=== PATIENT | male | born 1965 | race Caucasian/White ===

== ENCOUNTER → 2017-09-19 | Day surgery (SDC) | payer OTHER ==
[~2017-09-19] VITALS: Ht 185.4 cm; Wt 139.7 kg
[~2017-09-19] MED LIST: ASPIR 8181 MG PO; ASPIRIN EC81 M1 PO; FLEXERIL10 MG PO; FLUTICASON0.05 MG/A2 NASB; HYZAAR 12.5 MG-1 TA1 PO; LOSARTAN-HCTZ 50-12.; LOSARTAN-HCTZ1 EAC1 PO; MERREM IV1 GM IV; NAPROXEN500 MG PO; PERCOCET 325 MG1 TA2 PO; PERCOCET 5-3251 EACH PO; VITAMIN D1000 UNIT PO
--- NOTE | 2017-09-19 07:10 | History & Physical Pre-Op ---
General Information and HPI History of Present Illness: Tae is a 52-year-old male with a history of a nonhealing ulcer at the lateral aspect of his left foot. The patient has in addition remote history of osteomyelitis involving the distal fifth ray, requiring a partial ray resection. The patient has been undergoing weekly total contact cast changes, without any noted improvement. Patient will now require revision was open wound and resection of the proximal right. Allergies/Medications Allergies: Coded Allergies: No Known Allergies (09/15/17) Home Med list Aspirin (Ecotrin*) 81 MG TABLET.DR 1 TAB PO DAILY HEART/BLOOD (Reported) Cholecalciferol (Vitamin D3) (Vitamin D) (Unknown Strength) TABLET (Unknown Dose) PO DAILY SUPPLEMENT (Reported) Losartan/Hydrochlorothiazide (Losartan-Hctz 50-12.5 MG Tab) 50 MG-12.5 MG TABLET 1 TAB PO DAILY BP (Reported) Past History Medical History Neurological: NONE EENT: NONE Cardiovascular: hypertension Respiratory: NONE Gastrointestinal: NONE Hepatic: NONE Renal: NONE Musculoskeletal: rheumatoid arthritis Psychiatric: NONE Endocrine: NONE Blood Disorders: NONE Cancer(s): NONE History of MRSA: No History of VRE: No History of CDIFF: No Influenza Vaccine: 05/28/14 Tetanus Vaccine: 02/24/14 Surgical History Pertinent Surgical History: non-contributory Review of Systems Review of Systems: Unremarkable except for the noted just was Exam & Diagnostic Data Physical Exam: Lungs clear bilaterally. Heart sounds rate and rhythm regular. Lower extremity physical exam demonstrates intact pedal pulses bilaterally. Pulses dorsalis pedis and posterior tibial arteries are palpable bilaterally. Patient without any sensory motor deficits. Patient to have a 4 cm x 3 cm Guillermo grade 2 ulceration at the lateral aspect of the left foot. There is superficial slough overlying an otherwise granular wound bed. No probing or undermining identified. Assessment/Plan Assessment/Plan: Healing ulcer with exostosis left foot. A lengthy discussion reviewing both surgical and conservative options was held the patient at bedside and the patient elects to go forward with surgery despite the risks. As Ranked By This Provider Problem List: 1. Non-pressure chronic ulcer of left heel and midfoot with fat layer exposed Attending MD Review Statement Attending Statement Attending MD Statement: examined this patient
--- NOTE | 2017-09-19 11:59 | Operative Report ---
Operative/Inv Procedure Report Surgery Date: 09/19/17 Name of Procedure: 1 open incision and drainage deep to the deep fascia with exposure of the flexor tendon and tendon sheath multiple sites left foot 2 closure of open surgical wound with local random advancement flap 3 debridement of necrotic bone fifth metatarsal base left foot 4 intraoperative stress Chris block anesthesia Pre-Operative Diagnosis: 1 chronic, nonhealing ulcer plantar lateral left foot 2 suspected osteomyelitis left foot Post-Operative Diagnosis: The same Estimated Blood Loss: less than 50ml Surgeon/Shelter Monitor: Josue CORDON,Wayne Suh DPM Anesthesia: laryngeal mask airway, block Operative/Procedure Note Note: After obtaining informed consent the patient was brought to the operating room and placed on the operating table in the supine position. The patient isn't securely fastened to the operating table utilizing safety belt. After administration of laryngeal mask airway anesthesia, 10 mL of 0.5% Marcaine plain was infiltrated about the patient's left ankle. The ankle tourniquet was placed about the patient's left lower extremity. The left foot and ankle then scrubbed prepped and draped in usual aseptic manner. Left lower extremity is elevated to exsanguinate the limb, which point the ankle tourniquet inflated 250 mmHg. Attention directed plantar lateral aspect the left foot, where a 4 cm x 6 cm full-thickness chronic was identified. A 15 blade visualized sharply revised skin margins. The dissection was then carried down deep to the deep fascia with exposure of the flexor tendon and tendon sheath multiple sites, both proximally and distally. All necrotic, nonviable infected tissue sharply evacuated wound bed. Dissection was then carried down to the periosteum overlying the base of fifth metatarsal stump was incised reflected. An osteotome and mallet was utilized to resect the proximal 2 cm of centrally exposed bone. Specimen was sent for both microbiologic and pathologic inspection. Nipple was then irrigated with 3 L normal sterile saline fissure 50,000 units of bacitracin utilizing pulse lavage device. Following this, the foot was redraped and the surgeon's top of gestation clean gloves. Any bleeding vessels identified were cauterized or ligated as encountered. A plantar lateral flap was developed with undermining, release of the morning ligaments and mobilization of the adjacent tissues. Similarly, a medial flap was developed and again mobilized central aspect of the wound. The deep side of the flap was held centrally with 3-0 Vicryl. Subtenons tissues report with 4-0 Vicryl and the skin edges reapproximated 3-0 nylon. Incision was dressed with Xeroform 4 x 4's Kerlix and Alessandro wrap. The patient noted tolerate both procedure and anesthesia well and the patient was transported from the operating room to recovery with vital signs stable best assess intact all the plantar lateral posteromedial flaps.
== END ==
LOC: STS 02:17
DX: L97.424 Non-pressure chronic ulcer of left heel and midfoot with necrosis of bone (principal); I10 Essential (primary) hypertension; M06.9 Rheumatoid arthritis, unspecified; Z79.82 Long term (current) use of aspirin
CPT/HCPCS: 87070; 87075; 87184; 87071; 87147; J0690; J2001; J2250

== ENCOUNTER 2017-12-05 12:30 | Inpatient (IN) | payer OTHER ==
[~2017-12-05] VITALS: Ht 185.4 cm; Wt 129.4 kg
[~2017-12-05 12:30] MED LIST changes: +MOBIC15 M1 PO
[2017-12-05] MEDS ORDERED: TRAMADOL HCL50 M1 PO (12:57)
[2017-12-05] MEDS ORDERED: TAMSULOSIN HCL0.4 M1 PO (12:57)
[2017-12-05] MEDS ORDERED: MOBIC15 M1 PO (12:57)
[2017-12-05 13:12] LABS: ABSOLUTE BASOPHIL COUNT 0 /CUMM (0.0-0.2); ABSOLUTE EOSINOPHIL COUNT 0 /CUMM (0.0-0.7); ABSOLUTE GRANULOCYTE CT 26.8 /CUMM (1.4-6.5); ABSOLUTE LYMPH COUNT 1.2 /CUMM (1.2-3.4); ABSOLUTE MONOCYTE COUNT 1.2 /CUMM (0.10-0.60); BASOPHIL % 0.2 % (0.0-2.0); EOSINOPHIL % 0 % (0-5); HEMATOCRIT 37.7 % (42-52); MEAN CORPUSCULAR HGB 31.5 PG (27.0-31.0); MEAN CORPUSCULAR HGB CONC 33.9 G/DL (33.0-37.0); MEAN CORPUSCULAR VOLUME 93.1 FL (80.0-94.0); MEAN PLATELET VOLUME 8.2 FL (7.4-10.4); PLATELET COUNT 486 /CUMM (130-400); RED BLOOD CELL CT 4.05 /CUMM (4.70-6.10); WHITE BLOOD CELL COUNT 29.3 /CUMM (4.8-10.8)
[2017-12-05 13:13] LABS: GRANULOCYTE % 91.4 % (42.2-75.2)
--- NOTE | 2017-12-05 13:29 | ED GENERAL ADULT ---
History of Present Illness General Chief Complaint: General Adult Stated Complaint: SIB DR HOPSON ?LOW BLOOD COUNTS? Source: patient, old records Exam Limitations: poor historian Vital Signs & Intake/Output Vital Signs & Intake/Output Vital Signs Date Time Temp Pulse Resp B/P B/P Pulse O2 O2 Flow FiO2 Mean Ox Delivery Rate 12/10 0936 84 108/70 12/10 0800 98.5 84 22 108/70 93 Nasal 2.0L Cannula 12/10 0400 BIPAP 30% 12/10 0350 70 98 12/10 0046 85 96 12/10 0000 96 BIPAP 30% 12/09 2300 97.9 80 32 112/74 96 Nasal 2.0L Cannula 12/09 2110 86 97 12/09 2006 78 94 12/09 2000 96 BIPAP 35% 12/09 1949 89 BIPAP 50% 12/09 1940 96.6 80 24 120/80 89 BIPAP 50% 12/09 1726 77 93 12/09 1427 98.5 87 20 120/85 93 Room Air ED Intake and Output 12/10 0000 12/09 1200 Intake Total 1910 1760 Output Total 790 350 Balance 1120 1410 Intake, IV 1150 1400 Intake, Oral 760 360 Output, 40 Drainage Output, Urine 750 350 Allergies Coded Allergies: No Known Allergies (09/15/17) Reconcile Medications Aspirin (Ecotrin*) 81 MG TABLET.DR 1 TAB PO DAILY HEART/BLOOD (Reported) Ciprofloxacin HCl 500 MG TABLET 1 TAB PO BID ANTIBIOTIC, INFECTION (Reported) Losartan/Hydrochlorothiazide (Losartan-Hctz 50-12.5 MG Tab) 50 MG-12.5 MG TABLET 1 TAB PO DAILY BP (Reported) Meloxicam (Mobic) 15 MG TABLET 1 TAB PO DAILY PAIN (Reported) Tamsulosin HCl 0.4 MG CAP.ER.24H 1 CAP PO DAILY PROSTATE (Reported) Tramadol HCl 50 MG TABLET 1 TAB PO BIDP PRN PAIN (Reported) Triage Note: PT SENT TO ED BY DR COVINGTON'S OFFICE FOR ELEVATED WBC COUNT. PT HAD BLOOOWORK THIS AM WHICH SHOWED WBC OF 26,000. PT HAS CHRONIC WOUND TO LEFT FOOT WITH FOUL ODOR. BP 72/48 IN TRIAGE, PT TAKEN TO ROOM 7 VIA W/C FOR EVAL. Triage Nurses Notes Reviewed? yes HPI: Patient presents for evaluation of abnormal labs. Patient states he has a left foot infection and had blood tests done which showed something wrong. Patient's current complaint is of back pain that began about 1 week ago. Patient states he had an ultrasound via his primary care physician for the possibility of a kidney stone but apparently none was detected. Patient's back pain does get worse when "getting up". In addition the patient was told he had a fever at his doctor's office today although he denies any associated cold symptoms. Past History Travel History Traveled to [place] past 21 day No Medical History Any Pertinent Medical History? see below for history Neurological: NONE EENT: NONE Cardiovascular: hypertension Respiratory: NONE Gastrointestinal: NONE Hepatic: NONE Renal: NONE Musculoskeletal: rheumatoid arthritis Psychiatric: NONE Endocrine: NONE Blood Disorders: NONE Cancer(s): NONE History of MRSA: No History of VRE: No History of CDIFF: No Tetanus Vaccine: 02/24/14 Surgical History Surgical History: non-contributory Psychosocial History Who do you live with Patient/Self What is your primary language Mongolian Tobacco Use: Never used ETOH Use: denies use Illicit Drug Use: denies illicit drug use Family History Hx Contributory? No Review of Systems Review of Systems Constitutional: Reports: no symptoms. EENTM: Reports: no symptoms. Respiratory: Reports: no symptoms. Cardiovascular: Reports: no symptoms. GI: Reports: no symptoms. Genitourinary: Reports: no symptoms. Musculoskeletal: Reports: see HPI. Skin: Reports: no symptoms. Neurological/Psychological: Reports: no symptoms. Hematologic/Endocrine: Reports: no symptoms. Immunologic/Allergic: Reports: no symptoms. All Other Systems: Reviewed and Negative Physical Exam Physical Exam General Appearance: SEE BELOW Comments: Gen.: Well-nourished, well-developed, no acute respiratory distress. Head: Normocephalic, atraumatic. Eyes: Normal inspection bilaterally Ears: Normal inspection bilaterally Nose: Normal inspection Throat/mouth : Dry mucosa Neck: Supple, full range of motion, no goiter Heart: Rapid Regular rate and rhythm, no murmurs rubs or gallops Lungs: Clear to auscultation bilaterally with normal air entry Chest: Nontender Back: Normal range of motion, mild tenderness over the right lumbar paraspinal musculature Abdomen: Soft, nontender, nondistended, normal bowel sounds Extremities: Normal range of motion grossly, equal radial pulses, no cyanosis clubbing or edema, chronic wound over the dorsum of the left foot laterally Neurologic: Cranial nerves grossly intact, speech is clear Skin: warm and dry Psychiatric: Calm, cooperative, no apparent delusions or hallucinations Core Measures ACS in differential dx? No CVA/TIA Diagnosis: No Sepsis Present: Yes Sepsis Focused Exam Completed? Yes Progress Differential Diagnoses I considered the following diagnoses in my evaluation of the patient: pneumonia, uti,cellulitis,viral syndrome/flu,bacteremia Plan of Care: Orders Procedure Date/time Status CBC WITHOUT DIFFERENTIAL 12/11 0600 Active ICU LAB BUNDLE 12/11 0500 Active CBC WITHOUT DIFFERENTIAL 12/11 0500 Active Consistent Carbohydrate 3 12/10 B Active Transfer Disposition 12/10 1114 Active PHOSPHORUS 12/10 0550 Complete MAGNESIUM 12/10 0550 Complete GLUCOSE 12/10 0550 Complete BASIC ELECTROLYTES PLUS BUN&CR 12/10 0550 Complete BIPAP 12/10 UNK Complete PT Evaluate & Treat 12/10 UNK Active Therapeutic Activities 12/10 UNK Complete PT EVAL LOW COMPLEX 20 MIN 12/10 UNK Complete Transfer patient to 12/10 UNK Active ARTERIAL BLOOD GAS (GEN) 12/09 1920 Complete VRE ACTIVE SURVIELLANCE 12/09 1826 Active ACTIVE SURVEILLANCE NARES 12/09 1826 Active BLOOD CULTURE 12/09 1735 Active BIPAP 12/09 UNK Complete Transfer patient to 12/09 UNK Active Wound Care/Dressing 12/09 UNK Complete Drains/Tubes 12/09 UNK Active Nursing Misc 12/09 UNK Complete Current Medications Sig/Shade Start time Last Medication Dose Stop Time Status Admin Vancomycin HCl 1,000 MG Q8H 12/10 1000 AC Sodium Chloride 250 ML (Normal Saline 0.9%) Dextrose/Sodium 1,000 ML Q13H 12/10 0945 AC Chloride (D5W-1/2 Normal Saline 1000ML) Polyethylene Glycol 17 GM DAILY NEEDED PRN 12/10 0945 AC 12/10 (Miralax) 1105 Piperacillin Sod/ 4.5 GM Q6 12/08 1800 AC 12/10 Tazobactam Sod 1106 (Zosyn) Sodium Chloride 100 ML (Normal Saline 0.9%) Tramadol HCl 25 MG Q6P PRN 12/07 1300 AC 12/10 (Ultram) 0634 Aspirin Buffered 81 MG DAILY 12/06 0900 AC 12/10 (Ecotrin) 0936 Tamsulosin HCl 0.4 MG DAILY 12/06 0900 AC 12/10 (Flomax) 0936 Acetaminophen 1,000 MG Q8P PRN 12/06 0700 AC 12/10 (Tylenol) 0936 Heparin Sodium 5,000 UNIT Q8 12/05 2200 AC 12/10 (Porcine) 0634 Laboratory Tests 12/10/17 0635: Anion Gap 8, Estimated GFR > 60, BUN/Creatinine Ratio 15.0, Glucose 126 H, Phosphorus 4.0, Magnesium 1.6 12/10/17 0440: CBC w Diff NO MAN DIFF REQ, RBC 2.69 L, MCV 95.2 H, MCH 30.7, MCHC 32.3 L, RDW 14.7 H, MPV 8.1, Gran % 79.8 H, Lymphocytes % 11.6 L, Monocytes % 6.7, Eosinophils % 1.9, Basophils % 0, Absolute Granulocytes 10.2 H, Absolute Lymphocytes 1.5, Absolute Monocytes 0.9 H, Absolute Eosinophils 0.2, Absolute Basophils 0 12/09/17 1930: pH 7.45, pCO2 50 H, pO2 198 H, HCO3 34 H, ABG O2 Sat (Measured) 99.0, Carboxyhemoglobin 0.2 L, O2 Concentration % 50%, Respiration Rate 24, O2 Delivery Method BIPAP, Vent Mode S/T, Expiratory Pressure 6, Inspiratory Pressure 22, Phlebotomy Draw Site RIGHT RADIAL Microbiology 12/09 1909 BLOOD: Blood Culture - RES 12/09 1899 BLOOD: Blood Culture - RES 12/09 1829 UPPER RESP: Surveillance Culture - RECD 12/09 1829 GI: Surveillance Culture - RECD Diagnostic Imaging: Discussed w/RAD: Radiology Read. Radiology Impression: PATIENT: TAE MARTELL PRESENT AGE: 52 PATIENT ACCOUNT NO: [id number] : 65 LOCATION: [facility] ORDERING PHYSICIAN: Alexandre Raymundo MD SERVICE DATE: 12/05/17 EXAM TYPE: RAD - XRY-CHEST XRAY, TWO VIEWS EXAMINATION: XR CHEST CLINICAL INFORMATION: Fever, elevated white blood cell count. COMPARISON: 02/19/2016. TECHNIQUE: 2 views of the chest were obtained. FINDINGS: The cardiomediastinal silhouette is stable with prominence of the pulmonary arteries. There is no congestion or edema. Lungs are well expanded. No consolidation or effusion to suggest pneumonia. Degenerative changes in the spine. IMPRESSION: Stable chest x-ray. Question pulmonary arterial hypertension. No focal pneumonia. DICTATED BY: Bam Palumbo MD DATE/TIME DICTATED:12/05/171435 HEALTHCARE PROF:TOM DATE/TIME TRANSCRIBED:12/05/171435 CONFIDENTIAL, DO NOT COPY WITHOUT APPROPRIATE AUTHORIZATION. <Electronically signed in Other Vendor System> SIGNED BY: Bam Palumbo MD 12/05/17 1442, PATIENT: TAE MARTELL PRESENT AGE: 52 PATIENT ACCOUNT NO: [id number] : 65 LOCATION: [facility] ORDERING PHYSICIAN: Alexandre Raymundo MD SERVICE DATE: 12/05/17 EXAM TYPE : RAD - XRY-FOOT COMPLETE, LEFT EXAMINATION: XR FOOT, LEFT CLINICAL INFORMATION: 52-year-old male patient with chronic left foot wound and fever. COMPARISON: MRI of the foot on 08/19/2014. (Osteomyelitis fifth toe). X-ray of the left foot on 04/17/2013 2017. TECHNIQUE: AP, lateral, and oblique views of the left foot. FINDINGS: Reexamination shows a large soft tissue ulcer involving the plantar aspect of the left foot adjacent to the fifth carpal metacarpal joint. The amputation at the mid fifth metatarsal has not changed. Small lines of subcutaneous air are seen near the ulcer site. Immediately adjacent to the deep ulcer, there is cortical bone destruction diagnostic for osteomyelitis of the midfoot. Generalized distortion of the bones of the hindfoot and midfoot is secondary to diabetic neuropathy. IMPRESSION: 1. Chronic diabetic osteoarthropathy/neuropathy. 2. Focal area of bone destruction representing osteomyelitis adjacent to the deep skin ulcer, lateral midfoot. DICTATED BY: Castillo Muhammad MD DATE/TIME DICTATED:12/05/171435 HEALTHCARE PROF: TOM DATE/TIME TRANSCRIBED:12/05/171435 CONFIDENTIAL, DO NOT COPY WITHOUT APPROPRIATE AUTHORIZATION. <Electronically signed in Other Vendor System> SIGNED BY: Castillo Muhammad MD 12/05/17 1452, PATIENT: TAE MARTELL PRESENT AGE: 52 PATIENT ACCOUNT NO: [id number] : LOCATION: [facility] ORDERING PHYSICIAN: Alexandre Raymundo MD SERVICE DATE: EXAM TYPE: CAT - CT LUMB SPINE W IV CONTRAST EXAMINATION: CT LUMBAR SPINE WITH CONTRAST CLINICAL INFORMATION: Spinal abscess. Fever and back pain. COMPARISON: No relevant prior imaging. TECHNIQUE: A CT acquisition of the lumbar spine was performed after the intravenous administration of contrast. A total of 95 mL Optiray 320 was utilized for this examination. No adverse contrast reaction was reported. DLP: 1134 mGy-cm FINDINGS: There is no evidence of a discrete drainable fluid collection. There is grade 1 anterolisthesis of L4 on L5 that appears to be related to advanced facet degenerative changes at this level. Alignment is otherwise normal. Vertebral body heights are preserved. There is slight loss of intervertebral disc height with associated sclerotic degenerative endplate changes and disc osteophyte spurring at multiple levels. No evidence of acute fracture. The canal is not well assessed on this examination due to inherent limitations of CT. Nevertheless there is evidence of degenerative spondylosis superimposed upon underlying congenital canal narrowing at multiple levels within the lumbar spine. There is at least moderate canal stenosis at the levels of L1-L2, L2-L3, L3-L4, and L4-L5. There are varying degrees of neuroforaminal encroachment related to disc osteophyte spurring and facet degenerative change. There is mild inflammatory stranding within the retroperitoneal fat that appears to be associated with a small right anterolateral disc herniation for instance best illustrated on axial image 115 of 457 series 3. There is abutment with associated sclerotic changes of the adjoining spinous processes at multiple levels indicating the likelihood of underlying Baastrup disease. Scattered atheromatous calcification involves the abdominal aorta and iliac vessels. IMPRESSION: There is multilevel degenerative spondylosis of the lumbar spine with grade 1 anterolisthesis of L4 on L5 that appears to be related to advanced facet degenerative changes at this level. There is disc osteophyte spurring and facet degenerative change that is superimposed upon underlying congenital canal narrowing causing at least moderate canal stenosis at the levels of L1-L2, L2-L3, L3-L4, and L4-L5. If there is a clinical concern for canal stenosis then a dedicated lumbar spine MRI is recommended for better anatomic characterization of the canal. No clear evidence of a discrete drainable fluid collection. There is mild inflammatory stranding within the retroperitoneal soft tissues adjacent to what is felt to represent a small right anterolateral disc herniation at L1-L2. DICTATED BY: HyneAyo sanders MD DATE/TIME DICTATED:12/05/171458 HEALTHCARE PROF: TOM DATE/TIME TRANSCRIBED:12/05/171458 CONFIDENTIAL, DO NOT COPY WITHOUT APPROPRIATE AUTHORIZATION. <Electronically signed in Other Vendor System> SIGNED BY: Ayo Meeks MD 12/05/17 1512 Initial ED EKG: none Comments: 12/05/2017 3:55:29 PM I have updated Tae on his test results however we are still awaiting a urine specimen. He is amenable to a straight cath. He is being evaluated by Dr. Salas currently who feels that the patient's chronic left foot wound appears stable and unlikely to be the underlying cause of his fever and white count. Departure Departure Disposition: STILL A PATIENT Condition: Stable Clinical Impression Primary Impression: Sepsis Qualifiers: Sepsis type: sepsis due to unspecified organism Qualified Code: A41.9 - Sepsis, unspecified organism Referrals: Alessandra GRAJEDA,Mariluz (PCP/Family) Departure Forms: Customer Survey General Discharge Information Admission Note Spoke With: Jerardo Eagle MD Documentation of Exam: Documentation of any treatments & extenuating circumstances including Concerns Regarding Discharge (functional status, medication knowledge or non-compliance, living conditions, etc.) that warrant an admission rather than observation: Patient presents with a fever and very high white blood cell count. I do not feel he can be treated safely as an outpatient and would likely return in 4 worse clinical condition. He requires hospitalization for close clinical monitoring of his vital signs, treatment with IV antibiotics and intravenous fluids, and podiatry consultation given his chronic left foot wound. It addition infectious disease consultation should be considered given the patient' s clinical presentation. Culture results should be followed and treatment adjusted accordingly. I feel this patient's medical course will be prolonged and complicated given his past medical history and current illness. It is highly likely he will require short-term rehabilitation. I feel he will require a multiple day hospitalization. Critical Care Note Critical Care Note Critical Care Time: 30-74 min
--- NOTE | 2017-12-05 14:42 | RADIOLOGY REPORT ---
EXAMINATION: XR CHEST CLINICAL INFORMATION: Fever, elevated white blood cell count. COMPARISON: 02/19/2016. TECHNIQUE: 2 views of the chest were obtained. FINDINGS: The cardiomediastinal silhouette is stable with prominence of the pulmonary arteries. There is no congestion or edema. Lungs are well expanded. No consolidation or effusion to suggest pneumonia. Degenerative changes in the spine. IMPRESSION: Stable chest x-ray. Question pulmonary arterial hypertension. No focal pneumonia.
--- NOTE | 2017-12-05 14:52 | RADIOLOGY REPORT ---
EXAMINATION: XR FOOT, LEFT CLINICAL INFORMATION: 52-year-old male patient with chronic left foot wound and fever. COMPARISON: MRI of the foot on 08/19/2014. (Osteomyelitis fifth toe). X-ray of the left foot on 04/17/2013 2017. TECHNIQUE: AP, lateral, and oblique views of the left foot. FINDINGS: Reexamination shows a large soft tissue ulcer involving the plantar aspect of the left foot adjacent to the fifth carpal metacarpal joint. The amputation at the mid fifth metatarsal has not changed. Small lines of subcutaneous air are seen near the ulcer site. Immediately adjacent to the deep ulcer, there is cortical bone destruction diagnostic for osteomyelitis of the midfoot. Generalized distortion of the bones of the hindfoot and midfoot is secondary to diabetic neuropathy. IMPRESSION: 1. Chronic diabetic osteoarthropathy/neuropathy. 2. Focal area of bone destruction representing osteomyelitis adjacent to the deep skin ulcer, lateral midfoot.
--- NOTE | 2017-12-05 15:12 | CT SCAN REPORT ---
EXAMINATION: CT LUMBAR SPINE WITH CONTRAST CLINICAL INFORMATION: Spinal abscess. Fever and back pain. COMPARISON: No relevant prior imaging. TECHNIQUE: A CT acquisition of the lumbar spine was performed after the intravenous administration of contrast. A total of 95 mL Optiray 320 was utilized for this examination. No adverse contrast reaction was reported. DLP: 1134 mGy-cm FINDINGS: There is no evidence of a discrete drainable fluid collection. There is grade 1 anterolisthesis of L4 on L5 that appears to be related to advanced facet degenerative changes at this level. Alignment is otherwise normal. Vertebral body heights are preserved. There is slight loss of intervertebral disc height with associated sclerotic degenerative endplate changes and disc osteophyte spurring at multiple levels. No evidence of acute fracture. The canal is not well assessed on this examination due to inherent limitations of CT. Nevertheless there is evidence of degenerative spondylosis superimposed upon underlying congenital canal narrowing at multiple levels within the lumbar spine. There is at least moderate canal stenosis at the levels of L1-L2, L2-L3, L3-L4, and L4-L5. There are varying degrees of neuroforaminal encroachment related to disc osteophyte spurring and facet degenerative change. There is mild inflammatory stranding within the retroperitoneal fat that appears to be associated with a small right anterolateral disc herniation for instance best illustrated on axial image 115 of 457 series 3. There is abutment with associated sclerotic changes of the adjoining spinous processes at multiple levels indicating the likelihood of underlying Baastrup disease. Scattered atheromatous calcification involves the abdominal aorta and iliac vessels. IMPRESSION: There is multilevel degenerative spondylosis of the lumbar spine with grade 1 anterolisthesis of L4 on L5 that appears to be related to advanced facet degenerative changes at this level. There is disc osteophyte spurring and facet degenerative change that is superimposed upon underlying congenital canal narrowing causing at least moderate canal stenosis at the levels of L1-L2, L2-L3, L3-L4, and L4-L5. If there is a clinical concern for canal stenosis then a dedicated lumbar spine MRI is recommended for better anatomic characterization of the canal. No clear evidence of a discrete drainable fluid collection. There is mild inflammatory stranding within the retroperitoneal soft tissues adjacent to what is felt to represent a small right anterolateral disc herniation at L1-L2.
--- NOTE | 2017-12-05 18:33 | History & Physical ---
ZamoraAntoni 12/05/17 1828: General Information and HPI MD Statement: I have seen and personally examined JOSÉ MIGUEL MARTELL and documented this H&P. The patient is a 52 year old M who presented with a patient stated chief complaint of fever. Source of Information: patient Exam Limitations: no limitations History of Present Illness: 52-year-old gentleman with history of hypertension, history of nonhealing ulcer on the lateral aspect of his left foot, status post right ankle fusion, status post right hip surgery with hardware in place, was recently in [facility] on 09/19/2017 for his chronic left lateral foot ulcer as well as suspected osteomyelitis left foot. He states getting discharged with a picc line of the time, for a total antibiotic course of 28 days. He does not remember the name of the antibiotic. Patient presents to [facility] ED today, after he was found to have a fever of 101 at his primary care's office. He states that he has been having knee pains and back pains for last couple of weeks. About a week ago, he visited ED with back pain and also had "small blood clot" in the urine. He got ultrasound of the kidneys at the time, which was unremarkable. He continued to have back pains, visited an urgent care and was told that he had, "bad body mechanics". He did start taking Mobic for his back pain. Today he went to his primary care to get this addressed, very was found to be febrile and was sent to the ED. Patient's report taking his antihypertensives this morning, but didn't eat anything today. He was found to be hypotensive to 72/48 in the ED. He denied any lightheadedness or dizziness. He denies any dysuria, flank pain, fevers or chills. He denies any recent diarrhea, and states uneventful completion of his antibiotic course through PICC line. No recent upper respiratory symptoms. He denies any recent worsening left foot pain, swelling, erythema or worsening drainage etc. Allergies/Medications Allergies: Coded Allergies: No Known Allergies (09/15/17) Home Med list Aspirin (Ecotrin*) 81 MG TABLET. 1 TAB PO DAILY HEART/BLOOD (Reported) Ciprofloxacin HCl 500 MG TABLET 1 TAB PO BID ANTIBIOTIC, INFECTION (Reported) Losartan/Hydrochlorothiazide (Losartan-Hctz 50-12.5 MG Tab) 50 MG-12.5 MG TABLET 1 TAB PO DAILY BP (Reported) Meloxicam (Mobic) 15 MG TABLET 1 TAB PO DAILY PAIN (Reported) Tamsulosin HCl 0.4 MG CAP.ER.24H 1 CAP PO DAILY PROSTATE (Reported) Tramadol HCl 50 MG TABLET 1 TAB PO BIDP PRN PAIN (Reported) Past History Travel History Traveled to [place] past 21 day No Medical History Neurological: NONE EENT: NONE Cardiovascular: hypertension Respiratory: NONE Gastrointestinal: NONE Hepatic: NONE Renal: NONE Musculoskeletal: rheumatoid arthritis Psychiatric: NONE Endocrine: NONE Blood Disorders: NONE Cancer(s): NONE History of MRSA: No History of VRE: No History of CDIFF: No Tetanus Vaccine: 02/24/14 Surgical History Surgical History: non-contributory Past Family/Social History Family History Relations & Conditions if any Relation not specified for: No pertinent family history Psychosocial History ETOH Use: denies use Illicit Drug Use: denies illicit drug use Review of Systems Review of Systems Constitutional: Reports: see HPI. Exam & Diagnostic Data Last 24 Hrs of Vital Signs/I&O Vital Signs Date Time Temp Pulse Resp B/P B/P Pulse O2 O2 Flow FiO2 Mean Ox Delivery Rate 12/05 1513 99.2 101 20 108/52 94 Room Air 12/05 1504 98 12/05 1502 99.1 12/05 1351 101.0 12/05 1308 121 139/92 12/05 1238 100.7 137 20 72/48 91 Room Air Intake & Output 12/05 1600 12/05 0800 12/05 0000 Intake Total Output Total Balance Patient 204 lb Weight Weight Reported by Patient Measurement Method Physical Exam General Appearance Alert, Oriented X3 HEENT Atraumatic, PERRLA, EOMI Cardiovascular Regular Rate, Normal S1, Normal S2 Lungs Clear to Auscultation, Normal Air Movement Abdomen Normal Bowel Sounds, Soft, No Tenderness Extremities No Clubbing, No Cyanosis, No Edema, chronic wound over lateral aspect of left foot Last 24 Hrs of Labs/Guilherme: Laboratory Tests 12/05/17 1830: Urine Color Pending, Urine Clarity Pending, Urine pH Pending, Ur Specific [place] Pending, Urine Protein Pending, Urine Ketones Pending, Urine Nitrite Pending, Urine Bilirubin Pending, Urine Urobilinogen Pending, Ur Leukocyte Esterase Pending, Ur Microscopic Pending, Urine Hemoglobin Pending, Urine Glucose Pending 12/05/17 1603: Lactic Acid 1.3 12/05/17 1301: Anion Gap 10, Estimated GFR 58 L, BUN/Creatinine Ratio 28.5 H, Glucose 125 H, Lactic Acid 2.5 H, Calcium 9.0, Total Bilirubin 1.1, AST 73 H, ALT 74 H, Alkaline Phosphatase 133 H, Total Protein 7.4, Albumin 2.8 L, Globulin 4.6 H, Albumin/Globulin Ratio 0.6 L, CBC w Diff MAN DIFF ORDERED, RBC 4.05 L, MCV 93.1, MCH 31.5 H, MCHC 33.9, RDW 14.0, MPV 8.2, Gran % 91.4 H, Lymphocytes % 4.2 L, Monocytes % 4.2, Eosinophils % 0, Basophils % 0.2, Absolute Granulocytes 26.8 H, Segmented Neutrophils 81 H, Band Neutrophils 4, Absolute Lymphocytes 1.2, Lymphocytes 9 L, Monocytes 6, Absolute Monocytes 1.2 H, Absolute Eosinophils 0, Absolute Basophils 0, Platelet Estimate VERIFIED BY SMEAR, Normocytic RBCs VERIFIED, Normochromic RBCs VERIFIED Microbiology 12/05 1830 URINE ROUT: Urine Culture - RECD 12/05 1402 BLOOD: Blood Culture - RECD 12/05 1327 BLOOD: Blood Culture - RECD Assessment/Plan Assessment: 52-year-old gentleman with chronic nonhealing ulcer of the left foot, with x-ray suggestive of osteomyelitis, here with leukocytosis, fevers presentation suggestive of active infection, he has already received vancomycin and ceftazidime empirically for perhaps presumed residual osteomyelitis. 1. Focal area of bone destruction representing osteomyelitis. Most likely expansion for his septic presentation. Empiric antibody treatment with vancomycin and ciprofloxacin (patient has grown Pseudomonas from his bone cultures, resistant to ceftazidime in the past). Rule out other sources, blood cultures 2, urine culture (unlikely urinary source and the second no in the setting of negative UA). If bacteremic, may need echocardiogram as well as right hip imaging. Podiatry consult. ID consult. Right upper quadrant ultrasound to rule out biliary pathology, given transaminitis and elevated alkaline phosphatase. Again unlikely, given negative abdominal physical exam. 2. Episode of hypotension. Hold antihypertensives. Fluids normal saline at 75 mL an hour. Check lactate. Antibiotics as above. 3. ADAM. Likely prerenal due to decreased oral intake, also in the setting of recent NSAID use and ARB use. Hold both. IV fluid hydration. 4. Transaminitis. RUQ US. Check Hepatitis panel. Full code. Heparin subcutaneous for DVT prophylaxis. Regular diet. As Ranked By This Provider Problem List: 1. Non-pressure chronic ulcer of left heel and midfoot with fat layer exposed Core Measures/Misc (04/30) Acute Coronary Syndrome ACS Diagnosis: No Congestive Heart Failure Congestive Heart Failure Diagnosis No Cerebrovascular Accident CVA/TIA Diagnosis: No VTE (View Protocol) VTE Risk Factors Age>40 No Mechanical VTE Prophylaxis d/t Other No VTE Pharm Prophylaxis d/t Other Sepsis (View protocol) Sepsis Present: Yes JanessaLucerojosefina 12/05/17 2312: Attending MD Review Statement Attending Statement Attending MD Statement: examined this patient, discuss w/resident/PA/FUR TRIMMING MACHINE OPERATOR, agreed w/resident/PA/FUR TRIMMING MACHINE OPERATOR, reviewed EMR data (avail), reviewed images, amended to note Attending Assessment/Plan: CC: Fever PMH: HTN, history of osteomyelitis left foot, chronic left foot ulcer Patient was sent in ER by primary care physician for fever. Patient states that he has been having right lower back pain since approximately 2 weeks, constant, only at one spot, nonradiating, non-positional and did not have any fever, chills at home, no right upper quadrant pain, no urinary burning or frequency. He followed up with urgent care for this pain and he was given tramadol and NSAIDs. It did not relieve the pain so he followed up with his primary care physician who walked in which showed blood in the urine so he was started on Cipro and renal ultrasound was obtained to rule out any stone. Today he was following up for the same visit when he had fever and primary care office and he was sent to ER for further evaluation. Patient also has chronic left foot ulcer on the lateral aspect for which he underwent debridement on September 19 followed by which he completed 28 days of IV antibiotics through PICC line. Vitals: T max 101.0, pulse 137, RR 20, blood pressure 72/48 on arrival improved to 108/52, saturating 91% on room air. On exam: A O 3, cooperative, no acute distress, neck supple, JVD normal, no lymphadenopathy, mucosa very dry, no focal neurological deficit, no dependent edema, CVS: S1-S2, RRR. RS: Clear to auscultate bilaterally. Abdomen: Soft, NT, ND, bowel sounds present, no CVA tenderness, Su's sign negative, he has chronic nonhealing ulcer on the lateral aspect of left foot with irregular margins and deep pocket with no obvious discharge or surrounding cellulitis. Right foot middle toe has dry gangrene at the tip. CXR: Stable chest x-ray. Question pulmonary arterial hypertension. No focal pneumonia. Foot x-ray, left: 1. Chronic diabetic osteoarthropathy/neuropathy. 2. Focal area of bone destruction representing osteomyelitis adjacent to the deep skin ulcer, lateral midfoot. Assessment and plan 52-year-old male with past medical history significant for hypertension and history of osteomyelitis left foot S/P amputation of small toe and chronic nonhealing ulcer on the lateral aspect of left presented in ER for fever of unclear etiology. Patient states that he had right lower back pain since last 2 weeks for which he tried tramadol and Mobic without symptom relief, followed by that he was seen by primary care physician. PCP obtained UA and renal ultrasound for possible kidney stones which was normal. Patient was prescribed ciprofloxacin, today he followed up with the care physician and in the office his fever was 101 so he was sent to ER. Other than mild right low back pain patient does not have any other symptoms including nasal congestion, cough, expectoration, pleuritic chest pain, abdominal pain, diarrhea, left foot pain, urinary symptoms. He had fever spike of 101 while in ER, tachycardic at that time and transiently hypotensive and responded to IV fluids. He Was extremely dehydrated on examination. Left foot wound appears chronic without any secondary cellulitis changes, lungs clear to auscultate, Su's sign negative. Patient had WBC of 29.3 with left shift and 4 bands, lactic acid of 2.5, AST 73 ALT 74 alkaline phosphatase 133. Patient was seen by studio artist in the ER and was suggested to get MRI of left foot. His x-ray shows chronic osteoarthropathy with possibly new osteomyelitis but it is unclear as patient had undergone debridement in September for similar symptoms. Patient was given broad-spectrum antibiotic in ER, cultures were sent. A right upper quadrant ultrasound was obtained to rule out any choledocholithiasis, reviewed his previous renal ultrasound done on November 30 which was unremarkable. Patient would benefit from outpatient vascular studies. The right lower back pain appears musculoskeletal. + Fever probably secondary to left foot osteomyelitis, there is no evidence of surrounding cellulitis. It's very unusual to have fever of 1 day only for osteomyelitis, unclear other source of infection + Hx HTN - Admit to general medicine - Continue current aggressive hydration - Closely watch blood pressure - Trend lactate - Continue vancomycin and Ceftaz for now - Follow-up blood cultures, UA urine cultures - ID consult in a.m. - Left foot MRI - DVT prophylaxis - Adequate pain control
--- NOTE | 2017-12-05 20:53 | ULTRASOUND REPORT ---
EXAMINATION: US ABDOMEN LIMITED CLINICAL INFORMATION: Evaluate for biliary pathology elevated alkaline phosphatase transaminase. COMPARISON: Ultrasound of the kidneys 11/30/2017. TECHNIQUE: Real-time imaging of the right upper quadrant abdominal viscera. FINDINGS: PANCREAS: Mostly obscured by overlying bowel gas LIVER: Liver measures 21.1 cm in length no focal abnormality. GALLBLADDER: Echogenic bile noted but no definite gallstones no gallbladder wall thickening or pericholecystic fluid. COMMON BILE DUCT: Normal in caliber measuring 0.4 cm in diameter. RIGHT KIDNEY: No hydronephrosis. No renal calculi or focal parenchymal lesions. The kidney measures 14.1 cm in maximum dimension. FREE FLUID: None. IMPRESSION: Slightly limited as bowel gas mostly obscures the pancreas. Liver mildly enlarged although the echogenicity is normal.
[2017-12-05 21:56] VITALS: BP 100/60
--- NOTE | 2017-12-05 23:14 | Admission Certification ---
Admission Certification Certification Statement - As attending physician, I certify that at the time of - admission, based on clinical presentation, severity of - symptoms, need for further diagnostic testing and - therapeutic interventions, and risk of adverse outcomes - without in-hospital treatment, in my clinical assessment, - this patient requires an acute hospital stay for a minimum - of two nights or longer. I have also considered psychsocial - factors such as support system, advanced age, financial - issues, cognitive issues, and failed out-patient treatments, - past re-admission history, safety of patient, and lack of - compliance as applicable. Specific rationale supporting this admission is: Sepsis
[2017-12-06 00:26] VITALS: BP 110/60
[2017-12-06 02:50] VITALS: BP 98/60
[2017-12-06 05:45] VITALS: BP 110/70
--- NOTE | 2017-12-06 07:03 | PN- Housestaff ---
See Addendum Subjective Follow-up For: Sepsis Subjective: No overnight events. Patient feels better than when he came in. He denies chest pain, SOB, dysuria, abd pain, diarrhea, fevers, chills, or sweats. Review of Systems Constitutional: Reports: no symptoms. EENTM: Reports: no symptoms. Cardiovascular: Reports: no symptoms. Respiratory: Reports: no symptoms. Gastrointestinal: Reports: no symptoms. Genitourinary: Reports: no symptoms. Musculoskeletal: Reports: no symptoms. Skin: Reports: no symptoms. Neurological/Psychological: Reports: no symptoms. Hematologic/Endocrine: Reports: no symptoms. Immunologic/Allergic: Reports: no symptoms. Objective Last 24 Hrs of Vital Signs/I&O Vital Signs Date Time Temp Pulse Resp B/P B/P Pulse O2 O2 Flow FiO2 Mean Ox Delivery Rate 12/06 0545 99.0 93 20 110/70 91 Room Air 12/06 0250 99.7 90 18 98/60 92 Room Air 12/06 0026 99.3 87 20 110/60 91 Room Air 12/05 2156 98.3 90 20 100/60 92 Room Air 12/05 2027 98.4 83 20 101/56 93 Room Air 12/05 1936 88 104/67 12/05 1900 87 99/56 12/05 1841 98.4 89 20 83/56 91 Room Air 12/05 1513 99.2 101 20 108/52 94 Room Air 12/05 1504 98 12/05 1502 99.1 12/05 1351 101.0 12/05 1308 121 139/92 12/05 1238 100.7 137 20 72/48 91 Room Air Intake & Output 12/06 0800 12/06 0000 12/05 1600 Intake Total 980 Output Total 700 Balance -700 980 Intake, IV 500 Intake, Oral 480 Output, Urine 700 Patient 129.444 kg 92.533 kg Weight Weight Bed scale Reported by Patient Measurement Method Physical Exam General Appearance: Alert, Oriented X3, Cooperative, No Acute Distress Sepsis Skin Exam (color): Normal for Ethnicity Cardiovascular: Regular Rate, Normal S1, Normal S2 Lungs: Clear to Auscultation Abdomen: Normal Bowel Sounds, Soft, No Tenderness Extremities: deferred Current Medications: Current Medications Sig/Shade Start time Last Medication Dose Route Stop Time Status Admin Acetaminophen 1,000 MG Q8P PRN 12/06 0700 AC PO Acetaminophen 650 MG Q6P PRN 12/05 1830 DC PO Acetaminophen 0 .STK-MED ONE 12/05 1335 DC IV Acetaminophen 1,000 MG ONCE ONE 12/05 1330 DC 12/05 N/A 1 UNIT IV 12/05 1344 1351 Aspirin Buffered 81 MG DAILY 12/06 0900 AC PO Ceftazidime 1,000 MG Q8H 12/06 0000 AC 12/05 IV 2339 Ceftazidime 0 .STK-MED ONE 12/05 1618 DC .ROUTE Ceftazidime 1,000 MG ONCE ONE 12/05 1600 DC 12/05 IV 12/05 1601 1624 Heparin Sodium 5,000 UNIT Q8 12/05 2200 AC 12/06 (Porcine) SC 0547 Morphine Sulfate 2 MG Q4P PRN 12/05 1830 DC IV Sodium Chloride 1,000 ML BOLUS ONE 12/06 0300 DC 12/06 IV 12/06 0459 0258 Sodium Chloride 1,000 ML BOLUS ONE 12/05 2200 DC 12/05 IV 12/05 2359 2205 Sodium Chloride 1,000 ML .Q5H 12/05 2015 DC 12/05 IV 12/06 0114 2023 Sodium Chloride 1,000 ML .[id number] 12/05 1830 AC 12/06 IV 0015 Sodium Chloride 1,000 ML BOLUS ONE 12/05 1330 DC 12/05 IV 12/05 1429 1351 Tamsulosin HCl 0.4 MG DAILY 12/06 0900 AC PO Tramadol HCl 50 MG Q12P PRN 12/05 1830 DC PO Vancomycin HCl 1,500 MG Q12H 12/06 0430 AC 12/06 Sodium Chloride 250 ML IV 0436 Vancomycin HCl 0 .STK-MED ONE 12/05 1618 DC .ROUTE Vancomycin HCl 0 .STK-MED ONE 12/05 1618 DC .ROUTE Vancomycin HCl 1,000 MG ONCE ONE 12/05 1600 DC 12/05 Sodium Chloride 250 ML IV 12/05 1659 1624 Last 24 Hrs of Lab/Guilherme Results Last 24 Hrs of Labs/Mics: Laboratory Tests 12/05/17 2300: Lactic Acid Cancelled 12/05/175: Lactic Acid 1.1 12/05/17 1830: Urine Color DEANGELO, Urine Clarity HAZY H, Urine pH 5.5, Ur Specific [place] 1.020, Urine Protein TRACE H, Urine Ketones NEG, Urine Nitrite NEG, Urine Bilirubin NEG, Urine Urobilinogen 1.0, Ur Leukocyte Esterase NEG, Ur Microscopic SEDIMENT EXAMINED, Urine RBC RARE, Urine WBC 1-3 H, Ur Epithelial Cells RARE, Urine Bacteria FEW H, Urine Mucus RARE, Urine Hemoglobin NEG, Urine Glucose NEG 12/05/17 1603: Lactic Acid 1.3 12/05/17 1301: Anion Gap 10, Estimated GFR 58 L, BUN/Creatinine Ratio 28.5 H, Glucose 125 H, Lactic Acid 2.5 H, Calcium 9.0, Total Bilirubin 1.1, AST 73 H, ALT 74 H, Alkaline Phosphatase 133 H, Total Protein 7.4, Albumin 2.8 L, Globulin 4.6 H, Albumin/Globulin Ratio 0.6 L, CBC w Diff MAN DIFF ORDERED, RBC 4.05 L, MCV 93.1, MCH 31.5 H, MCHC 33.9, RDW 14.0, MPV 8.2, Gran % 91.4 H, Lymphocytes % 4.2 L, Monocytes % 4.2, Eosinophils % 0, Basophils % 0.2, Absolute Granulocytes 26.8 H, Segmented Neutrophils 81 H, Band Neutrophils 4, Absolute Lymphocytes 1.2, Lymphocytes 9 L, Monocytes 6, Absolute Monocytes 1.2 H, Absolute Eosinophils 0, Absolute Basophils 0, Platelet Estimate VERIFIED BY SMEAR, Normocytic RBCs VERIFIED, Normochromic RBCs VERIFIED, Hepatitis A IgM Ab Pending , Hep Bs Antigen Pending, Hep B Core IgM Ab Conf Pending, Hepatitis C Antibody Pending Microbiology 12/05 1830 URINE ROUT: Urine Culture - RECD 12/05 1402 BLOOD: Blood Culture - RECD 12/05 1327 BLOOD: Blood Culture - RECD Assessment/Plan Assessment: Mr. Trujillo is a 52-year-old male with PMH of HTN, osteomyelitis left foot, and chronic left foot ulcer who presented with fever. Problem List: 1. Left foot osteomyelitis 2. Septic shock with lactic acidosis and end organ damage 3. ADAM 4. Transaminitis #Osteomyelitis: Patient presented septic (tachycardia, fever, leukocytosis), hypotensive, with lactic acidosis with most likely source being osteomyelitis in his left foot. XRY revealed a focal area of bone destruction representing osteomyelitis adjacent to the deep skin ulcer, lateral midfoot. This may be chronic however. He has right hip hardware and a wound on his right toe, which are potential sources. Other potential sources including urine, chest, biliary and lumbar spine have been negative. Lumbar spine CT showed no evidence of abscess but did show chronic inflammatory changes. Right upper quadrant ultrasound was negative though LFTs were mildly elevated. Lactic acidosis has trended down. Patient has previously grown MSSA and Pseudomonas resistant to ceftazidine as well as other gram-negative bacteria on bone cultures. Podiatry has been consulted, will ask whether he intends to do surgery. His blood pressure has stabilized after IV fluid hydration. Quick SOFA score 1 on admission, indicating low risk. Blood cultures are now growing gram-positive cocci in clusters in 2/2 tubes. -Appreciate podiatry recommendations -ID consult -Vancomycin and ceftazidine, day 2. -Follow cultures for speciation, repeat blood cultures in 24 hours -ESR/CRP -MRI left foot -TTE -XRY Right hip #ADAM: Most likely prerenal azotemia due to decreased oral intake/septic shock, also in the setting of recent NSAID use and ARB use. -Avoid nephrotoxins -Hold ACEi/ARB -Continue IV fluid hydration #Chronic medical problems: -Continue other home medications DVT prophylaxis with heparin Nothing by mouth Full code Problem List: 1. Septic shock Pain Ratin Pain Location: no Pain Goal: Remain pain free Pain Plan: see a/p Tomorrow's Labs & Rationales: cbc, bep
[2017-12-06 08:53] LABS: ABSOLUTE BASOPHIL COUNT 0 /CUMM (0.0-0.2); ABSOLUTE EOSINOPHIL COUNT 0 /CUMM (0.0-0.7); ABSOLUTE GRANULOCYTE CT 19.9 /CUMM (1.4-6.5); ABSOLUTE LYMPH COUNT 1.7 /CUMM (1.2-3.4); ABSOLUTE MONOCYTE COUNT 1.4 /CUMM (0.10-0.60); BASOPHIL % 0 % (0.0-2.0); EOSINOPHIL % 0 % (0-5); MEAN CORPUSCULAR HGB 31.6 PG (27.0-31.0); MEAN CORPUSCULAR HGB CONC 33.8 G/DL (33.0-37.0); MEAN CORPUSCULAR VOLUME 93.5 FL (80.0-94.0); MEAN PLATELET VOLUME 8.7 FL (7.4-10.4); RBC DISTRIBUTION WIDTH 14.4 % (11.5-14.5); RED BLOOD CELL CT 3.37 /CUMM (4.70-6.10)
[2017-12-06 09:31] LABS: HEMATOCRIT 31.5 % (42-52)
--- NOTE | 2017-12-06 10:35 | RADIOLOGY REPORT ---
EXAMINATION: XR HIP, RIGHT CLINICAL INFORMATION: Sepsis. Bacteremia. Question hardware infection. COMPARISON: No prior studies available for comparison. TECHNIQUE: 2 views of the right hip FINDINGS: There is a right total hip arthroplasty with longstem femoral component. The femoral head component articulates appropriately with the acetabular component. There is no periprosthetic lucency or fracture. Prominent heterotopic ossification present between the superior acetabulum and greater trochanter. IMPRESSION: Total right hip arthroplasty without evidence of failure.
[2017-12-06 10:40] LABS: GRANULOCYTE % 86.3 % (42.2-75.2); PLATELET COUNT 399 /CUMM (130-400)
--- NOTE | 2017-12-06 12:24 | Cons- Infect Disease ---
General Information and HPI Consulting Request Date of Consult: 12/06/17 Requested By: Dolores Plata MD Reason for Consult: Positive blood cultures for gram-positive cocci in clusters Source of Information: patient, old records History of Present Illness: This is a 52-year-old man with a history of hypertension, arthritis, left fifth toe polymicrobial osteomyelitis, status post amputation and treatment with a 4 week course of Meropenem over 3 years prior to admission, with recurrence of a left foot wound several months prior to admission, status post debridement of necrotic bone and treatment with a 4 week course of Cefazolin for osteomyelitis secondary to Proteus and MSSA, with nonhealing of the wound and intermittent drainage, admitted on December 05 after he was sent to the emergency room by his primary care physician because of a fever and elevated white blood cell count. On admission he was febrile to 101, with a blood pressure of 72/48. Laboratory data revealed a white blood cell count of 29,000, BUN/creatinine 37 and 1.3, lactic acid 2.5, alkaline phosphatase 133, AST/ALT 73 and 74. Urinalysis rare RBC/1-3 WBCs. Chest x-ray was negative. Right upper quadrant ultrasound was negative. X-ray of the left foot revealed a focal area of bone destruction adjacent to the deep skin ulcer on the lateral aspect of the midfoot, diagnostic for osteomyelitis. CT of the lumbar spine revealed degenerative spondylosis with no evidence of any abscess or osteomyelitis. He was begun on Vancomycin and Ceftazidime and defervesced overnight. This morning blood cultures 2 were reported positive for gram-positive cocci in clusters. At present he complains of thirst and notes some discomfort in the left knee. He has no pain in the left foot. Allergies/Medications Allergies: Coded Allergies: No Known Allergies (09/15/17) Home Med List: Aspirin (Ecotrin*) 81 MG TABLET.DR 1 TAB PO DAILY HEART/BLOOD (Reported) Ciprofloxacin HCl 500 MG TABLET 1 TAB PO BID ANTIBIOTIC, INFECTION (Reported) Losartan/Hydrochlorothiazide (Losartan-Hctz 50-12.5 MG Tab) 50 MG-12.5 MG TABLET 1 TAB PO DAILY BP (Reported) Meloxicam (Mobic) 15 MG TABLET 1 TAB PO DAILY PAIN (Reported) Tamsulosin HCl 0.4 MG CAP.ER.24H 1 CAP PO DAILY PROSTATE (Reported) Tramadol HCl 50 MG TABLET 1 TAB PO BIDP PRN PAIN (Reported) Past History Travel History Traveled to [place] past 21 day No Medical History Blood Transfusion Hx: No Neurological: NONE EENT: NONE Cardiovascular: hypertension Respiratory: NONE Gastrointestinal: NONE Hepatic: NONE Renal: NONE Musculoskeletal: osteoarthritis Psychiatric: NONE Endocrine: NONE Blood Disorders: NONE Cancer(s): NONE History of MRSA: No History of VRE: No History of CDIFF: No Isolation History: Standard Tetanus Vaccine: 02/24/14 Surgical History Surgical History: non-contributory Family History Relations & Conditions If Any: Relation not specified for: No pertinent family history Psychosocial History Where Do You Live? Home Smoking Status: Never Smoked ETOH Use: denies use Illicit Drug Use: denies illicit drug use Review of Systems Review of Systems All Other Systems: Reviewed and Negative Exam & Diagnostic Data Last 24 Hrs of Vital Signs/I&O Vital Signs Date Time Temp Pulse Resp B/P B/P Pulse O2 O2 Flow FiO2 Mean Ox Delivery Rate 12/06 0816 110/70 12/06 0545 99.0 93 20 110/70 91 Room Air 12/06 0250 99.7 90 18 98/60 92 Room Air 12/06 0026 99.3 87 20 110/60 91 Room Air 12/05 2156 98.3 90 20 100/60 92 Room Air 12/05 2027 98.4 83 20 101/56 93 Room Air 12/05 1936 88 104/67 12/05 1900 87 99/56 12/05 1841 98.4 89 20 83/56 91 Room Air 12/05 1513 99.2 101 20 108/52 94 Room Air 12/05 1504 98 12/05 1502 99.1 12/05 1351 101.0 12/05 1308 121 139/92 12/05 1238 100.7 137 20 72/48 91 Room Air Intake & Output 12/06 1600 12/06 0800 12/06 0000 Intake Total 2860 980 Output Total 700 Balance 2160 980 Intake, IV 2400 500 Intake, Oral 460 480 Output, Urine 700 Patient 285 lb Weight Weight Bed scale Measurement Method Physical Exam Other Physical Findings: He is awake and alert in no acute distress. T-max 101. Skin reveals facial flushing. HEENT exam dry oral mucosa. Neck is supple with no adenopathy. Lungs are clear. Heart regular rhythm with no murmur. Abdomen is obese, soft, nontender with positive bowel sounds. Back no CVA tenderness. Extremities left knee with suprapatellar swelling, with good range of motion; ulcer on the lateral aspect of the left foot, with drainage on the dressing, with no surrounding erythema or tenderness; deformity of the left foot noted. Neuro is without focality. Last 24 Hours of Lab Results: Laboratory Tests 12/06 12/06 12/05 0730 0730 2300 Chemistry Sodium (137 - 145 mmol/L) 136 L Potassium (3.5 - 5.1 mmol/L) 3.5 Chloride (98 - 107 mmol/L) 93 L Carbon Dioxide (22 - 30 mmol/L) 34 H Anion Gap (5 - 16) 9 BUN (9 - 20 mg/dL) 30 H Creatinine (0.7 - 1.2 mg/dL) 0.8 Estimated GFR (>60 ml/min) > 60 BUN/Creatinine Ratio (7 - 25 %) 37.5 H Lactic Acid Cancelled Total Bilirubin (0.2 - 1.3 mg/dL) 0.8 Direct Bilirubin (< 0.4 mg/dL) 0.6 H AST (17 - 59 U/L) 66 H ALT (21 - 72 U/L) 67 Alkaline Phosphatase (< 127 U/L) 107 C-Reactive Prot, Quant (<1.0 mg/dL) Pending C-React Prot High Sens (1.0 - 3.0 mg/L) Cancelled > 15.0 H Total Protein (6.3 - 8.2 g/dL) 6.1 L Albumin (3.5 - 5.0 g/dL) 2.2 L Hematology CBC w Diff NO MAN DIFF REQ WBC (4.8 - 10.8 /CUMM) 23.0 H RBC (4.70 - 6.10 /CUMM) 3.37 L Hgb (14.0 - 18.0 G/DL) 10.6 L Hct (42 - 52 %) 31.5 L MCV (80.0 - 94.0 FL) 93.5 MCH (27.0 - 31.0 PG) 31.6 H MCHC (33.0 - 37.0 G/DL) 33.8 RDW (11.5 - 14.5 %) 14.4 Plt Count (130 - 400 /CUMM) 399 MPV (7.4 - 10.4 FL) 8.7 Gran % (42.2 - 75.2 %) 86.3 H Lymphocytes % (20.5 - 51.1 %) 7.5 L Monocytes % (1.7 - 9.3 %) 6.2 Eosinophils % (0 - 5 %) 0 Basophils % (0.0 - 2.0 %) 0 Absolute Granulocytes (1.4 - 6.5 /CUMM) 19.9 H Absolute Lymphocytes (1.2 - 3.4 /CUMM) 1.7 Absolute Monocytes (0.10 - 0.60 /CUMM) 1.4 H Absolute Eosinophils (0.0 - 0.7 /CUMM) 0 Absolute Basophils (0.0 - 0.2 /CUMM) 0 ESR Westergren (0 - 10 MM) 100 H 12/05 183 1603 Chemistry Lactic Acid (0.7 - 2.1 mmol/L) 1.1 1.3 Urines Urine Color (YEL,AMB,STR) DEANGELO Urine Clarity (CLEAR) HAZY H Urine pH (5.0 - 8.0) 5.5 Ur Specific [place] (1.001 - 1.035) 1.020 Urine Protein (NEG,<30 MG/DL) TRACE H Urine Ketones (NEG) NEG Urine Nitrite (NEG) NEG Urine Bilirubin (NEG) NEG Urine Urobilinogen (0.1 - 1.0 EU/dl) 1.0 Ur Leukocyte Esterase (NEG) NEG Ur Microscopic SEDIMENT EXAMINED Urine RBC (0 - 5 /HPF) RARE Urine WBC (0 - 2 /HPF) 1-3 H Ur Epithelial Cells (NONE,FEW) RARE Urine Bacteria (NEG/NONE) FEW H Urine Mucus (FEW,NONE) RARE Urine Hemoglobin (NEG) NEG Urine Glucose (N MG/DL) NEG 12/05 1301 Chemistry Sodium (137 - 145 mmol/L) 132 L Potassium (3.5 - 5.1 mmol/L) 4.2 Chloride (98 - 107 mmol/L) 85 L Carbon Dioxide (22 - 30 mmol/L) 37 H Anion Gap (5 - 16) 10 BUN (9 - 20 mg/dL) 37 H Creatinine (0.7 - 1.2 mg/dL) 1.3 H Estimated GFR (>60 ml/min) 58 L BUN/Creatinine Ratio (7 - 25 %) 28.5 H Glucose (65 - 99 mg/dL) 125 H Lactic Acid (0.7 - 2.1 mmol/L) 2.5 H Calcium (8.4 - 10.2 mg/dL) 9.0 Total Bilirubin (0.2 - 1.3 mg/dL) 1.1 AST (17 - 59 U/L) 73 H ALT (21 - 72 U/L) 74 H Alkaline Phosphatase (< 127 U/L) 133 H Total Protein (6.3 - 8.2 g/dL) 7.4 Albumin (3.5 - 5.0 g/dL) 2.8 L Globulin (1.9 - 4.2 gm/dL) 4.6 H Albumin/Globulin Ratio (1.1 - 2.2 %) 0.6 L Hematology CBC w Diff MAN DIFF ORDERED WBC (4.8 - 10.8 /CUMM) 29.3 H RBC (4.70 - 6.10 /CUMM) 4.05 L Hgb (14.0 - 18.0 G/DL) 12.8 L Hct (42 - 52 %) 37.7 L MCV (80.0 - 94.0 FL) 93.1 MCH (27.0 - 31.0 PG) 31.5 H MCHC (33.0 - 37.0 G/DL) 33.9 RDW (11.5 - 14.5 %) 14.0 Plt Count (130 - 400 /CUMM) 486 H MPV (7.4 - 10.4 FL) 8.2 Gran % (42.2 - 75.2 %) 91.4 H Lymphocytes % (20.5 - 51.1 %) 4.2 L Monocytes % (1.7 - 9.3 %) 4.2 Eosinophils % (0 - 5 %) 0 Basophils % (0.0 - 2.0 %) 0.2 Absolute Granulocytes (1.4 - 6.5 /CUMM) 26.8 H Segmented Neutrophils (42.2 - 75.2 %) 81 H Band Neutrophils (0.0 - 5.0 %) 4 Absolute Lymphocytes (1.2 - 3.4 /CUMM) 1.2 Lymphocytes (20.5 - 51.1 %) 9 L Monocytes (1.7 - 9.3 %) 6 Absolute Monocytes (0.10 - 0.60 /CUMM) 1.2 H Absolute Eosinophils (0.0 - 0.7 /CUMM) 0 Absolute Basophils (0.0 - 0.2 /CUMM) 0 Platelet Estimate (ADEQUATE) VERIFIED BY SMEAR Normocytic RBCs VERIFIED Normochromic RBCs VERIFIED Serology Hepatitis A IgM Ab (NONREACTIVE) NONREACTIVE Hep Bs Antigen (NONREACTIVE) NONREACTIVE Hep B Core IgM Ab Conf (NONREACTIVE) NONREACTIVE Hepatitis C Antibody (NONREACTIVE) NONREACTIVE Last 24 Hours of Guilherme Results: Blood cultures 2 December 05 positive for gram-positive cocci in clusters Urine culture December 05 negative Diagnostic Data Recent Imaging Findings: Chest x-ray negative. Right upper quadrant ultrasound negative. X-ray of the left foot revealed a focal area of bone destruction adjacent to the deep skin ulcer on the lateral aspect of the midfoot, diagnostic for osteomyelitis. CT of the lumbar spine revealed degenerative spondylosis with no evidence of any abscess or osteomyelitis. Assessment/Plan Assessment/Plan Impression: This is a 52-year-old man status post left fifth toe amputation for osteomyelitis over 3 years prior to admission, with recurrence of a left foot wound several months prior to admission, status post debridement of necrotic bone and treatment with a 4 week course of Cefazolin for osteomyelitis secondary to Proteus and MSSA, with nonhealing of the wound and with intermittent drainage , admitted on December 05 because of a fever and elevated white blood cell count, found on admission to be febrile and hypotensive, with a marked leukocytosis and with an x-ray of the left foot revealing osteomyelitis of the lateral aspect of the foot, now with blood cultures 2 positive for gram-positive cocci in clusters. His clinical picture is consistent with sepsis, with transient hypotension, which may have been secondary to dehydration, and with what will likely prove to be Staph aureus in the blood. The most likely source of his sepsis is the left foot, with a nonhealing wound for several months and with the x-ray revealing osteomyelitis. He will require further debridement in the OR but he is scheduled first for an MRI, which will help determine the extent of his infection and rule out any soft tissue collection. This process may be polymicrobial, with a foul odor noted to his wound, and with multiple organisms isolated from previous cultures. As he recently completed a four-week course of Cefazolin am more concerned about MRSA and agree with coverage of this organism pending final cultures. His left knee pain and swelling may be secondary arthritis but the possibility of seeding of the knee joint may need to be considered. Suggestion: 1. Await MRI of the left foot 2. Await debridement of the left foot per Podiatry based on above 3. X-ray of the left knee 4. Echocardiogram 5. Repeat blood cultures 2 6. Follow-up final blood culture results 7. Discontinue Ceftazidime 8. Continue Vancomycin pending above Consult Acknowledgment - Thank you for your consult request.
--- NOTE | 2017-12-06 13:26 | Cons- Podiatry ---
General Information and HPI Consulting Request Date of Consult: 12/06/17 Requested By: Dolores Plata MD History of Present Illness: Tae is a 53-year-old male with a long history of a nonhealing ulcer to the lateral aspect of his left foot. The patient recently completed a course of outpatient IV antibiotics for a fifth metatarsal osteomyelitis. The patient was referred to the emergency department following a visit to his PCP, where was noted that he was febrile. The patient denies any obvious recent changes to the baseline his left foot. Allergies/Medications Allergies: Coded Allergies: No Known Allergies (09/15/17) Home Med List: Aspirin (Ecotrin*) 81 MG TABLET.DR 1 TAB PO DAILY HEART/BLOOD (Reported) Ciprofloxacin HCl 500 MG TABLET 1 TAB PO BID ANTIBIOTIC, INFECTION (Reported) Losartan/Hydrochlorothiazide (Losartan-Hctz 50-12.5 MG Tab) 50 MG-12.5 MG TABLET 1 TAB PO DAILY BP (Reported) Meloxicam (Mobic) 15 MG TABLET 1 TAB PO DAILY PAIN (Reported) Tamsulosin HCl 0.4 MG CAP.ER.24H 1 CAP PO DAILY PROSTATE (Reported) Tramadol HCl 50 MG TABLET 1 TAB PO BIDP PRN PAIN (Reported) Past History Medical History Blood Transfusion Hx: No Neurological: NONE EENT: NONE Cardiovascular: hypertension Respiratory: NONE Gastrointestinal: NONE Hepatic: NONE Renal: NONE Musculoskeletal: osteoarthritis Psychiatric: NONE Endocrine: NONE Blood Disorders: NONE Cancer(s): NONE Surgical History Pertinent Surgical History: non-contributory Family History Relations & Conditions If Any: Relation not specified for: No pertinent family history Psychosocial History Where Do You Live? Home Smoking Status: Never Smoked ETOH Use: denies use Illicit Drug Use: denies illicit drug use Review of Systems Review of Systems: Unremarkable except for that noted in history present illness Exam & Diagnostic Data Vital Signs and I&O Vital Signs Date Time Temp Pulse Resp B/P B/P Pulse O2 O2 Flow FiO2 Mean Ox Delivery Rate 12/06 0816 110/70 12/06 0545 99.0 93 20 110/70 91 Room Air 12/06 0250 99.7 90 18 98/60 92 Room Air 12/06 0026 99.3 87 20 110/60 91 Room Air 12/056 98.3 90 20 100/60 92 Room Air 12/05 2026 98.4 83 20 101/56 93 Room Air 12/05 1936 88 104/67 12/05 1900 87 99/56 12/05 1841 98.4 89 20 83/56 91 Room Air 12/05 1513 99.2 101 20 108/52 94 Room Air 12/05 1504 98 12/05 1502 99.1 12/05 1351 101.0 Intake & Output 12/06 1600 12/06 0800 12/06 0000 12/05 1600 12/05 0800 12/05 0000 Intake Total 2860 980 Output Total 700 Balance 2160 980 Intake, IV 2400 500 Intake, Oral 460 480 Output, Urine 700 Patient 285 lb 204 lb Weight Weight Bed scale Reported by Patient Measurement Method Physical Exam: 3 cm x 3 cm ulcer noted at the plantar lateral left midfoot, with a mixed base. No probing or undermining identified some serous drainage identified. No crepitus or fluctuance noted. Her exposed bone identified. X-rays demonstrate findings adjacent to the ulcer strongly suggestive of an underlying osteomyelitis. Assessment/Plan Assessment/Plan Sepsis with a likely recurrent or persistent left foot osteomyelitis. Consider an MRI of the left foot to further characterize the extent of the infection and rule out the presence of a plantar space abscess. I will schedule the patient for a left foot debridement following the MRI findings. Consult Acknowledgment - Thank you for your consult request. Attending MD Review Statement Attending Statement Attending MD Statement: examined this patient
[2017-12-06 14:45] VITALS: BP 120/78
--- NOTE | 2017-12-06 19:58 | RADIOLOGY REPORT ---
EXAMINATION: XR FOOT, RIGHT CLINICAL INFORMATION: Sepsis. COMPARISON: No recent comparison radiographs of right foot. TECHNIQUE: Right foot, 3 views FINDINGS: Surgical fusion of the subtalar and ankle joint via retrograde placement of an intramedullary jim which is partially included in the [id number]. The calcaneal screw is intact. Large calcaneal enthesophytes. Solid ankylosis of the ankle and subtalar joints. Also, there is osseous fusion along the dorsal aspect of the talonavicular joint. There are osteophytes along the dorsal aspect of the Lisfranc joint. Calcaneocuboid joint space is maintained. Findings in the forefoot include osteoarthritis of the first and second MTP joints. Also, there are mild osteoarthritic changes of the great toe IP joint and second toe PIP joint. Soft tissues are swollen at the tip of the second toe and there is bone loss of the tuft of the second toe. This could be caused by infection or ischemia. IMPRESSION: Soft tissues are swollen at the tip of the second toe and there is bone loss of the tuft of the distal phalanx which could be secondary to ischemia or, if in the right clinical context, osteomyelitis.
--- NOTE | 2017-12-06 20:45 | MRI REPORT ---
EXAMINATION: MRI FOOT, RIGHT CLINICAL INFORMATION: Possible osteomyelitis of right foot. COMPARISON: Radiographs of the foot from 12/06/2017. TECHNIQUE: Noncontrast MR imaging evaluation of the forefoot was performed on a high-field 1.5 Any magnet. FINDINGS: The Lisfranc joint is partially included in the [id number]. There are osteoarthritic changes along the visualized Lisfranc joint, including the first tarsometatarsal joint, as manifest by prominent osteophyte formation, subarticular cystic change and subarticular marrow edema. Periarticular bone marrow marrow edema is seen in the cuneiforms, proximal second metatarsal and proximal half of the third metatarsal. There is an effusion of the third tarsometatarsal joint and a small amount of fluid extends dorsolateral to this joint in an area measuring approximately 0.8 x 1 x 1.1 cm. Also, there is focal cortical erosion at the dorsal base of the third metatarsal (image 16, series 5). The bases of the fourth and fifth metatarsals are excluded from the [id number]. Within the forefoot, there is [id number] osteoarthritis of the great toe metatarsophalangeal joint and [id number] osteoarthritis of the second metatarsophalangeal joint. A well-corticated ossicle projects along the dorsal capsule of this degenerated 2nd MTP joint. The hypertrophied appearance of the base of the second proximal phalanx suggests possibility of remote, healed fracture. The phalanges are poorly evaluated on the sagittal STIR images due to motion degradation of these images. As seen on recent radiographs, there is bone loss of the tuft of the 2nd distal phalanx. The fatty marrow signal intensity of this phalanx is well-preserved on T1-weighted images. Therefore, the tuftal bone loss could be sequela of chronic ischemia or old infection. There is diffuse soft tissue edema of the right foot. There is diffuse, severe atrophy and fatty replacement of muscles of the forefoot, likely on the basis of chronic denervation.. IMPRESSION: 1. Diffuse, nonspecific soft tissue edema of the examined foot; differential diagnosis includes cellulitis. 2. As observed on recent radiographs, there is bone loss of the tuft of the second distal phalanx. However, the residual phalanx of has normal fatty marrow signal on T1-weighted images. No evidence of active osteomyelitis in this distal phalanx. Therefore, the tuftal deformity could be due to chronic ischemia or could be due to remote, resolved osteomyelitis. 3. Osteoarthritis of 1st and 2nd MTP joints and of the partially evaluated Lisfranc joint. There is periarticular marrow edema along the Lisfranc joint. 4. In addition, there is cortical bone erosion at the dorsal base of the 3rd metatarsal with bone marrow edema extending from the base into the metatarsal shaft. There is an effusion of the 3rd tarsometatarsal joint with adjacent small periarticular fluid collection which could represent synovial cyst or abscess (i.e., possible septic arthritis of the 3rd tarsometatarsal joint and osteomyelitis of the third metatarsal base).
--- NOTE | 2017-12-06 21:42 | MRI REPORT ---
EXAMINATION: MRI FOOT WITHOUT CONTRAST, LEFT CLINICAL INFORMATION: Osteomyelitis of left foot. COMPARISON: Radiographs of the foot from 12/05/2017. TECHNIQUE: A routine multiplanar, multisequence MR imaging examination of the forefoot was performed on a high-field 1.5 Any magnet. FINDINGS: The images of the foot are partially degraded in quality by motion. There is extensive, severe degenerative arthropathy of visualized joints of the midfoot and Lisfranc joint, likely on the basis of chronic neuropathic disease. Also, osteoarthritic changes are present at metatarsophalangeal joints. The fifth toe is amputated through the metatarsal shaft and there is heterotopic ossification adjacent to the residual, deformed metatarsal. Skin ulcer is observed plantolateral to the proximal fifth metatarsal and there is loss of subcutaneous fat signal in this area from inflammatory changes. There is focal, irregular cortical erosion in the plantar aspect of the fifth metatarsal with subcortical sclerosis and marrow edema. The constellation of findings are consistent with osteomyelitis involving the fifth metatarsal. The periarticular bone marrow edema at multiple joints, including at the articulation of the cuboid and fifth metatarsal, is likely secondary to altered stresses and neuropathic changes at the joints. Diffuse soft tissue edema is present within the foot. The evaluation for soft tissue abscess is limited on this noncontrast exam. There is diffuse, severe atrophy and fatty replacement of muscles in the foot, consistent with chronic neuropathy. There is fluid within the partially visualized posterior peroneal, tibial, flexure hallucis longus and flexor digitorum tendon sheaths, consistent with tenosynovitis. IMPRESSION: 1. Severe osteoarthropathy of multiple joints, likely on the basis of chronic neuropathic disease. 2. Soft tissue ulcer located plantolateral to the residual fifth metatarsal. The imaging findings are consistent with osteomyelitis in the underlying metatarsal. 3. Diffuse edema of the foot. 4. Fluid is seen in multiple tendon sheaths, consistent with tenosynovitis. 5. Severe, diffuse atrophy and fatty replacement of muscles, likely secondary to chronic neuropathy.
[2017-12-06 22:19] VITALS: BP 112/70
[2017-12-07 04:34] LABS: ABSOLUTE BASOPHIL COUNT 0 /CUMM (0.0-0.2); ABSOLUTE EOSINOPHIL COUNT 0.1 /CUMM (0.0-0.7); ABSOLUTE GRANULOCYTE CT 15.8 /CUMM (1.4-6.5); ABSOLUTE LYMPH COUNT 1.7 /CUMM (1.2-3.4); ABSOLUTE MONOCYTE COUNT 1.2 /CUMM (0.10-0.60); BASOPHIL % 0 % (0.0-2.0); EOSINOPHIL % 0.3 % (0-5); GRANULOCYTE % 83.9 % (42.2-75.2); HEMATOCRIT 32.7 % (42-52); MEAN CORPUSCULAR HGB 31.1 PG (27.0-31.0); MEAN CORPUSCULAR HGB CONC 33.1 G/DL (33.0-37.0); MEAN CORPUSCULAR VOLUME 93.9 FL (80.0-94.0); MEAN PLATELET VOLUME 8.1 FL (7.4-10.4); PLATELET COUNT 432 /CUMM (130-400); RBC DISTRIBUTION WIDTH 14.2 % (11.5-14.5); RED BLOOD CELL CT 3.48 /CUMM (4.70-6.10); WHITE BLOOD CELL COUNT 18.8 /CUMM (4.8-10.8)
[2017-12-07 06:20] VITALS: BP 120/78
--- NOTE | 2017-12-07 07:11 | PN- Housestaff ---
Wiliam GRAJEDA,[facility] 12/07/17 0710: Subjective Follow-up For: Osteomyelitis Complaints: no complaints Subjective: No overnight events. Patient was seen and examined at bedside. Lying comfortably no acute distress. He complains of some lower back pain that is chronic and pain in his left knee. Denies any chest pain, difficulty breathing, abdominal pain or any pain/numbess/tingling sensation in his legs. He is curious to know what time he is scheduled for surgery. Review of Systems Constitutional: Reports: no symptoms. Cardiovascular: Denies: chest pain. Respiratory: Denies: short of breath. Gastrointestinal: Denies: abdominal pain. Musculoskeletal: Reports: back pain, joint pain. Skin: Reports: no symptoms. Neurological/Psychological: Denies: numbness, paresthesia, tingling. Objective Last 24 Hrs of Vital Signs/I&O Vital Signs Date Time Temp Pulse Resp B/P B/P Pulse O2 O2 Flow FiO2 Mean Ox Delivery Rate 12/07 0620 98.7 81 18 120/78 91 Room Air 12/06 2219 99.2 60 18 112/70 90 Room Air 12/06 1445 98.7 91 18 120/78 94 Intake & Output 12/07 1600 12/07 0800 12/07 0000 Intake Total 1360 1640 Output Total 550 600 Balance 810 1040 Intake, IV 1360 1360 Intake, Oral 280 Number 0 Bowel Movements Output, Urine 550 600 Physical Exam General Appearance: Alert, Oriented X3, Cooperative, No Acute Distress Skin: No Rashes, No Breakdown Skin Temp/Moisture Exam: Warm/Dry Sepsis Skin Exam (color): Normal for Ethnicity HEENT: Atraumatic Cardiovascular: Normal S1, Normal S2, No Murmurs Lungs: Clear to Auscultation, Normal Air Movement Abdomen: Soft, No Tenderness Neurological: Normal Speech Extremities: small necrotic ulcer on 2nd toe of right foot; left foot wrappped in kerlex, mild swelling of left knee compared to right Last 24 Hrs of Lab/[place] Results Last 24 Hrs of Labs/Mics: Laboratory Tests 12/07/17 0410: Anion Gap 8, Estimated GFR > 60, BUN/Creatinine Ratio 30.0 H, CBC w Diff MAN DIFF ORDERED, RBC 3.48 L, MCV 93.9, MCH 31.1 H, MCHC 33.1, RDW 14.2, MPV 8.1, Gran % 83.9 H, Lymphocytes % 9.2 L, Monocytes % 6.6, Eosinophils % 0.3, Basophils % 0, Absolute Granulocytes 15.8 H, Segmented Neutrophils 82 H, Band Neutrophils 1, Absolute Lymphocytes 1.7, Lymphocytes 10 L, Monocytes 7, Absolute Monocytes 1.2 H, Absolute Eosinophils 0.1, Absolute Basophils 0, Platelet Estimate INCREASED, Polychromasia 1+, Poikilocytosis 2+, Basophilic Stippling SLIGHT, Ovalocytes 1+, Stomatocytes 1+, Fld Total RBCs Counted 100, Vancomycin Trough 8.9 L Microbiology 12/07 1311 BLOOD: Blood Culture - ORD 12/07 1311 BLOOD: Blood Culture - ORD 12/06 1505 BLOOD: Blood Culture - RES GRAM POSITIVE COCCI 12/06 1500 BLOOD: Blood Culture - RES GRAM POSITIVE COCCI Assessment/Plan Assessment: Mr. Trujillo is a 52-year-old male with PMH of HTN, osteomyelitis left foot, and chronic left foot ulcer who presented with fever. Assessment: 1. Left foot osteomyelitis 2. Sepsis - resolved 3. ADAM - resolved 4. Transaminitis - improving Plan: * MRI yesterday revealed evidence of left foot osteomyelitis and ?osteomyelitis in right foot. Further plans of debridement per podiatry. * Continue Vancomycin 1500mg q12. * His ESR is elevated to 100 and CRP >9 * White count has been improving slowly. * Pain control with tylenol and tramadol 25mg q6prn. * Repeat blood cultures today. BC from yesterday are growing GPC. BC will need to be repeated until the infection has cleared from his blood. * ID recs appreciated. * Echocardiogram pending - need to r/o valvular vegetations in the setting of likely Staph infection. * He complains of knee pain. Xray shows mild degenerative changes and small effusion. * Diet: NPO for now. Restart CC3 after surgery. * DVT Prophylaxis: SC heparin x 3 * Code: Full Code Problem List: 1. 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 Left knee pain is stil there although slightly better. Pt scheduled for OR with Dr. Rock today. Vital Signs Date Time Temp Pulse Resp B/P B/P Pulse O2 O2 Flow FiO2 Mean Ox Delivery Rate 12/07 0835 120/80 12/07 0620 98.7 81 18 120/78 91 Room Air 12/06 2219 99.2 60 18 112/70 90 Room Air 12/06 1445 98.7 91 18 120/78 94 on exam; aox3, nad. cv; s1,s2, rrr resp; clear abd; soft, nt, bs+ ext; no edema skin: legft foot wrapped in dressing. Reviewed results of all the imaging. Laboratory Tests 12/07 0410 Chemistry Sodium (137 - 145 mmol/L) 139 Potassium (3.5 - 5.1 mmol/L) 3.4 L Chloride (98 - 107 mmol/L) 97 L Carbon Dioxide (22 - 30 mmol/L) 34 H Anion Gap (5 - 16) 8 BUN (9 - 20 mg/dL) 18 Creatinine (0.7 - 1.2 mg/dL) 0.6 L Estimated GFR (>60 ml/min) > 60 BUN/Creatinine Ratio (7 - 25 %) 30.0 H Hematology CBC w Diff MAN DIFF ORDERED WBC (4.8 - 10.8 /CUMM) 18.8 H RBC (4.70 - 6.10 /CUMM) 3.48 L Hgb (14.0 - 18.0 G/DL) 10.8 L Hct (42 - 52 %) 32.7 L MCV (80.0 - 94.0 FL) 93.9 MCH (27.0 - 31.0 PG) 31.1 H MCHC (33.0 - 37.0 G/DL) 33.1 RDW (11.5 - 14.5 %) 14.2 Plt Count (130 - 400 /CUMM) 432 H MPV (7.4 - 10.4 FL) 8.1 Gran % (42.2 - 75.2 %) 83.9 H Lymphocytes % (20.5 - 51.1 %) 9.2 L Monocytes % (1.7 - 9.3 %) 6.6 Eosinophils % (0 - 5 %) 0.3 Basophils % (0.0 - 2.0 %) 0 Absolute Granulocytes (1.4 - 6.5 /CUMM) 15.8 H Segmented Neutrophils (42.2 - 75.2 %) 82 H Band Neutrophils (0.0 - 5.0 %) 1 Absolute Lymphocytes (1.2 - 3.4 /CUMM) 1.7 Lymphocytes (20.5 - 51.1 %) 10 L Monocytes (1.7 - 9.3 %) 7 Absolute Monocytes (0.10 - 0.60 /CUMM) 1.2 H Absolute Eosinophils (0.0 - 0.7 /CUMM) 0.1 Absolute Basophils (0.0 - 0.2 /CUMM) 0 Platelet Estimate (ADEQUATE) INCREASED Polychromasia 1+ Poikilocytosis 2+ Basophilic Stippling SLIGHT Ovalocytes 1+ Stomatocytes 1+ Other Body Source Fld Total RBCs Counted (%) 100 Toxicology Vancomycin Trough (10.0 - 20.0 ug/mL) 8.9 L A/P; 52 y/o M with pmh sig for hypertension, history of nonhealing ulcer on the lateral aspect of his left foot, status post right ankle fusion, status post right hip surgery with hardware in place, was recently in on for his chronic left lateral foot ulcer as well as suspected osteomyelitis left foot and stated getting discharged with a picc line of the time, for a total antibiotic course of 28 days. Admitted with septic shock, bacteremia with gram-positive cocci with possible source left foot osteomyelitis. Patient also complained of right-sided lower back pain. He also has history of right hip hardware. His hip x-ray does not show any evidence of any problem. Knee xray shows degenrative disease as well as small effusion. TTE shows no effusion. We'll continue the vancomycin but infectious disease. Patient going to or by Dr. Salas. We'll follow-up on the culture results. We will discuss with ID further in terms of if patient needs transesophageal echo. Patient has Tylenol ordered. Okay to add small dose of narcotic of Tylenol is not controlling the pain. Continue the rest of the medications. Patient on heparin subcutaneous for DVT px.
--- NOTE | 2017-12-07 08:35 | PN- Student ---
Subjective Subjective: No overnight events reported. Mr. Trujillo states that he slept well last night and reports dry mouth and hunger, as he has been NPO for possible debridement procedure today with Dr. Rock. He reports that the swelling in his left knee has gone down. Objective Objective: Current Medications Sig/Shade Start time Last Medication Dose Route Stop Time Status Admin Acetaminophen 1,000 MG Q8P PRN 12/06 0700 AC PO Aspirin Buffered 81 MG DAILY 12/06 0900 AC 12/06 PO 0817 Ceftazidime 1,000 MG Q8H 12/06 0000 DC 12/06 IV 0817 Heparin Sodium 5,000 UNIT Q8 12/05 2200 AC 12/07 (Porcine) SC 0536 Lactated Ringer's 1,000 ML Q6H 12/06 1030 AC 12/07 IV 0435 Patient Medication 1 ED ONE ONE 12/06 1100 DC 12/06 Teaching ED 12/06 1101 1126 Potassium Chloride 40 MEQ ONCE ONE 12/07 0800 DC PO 12/07 0801 Sodium Chloride 1,000 ML .[id number] 12/05 1830 DC 12/06 IV 0015 Tamsulosin HCl 0.4 MG DAILY 12/06 0900 AC 12/06 PO 0816 Vancomycin HCl 1,500 MG Q12H 12/06 1800 AC 12/07 Sodium Chloride 250 ML IV 0536 Vancomycin HCl 1,500 MG Q12H 12/06 0430 DC 12/06 Sodium Chloride 250 ML IV 1743 Laboratory Tests 12/07 0410 Chemistry Sodium (137 - 145 mmol/L) 139 Potassium (3.5 - 5.1 mmol/L) 3.4 L Chloride (98 - 107 mmol/L) 97 L Carbon Dioxide (22 - 30 mmol/L) 34 H Anion Gap (5 - 16) 8 BUN (9 - 20 mg/dL) 18 Creatinine (0.7 - 1.2 mg/dL) 0.6 L Estimated GFR (>60 ml/min) > 60 BUN/Creatinine Ratio (7 - 25 %) 30.0 H Hematology CBC w Diff MAN DIFF ORDERED WBC (4.8 - 10.8 /CUMM) 18.8 H RBC (4.70 - 6.10 /CUMM) 3.48 L Hgb (14.0 - 18.0 G/DL) 10.8 L Hct (42 - 52 %) 32.7 L MCV (80.0 - 94.0 FL) 93.9 MCH (27.0 - 31.0 PG) 31.1 H MCHC (33.0 - 37.0 G/DL) 33.1 RDW (11.5 - 14.5 %) 14.2 Plt Count (130 - 400 /CUMM) 432 H MPV (7.4 - 10.4 FL) 8.1 Gran % (42.2 - 75.2 %) 83.9 H Lymphocytes % (20.5 - 51.1 %) 9.2 L Monocytes % (1.7 - 9.3 %) 6.6 Eosinophils % (0 - 5 %) 0.3 Basophils % (0.0 - 2.0 %) 0 Absolute Granulocytes (1.4 - 6.5 /CUMM) 15.8 H Segmented Neutrophils (42.2 - 75.2 %) 82 H Band Neutrophils (0.0 - 5.0 %) 1 Absolute Lymphocytes (1.2 - 3.4 /CUMM) 1.7 Lymphocytes (20.5 - 51.1 %) 10 L Monocytes (1.7 - 9.3 %) 7 Absolute Monocytes (0.10 - 0.60 /CUMM) 1.2 H Absolute Eosinophils (0.0 - 0.7 /CUMM) 0.1 Absolute Basophils (0.0 - 0.2 /CUMM) 0 Platelet Estimate (ADEQUATE) INCREASED Polychromasia 1+ Poikilocytosis 2+ Basophilic Stippling SLIGHT Ovalocytes 1+ Stomatocytes 1+ Other Body Source Fld Total RBCs Counted (%) 100 Toxicology Vancomycin Trough (10.0 - 20.0 ug/mL) 8.9 L Microbiology Date/Time Procedure - Status Source Growth 12/06 1505 Blood Culture - RECD BLOOD 12/06 1500 Blood Culture - RECD BLOOD Vital Signs Date Time Temp Pulse Resp B/P B/P Pulse O2 O2 Flow FiO2 Mean Ox Delivery Rate 12/07 0620 98.7 81 18 120/78 91 Room Air 12/06 2219 99.2 60 18 112/70 90 Room Air 12/06 1445 98.7 91 18 120/78 94 Intake & Output 12/07 1600 12/07 0800 12/07 0000 Intake Total 1360 1640 Output Total 550 600 Balance 810 1040 Intake, IV 1360 1360 Intake, Oral 280 Number 0 Bowel Movements Output, Urine 550 600 XRay of Right hip 12/06/17 Impression: total right hip arthroplasty without evidence of failure XRay Right foot 12/06/17 Impression: Soft tissue swelling at the tip of the second toe, with bone loss of the tuft of the distal phalanx which could be secondary to ischemia or possible osteomyelitis MRI Right foot 12/06/17 Impression: 1. Diffuse, nonspecific soft tissue edema of the examined foot; differential diagnosis includes cellulitis. 2. As observed on recent radiographs, there is bone loss of the tuft of the second distal phalanx. However, the residual phalanx of has normal fatty marrow signal on T1-weighted images. No evidence of active osteomyelitis in this distal phalanx. Therefore, the tuftal deformity could be due to chronic ischemia or could be due to remote, resolved osteomyelitis. 3. Osteoarthritis of 1st and 2nd MTP joints and of the partially evaluated Lisfranc joint. There is periarticular marrow edema along the Lisfranc joint. 4. In addition, there is cortical bone erosion at the dorsal base of the 3rd metatarsal with bone marrow edema extending from the base into the metatarsal shaft. There is an effusion of the 3rd tarsometatarsal joint with adjacent small periarticular fluid collection which could represent synovial cyst or abscess ( i.e., possible septic arthritis of the 3rd tarsometatarsal joint and osteomyelitis of the third metatarsal base). MRI left foot 12/06/17 Impression: 1. Severe osteoarthropathy of multiple joints, likely on the basis of chronic neuropathic disease. 2. Soft tissue ulcer located plantolateral to the residual fifth metatarsal. The imaging findings are consistent with osteomyelitis in the underlying metatarsal. 3. Diffuse edema of the foot. 4. Fluid is seen in multiple tendon sheaths, consistent with tenosynovitis. 5. Severe, diffuse atrophy and fatty replacement of muscles, likely secondary to chronic neuropathy. Xray left knee 12/06/17 Impression: mild degenerative changes with small joint effusion Echocardiogram 12/06/17 Impression: Technically difficult exam with poor visualization of valves. Cannot exclude presence of vegetation so if clinical suspicion is high, a MARIAN should be considered. Physical Exam General apperance: no evidence of acute distress, AOx3 CV: regular rhythym and rate, normal S1&S2, no MRG Pulm: slight ronchi heard on expiration in upper portions of the posterior lung [place] bilaterally Abd: bowel sounds present, soft, non-tender Extremities: Right 2nd toe distal portion shows evidence of necrosis, chronic swelling at right ankle, swollen left knee, nonerrythematous, left foot bandaged with left 5th digit amputation Assessment/Plan Assessment: Mr. Trujillo is a 52 year old male with a past medical history significant for HTN, right hip replacement, right ankle fusion, chronic left foot ulcer and left foot osteomyelitis presented with signs and symptoms of septic shock on 12/05/17. He was subsequently admitted to the hospital and was found to be growing gram positive cocci in clusters upon blood culture x2 on blood cultures obtained 12/05 and repeat cultures x2 on 12/06/17. This is consistent with Staph Auerues infection most likely MSSA as he was previously cultures indicate prior to hospitalization. His previous cultures prior to hospitalization also grew out Pseudomonas resistant to ceftaz as well as proteus. He is being seen by the general medicine team as well as consults from ID and podiatry for osteomyelitis. Plan: Problem List 1. Osteomyelitis of left foot 2. Right foot abscess/osteomyelitis 3. osteoarthritis 4. chronic medical conditions #osteomyelitis of left foot: X-ray and MRI findings support high clinical suspicion of osteomyelitis of Mr. Trujillo's left foot. As he has a chronic ulcer present on his left foot it provides a route for bacteria to infiltrate the bone. He was treated for osteomyelitis of this left foot prior to coming in to the hospital with outpatient IV abx therapy as he had a picc line. However this infection seems to have persisted and is most likely contributing to current bacteremia. He has had 2 sets of blood cultures x2 come back positive for gram positive cocci in clusters. 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 This might explain why previous abx therapy failed. Vancomycin theraputic index testing was performed and found to be outside the theraputic window and therfore his doseage was adjusted to adequately adress this issue. This is day 2 for IV vancomycin. He is awaiting to be seen by Dr. Rock today for possible debridement of this foot. -Continue IV Vancomycin -f/u on repeat blood cultures -appreciate ID and Podiatry recommendations -Possible debridement of left foot with Dr. Rock today -repeat vancomycin TI testing -continue clean wound practices and dressings #Right foot abscess/osteomyelitis: MRI and x-ray of the right foot were also performed as patient has had an ankle fusion performed in the past. Other indication for testing was on physical exam finding of necrotic tissue at the distal portion of the patient's 2nd toe. These tests revealed possible ischemia and bone loss of the 2nd toe and the precense of a possible abscess and osteomyelitis of the right foot. Dr. Rock will assess the patient today and possible debridement of this foot will be considered as well. This may be contributing to the patients bactermia as well. --Continue IV Vancomycin -f/u on repeat blood cultures -appreciate ID and Podiatry recommendations -Possible debridement of right foot with Dr. Rock today -repeat vancomycin TI testing -continue clean wound practices and dressings #osteoarthritis: Patient has reported back pain, knee pain in addition to symptoms in his feet. X-ray imaging of patients back and knee indicate the patient has narrowing of the joint spaces as a result of degenerative changes. Mr Trujillo has a BMI of 37.8 putting him in to the obese range, this is likely impacting his overall joint health. That and being in a physically demanding line of work in [employer] services puts more stress on his joints and thus increasing risk of osteoarthritis. Imaging did not indicate bacterial seeding in these locations. The patient has reported decreased swelling of the left knee, and it does not appear erythematous. As for the lower back pain this is likely related to osteoarthritic changes but consideration for spinal stenosis or disc herniation is also a thought as the pain does radiate down his buttock. Suspicion for multiple myeloma, or other malignancy is low as the patient does not have a history of prostate issues or suspicion for malignancy. -pain management -weight reduction #chronic medical problems: -continue medications as prescribed DVT ppx Heparin NPO full code
--- NOTE | 2017-12-07 09:02 | RADIOLOGY REPORT ---
EXAMINATION: XR KNEE, LEFT CLINICAL INFORMATION: Sepsis with septic joint. COMPARISON: None TECHNIQUE: Four views of the left knee. FINDINGS: Degenerative changes are present with some mild osteophyte formation. A small joint effusion is present. No bony destructive lesions are seen. IMPRESSION: Mild degenerative changes with small joint effusion.
--- NOTE | 2017-12-07 09:39 | ECHOCARDIOGRAM REPORT ---
JOSÉ MIGUEL MARTELL Age: 52 : 1965 Gender: M Exam Date: 12/06/2017 20:01 Exam Location: [place] Ht (in): 73 Wt (lb): 285 BSA: 2.63 BP: 110 / 70 Ordering Physician: Antoni Zamora MD Referring Physician: Antoni Zamora MD Technologist: Yanet Suggs [facility] Room Number: 230-01 Indications: INFECTIVE ENDOCARDITIS Rhythm: Sinus Technical Quality: difficult FINDINGS Left Ventricle Moderate concentric LVH, no regional wall abnormalities. Diastolic filling pressures are within normal limits. Right Ventricle The right ventricle is normal in size and function. Right Atrium The right atrium is normal in size. Left Atrium The left atrium is normal in size. The interatrial septum is intact. Mitral Valve The mitral valve is normal in structure and function. Mild calcification of the mitral annulus. No visible vegetation. There is no mitral regurgitation. Aortic Valve Structurally normal aortic valve without significant sclerosis or stenosis. The is no visible vegetation. There is aortic regurgitation. Tricuspid Valve The tricuspid valve is normal in structure and function. There is trace tricuspid regurgitation. Pulmonary artery systolic pressure could not be obtained. Pulmonic Valve Structurally normal pulmonic valve. There is no pulmonic regurgitation. Pericardium Normal pericardium without effusion. No pleural effusion. Great Vessels Normal aortic root dimension. The aortic arch and great vessels are well seen and are normal. CONCLUSIONS Technically difficult exam with poor visualization of valves. Cannot exclude presence of vegetation so if clinical suspicion is high, a MARIAN should be considered. From what could be visualized, the following conclusions are made: Moderate concentric LVH, no regional wall abnormalities. Diastolic filling pressures are within normal limits. The left atrium is normal in size. The interatrial septum is intact. The mitral valve is normal in structure and function. Mild calcification of the mitral annulus. No visible mitral vegetation. Structurally normal aortic valve without significant sclerosis or stenosis. The is no visible aortic vegetation. Pulmonary artery systolic pressure could not be obtained. Structurally normal pulmonic valve. Normal pericardium without effusion. Normal aortic root dimension. Froylan Hart M.D. (Electronically Signed) Final Date: 07 December 2017 09:38 MEASUREMENTS (Male / Female) Normal Values 2D ECHO LV Diastolic Diameter PLAX 5.4 cm 4.2 - 5.9 / 3.9 - 5.3 cm LV Systolic Diameter PLAX 3.2 cm 2.1 - 4.0 cm LV Fractional Shortening PLAX 40.7 % 25 - 46 % LV Ejection Fraction 2D Teich 71.0 % IVS Diastolic Thickness 1.5 cm LVPW Diastolic Thickness 1.5 cm LV Relative Wall Thickness 0.6 RV Internal Dim ED PLAX 3.5 cm 1.9 - 3.8 cm LVOT Diameter 1.8 cm Aortic Root Diameter 3.4 cm LA Systolic Diameter LX 2.9 cm 3.0 - 4.0 / 2.7 - 3.8 cm DOPPLER AV Peak Velocity 232.0 cm/s AV Peak Gradient 21.5 mmHg AV Mean Velocity 152.0 cm/s AV Mean Gradient 11.0 mmHg AV Velocity Time Integral 42.6 cm LVOT Peak Velocity 155.0 cm/s LVOT Peak Gradient 9.6 mmHg LVOT Mean Velocity 109.0 cm/s LVOT Mean Gradient 5.0 mmHg LVOT Velocity Time Integral 25.0 cm LVOT Stroke Volume 63.6 cm AV Area Cont Eq vti 1.5 cm AV Area Cont Eq pk 1.7 cm MV Peak Velocity 92.6 cm/s MV Peak Gradient 3.4 mmHg MV Mean Velocity 58.0 cm/s MV Mean Gradient 2.0 mmHg Mitral E Point Velocity 59.0 cm/s Mitral A Point Velocity 56.8 cm/s Mitral E to A Ratio 1.0 MV PHT Velocity 88.4 cm/s MV Deceleration [place] 453.0 cm/s MV Pressure Half Time 58.5 ms MV Area PHT 3.8 cm MV Deceleration Time 222.0 ms LV E' Lateral Velocity 16.2 cm/s Mitral E to LV E' Lateral Ratio 3.6 LV E' Septal Velocity 11.1 cm/s Mitral E to LV E' Septal Ratio 5.3
--- NOTE | 2017-12-07 11:13 | PN- Infect Dx ---
Subjective Subjective: Afebrile. He notes mild left knee discomfort. Objective Last 24 Hrs of Vital Signs/I&O Vital Signs Date Time Temp Pulse Resp B/P B/P Pulse O2 O2 Flow FiO2 Mean Ox Delivery Rate 12/07 0835 120/80 12/07 0620 98.7 81 18 120/78 91 Room Air 12/06 2219 99.2 60 18 112/70 90 Room Air 12/06 1445 98.7 91 18 120/78 94 Intake & Output 12/07 1600 12/07 0800 12/07 0000 Intake Total 1360 1640 Output Total 550 600 Balance 810 1040 Intake, IV 1360 1360 Intake, Oral 280 Number 0 Bowel Movements Output, Urine 550 600 Physical Exam Other Physical Findings: He appears comfortable in no acute distress Lungs are clear Heart regular rhythm with no murmur Extremities left knee with mild suprapatellar swelling, with reasonable range of motion; left foot with dressing in place; right second toe necrotic lesion at the tip of the toe, with mild swelling; no inflammation of the right third toe Results Last 24 Hours of Lab Results: Laboratory Tests 12/07 0410 Chemistry Sodium (137 - 145 mmol/L) 139 Potassium (3.5 - 5.1 mmol/L) 3.4 L Chloride (98 - 107 mmol/L) 97 L Carbon Dioxide (22 - 30 mmol/L) 34 H Anion Gap (5 - 16) 8 BUN (9 - 20 mg/dL) 18 Creatinine (0.7 - 1.2 mg/dL) 0.6 L Estimated GFR (>60 ml/min) > 60 BUN/Creatinine Ratio (7 - 25 %) 30.0 H Hematology CBC w Diff MAN DIFF ORDERED WBC (4.8 - 10.8 /CUMM) 18.8 H RBC (4.70 - 6.10 /CUMM) 3.48 L Hgb (14.0 - 18.0 G/DL) 10.8 L Hct (42 - 52 %) 32.7 L MCV (80.0 - 94.0 FL) 93.9 MCH (27.0 - 31.0 PG) 31.1 H MCHC (33.0 - 37.0 G/DL) 33.1 RDW (11.5 - 14.5 %) 14.2 Plt Count (130 - 400 /CUMM) 432 H MPV (7.4 - 10.4 FL) 8.1 Gran % (42.2 - 75.2 %) 83.9 H Lymphocytes % (20.5 - 51.1 %) 9.2 L Monocytes % (1.7 - 9.3 %) 6.6 Eosinophils % (0 - 5 %) 0.3 Basophils % (0.0 - 2.0 %) 0 Absolute Granulocytes (1.4 - 6.5 /CUMM) 15.8 H Segmented Neutrophils (42.2 - 75.2 %) 82 H Band Neutrophils (0.0 - 5.0 %) 1 Absolute Lymphocytes (1.2 - 3.4 /CUMM) 1.7 Lymphocytes (20.5 - 51.1 %) 10 L Monocytes (1.7 - 9.3 %) 7 Absolute Monocytes (0.10 - 0.60 /CUMM) 1.2 H Absolute Eosinophils (0.0 - 0.7 /CUMM) 0.1 Absolute Basophils (0.0 - 0.2 /CUMM) 0 Platelet Estimate (ADEQUATE) INCREASED Polychromasia 1+ Poikilocytosis 2+ Basophilic Stippling SLIGHT Ovalocytes 1+ Stomatocytes 1+ Other Body Source Fld Total RBCs Counted (%) 100 Toxicology Vancomycin Trough (10.0 - 20.0 ug/mL) 8.9 L Last 24 Hours of Guilherme Results: Blood cultures December 05 positive for Staph aureus sensitivities pending Blood cultures December 06 negative so far Urine culture December 05 negative Recent Imaging Studies: MRI of the left foot December 06 reveals a severe osteoarthropathy of multiple joints; osteomyelitis of the residual fifth metatarsal; diffuse edema of the foot MRI of the right foot December 06 reveals diffuse nonspecific soft tissue edema; bone loss of the tuft of the second distal phalanx with no evidence of osteomyelitis; cortical bone erosion at the dorsal base of the third metatarsal, with an effusion of the third tarsometatarsal joint with adjacent small periarticular fluid collection X-ray of the left knee December 06 reveals mild degenerative changes with a small joint effusion Echocardiogram December 06, technically difficult exam, revealed no evidence of vegetations Assessment/Plan ID Impression: Stable, with temperatures normal and white blood cell count decreasing, on Vancomycin, Day 2 of treatment for Staph aureus sepsis, most likely secondary to residual osteomyelitis of the left foot, with the MRI of the foot confirming the x-ray and clinical suspicion. The findings on the MRI of the right foot are of unclear significance and are being evaluated by Podiatry. He is scheduled for surgery later today for debridement/resection of the residual fifth metatarsal of the left foot and suspect he will require a prolonged course of IV antibiotics for residual osteomyelitis. The significance of the small effusion of the left knee is unclear. This could represent seeding from the bacteremia, though he has no overlying erythema, and, if his pain persists, aspiration may need to be pursued. Suggestion: 1. Follow-up final blood cultures 2. Await OR later today 3. Consider aspiration of the left knee joint fluid if pain persists 4. Continue Vancomycin pending above
[2017-12-07 15:17] VITALS: BP 100/70
--- NOTE | 2017-12-07 16:53 | Operative Report ---
Operative/Inv Procedure Report Surgery Date: 12/07/17 Name of Procedure: 1 open incision and drainage deep to the deep fascia with exposure of the extensor and flexor tendon and tendon sheath multiple sites left foot 2 excision of fifth metatarsal left foot 3 intraoperative administration of ankle block anesthesia 4 excisional debridement Pre-Operative Diagnosis: 1 necrotic wound left foot 2 osteomyelitis left foot Post-Operative Diagnosis: The same Estimated Blood Loss: less than 50ml Surgeon/Surgical Scrub Technologist: NAZ HERNDON DPM Anesthesia: moderate sedation, block Operative/Procedure Note Note: After obtaining informed consent the patient was brought to the operating room and placed on the operating table in the supine position. The patient was then securely fastened to the operating table utilizing safety belt. After administration of IV sedation, 10 mL of 0.5% Marcaine plain was infiltrated about the patient's left ankle. Left foot and ankle then scrubbed prepped and draped in usual aseptic manner. Attention directed to the lateral aspect the left foot, where a linear incision overlying the course of the fifth metatarsal was incised with 15 blades dissection was then carried down to the periosteum overlying the proximal segment fifth metatarsal. This was reflected. The metatarsal was then resected and passed from the operative field. Specimen was sent for both microbiologic and pathologic inspection. Dissection was then carried down deep to the deep fascia with exposure of the extensor and flexor tendon and tendon sheath multiple sites, both proximally and distally. All necrotic nonviable infected tissue sharply evacuated from the wound bed. Nipple was then irrigated with 3 L of normal sterile saline infused with 50,000 units of bacitracin. Following this, the foot was redraped and the surgeon's top gloves were changed clean gloves. Any bleeding vessels identified were cauterized or ligated as encountered. Nipple was then packed with iodoform and 2-0 nylon retention sutures were placed. Foot was then dressed with 4 x 4's Kerlix and Alessandro wrap. The patient was noted to tolerate both procedure and anesthesia well and the patient was transported from the operating room to recovery with vital signs stable.
[2017-12-07 17:55] VITALS: BP 122/70
[2017-12-07 22:25] VITALS: BP 124/80
[2017-12-08 06:20] VITALS: BP 148/80
--- NOTE | 2017-12-08 07:06 | PN- Housestaff ---
See Addendum Subjective Follow-up For: Osteomyeltisi Subjective: No overnight events. Patient has some continued pain in his left knee that is subsiding. Surgery went well yesterday and he is eating/drinking well. He denies any chest pain, SOB, abd pain, or other issues. Review of Systems Constitutional: Reports: no symptoms. EENTM: Reports: no symptoms. Cardiovascular: Reports: no symptoms. Respiratory: Reports: no symptoms. Gastrointestinal: Reports: no symptoms. Genitourinary: Reports: no symptoms. Musculoskeletal: Reports: see HPI. Skin: Reports: no symptoms. Neurological/Psychological: Reports: no symptoms. Hematologic/Endocrine: Reports: no symptoms. Immunologic/Allergic: Reports: no symptoms. Objective Last 24 Hrs of Vital Signs/I&O Vital Signs Date Time Temp Pulse Resp B/P B/P Pulse O2 O2 Flow FiO2 Mean Ox Delivery Rate 12/08 0620 99.8 88 20 148/80 92 Room Air 12/07 2225 98.6 100 20 124/80 93 Room Air 12/07 1755 97.5 95 18 122/70 91 Room Air 12/07 1517 98.8 90 20 100/70 91 12/07 0835 120/80 Intake & Output 12/08 0800 12/08 0000 12/07 1600 Intake Total 1100 1360 Output Total 450 300 650 Balance -450 800 710 Intake, IV 850 1360 Intake, Oral 250 Number 0 Bowel Movements Output, Urine 450 300 650 Physical Exam General Appearance: Alert, Oriented X3, Cooperative, No Acute Distress Cardiovascular: Regular Rate, Normal S1, Normal S2 Lungs: Clear to Auscultation Abdomen: Normal Bowel Sounds, Soft, No Tenderness Extremities: Left knee warm but nonerythematous. L foot s/p surgery, R foot stable. Current Medications: Current Medications Sig/Shade Start time Last Medication Dose Route Stop Time Status Admin Acetaminophen 650 MG ONCE ONE 12/07 1315 DC 12/07 PO 12/07 1316 1327 Acetaminophen 1,000 MG Q8P PRN 12/06 07 AC PO Aspirin Buffered 81 MG DAILY 12/06 0900 AC 12/06 PO 0817 Fentanyl Citrate 100 MCG .STK-MED ONE 12/07 1523 DC IM 12/07 1524 Heparin Sodium 5,000 UNIT Q8 12/05 2200 AC 12/08 (Porcine) SC 0637 Ibuprofen 600 MG ONCE ONE 12/07 1230 CAN PO 12/07 1231 Lactated Ringer's 1,000 ML Q6H 12/06 1030 DC 12/08 IV 0637 Midazolam HCl 2 MG .STK-MED ONE 12/07 1523 DC IM 12/07 1524 Patient Medication 1 ED ONE ONE 12/07 1545 DC Teaching ED 12/07 1546 Patient Medication 1 ED ONE ONE 12/07 1545 DC Teaching ED 12/07 1546 Potassium Chloride 40 MEQ ONCE ONE 12/07 0800 DC 12/07 PO 12/07 0801 0835 Tamsulosin HCl 0.4 MG DAILY 12/06 0900 AC 12/07 PO 0835 Tramadol HCl 25 MG Q6P PRN 12/07 1300 r 12/07 PO 1759 Vancomycin HCl 2,000 MG Q12H 12/08 1800 UNVr Sodium Chloride 250 ML IV Vancomycin HCl 1,500 MG Q12H 12/06 1800 DC 12/08 Sodium Chloride 250 ML IV 0643 Last 24 Hrs of Lab/Guilherme Results Last 24 Hrs of Labs/Mics: Microbiology 12/07 1650 EXTREMITIE: Gross Specimen Examination - RECD 12/07 1650 EXTREMITIE: Gram Stain - RECD 12/07 1437 BLOOD: Blood Culture - RECD 12/07 1423 BLOOD: Blood Culture - RECD Assessment/Plan Assessment: Mr. Trujillo is a 52-year-old male with PMH of HTN, osteomyelitis left foot, and chronic left foot ulcer who presented with fever. Problem List: 1. Left foot osteomyelitis 2. Septic shock with lactic acidosis and end organ damage 3. ADAM 4. Transaminitis 5. Left knee effusion 6. Right foot lesion #Left foot osteomyelitis: Patient presented septic (tachycardia, fever, leukocytosis), hypotensive, with lactic acidosis. XRY revealed a focal area of bone destruction representing osteomyelitis adjacent to the deep skin ulcer, lateral midfoot. Other potential sources of infection were evaluated including urine, chest, biliary and lumbar spine and were negative. Lumbar spine CT showed no evidence of abscess but did show chronic inflammatory changes. Right upper quadrant ultrasound was negative though LFTs were mildly elevated. Lactic acidosis has trended down. Patient had previously grown MSSA and Pseudomonas resistant to ceftazidine as well as other gram-negative bacteria on bone cultures. Quick SOFA score 1 on admission, indicating low risk. Blood cultures are growing gram-positive cocci in clusters in 2/2 tubes. TTE revealed no evidence of vegetations but was a poor study. Infectious disease has been consulted. Patient went to the OR on 12/07/17 for debridement of right foot with 5th toe amputation. He has remained afebrile since admission with improving white count. Blood pressures have been stable. -Appreciate podiatry recommendations -ID consult -Vancomycin 2g Q12, day 3 -Vanc trough tomorrow at 1700 -Follow cultures for speciation #Left knee effusion: Patient additionally complains of left knee pain. On exam, knee is nonerythematous but has tenderness to palpation and is warm compared to right. XRY revealed mild degenerative changes with small joint effusion. We will talk to ID about whether arthocentesis is indicated. Concern would be for septic arthritis. -CTM -Consider arthocentesis -Appreciate ID recs #Right foot lesion: It was noted on admission that right 3rd toe has blackened tip with wet appearing wound. XRY revealed soft tissues are swollen at the tip of the second toe and there is bone loss of the tuft of the distal phalanx which could be secondary to ischemia or osteomyelitis. 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 We will discuss with pod and ID about management. -Appreciate podiatry recs -Appreciate ID recs #ADAM: Most likely prerenal azotemia due to decreased oral intake/septic shock, also in the setting of recent NSAID use and ARB use. Creatinine now improved. -Avoid nephrotoxins -Hold ACEi/ARB #Chronic medical problems: -Continue other home medications DVT prophylaxis with heparin Consistent carb 3 diet Full code Problem List: 1. Osteomyelitis Pain Ratin Pain Location: knee Pain Goal: Remain pain free Pain Plan: see a/p Tomorrow's Labs & Rationales: cbc
[2017-12-08 08:16] LABS: ABSOLUTE BASOPHIL COUNT 0 /CUMM (0.0-0.2); ABSOLUTE EOSINOPHIL COUNT 0 /CUMM (0.0-0.7); ABSOLUTE GRANULOCYTE CT 15.3 /CUMM (1.4-6.5); ABSOLUTE LYMPH COUNT 1.6 /CUMM (1.2-3.4); ABSOLUTE MONOCYTE COUNT 1.2 /CUMM (0.10-0.60); BASOPHIL % 0.1 % (0.0-2.0); EOSINOPHIL % 0.2 % (0-5); GRANULOCYTE % 84.1 % (42.2-75.2); HEMATOCRIT 31.1 % (42-52); MEAN CORPUSCULAR HGB 31.5 PG (27.0-31.0); MEAN CORPUSCULAR HGB CONC 33.4 G/DL (33.0-37.0); MEAN CORPUSCULAR VOLUME 94.1 FL (80.0-94.0); MEAN PLATELET VOLUME 8.5 FL (7.4-10.4); PLATELET COUNT 446 /CUMM (130-400); RBC DISTRIBUTION WIDTH 14.9 % (11.5-14.5); RED BLOOD CELL CT 3.31 /CUMM (4.70-6.10)
--- NOTE | 2017-12-08 08:26 | PN- Student ---
Subjective Subjective: No overnight events reported. Mr. Trujillo reports that he did have some bleeding from his left foot last night s/p surgery after moving to the side of the bed to urinate. He reports that the surgical site was left open, after removal of bone and tissue and that it will be closed by Dr. Rock on Monday. He ate last night and was having breakfast this morning when I came into the room. He reports decreased swelling in his left knee but continued pain in his lower back. Objective Objective: Current Medications Sig/Shade Start time Last Medication Dose Route Stop Time Status Admin Acetaminophen 650 MG ONCE ONE 12/07 1315 DC 12/07 PO 12/07 1316 1327 Acetaminophen 1,000 MG Q8P PRN 12/06 0700 AC PO Aspirin Buffered 81 MG DAILY 12/06 0900 AC 12/06 PO 0817 Fentanyl Citrate 100 MCG .STK-MED ONE 12/07 1523 DC IM 12/07 1524 Heparin Sodium 5,000 UNIT Q8 12/05 2200 AC 12/08 (Porcine) SC 0637 Ibuprofen 600 MG ONCE ONE 12/07 1230 CAN PO 12/07 1231 Lactated Ringer's 1,000 ML Q6H 12/06 1030 DC 12/08 IV 0637 Midazolam HCl 2 MG .STK-MED ONE 12/07 1523 DC IM 12/07 1524 Patient Medication 1 ED ONE ONE 12/07 1545 LA Teaching ED 12/07 1546 Patient Medication 1 ED ONE ONE 12/07 1545 LA Teaching ED 12/07 1546 Tamsulosin HCl 0.4 MG DAILY 12/06 0900 AC 12/07 PO 0835 Tramadol HCl 25 MG Q6P PRN 12/07 1300 AC 12/07 PO 1759 Vancomycin HCl 2,000 MG Q12H 12/08 1800 DC Sodium Chloride 500 ML IV Vancomycin HCl 2,000 MG Q12H 12/08 0800 AC Sodium Chloride 500 ML IV Vancomycin HCl 1,500 MG Q12H 12/06 1800 DC 12/08 Sodium Chloride 250 ML IV 0643 Laboratory Tests 12/08 0705 Chemistry Sodium Pending Potassium Pending Chloride Pending Carbon Dioxide Pending Anion Gap Pending BUN Pending Creatinine Pending BUN/Creatinine Ratio Pending Hematology CBC w Diff Pending WBC Pending RBC Pending Hgb Pending Hct Pending MCV Pending MCH Pending MCHC Pending RDW Pending Plt Count Pending MPV Pending Microbiology Date/Time Procedure - Status Source Growth 12/07 165 Gross Specimen Examination - RECD EXTREMITIE 12/07 1650 Gram Stain - RECD EXTREMITIE 12/07 1437 Blood Culture - RECD BLOOD 12/07 1423 Blood Culture - RECD BLOOD Vital Signs Date Time Temp Pulse Resp B/P B/P Pulse O2 O2 Flow FiO2 Mean Ox Delivery Rate 12/08 0620 99.8 88 20 148/80 92 Room Air 12/07 2225 98.6 100 20 124/80 93 Room Air 12/07 1755 97.5 95 18 122/70 91 Room Air 12/07 1517 98.8 90 20 100/70 91 12/07 0835 120/80 Intake & Output 12/08 1600 12/08 0800 12/08 0000 Intake Total 1820 1100 Output Total 800 300 Balance 1020 800 Intake, IV 1360 850 Intake, Oral 460 250 Number 0 Bowel Movements Output, Urine 800 300 Physical Exam General apperance: no evidence of acute distress, AOx3 CV: regular rhythym and rate, normal s1&s2, no MRG Pulm: slight ronchi noted on exhalation in upper lung [place] Abd: bowel sounds present, soft non-tender extremities: left foot wrapped with deonte compression dressing, left knee slight swelling, right ankle chronic swelling and necrotic tissue noted over the distal portion of the second toe on the right foot Assessment/Plan Assessment: Mr. Trujillo is a 52 year old male with a PMHx significant for HTN, right hip replacement, right ankle fusion, chronic left foot ulcer and left foot osteomyelitis, who presented with signs and symptoms of septic shock on 12/05/17 to [facility]. He was subsequently admitted to the hospital and was found to be growing gram positive cocci in clusters upon blood culture x2 on blood cultures obtained 12/05/17 and repeat cultures x2 on 12/06/17, and x1 from 12/07/17. These cultures are consistent with Staph Auerues infection most likely MSSA as he was previously cultures indicate prior to hospitalization. His previous cultures prior to hospitalization also grew out Pseudomonas resistant to ceftaz as well as proteus. He is being seen by the general medicine team as well as consults from ID and podiatry for osteomyelitis. Yesterday (12/07/17) Dr. Rock perfromed surgical debridement of the left foot with extraction of the left 5th metatarsal due to obvious osteomyolitis. The patient reports Dr. Rock plans to return to the OR with Mr. Trujillo for closure of the wound on Monday. A call to Dr. Rock has been placed regarding future plans for Mr. Trujillo as MRI indicates possible osteomyolitis and abscess involving the right foot. Plan: Problem List 1. Osteomyelitis of left foot 2. Right foot abscess/osteomyelitis 3. osteoarthritis 4. chronic medical conditions #osteomyelitis of left foot: X-ray and MRI findings support high clinical suspicion of osteomyelitis of Mr. Trujillo's left foot. He was taken to the OR yesterday by Dr. Rock for surgical debridement. Due to infiltration of the bone Dr. Rock removed the 5th metatarsal from the left foot along with other necrotic tissue in the area and applied antibacterial agent. As he has a chronic ulcer present on his left foot it provides a route for bacteria to infiltrate the bone. Dr. Rock sent off the 5th metatarsal removed for cultures and pathologic review. Mr. Trujillo has had 3 sets of blood cultures come back positive for gram positive cocci in clusters, 2 sets x2 and 1 set performed yesterday x1 with the other bottle pending at the time of this note. Although Mr. 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 This might explain why previous abx therapy failed. Vancomycin theraputic index testing was performed and found to be outside the theraputic window and therfore his doseage was adjusted to adequately adress this issue. This is day 3 for IV vancomycin. -Continue IV Vancomycin -f/u on repeat blood cultures -appreciate ID and Podiatry recommendations -await cultures an pathology of 5th metatarsal -repeat vancomycin TI testing -continue clean wound practices and dressings #Right foot abscess/osteomyelitis:Mr. Trujillo has a history of prior right ankle fusion, and upon examination necrotic tissue was seen on the second right toe. MRI and x-ray of the right foot were also performed on MR. Trujillo and raised sucpision of necrosis/osteomylitis of the right second toe as well as abscess. Dr. Rock saw the patient in the OR yesterday. A page was sent out to Dr. Rock for treatment plan to address the right foot. -Continue IV Vancomycin -f/u on repeat blood cultures -appreciate podiatry recommendations #osteoarthritis: Patient has reported back pain, knee pain in addition to symptoms in his feet. X-ray imaging of patients back and knee indicate the patient has narrowing of the joint spaces as a result of degenerative changes. Mr Trujillo has a BMI of 37.8 putting him in to the obese range, this is likely impacting his overall joint health. That and being in a physically demanding line of work in [employer] services puts more stress on his joints and thus increasing risk of osteoarthritis. Imaging did not indicate bacterial seeding in these locations. The patient has reported decreased swelling of the left knee, and it does not appear erythematous. As for the lower back pain this is likely related to osteoarthritic changes but consideration for spinal stenosis or disc herniation is also a thought as the pain does radiate down his buttock. Suspicion for multiple myeloma, or other malignancy is low as the patient does not have a history of prostate issues or suspicion for malignancy. -pain management -Aggressive life style modification with weight loss #chronic medical problems: -continue medications as prescribed DVT ppx Heparin NPO full code DVT ppx Heparin NPO full code
[2017-12-08 09:46] LABS: WHITE BLOOD CELL COUNT 18.1 /CUMM (4.8-10.8)
--- NOTE | 2017-12-08 13:03 | PN- Infect Dx ---
Subjective Subjective: Afebrile. He does not offer any specific complaints but feels poorly overall. Objective Last 24 Hrs of Vital Signs/I&O Vital Signs Date Time Temp Pulse Resp B/P B/P Pulse O2 O2 Flow FiO2 Mean Ox Delivery Rate 12/08 0922 88 148/80 12/08 0620 99.8 88 20 148/80 92 Room Air 12/07 2225 98.6 100 20 124/80 93 Room Air 12/07 1755 97.5 95 18 122/70 91 Room Air 12/07 1517 98.8 90 20 100/70 91 Intake & Output 12/08 1600 12/08 0800 12/08 0000 Intake Total 1820 1100 Output Total 800 300 Balance 1020 800 Intake, IV 1360 850 Intake, Oral 460 250 Number 0 Bowel Movements Output, Urine 800 300 Physical Exam Other Physical Findings: He is awake and alert in no acute distress Lungs are clear Heart regular rhythm with no murmur Abdomen is obese, soft, nontender with positive bowel sounds Extremities left knee swelling and warmth, nontender to palpation with some limitation to range of motion; left foot dressing intact; right second toe necrotic tip unchanged with no surrounding inflammation Results Last 24 Hours of Lab Results: Laboratory Tests 12/08 0705 Chemistry Sodium (137 - 145 mmol/L) 142 Potassium (3.5 - 5.1 mmol/L) 4.0 Chloride (98 - 107 mmol/L) 98 Carbon Dioxide (22 - 30 mmol/L) 34 H Anion Gap (5 - 16) 10 BUN (9 - 20 mg/dL) 12 Creatinine (0.7 - 1.2 mg/dL) 0.6 L Estimated GFR (>60 ml/min) > 60 BUN/Creatinine Ratio (7 - 25 %) 20.0 Hematology CBC w Diff NO MAN DIFF REQ WBC (4.8 - 10.8 /CUMM) 18.1 H RBC (4.70 - 6.10 /CUMM) 3.31 L Hgb (14.0 - 18.0 G/DL) 10.4 L Hct (42 - 52 %) 31.1 L MCV (80.0 - 94.0 FL) 94.1 H MCH (27.0 - 31.0 PG) 31.5 H MCHC (33.0 - 37.0 G/DL) 33.4 RDW (11.5 - 14.5 %) 14.9 H Plt Count (130 - 400 /CUMM) 446 H MPV (7.4 - 10.4 FL) 8.5 Gran % (42.2 - 75.2 %) 84.1 H Lymphocytes % (20.5 - 51.1 %) 8.8 L Monocytes % (1.7 - 9.3 %) 6.8 Eosinophils % (0 - 5 %) 0.2 Basophils % (0.0 - 2.0 %) 0.1 Absolute Granulocytes (1.4 - 6.5 /CUMM) 15.3 H Absolute Lymphocytes (1.2 - 3.4 /CUMM) 1.6 Absolute Monocytes (0.10 - 0.60 /CUMM) 1.2 H Absolute Eosinophils (0.0 - 0.7 /CUMM) 0 Absolute Basophils (0.0 - 0.2 /CUMM) 0 Last 24 Hours of Guilherme Results: Blood cultures December 05 positive for Staph aureus sensitive to Oxacillin Blood cultures December 06 positive for Staph aureus Blood cultures times December 07 positive for gram-positive cocci in clusters OR culture December 07 labeled left foot bone pending, with gram stain revealing rare white blood cells, many gram-positive cocci and few gram-negative rods Assessment/Plan ID Impression: Persistent Staph aureus bacteremia, most likely secondary to his left foot, status post excision of the left fifth metatarsal yesterday, with temperatures remaining normal but with a persistent leukocytosis on Vancomycin Day 3. The findings on the MRI of the right foot are of unclear significance and will defer to Podiatry. His left knee swelling persists, with the x-ray revealing a small effusion, and, with his persistent bacteremia and leukocytosis, feel that a septic arthritis should be ruled out. He will likely require a return to the OR next week for further debridement/wound closure and will require a prolonged course of IV antibiotics for residual osteomyelitis. Endocarditis is certainly a consideration with his persistently positive blood cultures, but a MARIAN may be academic as is already committed to a long course of antibiotics. The OR culture is pending and his antibiotics can be adjusted based on the sensitivities of the Staph aureus and the gram stain of the bone culture revealing few gram-negative rods. Suggestion: 1. Would pursue left knee arthrocentesis 2. Follow-up final OR culture 3. Discontinue Vancomycin 4. Begin Zosyn 4.5 g IV every 6 hours pending above
[2017-12-08 14:04] VITALS: BP 140/80
--- NOTE | 2017-12-08 14:46 | Procedure ---
Minor Surgical Procedure Note Date of Procedure: 12/08/17 Procedure Note: PREOPERATIVE DIAGNOSES: Left knee effusion POSTOPERATIVE DIAGNOSES: Same INDICATIONS: Rule out septic joint, MSSA bacteremia Resident: Antoni Zamora MD Cash Office Worker: Nicolas Miller MD PROCEDURE: The patient's left anteromedial knee area was prepped with cholrhexadione and betadine times two and a 18-gauge spinal needle was used to approach the knee joint approximately 3 cm anterior and 2 cm lateral to the superolateral pole of the patella. The 18-gauge spinal needle was inserted and entered the knee joint. Approximately, 3 cc of brown fluid was aspirated. The patient tolerated the procedure well. Fluid sent for culture.
--- NOTE | 2017-12-08 19:24 | PN- Orthopedic ---
Surgical Brief Attending Note Brief Attending Note: Left knee was tapped by the surgical PA. There is a question of the sample clotting, with 30K WBCs in the synovial fluid. No bacteria seen on gram stain. Will watch for now to wait for any growth on the culture. No irrigation and debridement at this time.
--- NOTE | 2017-12-08 22:04 | PN- Orthopedic ---
Surgical Brief Attending Note Brief Attending Note: This is a late entry. Bedside arthrocentesis was performed early today. No plans for OR tonight per Dr. Ojeda. Will need follow up with arthrocentesis cultures.
[2017-12-08 22:43] VITALS: BP 130/60
[2017-12-09 06:59] VITALS: BP 126/82
[2017-12-09 08:26] LABS: ABSOLUTE BASOPHIL COUNT 0.1 /CUMM (0.0-0.2); ABSOLUTE EOSINOPHIL COUNT 0.1 /CUMM (0.0-0.7); ABSOLUTE GRANULOCYTE CT 12.6 /CUMM (1.4-6.5); ABSOLUTE LYMPH COUNT 1.4 /CUMM (1.2-3.4); ABSOLUTE MONOCYTE COUNT 1.2 /CUMM (0.10-0.60); BASOPHIL % 0.4 % (0.0-2.0); EOSINOPHIL % 0.8 % (0-5); GRANULOCYTE % 81.7 % (42.2-75.2); HEMATOCRIT 30.3 % (42-52); MEAN CORPUSCULAR HGB 31.3 PG (27.0-31.0); MEAN CORPUSCULAR VOLUME 95.1 FL (80.0-94.0); MEAN PLATELET VOLUME 8.2 FL (7.4-10.4); PLATELET COUNT 409 /CUMM (130-400); RBC DISTRIBUTION WIDTH 14.9 % (11.5-14.5); RED BLOOD CELL CT 3.19 /CUMM (4.70-6.10); WHITE BLOOD CELL COUNT 15.4 /CUMM (4.8-10.8)
--- NOTE | 2017-12-09 09:20 | PN- Housestaff ---
Subjective Follow-up For: Left foot osteomyelitis, and this is a bacteremia Subjective: No overnight events. The patient did not have any further fevers. He has slight pain in his knee but otherwise has no chest pain, shortness of breath, nausea, vomiting, or diarrhea. Review of Systems Constitutional: Reports: no symptoms. EENTM: Reports: no symptoms. Cardiovascular: Reports: no symptoms. Respiratory: Reports: no symptoms. Gastrointestinal: Reports: no symptoms. Genitourinary: Reports: no symptoms. Musculoskeletal: Reports: see HPI. Skin: Reports: no symptoms. Neurological/Psychological: Reports: no symptoms. Hematologic/Endocrine: Reports: no symptoms. Immunologic/Allergic: Reports: no symptoms. Objective Last 24 Hrs of Vital Signs/I&O Vital Signs Date Time Temp Pulse Resp B/P B/P Pulse O2 O2 Flow FiO2 Mean Ox Delivery Rate 12/09 0659 97.5 88 20 126/82 90 Room Air 12/08 2243 99.0 99 22 130/60 90 Room Air 12/08 1404 98.9 104 22 140/80 89 Room Air 12/08 0922 88 148/80 Intake & Output 12/09 1600 12/09 0800 12/09 0000 Intake Total 1760 1720 Output Total 200 600 Balance 1560 1120 Intake, IV 1400 1360 Intake, Oral 360 360 Output, Urine 200 600 Physical Exam General Appearance: Alert, Oriented X3, Cooperative, No Acute Distress Cardiovascular: Regular Rate, Normal S1, Normal S2 Lungs: Clear to Auscultation, Normal Air Movement Abdomen: Normal Bowel Sounds, Soft, No Tenderness Extremities: stable Current Medications: Current Medications Sig/Shade Start time Last Medication Dose Route Stop Time Status Admin Acetaminophen 1,000 MG Q8P PRN 12/06 0700 AC 12/09 PO 0500 Aspirin Buffered 81 MG DAILY 12/06 0900 AC 12/08 PO 0920 Dextrose/Sodium 1,000 ML Q10H 12/08 1515 DC 12/09 Chloride IV 0454 Heparin Sodium 5,000 UNIT Q8 12/05 2200 AC 12/09 (Porcine) SC 0500 Lidocaine 20 ML .STK-MED ONE 12/08 1406 DC IA 12/08 1407 Non-Formulary 0 SEE ADMIN CRITERIA 12/08 1315 CAN Medication ANY Piperacillin Sod/ 4.5 GM Q6 12/08 1800 AC 12/09 Tazobactam Sod IV 0500 Sodium Chloride 100 ML Tamsulosin HCl 0.4 MG DAILY 12/06 0900 AC 12/08 PO 0922 Tramadol HCl 25 MG Q6P PRN 12/07 1300 AC 12/08 PO 1653 Vancomycin HCl 2,000 MG Q12H 12/08 0800 DC 12/08 Sodium Chloride 500 ML IV 0923 Last 24 Hrs of Lab/Guilherme Results Last 24 Hrs of Labs/Mics: Laboratory Tests 12/09/17 0658: CBC w Diff Pending, WBC Pending, RBC Pending, Hgb Pending, Hct Pending, MCV Pending, MCH Pending, MCHC Pending, RDW Pending, Plt Count Pending, MPV Pending 12/08/17 1450: % Normal PMNs 99, Misc Hematology Test , Fluid WBC 54563 H, Fld Total RBCs Counted 89650 H 12/08/17 1408: Fluid WBC Cancelled, Fld Total RBCs Counted Cancelled Microbiology 12/08 1450 BODY FLUID: Body Fluid Culture - RES 12/08 1450 BODY FLUID: Gram Stain - RES 12/08 1440 BODY FLUID: Body Fluid Culture - RES 12/08 1440 BODY FLUID: Gram Stain - RES 12/08 1020 BLOOD: Blood Culture - RECD 12/08 1010 BLOOD: Blood Culture - RECD Assessment/Plan Assessment: Mr. Trujillo is a 52-year-old male with PMH of HTN, osteomyelitis left foot, and chronic left foot ulcer who presented with fever. Problem List: 1. Left foot osteomyelitis 2. Septic shock with lactic acidosis and end organ damage 3. ADAM 4. Transaminitis 5. Left knee effusion 6. Right foot lesion 7. MSSA bacteremia #Left foot osteomyelitis: Patient presented septic (tachycardia, fever, leukocytosis), hypotensive, with lactic acidosis. XRY revealed a focal area of bone destruction representing osteomyelitis adjacent to the deep skin ulcer, lateral midfoot. Other potential sources of infection were evaluated including urine, chest, biliary and lumbar spine and were negative. Lumbar spine CT showed no evidence of abscess but did show chronic inflammatory changes. Right upper quadrant ultrasound was negative though LFTs were mildly elevated. Lactic acidosis has trended down. Patient had previously grown MSSA and Pseudomonas resistant to ceftazidine as well as other gram-negative bacteria on bone cultures. Quick SOFA score 1 on admission, indicating low risk. Blood cultures are growing gram-positive cocci in clusters in 2/2 tubes, MSSA. TTE revealed no evidence of vegetations but was a poor study. Infectious disease has been consulted. Patient went to the OR on 12/07/17 for debridement of right foot with 5th toe amputation. He has remained afebrile since admission with improving white count. Blood pressures have been stable. Yesterday, he was switched to piperacillin/tazobactam for MSSA bacteremia. Blood cultures have been persistently positive but we will follow-up yesterdays set. -Appreciate podiatry recommendations -Appreciate ID recommendations -Piperacillin/tazobactam, day 2 -Follow cultures for speciation #Left knee effusion: Patient additionally complains of left knee pain. On exam, knee is nonerythematous but has tenderness to palpation and is warm compared to right. XRY revealed mild degenerative changes with small joint effusion. Arthrocentesis yesterday revealed grossly brown fluid with 30,000 WBCs. Culture has not grown yet. -CTM -Monitor cultures -Appreciate ID recs #Right foot lesion: It was noted on admission that right 3rd toe has blackened tip with wet appearing wound. XRY revealed soft tissues are swollen at the tip of the second toe and there is bone loss of the tuft of the distal phalanx which could be secondary to ischemia or osteomyelitis. 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 We will discuss with pod and ID about management. -Appreciate podiatry recs -Appreciate ID recs #ADAM: Most likely prerenal azotemia due to decreased oral intake/septic shock, also in the setting of recent NSAID use and ARB use. Creatinine now improved. -Avoid nephrotoxins -Hold ACEi/ARB #Chronic medical problems: -Continue other home medications DVT prophylaxis with heparin Consistent carb 3 diet Full code Problem List: 1. Osteomyelitis Pain Ratin Pain Location: knee Pain Goal: Remain pain free Pain Plan: see a/p Tomorrow's Labs & Rationales: cbc
--- NOTE | 2017-12-09 09:58 | PN- Att Addend ---
Attending Addendum Attending Brief Note Patient seen and examined. Resting comfortably not in any acute distress. No issues overnight reported by nursing staff. He reports some discomfort in the left leg admits adequate control with current pain regimen. He is afebrile. He is hemodynamically stable. Notes from the orthopedic service and the ID service done yesterday appreciated. On examination he has 2+ pitting edema bilaterally. The left leg is more swollen than the right. He has left knee swelling. No erythema at the site of arthrocentesis done yesterday. Has an intact dressing over the left foot. It is dry. The right second toe has a necrotic tip with no surrounding inflammation. Laboratory data reviewed. Hemoglobin level stable. White cell count is trending down. Recommendations: -Continue antibiotic course as recommended by the ID service. -Continue current pain regimen. -Follow-up with the orthopedic service and ID service regarding need for knee washout in the OR. Results of the joint fluid culture will help guide decision- making.
--- NOTE | 2017-12-09 10:57 | Cons- Orthopedic ---
General Information and HPI Consulting Request Date of Consult: 12/09/17 Requested By: Dolores Plata MD History of Present Illness: This is a 52-year-old male status post left fifth metatarsal resection. The patient has been bacteremic and I have been called to rule out a left septic knee. The patient states that he has no prior history of any injuries or pain in his left knee prior to this admission. He states that his left knee feels stiff with range of motion. He had 2 aspirations performed yesterday. The second was performed by the surgical physician animal assistant and sent off for fluid analysis. Allergies/Medications Allergies: Coded Allergies: No Known Allergies (09/15/17) Home Med List: Aspirin (Ecotrin*) 81 MG TABLET.DR 1 TAB PO DAILY HEART/BLOOD (Reported) Ciprofloxacin HCl 500 MG TABLET 1 TAB PO BID ANTIBIOTIC, INFECTION (Reported) Losartan/Hydrochlorothiazide (Losartan-Hctz 50-12.5 MG Tab) 50 MG-12.5 MG TABLET 1 TAB PO DAILY BP (Reported) Meloxicam (Mobic) 15 MG TABLET 1 TAB PO DAILY PAIN (Reported) Tamsulosin HCl 0.4 MG CAP.ER.24H 1 CAP PO DAILY PROSTATE (Reported) Tramadol HCl 50 MG TABLET 1 TAB PO BIDP PRN PAIN (Reported) Past History Medical History Blood Transfusion Hx: No Neurological: NONE EENT: NONE Cardiovascular: hypertension Respiratory: NONE Gastrointestinal: NONE Hepatic: NONE Renal: NONE Musculoskeletal: osteoarthritis Psychiatric: NONE Endocrine: NONE Blood Disorders: NONE Cancer(s): NONE Surgical History Pertinent Surgical History: non-contributory Family History Relations & Conditions If Any: Relation not specified for: No pertinent family history Psychosocial History Where Do You Live? Home Smoking Status: Never Smoked ETOH Use: denies use Illicit Drug Use: denies illicit drug use Exam & Diagnostic Data Vital Signs and I&O Vital Signs Date Time Temp Pulse Resp B/P B/P Pulse O2 O2 Flow FiO2 Mean Ox Delivery Rate 12/09 0950 97.5 88 20 126/82 12/09 0659 97.5 88 20 126/82 90 Room Air 12/08 2243 99.0 99 22 130/60 90 Room Air 12/08 1404 98.9 104 22 140/80 89 Room Air Intake & Output 12/09 1600 12/09 0800 12/09 0000 12/08 1600 12/08 0812/08 0000 Intake Total 1760 1720 1820 1100 Output Total 200 600 300 800 300 Balance 1560 1120 -300 1020 800 Intake, IV 1400 1360 1360 850 Intake, Oral 360 360 460 250 Number 0 0 Bowel Movements Output, Urine 200 600 300 800 300 Physical Exam: Left knee has a mild effusion. He has full extension of the knee. Flexion to 90 degrees illicits mild discomfort. No warmth is noted. No erythema noted. No drainage. Left foot dressing intact. No pain with range of motion of the left hip. Right lower extremity examination reveals no erythema or tenderness. Last 24 Hours of Labs: Laboratory Tests 12/09 12/08 12/08 0658 1450 1408 Hematology CBC w Diff NO MAN DIFF REQ WBC (4.8 - 10.8 /CUMM) 15.4 H RBC (4.70 - 6.10 /CUMM) 3.19 L Hgb (14.0 - 18.0 G/DL) 10.0 L Hct (42 - 52 %) 30.3 L MCV (80.0 - 94.0 FL) 95.1 H MCH (27.0 - 31.0 PG) 31.3 H MCHC (33.0 - 37.0 G/DL) 33.0 RDW (11.5 - 14.5 %) 14.9 H Plt Count (130 - 400 /CUMM) 409 H MPV (7.4 - 10.4 FL) 8.2 Gran % (42.2 - 75.2 %) 81.7 H Lymphocytes % (20.5 - 51.1 %) 9.4 L Monocytes % (1.7 - 9.3 %) 7.7 Eosinophils % (0 - 5 %) 0.8 Basophils % (0.0 - 2.0 %) 0.4 Absolute Granulocytes (1.4 - 6.5 /CUMM) 12.6 H Absolute Lymphocytes (1.2 - 3.4 /CUMM) 1.4 Absolute Monocytes (0.10 - 0.60 /CUMM) 1.2 H Absolute Eosinophils (0.0 - 0.7 /CUMM) 0.1 Absolute Basophils (0.0 - 0.2 /CUMM) 0.1 % Normal PMNs (%) 99 Misc Hematology Test (%) Other Body Source Fluid WBC (0 - 5 /CUMM) 88473 H Cancelled Fld Total RBCs Counted (0 /CUMM) 11787 H Cancelled Assessment/Plan Assessment/Plan This is a 52-year-old male with bacteremia, rule out left septic knee. After aspiration, there is concern for clotting in the specimen however the fluid was run by my request which showed 30,000 white blood cells. Gram stain has been negative to date. We will watch this for now. If he does have any bacteria that grows out and the culture we will perform a left knee arthroscopic irrigation and debridement. Continue antibiotics for now. Will follow. No acute intervention from an orthopedic standpoint this time. Consult Acknowledgment - Thank you for your consult request.
--- NOTE | 2017-12-09 12:17 | PN- Infect Dx ---
Subjective Subjective: L knee pain earlier today. No fever. No chills. Feels sleepy. Review of Systems Comments: 12 points reviewed per HPI. Objective Last 24 Hrs of Vital Signs/I&O Vital Signs Date Time Temp Pulse Resp B/P B/P Pulse O2 O2 Flow FiO2 Mean Ox Delivery Rate 12/09 0950 97.5 88 20 126/82 12/09 0659 97.5 88 20 126/82 90 Room Air 12/08 2243 99.0 99 22 130/60 90 Room Air 12/08 1404 98.9 104 22 140/80 89 Room Air Intake & Output 12/09 1600 12/09 0800 12/09 0000 Intake Total 1760 1720 Output Total 150 200 600 Balance -150 1560 1120 Intake, IV 1400 1360 Intake, Oral 360 360 Output, Urine 150 200 600 Physical Exam Other Physical Findings: He is awake and alert in no acute distress Lungs are clear Heart regular rhythm with no murmur Abdomen is obese, soft, nontender with positive bowel sounds Extremities left knee swelling and warmth, nontender to palpation with some limitation to range of motion; left foot dressing intact; right second toe necrotic tip unchanged with no surrounding inflammation Results Last 24 Hours of Lab Results: Laboratory Tests 12/09 12/08 12/08 0658 1450 1408 Hematology CBC w Diff NO MAN DIFF REQ WBC (4.8 - 10.8 /CUMM) 15.4 H RBC (4.70 - 6.10 /CUMM) 3.19 L Hgb (14.0 - 18.0 G/DL) 10.0 L Hct (42 - 52 %) 30.3 L MCV (80.0 - 94.0 FL) 95.1 H MCH (27.0 - 31.0 PG) 31.3 H MCHC (33.0 - 37.0 G/DL) 33.0 RDW (11.5 - 14.5 %) 14.9 H Plt Count (130 - 400 /CUMM) 409 H MPV (7.4 - 10.4 FL) 8.2 Gran % (42.2 - 75.2 %) 81.7 H Lymphocytes % (20.5 - 51.1 %) 9.4 L Monocytes % (1.7 - 9.3 %) 7.7 Eosinophils % (0 - 5 %) 0.8 Basophils % (0.0 - 2.0 %) 0.4 Absolute Granulocytes (1.4 - 6.5 /CUMM) 12.6 H Absolute Lymphocytes (1.2 - 3.4 /CUMM) 1.4 Absolute Monocytes (0.10 - 0.60 /CUMM) 1.2 H Absolute Eosinophils (0.0 - 0.7 /CUMM) 0.1 Absolute Basophils (0.0 - 0.2 /CUMM) 0.1 % Normal PMNs (%) 99 Misc Hematology Test (%) Other Body Source Fluid WBC (0 - 5 /CUMM) 98452 H Cancelled Fld Total RBCs Counted (0 /CUMM) 32369 H Cancelled Last 24 Hours of Guilherme Results: RECD: 12/06/17-[address]: Paul GRAJEDA,Nicolas SOURCE: BLOOD ENTR: 12/06/17-[address]: Boni GRAJEDA,Dolores SPDESC: 1ST/VENOUS Alessandra GRAJEDA,Mariluz Eagle MD,Jerardo ORDERED: BLOOD CULTURE Procedure Result > BLOOD CULTURE REPORT Final 12/08/17-1419 GRAM STAIN SUGGESTIVE OF: GRAM POSITIVE COCCI IN CLUSTERS Called to/Readback by ARVIN AND DR GAUTAM [id number] by [email or web address] 12/07/17 1135 CULTURE: STAPH AUREUS SEE [id number] FOR SENSITIVITIES ON FILE COMMENT: BONE IN CUP ADDITIONAL INFORMATION: BONE Procedure Result > GRAM STAIN Final 12/08/17-0926 WHITE BLOOD CELLS RARE GRAM POSITIVE COCCI MANY GRAM NEGATIVE RODS FEW OTHER AFTER OVERNIGHT INCUBATION IN THIO > EXTREMITIES OR SPECIMEN Preliminary 12/09/17-1204 AFTER OVERNIGHT INCUBATION IN THIO BROTH: Moderate growth of: PROTEUS SPECIES Identification and sensitivities to follow Heavy growth of: STAPH AUREUS ISOLATED NOTE THIS IS A PRELIMINARY REPORT: IF: patient has had significant exposure to a healthcare setting in the past three (3) months, THEN: suspect Methicillin Resistant Staph aureus and place patient on Contact precautions PENDING susceptibility results TO FOLLOW Called to/Readback by JEFFREY by [email or web address] 12/09/17 1138 Recent Imaging Studies: 2D echo Diastolic filling pressures are within normal limits. The left atrium is normal in size. The interatrial septum is intact. The mitral valve is normal in structure and function. Mild calcification of the mitral annulus. No visible mitral vegetation. Structurally normal aortic valve without significant sclerosis or stenosis. The is no visible aortic vegetation. Pulmonary artery systolic pressure could not be obtained. Structurally normal pulmonic valve. Normal pericardium without effusion. Normal aortic root dimension. Froylan Hart M.D. (Electronically Signed) Final Date: 07 December 2017 09:38 Assessment/Plan ID Impression: 52-year-old man with a history of hypertension, arthritis, left fifth toe polymicrobial osteomyelitis, status post amputation and treatment with a 4 week course of Meropenem over 3 years prior to admission, with recurrence of a left foot wound several months prior to admission, status post debridement of necrotic bone and treatment with a 4 week course of Cefazolin for osteomyelitis secondary to Proteus and MSSA, with nonhealing of the wound and intermittent drainage, admitted on December 05 after he was sent to the emergency room by his primary care physician because of a fever and elevated white blood cell count. Stable, with temperatures normal and white blood cell count decreasing, on Vancomycin, Day 3 of treatment for Staph aureus sepsis (BC 12/05 + MSSA), most likely secondary to residual osteomyelitis of the left foot (cx + S. aureus and Proteus sensitivities pending), with the MRI of the foot confirming the x-ray and clinical suspicion. POD#1 s/p debridement/resection of the residual fifth metatarsal of the left foot and suspect he will require a prolonged course of IV antibiotics for residual osteomyelitis. The significance of the small effusion of the left knee is unclear. Rule out left septic knee. After aspiration, there is concern for clotting in the specimen; the fluid was run per ortho request which showed 30,000 white blood cells; gram stain has been negative to date. Planned left knee arthroscopic irrigation and debridement if synovial fluid cx neg. Leukocytosis Suggestion: 1. Follow-up final blood cultures; trend CBC, BMP. 2. Add Ceftriaxone 2 gm daily. 3. F/U ortho recom 4. Continue Vancomycin pending above; goal trough 15-20; obtain vanco trough 12/10 30 min before the due dose.
[2017-12-09 14:27] VITALS: BP 120/85
--- NOTE | 2017-12-09 15:44 | Operative Report ---
Operative/Inv Procedure Report Surgery Date: 12/09/17 Name of Procedure: Left knee arthroscopic irrigation and debridement, limited synovectomy Pre-Operative Diagnosis: Left septic knee Post-Operative Diagnosis: Left septic knee Estimated Blood Loss: scant Surgeon/Bioassayist: Saad Ojeda MD Anesthesia: general endotracheal tube Drains: Hemavac Complications: none Condition: stable to PACU Operative Indication: This is a 52 year old male with left knee pain, status post recent left 5th metatarsal resection for infection. Knee aspiration yielded Staph Aureus. Risks and benefits were discussed at length. Risks include but are not limited to nerve damage, muscle damage, blood clot, pulmonary embolus, and even . The patient agreed to the above risks and elected to proceed with surgery. Operative/Procedure Note Note: The patient was placed supine on the operating room table. A tourniquet was applied. The lower extremity prepped and draped in normal sterile fashion. A timeout was performed before the incision. The site marking was visualized before incision. After the leg was prepped and draped, an Esmarch was used to exsanguinate the extremity. The tourniquet was inflated. A standard inferolateral portal was established with an 11 blade. The camera was inserted. A medial portal was established with a spinal needle and an 11 blade Copious amounts of purulent fluid was initially encountered. 9 L of bacitracin infused saline was then irrigated throughout the knee joint. A limited synovectomy was performed in the suprapatellar pouch. The portal sites were closed with 3-0 nylon suture in a simple interrupted fashion. The knee was injected with 10 mL of 0.25% Marcaine with epinephrine. A dry sterile dressing was applied and the patient was transferred to PACU in stable condition.
[2017-12-09 19:40] VITALS: BP 120/80
--- NOTE | 2017-12-09 19:55 | Acceptance Note - Resident/Int ---
Subjective Background: This is a 52-year-old man with a history of hypertension, arthritis, left fifth toe polymicrobial osteomyelitis, s/p amputation (2014) with recurrence of a left foot wound several months prior to admission, status post debridement of necrotic bone and treatment with a 4 week course of Cefazolin for osteomyelitis secondary to Proteus and MSSA, with nonhealing of the wound and intermittent drainage, admitted on December 05 after he was sent to the emergency room by his PCP because of a fever and elevated white blood cell count. X-ray of the the left foot was done diagnostic for osteomyelitis of the lateral aspect of the midfoot, confirmed with MRI. Blood cultures were also positive for gram-positive cocci in clusters(later found to be MSSA). He was started on vancomycin(for concerns of MRSA is he is recently completed a course of cefazolin with persistence of the infection), currently on Zosyn(cultures showing MSSA). Went for debridement of the left foot with 50 to amputation on . Patient also has a lesion on the right foot, subsequent MRI revealed possible cellulitis of foot, chronic ischemia versus resolving osteomyelitis of the second distal phalanx, and an infusion of the third tarsometatarsal joint with adjacent small periarticular fluid collection which could represent synovial cyst or abscess(possible septic arthritis of the third tarsometatarsal joint and osteomy mellitus of the third metatarsal base). Patient was also found to have left knee effusion on x-ray followed by auto tenths centesis done yesterday revealing was C Brown fluid with 30,000 WBCs, and cultures growing MSSA. Left knee arthroscopic irrigation and debridement was done today after which patient was found to be hypotensive and hypoxic respiratory failure requiring BiPAP. And transferred to ICU for overnight monitoring. Review of Systems Constitutional: Reports: no symptoms. EENTM: Reports: no symptoms. Cardiovascular: Reports: no symptoms. Respiratory: Reports: no symptoms. Gastrointestinal: Reports: no symptoms. Genitourinary: Reports: no symptoms. Musculoskeletal: Reports: joint pain. Skin: Reports: no symptoms. Neurological/Psychological: Reports: no symptoms. Hematologic/Endocrine: Reports: no symptoms. Immunologic/Allergic: Reports: no symptoms. Objective Last 24 Hrs of Vital Signs/I&O Vital Signs Date Time Temp Pulse Resp B/P B/P Pulse O2 O2 Flow FiO2 Mean Ox Delivery Rate 12/09 1726 77 93 12/09 1427 98.5 87 20 120/85 93 Room Air 12/09 0950 97.5 88 20 126/82 12/09 0659 97.5 88 20 126/82 90 Room Air 12/08 2243 99.0 99 22 130/60 90 Room Air Intake & Output 12/09 1600 12/09 0800 12/09 0000 Intake Total 1010 1760 1720 Output Total 900 200 600 Balance 110 1560 1120 Intake, IV 610 1400 1360 Intake, Oral 400 360 360 Output, Urine 900 200 600 Physical Exam General Appearance: Alert, Oriented X3, Cooperative, Mild Distress, Moderate Distress HEENT: Atraumatic Cardiovascular: Regular Rate, Normal S1, Normal S2 Lungs: Normal Air Movement, Left sided inspiratory Wheeze Abdomen: Normal Bowel Sounds, Soft, No Tenderness Extremities: No Clubbing, No Cyanosis, trace pedal edema on right, right 2nd toe tip necrotic without any signs of bleeding or drainage, Left foot/leg wrapped in dressing Current Medications: Current Medications Sig/Shade Start time Last Medication Dose Route Stop Time Status Admin Acetaminophen 1,000 MG ONCE ONE 12/09 1845 DC 12/09 N/A 1 UNIT IV 12/09 1859 1849 Acetaminophen 1,000 MG Q8P PRN 12/06 0700 AC 12/09 PO 0500 Aspirin Buffered 81 MG DAILY 12/06 09 AC 12/09 PO 0950 Dextrose/Sodium 1,000 ML Q6H 12/09 1200 AC 12/09 Chloride IV 1850 Dextrose/Sodium 1,000 ML Q10H 12/08 1515 CA 12/09 Chloride IV 0454 Heparin Sodium 5,000 UNIT Q8 12/05 2200 AC 12/09 (Porcine) SC 0500 Piperacillin Sod/ 4.5 GM Q6 12/08 1800 AC 12/09 Tazobactam Sod IV 1201 Sodium Chloride 100 ML Tamsulosin HCl 0.4 MG DAILY 12/06 09 AC 12/09 PO 0950 Tramadol HCl 25 MG Q6P PRN 12/07 1300 AC 12/09 PO 1335 Last 24 Hrs of Lab/Guilherme Results Last 24 Hrs of Labs/Mics: Laboratory Tests 12/09/17 0658: CBC w Diff NO MAN DIFF REQ, RBC 3.19 L, MCV 95.1 H, MCH 31.3 H, MCHC 33.0, RDW 14.9 H, MPV 8.2, Gran % 81.7 H, Lymphocytes % 9.4 L, Monocytes % 7.7, Eosinophils % 0.8, Basophils % 0.4, Absolute Granulocytes 12.6 H, Absolute Lymphocytes 1.4, Absolute Monocytes 1.2 H, Absolute Eosinophils 0.1, Absolute Basophils 0.1 Microbiology 12/09 1829 UPPER RESP: Surveillance Culture - RECD 12/09 1829 GI: Surveillance Culture - RECD 12/09 1734 BLOOD: Blood Culture - COLB 12/09 1734 BLOOD: Blood Culture - COLB Assessment/Plan Assessment: This is a 52-year-old man with a history of hypertension, arthritis, left fifth toe polymicrobial osteomyelitis, s/p amputation (2014) with recurrence of a left foot wound several months prior to admission, status post debridement of necrotic bone and treatment with a 4 week course of Cefazolin for osteomyelitis secondary to Proteus and MSSA, with nonhealing of the wound and intermittent drainage, admitted on December 05 after he was sent to the emergency room by his PCP because of a fever and elevated white blood cell count. Patient tarnsferred to ICU for Mx of following Issues; #. Hypotension and acute hypoxic respiratory failure #. Left foot osteomyelitis #. Left knee effusion #. MSSA bacteremia #. Septic shock with lactic acidosis and end organ damage #. ADAM #. Transaminitis #. Right foot lesion - Continue Zosyn - Repeat Blood Cx now(repeat Blood Cx obtained on 12/07 shows persistent MSSA Bacteremia). - Continue Bipap - Obtain ABGs - BP currently stable, continue to monitor. - Repeat CBC and ICU bundle in am. DVT prophylaxis; ALPS, S/C heparin Patient is Full Code Problem List: 1. Sepsis 2. Osteomyelitis Pain Ratin Pain Location: Left Knee Pain Goal: Pain 7 or less Pain Plan: Pain pathway Tomorrow's Labs & Rationales: CBC ICu bundle
[2017-12-09 23:00] VITALS: BP 112/74
[2017-12-10 05:10] LABS: ABSOLUTE BASOPHIL COUNT 0 /CUMM (0.0-0.2); ABSOLUTE EOSINOPHIL COUNT 0.2 /CUMM (0.0-0.7); ABSOLUTE GRANULOCYTE CT 10.2 /CUMM (1.4-6.5); ABSOLUTE LYMPH COUNT 1.5 /CUMM (1.2-3.4); ABSOLUTE MONOCYTE COUNT 0.9 /CUMM (0.10-0.60); BASOPHIL % 0 % (0.0-2.0); EOSINOPHIL % 1.9 % (0-5); GRANULOCYTE % 79.8 % (42.2-75.2); HEMATOCRIT 25.6 % (42-52); MEAN CORPUSCULAR HGB 30.7 PG (27.0-31.0); MEAN CORPUSCULAR HGB CONC 32.3 G/DL (33.0-37.0); MEAN CORPUSCULAR VOLUME 95.2 FL (80.0-94.0); MEAN PLATELET VOLUME 8.1 FL (7.4-10.4); PLATELET COUNT 417 /CUMM (130-400); RBC DISTRIBUTION WIDTH 14.7 % (11.5-14.5); RED BLOOD CELL CT 2.69 /CUMM (4.70-6.10); WHITE BLOOD CELL COUNT 12.8 /CUMM (4.8-10.8)
--- NOTE | 2017-12-10 05:49 | PN- Orthopedic ---
Subjective Subjective: POC feeling ok, some pain L knee "feels stiff", afebrile overnight. +voids. no cp/ sob. no n/v. Objective Vital Signs and I&Os Vital Signs overnight: afebrile. SBP 98-113. o2sats mid 90s on bipap Date Time Temp Pulse Resp B/P B/P Pulse O2 O2 Flow FiO2 Mean Ox Delivery Rate 12/10 0400 BIPAP 30% 12/10 0350 70 98 12/10 0046 85 96 12/10 0000 96 BIPAP 30% 12/09 2300 97.9 80 32 112/74 96 Nasal 2.0L Cannula 12/09 2110 86 97 12/09 2006 78 94 12/10 1999 96 BIPAP 35% 12/09 1949 89 BIPAP 50% 12/09 1940 96.6 80 24 120/80 89 BIPAP 50% 12/09 1726 77 93 12/09 1427 98.5 87 20 120/85 93 Room Air 12/09 0950 97.5 88 20 126/82 12/09 0659 97.5 88 20 126/82 90 Room Air Intake & Output 12/10 0800 12/10 0000 12/09 1600 12/09 0800 12/09 0000 12/08 1600 Intake Total 900 1010 1760 1720 Output Total 40 900 200 600 300 Balance 919 246 9462 1120 -300 Intake, IV 807 312 4918 1360 Intake, Oral 360 400 360 360 Number 0 Bowel Movements Output, 40 Drainage Output, Urine 900 200 600 300 Physical Exam: gen- nad card-s1s2 rrr pulm- +bs throughout, on bipap abd- obese, nt, soft ext- LLE dressed, RIVERA with approx 10cc serosang. gross sensation intact toes, limited dorsi/plantarflexion. RLE calf soft. +edema bl le Results Last 48 Hours of Labs: Laboratory Tests 12/10 12/09 0440 1930 Blood Gas pH (7.35 - 7.45 PH) 7.45 pCO2 (35 - 45 TORR) 50 H pO2 (80 - 100 TORR) 198 H HCO3 (21 - 28 MEQ/L) 34 H ABG O2 Sat (Measured) (>96.0 %) 99.0 Carboxyhemoglobin (1.5 - 5.0 %) 0.2 L O2 Concentration % 50% Respiration Rate (BPM) 24 O2 Delivery Method BIPAP Vent Mode S/T Expiratory Pressure (CM H2O P) 6 Inspiratory Pressure (CM H2O P) 22 Hematology CBC w Diff NO MAN DIFF REQ WBC (4.8 - 10.8 /CUMM) 12.8 H RBC (4.70 - 6.10 /CUMM) 2.69 L Hgb (14.0 - 18.0 G/DL) 8.3 L Hct (42 - 52 %) 25.6 L MCV (80.0 - 94.0 FL) 95.2 H MCH (27.0 - 31.0 PG) 30.7 MCHC (33.0 - 37.0 G/DL) 32.3 L RDW (11.5 - 14.5 %) 14.7 H Plt Count (130 - 400 /CUMM) 417 H MPV (7.4 - 10.4 FL) 8.1 Gran % (42.2 - 75.2 %) 79.8 H Lymphocytes % (20.5 - 51.1 %) 11.6 L Monocytes % (1.7 - 9.3 %) 6.7 Eosinophils % (0 - 5 %) 1.9 Basophils % (0.0 - 2.0 %) 0 Absolute Granulocytes (1.4 - 6.5 /CUMM) 10.2 H Absolute Lymphocytes (1.2 - 3.4 /CUMM) 1.5 Absolute Monocytes (0.10 - 0.60 /CUMM) 0.9 H Absolute Eosinophils (0.0 - 0.7 /CUMM) 0.2 Absolute Basophils (0.0 - 0.2 /CUMM) 0 Miscellaneous Phlebotomy Draw Site RIGHT RADIAL 12/09 12/08 12/08 8318 1533 7439 Hematology CBC w Diff NO MAN DIFF REQ WBC (4.8 - 10.8 /CUMM) 15.4 H RBC (4.70 - 6.10 /CUMM) 3.19 L Hgb (14.0 - 18.0 G/DL) 10.0 L Hct (42 - 52 %) 30.3 L MCV (80.0 - 94.0 FL) 95.1 H MCH (27.0 - 31.0 PG) 31.3 H MCHC (33.0 - 37.0 G/DL) 33.0 RDW (11.5 - 14.5 %) 14.9 H Plt Count (130 - 400 /CUMM) 409 H MPV (7.4 - 10.4 FL) 8.2 Gran % (42.2 - 75.2 %) 81.7 H Lymphocytes % (20.5 - 51.1 %) 9.4 L Monocytes % (1.7 - 9.3 %) 7.7 Eosinophils % (0 - 5 %) 0.8 Basophils % (0.0 - 2.0 %) 0.4 Absolute Granulocytes (1.4 - 6.5 /CUMM) 12.6 H Absolute Lymphocytes (1.2 - 3.4 /CUMM) 1.4 Absolute Monocytes (0.10 - 0.60 /CUMM) 1.2 H Absolute Eosinophils (0.0 - 0.7 /CUMM) 0.1 Absolute Basophils (0.0 - 0.2 /CUMM) 0.1 % Normal PMNs (%) 99 Misc Hematology Test (%) Other Body Source Fluid WBC (0 - 5 /CUMM) 51571 H Cancelled Fld Total RBCs Counted (0 /CUMM) 57332 H Cancelled 12/08 0705 Chemistry Sodium (137 - 145 mmol/L) 142 Potassium (3.5 - 5.1 mmol/L) 4.0 Chloride (98 - 107 mmol/L) 98 Carbon Dioxide (22 - 30 mmol/L) 34 H Anion Gap (5 - 16) 10 BUN (9 - 20 mg/dL) 12 Creatinine (0.7 - 1.2 mg/dL) 0.6 L Estimated GFR (>60 ml/min) > 60 BUN/Creatinine Ratio (7 - 25 %) 20.0 Hematology CBC w Diff NO MAN DIFF REQ WBC (4.8 - 10.8 /CUMM) 18.1 H RBC (4.70 - 6.10 /CUMM) 3.31 L Hgb (14.0 - 18.0 G/DL) 10.4 L Hct (42 - 52 %) 31.1 L MCV (80.0 - 94.0 FL) 94.1 H MCH (27.0 - 31.0 PG) 31.5 H MCHC (33.0 - 37.0 G/DL) 33.4 RDW (11.5 - 14.5 %) 14.9 H Plt Count (130 - 400 /CUMM) 446 H MPV (7.4 - 10.4 FL) 8.5 Gran % (42.2 - 75.2 %) 84.1 H Lymphocytes % (20.5 - 51.1 %) 8.8 L Monocytes % (1.7 - 9.3 %) 6.8 Eosinophils % (0 - 5 %) 0.2 Basophils % (0.0 - 2.0 %) 0.1 Absolute Granulocytes (1.4 - 6.5 /CUMM) 15.3 H Absolute Lymphocytes (1.2 - 3.4 /CUMM) 1.6 Absolute Monocytes (0.10 - 0.60 /CUMM) 1.2 H Absolute Eosinophils (0.0 - 0.7 /CUMM) 0 Absolute Basophils (0.0 - 0.2 /CUMM) 0 Assessment/Plan Assessment/Plan A- POD1 sp L Knee arthroscopic irrigation/debridement for septic joint, in ICU postop for bipap and medical comorbidities, currently remains on bipap, otherwise stable. P- medical care per primary team abx per id- conflicting recs re: abx- ?zosyn ?ceftriaxone ?vanc. zosyn ordered at this time. ada diet fu cx pt eval. assume WBAT- will clarify w attending
[2017-12-10 08:00] VITALS: BP 108/70
--- NOTE | 2017-12-10 08:00 | PN- Att Addend ---
Attending Addendum Attending Brief Note Patient seen and examined. Resting comfortably and not in any acute distress. Blood cultures yesterday returned positive still for staph aureus. He remains afebrile. He is hemodynamically stable. He was taken to the OR by the orthopedic service for left knee arthroscopic irrigation, debridement and limited synovectomy. Puss was removed from the knee during the procedure. It was verbally reported that patient was hypoxic postoperatively and was transferred to the intensive care unit for monitoring overnight. He was placed on CPAP therapy overnight. It was reported verbally by nursing staff that blood pressure was in the 80 systolic. This morning blood pressure is 130/85 with a pulse of 94. Denies any pain this morning. Denies any difficulty breathing. Denies any cough or chest pain. He has not been using his CPAP therapy on the medical floor since admission. He is willing to do so down. Vital Signs Date Time Temp Pulse Resp B/P B/P Pulse O2 O2 Flow FiO2 Mean Ox Delivery Rate 12/10 0400 BIPAP 30% 12/10 0350 70 98 12/10 0046 85 96 12/10 0000 96 BIPAP 30% 12/09 2300 97.9 80 32 112/74 96 Nasal 2.0L Cannula 12/09 2110 86 97 12/09 2006 78 94 12/10 1999 96 BIPAP 35% 12/09 1949 89 BIPAP 50% 12/09 1940 96.6 80 24 120/80 89 BIPAP 50% 12/09 1726 77 93 12/09 1427 98.5 87 20 120/85 93 Room Air 12/09 0950 97.5 88 20 126/82 General appearance: Not in respiratory or painful distress HEENT anicteric Neck: Supple, no jugular venous distention. Heart: S1-S2 regular Lungs: Adequate entry bilaterally with no added sounds Abdomen: Obese, soft, nontender with normal bowel sounds Extremities: Bilateral pedal edema. Intact dressing over the left foot and left knee. Drain in place and left knee draining serosanguineous fluid. Laboratory data reviewed. White cell count is trending upwards. Is a little more anemic compared to his preoperative state Problems: 1. Left foot osteomyelitis postop day 3 excision of fifth metatarsal bone 2. Left knee septic arthritis status post postop day 1 left knee arthroscopic irrigation, debridement and limited synovectomy. 3. Sepsis secondary to above and MSSA bacteremia 4. Obstructive sleep apnea on CPAP therapy at home 5. Anemia. Plan: -Patient is medically stable to be downgraded back to the general medical floor today. -Patient should continue on CPAP therapy at nighttime. Please follow-up with the respiratory therapist. -Patient is currently on Zosyn as recommended by the ID service on Monday. He is persistently going staph aureus. Initial cultures showed methicillin sensitivity. Synovial fluid cultures are currently growing staph aureus as well. Patient is growing Proteus from bone cultures. Please follow-up with ID service regarding antibiotic therapy as noted from yesterday suggested placing the patient on vancomycin and ceftriaxone in addition. -DVT prophylaxis -Physical therapy as tolerated. -Patient scheduled to return to the OR with the podiatry service on Monday for further debridement. -Monitor hemoglobin levels. Transfuse for hemoglobin less than 7.
--- NOTE | 2017-12-10 08:41 | PN- Housestaff ---
Subjective Follow-up For: 1. Left foot osteomyelitis 2. Septic shock with lactic acidosis and end organ damage 3. ADAM 4. Transaminitis 5. Left knee effusion s/p arthoscopy debridemnet 6. Right foot lesion 7. MSSA bacteremia 8. Acute anemia 9. Postoperative hypoxia-resolved Complaints: pain scale (0-10) Tele-Events Since Last Visit: No tele events Subjective: Patient was seen and examined. He is alert awake and oriented 3. No acute events overnight He was on CPAP machine, saturating well overnight Blood pressure improved Patient continues to report left knee pain Getting Tylenol and tramadol with good relief Offers no other complaints today Review of Systems Constitutional: Denies: see HPI. Objective Last 24 Hrs of Vital Signs/I&O Vital Signs Date Time Temp Pulse Resp B/P B/P Pulse O2 O2 Flow FiO2 Mean Ox Delivery Rate 12/10 0936 84 108/70 12/10 0800 98.5 84 22 108/70 93 Nasal 2.0L Cannula 12/10 0400 BIPAP 30% 12/10 0350 70 98 12/10 0046 85 96 12/10 0000 96 BIPAP 30% 12/09 2300 97.9 80 32 112/74 96 Nasal 2.0L Cannula 12/09 2110 86 97 12/09 2006 78 94 12/10 1999 96 BIPAP 35% 12/09 1949 89 BIPAP 50% 12/09 1940 96.6 80 24 120/80 89 BIPAP 50% 12/09 1726 77 93 12/09 1427 98.5 87 20 120/85 93 Room Air Intake & Output 12/10 1600 12/10 0800 12/10 0000 Intake Total 2500 900 Output Total 695 40 Balance 1805 860 Intake, IV 1900 540 Intake, Oral 600 360 Output, 45 40 Drainage Output, Urine 650 Physical Exam General Appearance: Alert, Oriented X3, Cooperative, No Acute Distress Other Physical Findings: General Appearance: Alert, Oriented X3, Cooperative, No Acute Distress Cardiovascular: Regular Rate, Normal S1, Normal S2 Lungs: Clear to Auscultation, Normal Air Movement Abdomen: Normal Bowel Sounds, Soft, No Tenderness Extremities: ext- LLE dressed, RIVERA with approx 10cc serosang. gross sensation intact toes, limited dorsi/plantarflexion. RLE calf soft. +edema bl le Current Medications: Current Medications Sig/Shade Start time Last Medication Dose Route Stop Time Status Admin Acetaminophen 1,000 MG ONCE ONE 12/09 1845 DC 12/09 N/A 1 UNIT IV 12/09 1859 1849 Acetaminophen 1,000 MG Q8P PRN 12/06 0700 12/10 PO 0936 Aspirin Buffered 81 MG DAILY 12/06 09 12/10 PO 0936 Dextrose/Sodium 1,000 ML Q13H 12/10 0945 AC Chloride IV Dextrose/Sodium 1,000 ML Q6H 12/09 1200 DC 12/10 Chloride IV 0342 Fentanyl Citrate 250 MCG .STK-MED ONE 12/09 1456 DC IM 12/09 1457 Heparin Sodium 5,000 UNIT Q8 12/05 2200 12/10 (Porcine) SC 0634 Midazolam HCl 2 MG .STK-MED ONE 12/09 1456 DC IM 12/09 1457 Piperacillin Sod/ 4.5 GM Q6 12/08 1800 12/10 Tazobactam Sod IV 1106 Sodium Chloride 100 ML Polyethylene Glycol 17 GM DAILY NEEDED PRN 12/10 0945 12/10 PO 1105 Tamsulosin HCl 0.4 MG DAILY 12/06 0900 12/10 PO 0936 Tramadol HCl 25 MG Q6P PRN 12/07 1300 12/10 PO 0634 Vancomycin HCl 1,000 MG Q8H 12/10 1000 AC Sodium Chloride 250 ML IV Vancomycin HCl 2,000 MG Q12 12/10 0952 DC Sodium Chloride 250 ML IV Last 24 Hrs of Lab/Guilherme Results Last 24 Hrs of Labs/Mics: Laboratory Tests 12/10/17 0635: Anion Gap 8, Estimated GFR > 60, BUN/Creatinine Ratio 15.0, Glucose 126 H, Phosphorus 4.0, Magnesium 1.6 12/10/17 0440: CBC w Diff NO MAN DIFF REQ, RBC 2.69 L, MCV 95.2 H, MCH 30.7, MCHC 32.3 L, RDW 14.7 H, MPV 8.1, Gran % 79.8 H, Lymphocytes % 11.6 L, Monocytes % 6.7, Eosinophils % 1.9, Basophils % 0, Absolute Granulocytes 10.2 H, Absolute Lymphocytes 1.5, Absolute Monocytes 0.9 H, Absolute Eosinophils 0.2, Absolute Basophils 0 12/09/17 1930: pH 7.45, pCO2 50 H, pO2 198 H, HCO3 34 H, ABG O2 Sat (Measured) 99.0, Carboxyhemoglobin 0.2 L, O2 Concentration % 50%, Respiration Rate 24, O2 Delivery Method BIPAP, Vent Mode S/T, Expiratory Pressure 6, Inspiratory Pressure 22, Phlebotomy Draw Site RIGHT RADIAL Microbiology 12/09 1909 BLOOD: Blood Culture - RES 12/09 1899 BLOOD: Blood Culture - RES 12/09 1829 UPPER RESP: Surveillance Culture - RECD 12/09 1829 GI: Surveillance Culture - RECD Assessment/Plan Assessment: This is a 52-year-old man with a history of hypertension, arthritis, left fifth toe polymicrobial osteomyelitis, s/p amputation (2014) with recurrence of a left foot wound several months prior to admission, status post debridement of necrotic bone and treatment with a 4 week course of Cefazolin for osteomyelitis secondary to Proteus and MSSA, with nonhealing of the wound and intermittent drainage, admitted on December 05 after he was sent to the emergency room by his PCP because of a fever and elevated white blood cell count. X-ray of the the left foot was done diagnostic for osteomyelitis of the lateral aspect of the midfoot, confirmed with MRI. Blood cultures were also positive for gram-positive cocci in clusters(later found to be MSSA). He was started on vancomycin(for concerns of MRSA is he is recently completed a course of cefazolin with persistence of the infection), currently on Zosyn(cultures showing MSSA). Went for debridement of the left foot with right 5th toe amputation on 12/07. Patient also has a lesion on the right foot, subsequent MRI revealed possible cellulitis of foot, chronic ischemia versus resolving osteomyelitis of the second distal phalanx, and an infusion of the third tarsometatarsal joint with adjacent small periarticular fluid collection which could represent synovial cyst or abscess(possible septic arthritis of the third tarsometatarsal joint and osteomy mellitus of the third metatarsal base). Patient was also found to have left knee effusion on x-ray followed by arthocentesis done yesterday revealing was C Brown fluid with 30,000 WBCs, and cultures growing MSSA. Left knee arthroscopic irrigation and debridement was done after which patient was found to be hypotensive and hypoxic respiratory failure requiring BiPAP. And transferred to ICU for overnight monitoring. #Left foot osteomyelitis: Patient presented septic (tachycardia, fever, leukocytosis), hypotensive, with lactic acidosis. XRY revealed a focal area of bone destruction representing osteomyelitis adjacent to the deep skin ulcer, lateral midfoot. Other potential sources of infection were evaluated including urine, chest, biliary and lumbar spine and were negative. Lumbar spine CT showed no evidence of abscess but did show chronic inflammatory changes. Right upper quadrant ultrasound was negative though LFTs were mildly elevated. Lactic acidosis has trended down. Patient had previously grown MSSA and Pseudomonas resistant to ceftazidine as well as other gram-negative bacteria on bone cultures. Quick SOFA score 1 on admission, indicating low risk. Blood cultures are growing gram-positive cocci in clusters in 2/2 tubes, MSSA. TTE revealed no evidence of vegetations but was a poor study. Infectious disease has been consulted. Patient went to the OR on 12/07/17 for debridement of right foot with 5th toe amputation. He has remained afebrile since admission with improving white count. Blood pressures have been stable. he was switched to piperacillin/tazobactam for MSSA bacteremia. Blood cultures have been persistently positive so far. -Appreciate podiatry recommendations -Appreciate ID recommendations -Piperacillin/tazobactam, day 3 -Restarted vancomycin 1 g every 8hrs as per ID recommendations -Follow cultures for speciation - Patient scheduled to return to the OR with the podiatry service on Monday for further debridement. #Left knee effusion: Patient has left knee pain. On exam, knee is nonerythematous but has tenderness to palpation and is warm compared to right. The patient states that he has no prior history of any injuries or pain in his left knee prior to this admission. He states that his left knee feels stiff with range of motion. XRY revealed mild degenerative changes with small joint effusion. Arthrocentesis revealed grossly brown fluid with 30,000 WBCs. - Knee aspiration yielded Staph Aureus. - On 12/09/2017 He underwent Left knee arthroscopic irrigation and debridement, limited synovectomy -CTM -Monitor cultures -Appreciate ID recs Postoperative hypoxia On 12/09 He was taken to the OR by the orthopedic service for left knee arthroscopic irrigation, debridement and limited synovectomy. Puss was removed from the knee during the procedure. It was reported that patient was hypoxic postoperatively and was transferred to the intensive care unit for monitoring overnight. He was placed on CPAP therapy overnight. Denies any difficulty breathing. Denies any cough or chest pain. He has not been using his CPAP therapy on the medical floor since admission. He is willing to do so down. -Currently saturating well -ABGs look okay -Needs CPAP machine during nighttime -Okay to downgraded to general medicine floor #Right foot lesion: It was noted on admission that right 3rd toe has blackened tip with wet appearing wound. XRY revealed soft tissues are swollen at the tip of the second toe and there is bone loss of the tuft of the distal phalanx which could be secondary to ischemia or osteomyelitis. 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 -Appreciate podiatry recs -Appreciate ID recs #ADAM: Most likely prerenal azotemia due to decreased oral intake/septic shock, also in the setting of recent NSAID use and ARB use. Creatinine now improved-0.6. -Avoid nephrotoxins -Hold ACEi/ARB Acute anemia hb 12.8-10.8-10.4-10-8.3 Guaiac all the stools Monitor hemoglobin levels. Transfuse for hemoglobin less than 7. #Chronic medical problems: -Continue other home medications flomax and aspirin DVT prophylaxis with heparin Consistent carb 3 diet Full code physical therapy Problem List: 1. Septic shock 2. Osteomyelitis 3. Sepsis 4. Back pain Pain Ratin Pain Location: left knee Pain Goal: Remain pain free Pain Plan: tramadol tylinol Tomorrow's Labs & Rationales: cbc bep
[2017-12-10 14:00] VITALS: BP 130/80
--- NOTE | 2017-12-10 16:07 | PN- Infect Dx ---
Subjective Subjective: No fever/chills. fatigued. No abd pain. Review of Systems Comments: 12 points reviewed as noted, otherwise negative. Objective Last 24 Hrs of Vital Signs/I&O Vital Signs Date Time Temp Pulse Resp B/P B/P Pulse O2 O2 Flow FiO2 Mean Ox Delivery Rate 12/10 1400 99.0 82 20 130/80 92 Room Air 12/10 0936 84 108/70 12/10 0800 98.5 84 22 108/70 93 Nasal 2.0L Cannula 12/10 0400 BIPAP 30% 12/10 0350 70 98 12/10 0046 85 96 12/10 0000 96 BIPAP 30% 12/09 2300 97.9 80 32 112/74 96 Nasal 2.0L Cannula 12/09 2110 86 97 12/09 2005 78 94 12/10 1999 96 BIPAP 35% 12/09 194 89 BIPAP 50% 12/090 96.6 80 24 120/80 89 BIPAP 50% 12/09 1726 77 93 Intake & Output 12/10 1600 12/10 0800 12/10 0000 Intake Total 815 2500 900 Output Total 460 695 40 Balance 355 1805 860 Intake, IV 575 1900 540 Intake, Oral 240 600 360 Output, 60 45 40 Drainage Output, Urine 400 650 Patient 285 lb Weight Physical Exam Other Physical Findings: General Appearance: NAD, well nourished Neuro: Alert, Oriented X3, Cooperative, No Acute Distress HEENT: AT/NC, sclera anicteric Neck: No JVD Cardiovascular: Regular Rate, Normal S1, Normal S2 Lungs: Clear to Auscultation, Normal Air Movement Abdomen: Normal Bowel Sounds, Soft, No Tenderness Extremities: ext- L LE dressing in place, RIVERA with approx 45 cc SS drainage Skin: good turgor Results Last 24 Hours of Lab Results: Laboratory Tests 12/10 12/10 12/09 0635 0440 1930 Blood Gas pH (7.35 - 7.45 PH) 7.45 pCO2 (35 - 45 TORR) 50 H pO2 (80 - 100 TORR) 198 H HCO3 (21 - 28 MEQ/L) 34 H ABG O2 Sat (Measured) (>96.0 %) 99.0 Carboxyhemoglobin (1.5 - 5.0 %) 0.2 L O2 Concentration % 50% Respiration Rate (BPM) 24 O2 Delivery Method BIPAP Vent Mode S/T Expiratory Pressure (CM H2O P) 6 Inspiratory Pressure (CM H2O P) 22 Chemistry Sodium (137 - 145 mmol/L) 140 Potassium (3.5 - 5.1 mmol/L) 3.8 Chloride (98 - 107 mmol/L) 98 Carbon Dioxide (22 - 30 mmol/L) 35 H Anion Gap (5 - 16) 8 BUN (9 - 20 mg/dL) 9 Creatinine (0.7 - 1.2 mg/dL) 0.6 L Estimated GFR (>60 ml/min) > 60 BUN/Creatinine Ratio (7 - 25 %) 15.0 Glucose (65 - 99 mg/dL) 126 H Phosphorus (2.5 - 4.5 mg/dL) 4.0 Magnesium (1.6 - 2.3 mg/dL) 1.6 Hematology CBC w Diff NO MAN DIFF REQ WBC (4.8 - 10.8 /CUMM) 12.8 H RBC (4.70 - 6.10 /CUMM) 2.69 L Hgb (14.0 - 18.0 G/DL) 8.3 L Hct (42 - 52 %) 25.6 L MCV (80.0 - 94.0 FL) 95.2 H MCH (27.0 - 31.0 PG) 30.7 MCHC (33.0 - 37.0 G/DL) 32.3 L RDW (11.5 - 14.5 %) 14.7 H Plt Count (130 - 400 /CUMM) 417 H MPV (7.4 - 10.4 FL) 8.1 Gran % (42.2 - 75.2 %) 79.8 H Lymphocytes % (20.5 - 51.1 %) 11.6 L Monocytes % (1.7 - 9.3 %) 6.7 Eosinophils % (0 - 5 %) 1.9 Basophils % (0.0 - 2.0 %) 0 Absolute Granulocytes (1.4 - 6.5 /CUMM) 10.2 H Absolute Lymphocytes (1.2 - 3.4 /CUMM) 1.5 Absolute Monocytes (0.10 - 0.60 /CUMM) 0.9 H Absolute Eosinophils (0.0 - 0.7 /CUMM) 0.2 Absolute Basophils (0.0 - 0.2 /CUMM) 0 Miscellaneous Phlebotomy Draw Site RIGHT RADIAL Last 24 Hours of Guilherme Results: SPEC #: [id number] TERRANCE: 12/08/17 STATUS: COMP RECD: 12/08/[address]: Boni GRAJEDA,Dolores SOURCE: BODY FLUID ENTR: 12/08/[address]: Alessandra GRAJEDA,Mariluz SPDESC: KNEE L SYN Fco GRAJEDA,Jerardo ORDERED: BODY FLD CULTUR COMMENT: LEFT KNEE SYNOVIAL FLUID ADDED ON BY TIERRA HIGHTOWER 2 ML BLOODY SYNOVIAL FLUID RECEIVED IN PLAIN RED TOP TUBE Procedure Result > GRAM STAIN Final 12/09/17 WHITE BLOOD CELLS MANY OTHER NO ORGANISMS SEEN > BODY FLUID CULTURE Final 12/10/17 Scant growth of: ST[employer] PLEASE SEE [id number] FOR SENSITIVITIES Called to/Readback by MICHELLE by JESSI 12/10/17931 Recent Imaging Studies: Reviewed Assessment/Plan ID Impression: 52-year-old man with a history of hypertension, arthritis, left fifth toe polymicrobial osteomyelitis, status post amputation and treatment with a 4 week course of Meropenem over 3 years prior to admission, with recurrence of a left foot wound several months prior to admission, status post debridement of necrotic bone and treatment with a 4 week course of Cefazolin for osteomyelitis secondary to Proteus and MSSA, with nonhealing of the wound and intermittent drainage, admitted on December 05 after he was sent to the emergency room by his primary care physician because of a fever and elevated white blood cell count. Stable, with temperatures normal and white blood cell count decreasing, on Vancomycin, Day 3 of treatment for Staph aureus sepsis (BC 12/05 + MSSA), most likely secondary to residual osteomyelitis of the left foot (cx + S. aureus and Proteus sensitivities pending), with the MRI of the foot confirming the x-ray and clinical suspicion. POD#1 s/p debridement/resection of the residual fifth metatarsal of the left foot and suspect he will require a prolonged course of IV antibiotics for residual osteomyelitis. Left septic knee; Cx + S. aureus (sensitivity pnd). After aspiration, there is concern for clotting in the specimen; the fluid was run per ortho request which showed 30,000 white blood cells while on abx; gram stain has been negative to date. Planned left knee arthroscopic irrigation and debridement if synovial fluid cx neg. Leukocytosis; WBDC trending down Suggestion: 1. Follow-up final OR culture result; trend CBC, BMP. 2. Currently treated w/ iv Zosyn/Vanco; consider deescalating abx to Vanco/ Ceftriaxone 2 gm daily starting 12/11 if growing MRSA from the OR cx 3. F/U ortho recom 4. Monitor vanco trough 4/30 in am; dose per pharmacy; goal trough 15-20.
--- NOTE | 2017-12-10 17:47 | PN- Orthopedic ---
Surgical Brief Attending Note Brief Attending Note: Patient is resting comfortably in bed, knee pain is tolerable AVSS LLE - dressing c/d/i A/P - POD 1 s/p left knee irrigation and debridement WBAT Can do gentle range of motion to tolerance Will keep drain in for now Antibiotics per ID
[2017-12-10 22:50] VITALS: BP 132/62
[2017-12-11 06:35] VITALS: BP 120/82
--- NOTE | 2017-12-11 07:56 | PN- Housestaff ---
See Addendum Subjective Follow-up For: MSSA bacteremia, septic arthritis, left foot osteomyelitis Subjective: Overnight events. Patient feels good this morning with some mild pain in his left knee. No shortness of breath or chest pain. Review of Systems Constitutional: Reports: no symptoms. EENTM: Reports: no symptoms. Cardiovascular: Reports: no symptoms. Respiratory: Reports: no symptoms. Gastrointestinal: Reports: no symptoms. Genitourinary: Reports: no symptoms. Musculoskeletal: Reports: see HPI. Skin: Reports: no symptoms. Neurological/Psychological: Reports: no symptoms. Hematologic/Endocrine: Reports: no symptoms. Immunologic/Allergic: Reports: no symptoms. Objective Last 24 Hrs of Vital Signs/I&O Vital Signs Date Time Temp Pulse Resp B/P B/P Pulse O2 O2 Flow FiO2 Mean Ox Delivery Rate 12/11 0635 98.7 72 20 120/82 96 12/11 0625 70 98 12/11 0304 65 96 12/11 0030 75 96 12/11 0000 Nasal 2.0L Cannula 12/10 2339 88 94 12/10 2250 98.1 94 18 132/62 92 Room Air 12/10 1600 Nasal 2.0L Cannula 12/10 1400 99.0 82 20 130/80 92 Room Air 12/10 0936 84 108/70 12/10 0800 98.5 84 22 108/70 93 Nasal 2.0L Cannula Intake & Output 12/11 0800 12/11 0000 12/10 1600 Intake Total 1140 1515 Output Total 530 830 Balance 610 685 Intake, IV 800 915 Intake, Oral 340 600 Output, 80 80 Drainage Output, Urine 450 750 Patient 129.444 kg Weight Physical Exam General Appearance: Alert, Oriented X3, Cooperative, No Acute Distress Cardiovascular: Regular Rate, Normal S1, Normal S2 Lungs: Clear to Auscultation Abdomen: Normal Bowel Sounds, Soft, No Tenderness Extremities: L knee drain draining serosang Current Medications: Current Medications Sig/Shade Start time Last Medication Dose Route Stop Time Status Admin Acetaminophen 1,000 MG .STK-MED ONE 12/10 1719 DC PO 12/10 1720 Acetaminophen 1,000 MG Q8P PRN 12/06 07 AC 12/10 PO 1726 Aspirin Buffered 81 MG DAILY 12/06 0900 AC 12/10 PO 0936 Dextrose/Sodium 1,000 ML Q13H 12/11 0630 DC Chloride IV Dextrose/Sodium 1,000 ML Q13H 12/10 0945 DC 12/10 Chloride IV 1723 Dextrose/Sodium 1,000 ML Q6H 12/09 1200 DC 12/10 Chloride IV 0342 Enoxaparin Sodium 40 MG DAILY 12/11 0900 AC SC Heparin Sodium 5,000 UNIT Q8 12/05 2200 DC 12/11 (Porcine) SC 0629 Piperacillin Sod/ 4.5 GM Q6 12/08 1800 AC 12/11 Tazobactam Sod IV 0628 Sodium Chloride 100 ML Polyethylene Glycol 17 GM DAILY NEEDED PRN 12/10 0945 AC 12/10 PO 1105 Tamsulosin HCl 0.4 MG DAILY 12/06 0900 AC 12/10 PO 0936 Tramadol HCl 25 MG Q6P PRN 12/07 1300 AC 12/11 PO 0627 Vancomycin HCl 1,000 MG Q8H 12/10 2200 DC 12/11 Sodium Chloride 250 ML IV 0633 Vancomycin HCl 1,000 MG Q8H 12/10 1000 DC 12/10 Sodium Chloride 250 ML IV 1326 Vancomycin HCl 2,000 MG Q12 12/10 0952 DC Sodium Chloride 250 ML IV Last 24 Hrs of Lab/Guilherme Results Last 24 Hrs of Labs/Mics: Laboratory Tests 12/11/17 0715: CBC w Diff Pending, WBC Pending, RBC Pending, Hgb Pending, Hct Pending, MCV Pending, MCH Pending, MCHC Pending, RDW Pending, Plt Count Pending, MPV Pending, Vancomycin Trough Pending 12/11/17 0450: Anion Gap 7, Estimated GFR > 60, Glucose 100 H, Calcium 7.8 L, Phosphorus 4.3, Magnesium 1.8, Total Bilirubin 0.2, AST 29, ALT 52, Albumin 2.0 L Assessment/Plan Assessment: Mr. Trujillo is a 52-year-old male with PMH of HTN, osteomyelitis left foot, and chronic left foot ulcer who presented with fever. Problem List: 1. Left foot osteomyelitis 2. Septic shock with lactic acidosis and end organ damage 3. ADAM, resolved 4. Transaminitis, resolved 5. Septic arthritis, left knee 6. Right foot lesion 7. MSSA bacteremia 8. Right shoulder pain #Left foot osteomyelitis: Patient presented septic (tachycardia, fever, leukocytosis), hypotensive, with lactic acidosis. XRY revealed a focal area of bone destruction representing osteomyelitis adjacent to the deep skin ulcer, lateral midfoot. Other potential sources of infection were evaluated including urine, chest, biliary and lumbar spine and were negative. Lumbar spine CT showed no evidence of abscess but did show chronic inflammatory changes. Right upper quadrant ultrasound was negative though LFTs were mildly elevated. Lactic acidosis has trended down. Patient had previously grown MSSA and Pseudomonas resistant to ceftazidine as well as other gram-negative bacteria on bone cultures and so the patient was initially treated with piperacillin/tazobactam. Blood cultures are growing gram-positive cocci in clusters in 2/2 tubes, MSSA. Blood cultures were persistently positive but latest set on 12/09/17 are now negative. TTE revealed no evidence of vegetations but was a poor study. Infectious disease has been consulted. Patient went to the OR on 12/07/17 for debridement of right foot with 5th toe amputation. Culture from the biopsy is now growing Proteus sensitive to ampicillin/sulbactam. For some reason, ICU team started vancomycin over the weekend despite not growing MRSA. -Discontinue vancomycin -Appreciate podiatry recommendations -Appreciate ID recommendations -Stop piperacillin/tazobactam. Start ampicillin/sulbactam, day 5 of antibiotics -Follow cultures for speciation #Left knee septic arthritis: Patient additionally complained of left knee pain. XRY revealed mild degenerative changes with small joint effusion. Arthrocentesisrevealed grossly brown fluid with 30,000 WBCs, growing MSSA. Patient went to the OR for washout on 12/01/17. He now has a drain that is draining serosanguineous fluid. -Appreciate orthopedic surgery recommendations -Continue antibiotics as above -Appreciate ID recs #Right foot lesion: It was noted on admission that right 3rd toe has blackened tip with wet appearing wound. XRY revealed soft tissues are swollen at the tip of the second toe and there is bone loss of the tuft of the distal phalanx which could be secondary to ischemia or osteomyelitis. 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 Podiatry and ID are not concerned at this time, continuing to monitor. -Appreciate podiatry recs -Appreciate ID recs #Right shoulder pain: Patient has been complaining of right shoulder pain and today on exam has severely limited range of motion. I talked to orthopedic surgery and they would like to have IR tap this if possible. -X-ray right shoulder -IRright shoulder arthrocentesis, sent for cell count and culture #ADAM: Most likely prerenal azotemia due to decreased oral intake/septic shock, also in the setting of recent NSAID use and ARB use. Creatinine now improved. -Avoid nephrotoxins -Hold ACEi/ARB #Chronic medical problems: -Continue other home medications DVT prophylaxis with enoxaparin Regular diet Full code Problem List: 1. Osteomyelitis Pain Ratin Pain Location: no Pain Goal: Remain pain free Pain Plan: see a/p Tomorrow's Labs & Rationales: no
--- NOTE | 2017-12-11 07:58 | PN- Orthopedic ---
See Addendum Subjective Subjective: Knee "aches" medially. No worsening. No body aches or flu like symptoms. No chest pain, shortness of breath or difficulty breathing. Objective Vital Signs and I&Os Vital Signs Date Time Temp Pulse Resp B/P B/P Pulse O2 O2 Flow FiO2 Mean Ox Delivery Rate 12/11 0635 98.7 72 20 120/82 96 12/11 0625 70 98 12/11 0304 65 96 12/11 0030 75 96 12/11 0000 Nasal 2.0L Cannula 12/10 2339 88 94 12/10 2250 98.1 94 18 132/62 92 Room Air 12/10 1600 Nasal 2.0L Cannula 12/10 1400 99.0 82 20 130/80 92 Room Air 12/10 0936 84 108/70 12/10 0800 98.5 84 22 108/70 93 Nasal 2.0L Cannula Intake & Output 12/11 0800 12/11 0000 12/10 1600 12/10 0800 12/10 0000 12/09 1600 Intake Total 1812 558 5921 900 1010 Output Total 530 460 695 40 900 Balance 720 948 3435 860 110 Intake, IV 643 562 2452 540 610 Intake, Oral 340 240 600 360 400 Output, 80 60 45 40 Drainage Output, Urine 450 400 650 900 Patient 285 lb Weight Physical Exam: General: Alert and oriented x3, no acute distress Cardiac: RRR, s1s2 Pulm: CTA bilaterally, non-labored respiratory effort Abd: non-tender, non-distended Extremiteis: Moves all extremities, distal sensation grossly intact. NV grossly intact. Dressings x2 dry and intact. LLE wrapped, ankle to thigh for knee arthroscopy. Left foot dressing in place s/p foot and ankle procedure with Dr. Salas. RIVERA x1 to left knee holding suction. Cloudy serosanguinous drainage in place. 80 cc drained overnight, approximately 10-15 drained this am. Bilateral calves soft and non-tender. Assessment/Plan Assessment/Plan This is a 52 year old male with left knee pain, status post recent left 5th metatarsal resection for infection. Knee aspiration yielded Staph Aureus. Was taken to OR on 12/09 for arthroscopic debridment, irrigation, and partial synovectomy. Is now POD 2. Reporting mild residual pain that is not worsening. No fever/flu like symptoms. Antibiotic regimen has been determined by infectious disease who continues to follow. -OOB, wbat unless otherwise indicated by Dr. Salas -Continue RIVERA for now -Continue ID management of abx Will discuss plan of care with Dr. Ojeda
[2017-12-11 09:04] LABS: ABSOLUTE BASOPHIL COUNT 0.1 /CUMM (0.0-0.2); ABSOLUTE EOSINOPHIL COUNT 0.3 /CUMM (0.0-0.7); ABSOLUTE GRANULOCYTE CT 7.5 /CUMM (1.4-6.5); ABSOLUTE LYMPH COUNT 1.4 /CUMM (1.2-3.4); ABSOLUTE MONOCYTE COUNT 0.8 /CUMM (0.10-0.60); BASOPHIL % 0.6 % (0.0-2.0); EOSINOPHIL % 2.8 % (0-5); GRANULOCYTE % 74.4 % (42.2-75.2); HEMATOCRIT 26.3 % (42-52); MEAN CORPUSCULAR HGB 32.1 PG (27.0-31.0); MEAN CORPUSCULAR HGB CONC 33.7 G/DL (33.0-37.0); MEAN CORPUSCULAR VOLUME 95.3 FL (80.0-94.0); MEAN PLATELET VOLUME 7.9 FL (7.4-10.4); PLATELET COUNT 520 /CUMM (130-400); RBC DISTRIBUTION WIDTH 14.8 % (11.5-14.5); RED BLOOD CELL CT 2.76 /CUMM (4.70-6.10)
--- NOTE | 2017-12-11 12:57 | RADIOLOGY REPORT ---
EXAMINATION: XR SHOULDER, RIGHT CLINICAL INFORMATION: Bacteremia. Motion. Frozen shoulder versus septic arthritis. COMPARISON: None TECHNIQUE: Three views of the right shoulder. FINDINGS: Evaluation is limited due to difficulties with patient positioning and patient's body habitus. No acute fracture or dislocation is seen. The humeral head is normally located within the glenoid. Minimal spurring is seen along the inferior margin of the glenohumeral joint. Some spurring and cystic changes are seen at the greater tuberosity of the humeral head. No joint calcifications are seen. Mild degenerative changes seen at the acromioclavicular joint with nonbursal surface spurring noted. Included right ribs are intact. Osteopenia is suggested. IMPRESSION: 1. No acute fracture or dislocation. 2. There is likely diffuse osteopenia. 3. Mild degenerative changes in the glenohumeral and acromioclavicular joints.
--- NOTE | 2017-12-11 13:00 | PN- Infect Dx ---
Subjective Subjective: Afebrile. He feels overall improved though does note increased right shoulder pain, with decreased range of motion Objective Last 24 Hrs of Vital Signs/I&O Vital Signs Date Time Temp Pulse Resp B/P B/P Pulse O2 O2 Flow FiO2 Mean Ox Delivery Rate 12/11 0927 120/82 12/11 0635 98.7 72 20 120/82 96 12/11 0625 70 98 12/11 0304 65 96 12/11 0030 75 96 12/11 0000 Nasal 2.0L Cannula 12/10 2339 88 94 12/10 2250 98.1 94 18 132/62 92 Room Air 12/10 1600 Nasal 2.0L Cannula 12/10 1400 99.0 82 20 130/80 92 Room Air Intake & Output 12/11 1600 12/11 0800 12/11 0000 Intake Total 800 1140 Output Total 555 530 Balance -555 800 610 Intake, IV 700 800 Intake, Oral 100 340 Output, 80 80 Drainage Output, Urine 475 450 Physical Exam Other Physical Findings: He appears comfortable in no acute distress Lungs are clear Heart regular rhythm with no murmur Extremities left knee dressing intact with drain in place; left foot dressing intact; right shoulder with mild swelling, tenderness on palpation, with no erythema, but with markedly limited range of motion Results Last 24 Hours of Lab Results: Laboratory Tests 12/11 12/11 12/11 0715 0600 0500 Chemistry Hemoglobin A1c (4.2 - 5.8 %) 6.0 H Hematology CBC w Diff NO MAN DIFF REQ Cancelled WBC (4.8 - 10.8 /CUMM) 10.0 Cancelled RBC (4.70 - 6.10 /CUMM) 2.76 L Cancelled Hgb (14.0 - 18.0 G/DL) 8.8 L Cancelled Hct (42 - 52 %) 26.3 L Cancelled MCV (80.0 - 94.0 FL) 95.3 H Cancelled MCH (27.0 - 31.0 PG) 32.1 H Cancelled MCHC (33.0 - 37.0 G/DL) 33.7 Cancelled RDW (11.5 - 14.5 %) 14.8 H Cancelled Plt Count (130 - 400 /CUMM) 520 H Cancelled MPV (7.4 - 10.4 FL) 7.9 Cancelled Gran % (42.2 - 75.2 %) 74.4 Lymphocytes % (20.5 - 51.1 %) 14.2 L Monocytes % (1.7 - 9.3 %) 8.0 Eosinophils % (0 - 5 %) 2.8 Basophils % (0.0 - 2.0 %) 0.6 Absolute Granulocytes (1.4 - 6.5 /CUMM) 7.5 H Absolute Lymphocytes (1.2 - 3.4 /CUMM) 1.4 Absolute Monocytes (0.10 - 0.60 /CUMM) 0.8 H Absolute Eosinophils (0.0 - 0.7 /CUMM) 0.3 Absolute Basophils (0.0 - 0.2 /CUMM) 0.1 Toxicology Vancomycin Trough (10.0 - 20.0 ug/mL) 6.7 L 12/11 0450 Chemistry Sodium (137 - 145 mmol/L) 143 Potassium (3.5 - 5.1 mmol/L) 3.8 Chloride (98 - 107 mmol/L) 101 Carbon Dioxide (22 - 30 mmol/L) 35 H Anion Gap (5 - 16) 7 BUN (9 - 20 mg/dL) 9 Creatinine (0.7 - 1.2 mg/dL) 0.6 L Estimated GFR (>60 ml/min) > 60 Glucose (65 - 99 mg/dL) 100 H Calcium (8.4 - 10.2 mg/dL) 7.8 L Phosphorus (2.5 - 4.5 mg/dL) 4.3 Magnesium (1.6 - 2.3 mg/dL) 1.8 Total Bilirubin (0.2 - 1.3 mg/dL) 0.2 AST (17 - 59 U/L) 29 ALT (21 - 72 U/L) 52 Albumin (3.5 - 5.0 g/dL) 2.0 L Last 24 Hours of Guilherme Results: Left knee synovial fluid culture December 08 negative Blood cultures December 09 negative Left foot OR culture December 07 positive for MSSA, Proteus resistant to Ampicillin and Bactrim and intermediate to Cefazolin, probable Enterococcus and diphtheroids Assessment/Plan ID Impression: Overall improved, with temperatures remaining normal, white blood cell count also now normal and with his most recent blood cultures (from 2 days ago) so far negative, status post arthroscopic irrigation and debridement, with limited synovectomy, of his left knee 2 days ago for a septic arthritis, most likely secondary to seeding from his bacteremia, and now 4 days status post excision of the left fifth metatarsal for osteomyelitis. His right shoulder complaints are of concern, with evidence of inflammation on exam, and will need to rule out seeding of the shoulder joint. He is currently on Zosyn and Vancomycin but his antibiotics can be adjusted based on his final cultures. He is apparently scheduled for further debridement/wound closure of his left foot in the a.m. and will require a prolonged course of IV antibiotics for residual osteomyelitis, left knee infection and bacteremia. The findings on the MRI of the right foot are of unclear significance and will defer to Podiatry. Endocarditis is certainly a consideration with his persistently positive blood cultures, but a MARIAN may be academic as is already committed to a long course of antibiotics. Suggestion: 1. Would pursue imaging of the right shoulder with arthrocentesis of the joint if fluid present 2. Await probable return to the OR in the a.m. for debridement/wound closure of his left foot per Podiatry 3. Follow-up final OR culture of the left foot 4. Discontinue Vancomycin and Zosyn 5. Begin Unasyn 3 g IV every 6 hours
[2017-12-11 14:49] VITALS: BP 140/80
--- NOTE | 2017-12-11 14:59 | PN- Student ---
Subjective Subjective: No overnight events reported. Patient had orthoscopic irrigation and dibridement of his left knee over the weekend and reports having to go to the ICU for monitoring. He is having difficulty at this time moving his right arm, he states he cannot raise his arm. He also reports swelling of his right hand. However Mr. Trujillo does report feeling of improvement over the course of his hospitalization. Objective Objective: Current Medications Sig/Shade Start time Last Medication Dose Route Stop Time Status Admin Acetaminophen 1,000 MG .STK-MED ONE 12/10 1719 DC PO 12/10 1720 Acetaminophen 1,000 MG Q8P PRN 12/06 0700 AC 12/10 PO 1726 Ampicillin Sodium/ 3,000 MG Q6 12/11 1200 AC 12/11 Sulbactam Sodium IV 1251 Sodium Chloride 100 ML Aspirin Buffered 81 MG DAILY 12/06 0900 AC 12/11 PO 0927 Bisacodyl 5 MG DAILY PRN 12/11 1430 AC PO Dextrose/Sodium 1,000 ML Q6H 12/12 0000 AC Chloride IV Dextrose/Sodium 1,000 ML Q13H 12/11 0630 DC Chloride IV Dextrose/Sodium 1,000 ML Q13H 12/10 0945 DC 12/10 Chloride IV 1723 Docusate Sodium 100 MG DAILY NEEDED PRN 12/11 1430 AC PO Enoxaparin Sodium 40 MG DAILY 12/11 0900 AC 12/11 SC 0927 Heparin Sodium 5,000 UNIT Q8 12/05 2200 DC 12/11 (Porcine) SC 0629 Ioversol 0 .STK-MED ONE 12/11 1426 DC IV Lidocaine 0 .STK-MED ONE 12/11 1425 DC .ROUTE Piperacillin Sod/ 4.5 GM Q6 12/08 1800 DC 12/11 Tazobactam Sod IV 0628 Sodium Chloride 100 ML Polyethylene Glycol 17 GM DAILY NEEDED PRN 12/10 0945 AC 12/10 PO 1105 Tamsulosin HCl 0.4 MG DAILY 12/06 0900 AC 12/11 PO 0927 Tramadol HCl 25 MG Q6P PRN 12/07 1300 AC 12/11 PO 0627 Vancomycin HCl 1,000 MG Q8H 12/10 2200 DC 12/11 Sodium Chloride 250 ML IV 0633 Vancomycin HCl 1,000 MG Q8H 12/10 1000 DC 12/10 Sodium Chloride 250 ML IV 1326 Laboratory Tests 12/11 12/11 12/11 0715 0600 0500 Chemistry Hemoglobin A1c (4.2 - 5.8 %) 6.0 H Hematology CBC w Diff NO MAN DIFF REQ Cancelled WBC (4.8 - 10.8 /CUMM) 10.0 Cancelled RBC (4.70 - 6.10 /CUMM) 2.76 L Cancelled Hgb (14.0 - 18.0 G/DL) 8.8 L Cancelled Hct (42 - 52 %) 26.3 L Cancelled MCV (80.0 - 94.0 FL) 95.3 H Cancelled MCH (27.0 - 31.0 PG) 32.1 H Cancelled MCHC (33.0 - 37.0 G/DL) 33.7 Cancelled RDW (11.5 - 14.5 %) 14.8 H Cancelled Plt Count (130 - 400 /CUMM) 520 H Cancelled MPV (7.4 - 10.4 FL) 7.9 Cancelled Gran % (42.2 - 75.2 %) 74.4 Lymphocytes % (20.5 - 51.1 %) 14.2 L Monocytes % (1.7 - 9.3 %) 8.0 Eosinophils % (0 - 5 %) 2.8 Basophils % (0.0 - 2.0 %) 0.6 Absolute Granulocytes (1.4 - 6.5 /CUMM) 7.5 H Absolute Lymphocytes (1.2 - 3.4 /CUMM) 1.4 Absolute Monocytes (0.10 - 0.60 /CUMM) 0.8 H Absolute Eosinophils (0.0 - 0.7 /CUMM) 0.3 Absolute Basophils (0.0 - 0.2 /CUMM) 0.1 Toxicology Vancomycin Trough (10.0 - 20.0 ug/mL) 6.7 L 12/11 0450 Chemistry Sodium (137 - 145 mmol/L) 143 Potassium (3.5 - 5.1 mmol/L) 3.8 Chloride (98 - 107 mmol/L) 101 Carbon Dioxide (22 - 30 mmol/L) 35 H Anion Gap (5 - 16) 7 BUN (9 - 20 mg/dL) 9 Creatinine (0.7 - 1.2 mg/dL) 0.6 L Estimated GFR (>60 ml/min) > 60 Glucose (65 - 99 mg/dL) 100 H Calcium (8.4 - 10.2 mg/dL) 7.8 L Phosphorus (2.5 - 4.5 mg/dL) 4.3 Magnesium (1.6 - 2.3 mg/dL) 1.8 Total Bilirubin (0.2 - 1.3 mg/dL) 0.2 AST (17 - 59 U/L) 29 ALT (21 - 72 U/L) 52 Albumin (3.5 - 5.0 g/dL) 2.0 L Microbiology Date/Time Procedure - Status Source Growth 12/11 1059 Body Fluid Culture - COLB BODY FLUID 12/11 1059 Gram Stain - COLB BODY FLUID Vital Signs Date Time Temp Pulse Resp B/P B/P Pulse O2 O2 Flow FiO2 Mean Ox Delivery Rate 12/11 1449 99.5 94 20 140/80 93 12/11 0927 120/82 12/11 0800 18 96 Room Air 12/11 0635 98.7 72 20 120/82 96 12/11 0625 70 98 12/11 0304 65 96 12/11 0030 75 96 12/11 0000 Nasal 2.0L Cannula 12/10 2339 88 94 12/10 2250 98.1 94 18 132/62 92 Room Air 12/10 1600 Nasal 2.0L Cannula Intake & Output 12/11 1600 12/11 0800 12/11 0000 Intake Total 026 480 4093 Output Total 760 530 Balance -60 800 610 Intake, IV 100 700 800 Intake, Oral 600 100 340 Output, 110 80 Drainage Output, Urine 650 450 physical exam Gen apperance: no evidence of acute distress, sitting upright in chair, AOX3 CV: regular rhythm and rate, normal S1&S2, no MRG Pulm: clear to ausculatation in posterior lung [place] abd: bowel sounds present, soft, non-tender extremities: left leg deonte compression bandage from knee down, right ankle chonic swelling, right 2nd toe circular necrotic tissue decrease in size aprox .5 cm radius, right hand edema MSK: unable to abduct right shoulder in any direction, pain on passive movement aprox 30 degrees abduction of right shoulder Assessment/Plan Assessment: Mr. 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 He has been being followed by podiatry, ID, and orthopedics during the time of his hospitalization. Plan: Problem List 1. Osteomyelitis of left foot 2. Right foot abscess/osteomyelitis 3. Frozen shoulder/septic right shoulder 4. Left knee septic arthritis 5. osteoarthritis 6. chronic medical conditions #Osteomyelitis of left foot: Patient has had surgical dibridement and removal of the 5th metatarsal on 12/07/[address] Rock. Cultures from the bone removed shows that the patients offending bacterial infection is MSSA in nature. ID was consulted and recommended that the patient no longer needs Vancomycin for MRSA coverage as there is no indication that the patient has MRSA. Also, he is no longer bacteremic. According to the patient Dr. Rock plans to take Mr. Trujillo back to the OR on Monday12/12/17 to finalize his previous procedure performed on the left foot. -Switch to Unasyn IV abx therapy -appreciate ID recommendations -OR with Dr. Rock on Monday -appreciate Podiatry recommendations -clean wound and dressing practices #Right foot abscess/osteomyelitis: MRI scan indicates possible osteomyelitis/ necrosis of 2nd toe on right foot, also shows possible abscess formation. Unclear what Dr. Rock plans are for these findings are. However patient has been recieving Vancomycin IV. On PE the right 2nd toe necrotic area seems to be smaller in radius as it now appears to be around .5 cm in radius. -continue to monitor patients feet for signs of worsening infection -continue IV abx -appreciate ID recommendations -appreciate Podiatry recommendations -clean wound and dressing practices #Frozen shoulder/septic right shoulder: Patient reports he has been unable to move his right arm well and attributes this to using his upper body strength to move around. He also reports swelling of his right hand. Due to his previous bacterima, we are concerned for septic arthritis of his right shoulder as this was the case for his left knee. However it is also very possible that he has a frozen shoulder due to the pain he experiences when passively abducting his arm to around 30 degrees. It also does not prove to be errythematous or swollen or painful on palpation around the shoulder. He is also afebrile. Initial consideration was given to parodoxical septic emboli as echocardiogram was difficult to perform technically it is unclear what the condition of his heart valves are. However it would be more likely if that the patient were to have vegitations they would be on the right side of the heart and then result in pulmonary symptoms and dysfunction if septic emboli were to occur rather than manifesting neurologically. -Arthrocentesis of right shoulder -X-ray of right shoulder -appreciate ID and Ortho recommendations #osteoarthritis: Patient has a BMI consistent with obesity and X-Ray of the knee and spine does indicate degenrative changes consistent with osteoarthritis. -pain management -aggressive life style modification with weight loss emphasis #left knee septic arthritis: Arthorocentesis of the left knee indicates Staph. Auerus infiltration of joint. Patient was taken to the OR by the orthopedic team for orthoscopic dibridement and irrigation. This infiltration of Staph A. most likely is a result of his left foot osteomyelitis leading to bactermia and subsequently septic arthritis. -appreciate ortho recommendations -appreciate ID recommendations -continue IV abx -continue clean dressing protocol #chronic medical conditions -continue all medications as prescribed DVT ppx Heparin low carb diet full code
--- NOTE | 2017-12-11 16:17 | INTERVENTIONAL RADIOLOGY RPT ---
CLINICAL HISTORY: This patient is a 52 years old male with none left foot osteomyelitis and septic arthritis of the left knee, who presents to Interventional Radiology for fluoroscopically-guided right shoulder aspiration for suspected septic arthritis. PROCEDURES: Fluoroscopically-guided right shoulder aspiration. PHYSICIANS: Dr. Estrellita Buchanan (attending) MEDICATIONS: Lidocaine 1%, 10 mL, SQ. CONTRAST: 3 mL Optiray 320 FLUOROSCOPY TIME: 0.8 minutes TOTAL NUMBER OF IMAGES: 3 COMPLICATIONS: None ESTIMATED BLOOD LOSS: <5 mL SPECIMENS: 1 mL of slightly cloudy serosanguineous fluid from the right shoulder joint IMPLANT: None SITE MARKING: As part of the preprocedure verification policy, a site marking procedure was initiated. Due to the nature the procedure, the insertion site could not be predetermined thus invoking the policy of exemption to site laterality and marking. Insertion site marking was performed in the procedure room in conjunction with imaging confirmation. PROCEDURE NOTE: Informed consent was obtained from the patient prior to the procedure. During this process, the procedure and potential alternatives were explained along with the intended outcome and benefits. The risks of the procedure, including the possibility of an unsuccessful procedure, as well as the risk of not doing the procedure, were discussed. The patient was given the opportunity to ask questions regarding the procedure and appeared competent to make decisions. A signed consent form documenting this discussion was placed in the medical record. A time-out procedure was performed. The patient was placed supine on the fluoroscopic examination table. The patient was prepped and draped in the usual sterile fashion. All elements of maximal sterile barrier technique followed including use of cap, mask, sterile gown, sterile gloves, a sterile full body drape and hand hygiene. Also followed skin preparation with 2% chlorhexidine for cutaneous antisepsis, and sterile ultrasound preparation with sterile gel and probe cover when applicable. Using sterile technique, 1% lidocaine for local anesthesia, and intermittent fluoroscopic guidance, a 20-gauge spinal needle was advanced into the right shoulder joint. Subsequently, 1 mL of slightly cloudy serosanguineous fluid was aspirated from the right shoulder joint. The needle was then removed and the aspirated fluid was sent for analysis as requested. A small amount of iodinated contrast material was then injected to confirm intra-articular position of the needle tip. The patient tolerated the procedure well with no immediate complications and was discharged home without incident. FINDINGS: 1 mL of slightly cloudy fluid was aspirated from the right shoulder joint. IMPRESSION: Successful fluoroscopic-guided aspiration of the right shoulder joint with fluid sent for analysis as requested. Unfortunately, there was an insufficient quantity of fluid for both cell count and culture. Therefore the fluid was sent for culture only. PLAN: The patient was stable after the procedure and was transferred to the interventional recovery area. The patient will be transferred to the floor.
[2017-12-11 22:53] VITALS: BP 140/70
[2017-12-12 06:49] VITALS: BP 160/76
--- NOTE | 2017-12-12 07:14 | PN- Housestaff ---
See Addendum Subjective Follow-up For: MSSA bacteremia, septic arthritis, left foot osteomyelitis Subjective: No overnight events. He went to the OR this morning Review of Systems Constitutional: Reports: no symptoms. EENTM: Reports: no symptoms. Cardiovascular: Reports: no symptoms. Respiratory: Reports: no symptoms. Gastrointestinal: Reports: no symptoms. Genitourinary: Reports: no symptoms. Musculoskeletal: Reports: no symptoms. Skin: Reports: no symptoms. Neurological/Psychological: Reports: no symptoms. Hematologic/Endocrine: Reports: no symptoms. Immunologic/Allergic: Reports: no symptoms. Objective Last 24 Hrs of Vital Signs/I&O Vital Signs Date Time Temp Pulse Resp B/P B/P Pulse O2 O2 Flow FiO2 Mean Ox Delivery Rate 12/12 0649 97.7 97 20 160/76 93 Room Air 12/12 0500 80 92 12/12 0054 82 92 12/11 2253 98.5 91 20 140/70 90 Room Air 12/11 2247 78 91 12/11 1600 Room Air 12/11 1449 99.5 94 20 140/80 93 12/11 0927 120/82 12/11 0800 18 96 Room Air Intake & Output 12/12 0800 12/12 0000 12/11 1600 Intake Total 1360 100 700 Output Total 371 490 760 Balance 989 -390 -60 Intake, IV 1360 100 100 Intake, Oral 600 Output, 70 40 110 Drainage Output, Stool 1 Output, Urine 300 450 650 Physical Exam General Appearance: Alert, Oriented X3, Cooperative, No Acute Distress Cardiovascular: Regular Rate, Normal S1, Normal S2, No Murmurs Lungs: Clear to Auscultation Abdomen: Normal Bowel Sounds, Soft, No Tenderness Extremities: Left leg wrapped, R shoulder reduced ROM Current Medications: Current Medications Sig/Shade Start time Last Medication Dose Route Stop Time Status Admin Acetaminophen 1,000 MG Q8P PRN 12/06 0700 AC 12/10 PO 1726 Ampicillin Sodium/ 3,000 MG Q6 12/11 1200 AC 12/12 Sulbactam Sodium IV 1045 Sodium Chloride 100 ML Aspirin Buffered 81 MG DAILY 12/06 0900 AC 12/12 PO 1040 Bisacodyl 5 MG DAILY PRN 12/11 1430 AC PO Dextrose/Sodium 1,000 ML Q6H 12/12 0000 DC 12/12 Chloride IV 0511 Docusate Sodium 100 MG DAILY NEEDED PRN 12/11 1430 AC 12/11 PO 1906 Enoxaparin Sodium 40 MG DAILY 12/11 0900 AC 12/12 SC 1040 Ioversol 0 .STK-MED ONE 12/11 1426 DC IV Lidocaine 0 .STK-MED ONE 12/11 1425 DC .ROUTE Piperacillin Sod/ 4.5 GM Q6 12/08 1800 DC 12/11 Tazobactam Sod IV 0628 Sodium Chloride 100 ML Polyethylene Glycol 17 GM DAILY NEEDED PRN 12/10 0945 AC 12/10 PO 1105 Tamsulosin HCl 0.4 MG DAILY 12/06 0900 AC 12/12 PO 1040 Tramadol HCl 25 MG Q6P PRN 12/07 1300 AC 12/11 PO 1606 Last 24 Hrs of Lab/Guilherme Results Last 24 Hrs of Labs/Mics: Laboratory Tests 12/11/17 1059: Fluid WBC Cancelled, Fld Total RBCs Counted Cancelled Microbiology 12/12 0810 EXTREMITIE: Gross Specimen Examination - RECD 12/12 0810 EXTREMITIE: Gram Stain - RECD 12/11 1507 BODY FLUID: Body Fluid Culture - RES 12/11 1507 BODY FLUID: Gram Stain - RES Assessment/Plan Assessment: Mr. Trujillo is a 52-year-old male with PMH of HTN, osteomyelitis left foot, and chronic left foot ulcer who presented with fever. Problem List: 1. Left foot osteomyelitis 2. Septic shock with lactic acidosis and end organ damage 3. ADAM, resolved 4. Transaminitis, resolved 5. Septic arthritis, left knee 6. Right foot lesion 7. MSSA bacteremia 8. Right shoulder pain #Left foot osteomyelitis: Patient presented septic (tachycardia, fever, leukocytosis), hypotensive, with lactic acidosis. XRY revealed a focal area of bone destruction representing osteomyelitis adjacent to the deep skin ulcer, lateral midfoot. Other potential sources of infection were evaluated including urine, chest, biliary and lumbar spine and were negative. Lumbar spine CT showed no evidence of abscess but did show chronic inflammatory changes. Right upper quadrant ultrasound was negative though LFTs were mildly elevated. Lactic acidosis has trended down. Patient had previously grown MSSA and Pseudomonas resistant to ceftazidine as well as other gram-negative bacteria on bone cultures and so the patient was initially treated with piperacillin/tazobactam. Blood cultures are growing gram-positive cocci in clusters in 2/2 tubes, MSSA. Blood cultures were persistently positive but latest set on 12/09/17 are now negative. TTE revealed no evidence of vegetations but was a poor study. Infectious disease has been consulted. Patient went to the OR on 12/07/17 for debridement of right foot with 5th toe amputation. Culture from the biopsy is now growing Proteus sensitive to ampicillin/sulbactam. It is also growing gram- positive cocci, enterococcus, awaiting sensitivities. Patient went to the operating room today for further debridement of his left foot. He has remained afebrile with resolved leukocytosis. -Appreciate podiatry recommendations -Appreciate ID recommendations -ampicillin/sulbactam, day 6 of antibiotics -Follow cultures for speciation -Will need PICC line #Left knee septic arthritis: Patient additionally complained of left knee pain. XRY revealed mild degenerative changes with small joint effusion. Arthrocentesisrevealed grossly brown fluid with 30,000 WBCs, growing MSSA. Patient went to the OR for washout on 12/01/17. He now has a drain that is draining serosanguineous fluid. -Appreciate orthopedic surgery recommendations -Continue antibiotics as above -Appreciate ID recs #Right foot lesion: It was noted on admission that right 3rd toe has blackened tip with wet appearing wound. XRY revealed soft tissues are swollen at the tip of the second toe and there is bone loss of the tuft of the distal phalanx which could be secondary to ischemia or osteomyelitis. 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 Podiatry and ID are not concerned at this time, continuing to monitor. -Appreciate podiatry recs -Appreciate ID recs #Right shoulder pain: Patient has been complaining of right shoulder pain and today on exam has severely limited range of motion. X-ray showed degenerative changes and possible osteopenia. Arthrocentesis on 12/11/17 revealed cloudy fluid that was sent for culture. -F/u culture #ADAM: Most likely prerenal azotemia due to decreased oral intake/septic shock, also in the setting of recent NSAID use and ARB use. Creatinine now improved. -Avoid nephrotoxins -Hold ACEi/ARB #Chronic medical problems: -Continue other home medications DVT prophylaxis with enoxaparin Consistent carbohydrate two diet Full code Problem List: 1. Osteomyelitis Pain Ratin Pain Location: no Pain Goal: Remain pain free Pain Plan: see a/p Tomorrow's Labs & Rationales: cbc, bep
--- NOTE | 2017-12-12 08:35 | Operative Report ---
Operative/Inv Procedure Report Surgery Date: 12/12/17 Name of Procedure: 1 open incision and drainage deep to the deep fascia with exposure of the extensor and flexor tendon and tendon sheath multiple sites left foot 2 delayed primary closure of open surgical wound left foot 3 debridement of necrotic bone left foot 4 intraoperative administration of ankle block anesthesia 5 excisional debridement Pre-Operative Diagnosis: 1 open, necrotic wound left foot 2 osteomyelitis left foot Post-Operative Diagnosis: The same Estimated Blood Loss: less than 50ml Surgeon/Hadoop Administrator: NAZ HERNDON DPM Anesthesia: moderate sedation, block Operative/Procedure Note Note: After obtaining informed consent the patient was brought to the operating room and placed on the operating table in the supine position. The patient was then securely fastened to the operating table in the lysis safety belt. After administration of IV sedation, 10 mL of 0.5% Marcaine plain was infiltrated about the patient's left ankle. The left foot and ankle then scrubbed prepped and draped in usual aseptic manner. Attention directed lateral aspect the left foot, where a large full-thickness necrotic was identified. A 15 blade visualized sharply revised skin margins. The dissection was then carried down deep to the deep fascia with exposure of the extensor and flexor tendon and tendon sheath multiple sites, both proximally and distally. All necrotic, nonviable infected tissue was evacuated from the wound. Bone specimen was harvested for pathologic inspection. The open wound was then irrigated with 3 L normal sterile saline infusion 50,000 units of bacitracin. Following this, the foot was redraped and the surgeon's top gloves were exchanged for clean gloves. Any bleeding vessels identified were cauterized or ligated as encountered. A dorsal medial and plantar medial flap was then developed with undermining, mobilization and advancement adjacent tissue centrally. The deep side of the flap was held with 2-0 Vicryl. The skin edges were approximated 2-0 nylon. Incision was dressed with Xeroform, 4 x 4's Kerlix and an Alessandro wrap. The patient was noted tolerate both procedure and anesthesia well and the patient was transported from the operating room to recovery with vital signs stable best assess intact to both the dorsal medial plantar medial flaps.
[2017-12-12 11:12] VITALS: BP 146/76
--- NOTE | 2017-12-12 12:54 | PN- Orthopedic ---
See Addendum Subjective Subjective: knee pain is getting better. no fever. R shoulder feels a little better Objective Vital Signs and I&Os Vital Signs Date Time Temp Pulse Resp B/P B/P Pulse O2 O2 Flow FiO2 Mean Ox Delivery Rate 12/12 1112 99.0 90 18 146/76 94 Room Air 12/12 0649 97.7 97 20 160/76 93 Room Air 12/12 0500 80 92 12/12 0054 82 92 12/11 2253 98.5 91 20 140/70 90 Room Air 12/11 2247 78 91 12/11 1600 Room Air 12/11 1449 99.5 94 20 140/80 93 Intake & Output 12/12 1600 12/12 0800 12/12 0000 12/11 1600 12/11 0800 12/11 0000 Intake Total 1360 100 670 065 7553 Output Total 471 490 760 530 Balance 889 -390 -60 800 610 Intake, IV 1360 100 100 700 800 Intake, Oral 600 100 340 Number 1 Bowel Movements Output, 170 40 110 80 Drainage Output, Stool 1 Output, Urine 300 450 650 450 Physical Exam: wdwn aox3, nad R shoulder- rom limited ?chronic. no tenderness, no erythema L knee- oneal with 20cc of straw colored drainage. no erythema, no warmth, no tenderness. no effusion. LLE post op deonte and wrap applied. Results Last 48 Hours of Labs: Laboratory Tests 12/11 12/11 12/11 1059 0715 0600 Chemistry Hemoglobin A1c (4.2 - 5.8 %) 6.0 H Hematology CBC w Diff NO MAN DIFF REQ WBC (4.8 - 10.8 /CUMM) 10.0 RBC (4.70 - 6.10 /CUMM) 2.76 L Hgb (14.0 - 18.0 G/DL) 8.8 L Hct (42 - 52 %) 26.3 L MCV (80.0 - 94.0 FL) 95.3 H MCH (27.0 - 31.0 PG) 32.1 H MCHC (33.0 - 37.0 G/DL) 33.7 RDW (11.5 - 14.5 %) 14.8 H Plt Count (130 - 400 /CUMM) 520 H MPV (7.4 - 10.4 FL) 7.9 Gran % (42.2 - 75.2 %) 74.4 Lymphocytes % (20.5 - 51.1 %) 14.2 L Monocytes % (1.7 - 9.3 %) 8.0 Eosinophils % (0 - 5 %) 2.8 Basophils % (0.0 - 2.0 %) 0.6 Absolute Granulocytes (1.4 - 6.5 /CUMM) 7.5 H Absolute Lymphocytes (1.2 - 3.4 /CUMM) 1.4 Absolute Monocytes (0.10 - 0.60 /CUMM) 0.8 H Absolute Eosinophils (0.0 - 0.7 /CUMM) 0.3 Absolute Basophils (0.0 - 0.2 /CUMM) 0.1 Other Body Source Fluid WBC Cancelled Fld Total RBCs Counted Cancelled Toxicology Vancomycin Trough (10.0 - 20.0 ug/mL) 6.7 L 12/11 04 0500 0450 Chemistry Sodium (137 - 145 mmol/L) 143 Potassium (3.5 - 5.1 mmol/L) 3.8 Chloride (98 - 107 mmol/L) 101 Carbon Dioxide (22 - 30 mmol/L) 35 H Anion Gap (5 - 16) 7 BUN (9 - 20 mg/dL) 9 Creatinine (0.7 - 1.2 mg/dL) 0.6 L Estimated GFR (>60 ml/min) > 60 Glucose (65 - 99 mg/dL) 100 H Calcium (8.4 - 10.2 mg/dL) 7.8 L Phosphorus (2.5 - 4.5 mg/dL) 4.3 Magnesium (1.6 - 2.3 mg/dL) 1.8 Total Bilirubin (0.2 - 1.3 mg/dL) 0.2 AST (17 - 59 U/L) 29 ALT (21 - 72 U/L) 52 Albumin (3.5 - 5.0 g/dL) 2.0 L Hematology CBC w Diff Cancelled WBC Cancelled RBC Cancelled Hgb Cancelled Hct Cancelled MCV Cancelled MCH Cancelled MCHC Cancelled RDW Cancelled Plt Count Cancelled MPV Cancelled Assessment/Plan Assessment/Plan POD3 sp L knee DSA for septic knee, irrigation and debridement as well as post procedure day 1 sp L shoulder aspiration for potential septic arthritis. -OOB, wbat unless otherwise indicated by Dr. Salas -may work on L knee ROM to tolerance -Continue ONEAL for now, possible remove later today, will LAKISHA Ojeda -Continue ID management of abx -follow R shoulder aspiration cultures, so far no growth, doubt septic shoulder - will follow.
[2017-12-12 14:49] VITALS: BP 158/94
[2017-12-12 22:29] VITALS: BP 150/92
[2017-12-13 06:46] VITALS: BP 160/80
--- NOTE | 2017-12-13 07:07 | PN- Housestaff ---
See Addendum Subjective Follow-up For: Sepsis Subjective: No overnight events. The patient slept well and has no further pain. His right shoulder still has reduced range of motion. He says he has not been walking outside the room much and would appreciate physical therapy helping him do so. He says he has 4 stairs at home otherwise lives in the first floor. He says he would prefer to go home if he could with services but is amenable to rehab. Last bowel movement was this morning. Review of Systems Constitutional: Reports: no symptoms. EENTM: Reports: no symptoms. Cardiovascular: Reports: no symptoms. Respiratory: Reports: no symptoms. Gastrointestinal: Reports: no symptoms. Genitourinary: Reports: no symptoms. Musculoskeletal: Reports: see HPI. Skin: Reports: no symptoms. Neurological/Psychological: Reports: no symptoms. Hematologic/Endocrine: Reports: no symptoms. Immunologic/Allergic: Reports: no symptoms. Objective Last 24 Hrs of Vital Signs/I&O Vital Signs Date Time Temp Pulse Resp B/P B/P Pulse O2 O2 Flow FiO2 Mean Ox Delivery Rate 12/13 0646 98.2 76 20 160/80 91 Room Air 12/13 0335 63 92 12/13 0026 84 92 12/12 2229 98.5 90 18 150/92 92 12/12 1449 98.1 94 20 158/94 91 Room Air 12/12 1112 99.0 90 18 146/76 94 Room Air Intake & Output 12/13 0800 12/13 0000 12/12 1600 Intake Total 500 Output Total 850 1450 400 Balance -850 -950 -400 Intake, IV 100 Intake, Oral 400 Number 1 Bowel Movements Output, 50 Drainage Output, Urine 850 1450 350 Physical Exam General Appearance: Alert, Oriented X3, Cooperative, No Acute Distress Cardiovascular: Regular Rate, Normal S1, Normal S2 Lungs: Clear to Auscultation Abdomen: Normal Bowel Sounds, Soft, No Tenderness Extremities: Left leg wrapped, extremities stable, drain removed. Current Medications: Current Medications Sig/Shade Start time Last Medication Dose Route Stop Time Status Admin Acetaminophen 1,000 MG Q8P PRN 12/06 0700 AC 12/12 PO 2303 Ampicillin Sodium/ 3,000 MG Q6 12/11 1200 AC 12/13 Sulbactam Sodium IV 0531 Sodium Chloride 100 ML Aspirin Buffered 81 MG DAILY 12/06 0900 AC 12/12 PO 1040 Bisacodyl 5 MG DAILY PRN 12/11 1430 AC PO Dextrose/Sodium 1,000 ML Q6H 12/12 0000 DC 12/12 Chloride IV 0511 Docusate Sodium 100 MG DAILY NEEDED PRN 12/11 1430 AC 12/11 PO 1906 Enoxaparin Sodium 40 MG DAILY 12/11 0900 AC 12/12 SC 1040 Morphine Sulfate 4 MG .STK-MED ONE 12/12 0859 DC IM 12/12 0900 Morphine Sulfate 4 MG .STK-MED ONE 12/12 0859 DC IM 12/12 0900 Patient Medication 1 ED ONE ONE 12/12 1815 DC 12/12 Teaching ED 12/12 1816 2310 Polyethylene Glycol 17 GM DAILY NEEDED PRN 12/10 0945 AC 12/10 PO 1105 Tamsulosin HCl 0.4 MG DAILY 12/06 0900 AC 12/12 PO 1040 Tramadol HCl 25 MG Q6P PRN 12/07 1300 AC 12/12 PO 1200 Last 24 Hrs of Lab/Guilherme Results Last 24 Hrs of Labs/Mics: Microbiology 12/12 809 EXTREMITIE: Gross Specimen Examination - RECD 12/12 809 EXTREMITIE: Gram Stain - RECD Assessment/Plan Assessment: Mr. Trujillo is a 52-year-old male with PMH of HTN, osteomyelitis left foot, and chronic left foot ulcer who presented with fever. Problem List: 1. Left foot osteomyelitis 2. Septic shock with lactic acidosis and end organ damage 3. ADAM, resolved 4. Transaminitis, resolved 5. Septic arthritis, left knee 6. Right foot lesion 7. MSSA bacteremia 8. Right shoulder pain #Left foot osteomyelitis: Patient presented septic (tachycardia, fever, leukocytosis), hypotensive, with lactic acidosis. XRY revealed a focal area of bone destruction representing osteomyelitis adjacent to the deep skin ulcer, lateral midfoot. Other potential sources of infection were evaluated including urine, chest, biliary and lumbar spine and were negative. Lumbar spine CT showed no evidence of abscess but did show chronic inflammatory changes. Right upper quadrant ultrasound was negative though LFTs were mildly elevated. Lactic acidosis has trended down. Patient had previously grown MSSA and Pseudomonas resistant to ceftazidine as well as other gram-negative bacteria on bone cultures and so the patient was initially treated with piperacillin/tazobactam. Blood cultures are growing gram-positive cocci in clusters in 2/2 tubes, MSSA. Blood cultures were persistently positive but latest set on 12/09/17 are now negative. TTE revealed no evidence of vegetations but was a poor study. Infectious disease has been consulted. Patient went to the OR on 12/07/17 for debridement of right foot with 5th toe amputation. Culture from the biopsy is now growing Proteus sensitive to ampicillin/sulbactam. It is also growing gram- positive cocci, enterococcus sensitive to ampicillin. Patient went to the operating room on 12/12/17 for further debridement/closure of his left foot. He has remained afebrile with resolved leukocytosis. After he receives a PICC line , he is likely stable for discharge to rehab versus home with services. -Appreciate podiatry recommendations -Appreciate ID recommendations -ampicillin/sulbactam, day 7 of antibiotics -PICC line -PT consult #Left knee septic arthritis: Patient additionally complained of left knee pain. XRY revealed mild degenerative changes with small joint effusion. Arthrocentesisrevealed grossly brown fluid with 30,000 WBCs, growing MSSA. Patient went to the OR for washout on 12/01/17. He now has a drain that is draining serosanguineous fluid. -Appreciate orthopedic surgery recommendations -Continue antibiotics as above -Appreciate ID recs #Right foot lesion: It was noted on admission that right 3rd toe has blackened tip with wet appearing wound. XRY revealed soft tissues are swollen at the tip of the second toe and there is bone loss of the tuft of the distal phalanx which could be secondary to ischemia or osteomyelitis. 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 Podiatry and ID are not concerned at this time, continuing to monitor. -Appreciate podiatry recs -Appreciate ID recs #Right shoulder pain: Patient has been complaining of right shoulder pain and on exam has severely limited range of motion. X-ray showed degenerative changes and possible osteopenia. Arthrocentesis on 12/11/17 revealed cloudy fluid that was sent for culture. However the culture did not grow. Talking to orthopedic surgery, seems like this is most likely capsulitis/tendinitis/rotator cuff in etiology. He will need to follow-up with orthopedic surgery as an outpatient. -F/u culture -Outpatient follow-up with orthopedic surgery -OT consult #ADAM: Most likely prerenal azotemia due to decreased oral intake/septic shock, also in the setting of recent NSAID use and ARB use. Creatinine now improved. -CTM #Chronic medical problems: -Continue other home medications -Resume antihypertensives DVT prophylaxis with enoxaparin Consistent carbohydrate two diet Full code Problem List: 1. Osteomyelitis Pain Ratin Pain Location: no Pain Goal: Remain pain free Pain Plan: see a/p Tomorrow's Labs & Rationales: no
[2017-12-13 08:05] LABS: ABSOLUTE BASOPHIL COUNT 0.1 /CUMM (0.0-0.2); ABSOLUTE EOSINOPHIL COUNT 0.2 /CUMM (0.0-0.7); ABSOLUTE GRANULOCYTE CT 5.6 /CUMM (1.4-6.5); ABSOLUTE LYMPH COUNT 1.4 /CUMM (1.2-3.4); ABSOLUTE MONOCYTE COUNT 0.8 /CUMM (0.10-0.60); BASOPHIL % 0.7 % (0.0-2.0); EOSINOPHIL % 2.6 % (0-5); GRANULOCYTE % 69.5 % (42.2-75.2); HEMATOCRIT 27.6 % (42-52); MEAN CORPUSCULAR HGB 30.9 PG (27.0-31.0); MEAN CORPUSCULAR HGB CONC 32.8 G/DL (33.0-37.0); MEAN CORPUSCULAR VOLUME 94.2 FL (80.0-94.0); MEAN PLATELET VOLUME 7.4 FL (7.4-10.4); PLATELET COUNT 568 /CUMM (130-400); RBC DISTRIBUTION WIDTH 15.1 % (11.5-14.5); RED BLOOD CELL CT 2.93 /CUMM (4.70-6.10); WHITE BLOOD CELL COUNT 8.1 /CUMM (4.8-10.8)
--- NOTE | 2017-12-13 08:12 | PN- Orthopedic ---
Subjective Subjective: No new complaints, knee pain lessening, although feels more stiff since drain removed. Shoulder pain not worsening, continues to have limited range of motion. Denies fevers or flulike symptoms. Objective Vital Signs and I&Os Vital Signs Date Time Temp Pulse Resp B/P B/P Pulse O2 O2 Flow FiO2 Mean Ox Delivery Rate 12/13 0754 160/80 / 0646 98.2 76 20 160/80 91 Room Air 12/13 0335 63 92 12/13 0026 84 92 12/12 2229 98.5 90 18 150/92 92 12/12 1449 98.1 94 20 158/94 91 Room Air 12/12 1112 99.0 90 18 146/76 94 Room Air Intake & Output 12/13 1600 12/13 0800 12/13 0000 12/12 1600 12/12 0800 12/12 0000 Intake Total 500 1360 100 Output Total 850 1450 400 471 490 Balance -850 -950 -400 889 -390 Intake, IV 100 1360 100 Intake, Oral 400 Number 1 1 Bowel Movements Output, 50 170 40 Drainage Output, Stool 1 Output, Urine 850 1450 350 300 450 Physical Exam: General: Alert and oriented x3, no acute distress Cardaic: RRR, s1s2 Pulm: CTA bialterally ABD: Non-tender, non-distended Left knee wrapped in deonte bandage, wrap continues to left foot. No pain with palpation of knee. No drainage. Calves soft/non-tender Right shoulder: No redness, warmth or swelling to joint. No erythema surrounding aspiration site. Limited ROM in abduction, distal sensations intact. Assessment/Plan Assessment/Plan This is a 52 year old male, POD 4 s/p left knee arthoscopic washout for septic knee followed by Dr. Salas for osteomyleitis, having right shoulder pain Right shoulder: Cultures obtained, negative, recommend follow up with Dr. Ojeda as an outpatient Left knee: Picc line/abx for osteo and septic knee, activity can wbat, can change dressing, keep clean and dry, follow up with Dr. Ojeda as outpatient Surgery will continue to follow on an as needed basis, primary management to continue with medical team Core Measures Venous Thromboembolism VTE Risk Factors Age>40 No Mechanical VTE Prophylaxis d/t Other No VTE Pharm Prophylaxis d/t Other
--- NOTE | 2017-12-13 12:24 | RADIOLOGY REPORT ---
EXAMINATION:\H\ \N\XR CHEST CLINICAL INFORMATION: PICC line confirmation. COMPARISON: Chest x-ray dated 12/05/2017 and 02/19/2016. TECHNIQUE: AP semierect view of the chest was obtained. FINDINGS: PICC line is seen in place, poorly visualized, but likely extending into the deep SVC. The cardiac silhouette is within normal limits in size. Again seen is enlargement of the pulmonary arteries, raising the suspicion of pulmonary arterial hypertension. This appearance has not significantly changed when compared to the prior exams dating back to 02/19/2016. There is also a stable right lower paratracheal soft tissue density seen, unchanged allowing for differences in technique dating back to 02/19/2016, most likely related to prominent hypertrophic changes of the thoracic spine. Lungs bilaterally are symmetrically expanded. Mild central vascular congestion is seen. No pulmonary edema or focal consolidation is seen. No effusion or pneumothorax is noted. Bony structures are remarkable for mild convex right thoracic scoliosis and extensive hypertrophic changes in the upper/mid thoracic spine. IMPRESSION: 1. PICC line poorly visualized but appears to be located within the deep SVC. 2. Otherwise stable appearance of the chest with enlarged pulmonary arteries, raising the suspicion of pulmonary artery hypertension and stable prominent right lower paratracheal shadow, most consistent with a summation shadow related to hypertrophic changes in the thoracic spine.
--- NOTE | 2017-12-13 12:40 | PN- Infect Dx ---
Subjective Subjective: Afebrile. He does note some discomfort in the left knee but has been ambulating. He notes improvement in the right shoulder, with increased range of motion with physical therapy. Objective Last 24 Hrs of Vital Signs/I&O Vital Signs Date Time Temp Pulse Resp B/P B/P Pulse O2 O2 Flow FiO2 Mean Ox Delivery Rate 12/13 1212 Room Air 2.0L 12/13 1211 Room Air 2.0L 12/13 1205 Room Air 2.0L 12/13 0841 160/80 12/13 0754 160/80 12/13 0646 98.2 76 20 160/80 91 Room Air 12/13 0335 63 92 12/13 0026 84 92 12/12 2229 98.5 90 18 150/92 92 12/12 1449 98.1 94 20 158/94 91 Room Air Intake & Output 12/13 1600 12/13 0800 12/13 0000 Intake Total 500 Output Total 352 873 0878 Balance -950 -850 -950 Intake, IV 100 Intake, Oral 400 Number 1 Bowel Movements Output, Urine 998 900 6164 Physical Exam Other Physical Findings: He appears comfortable in no acute distress Lungs are clear Heart regular rhythm with no murmur Extremities left knee with minimal swelling, no erythema, slightly tender to palpation, with increased range of motion; left foot dressing intact; right shoulder with no overlying erythema or edema, with increasing range of motion; PICC in the right upper extremity in place Results Last 24 Hours of Lab Results: Laboratory Tests 12/13 0655 Chemistry Sodium (137 - 145 mmol/L) 142 Potassium (3.5 - 5.1 mmol/L) 4.1 Chloride (98 - 107 mmol/L) 99 Carbon Dioxide (22 - 30 mmol/L) 36 H Anion Gap (5 - 16) 8 BUN (9 - 20 mg/dL) 7 L Creatinine (0.7 - 1.2 mg/dL) 0.5 L Estimated GFR (>60 ml/min) > 60 BUN/Creatinine Ratio (7 - 25 %) 14.0 Iron (49 - 181 ug/dL) 30 L TIBC (261 - 462 ug/dL) 174 L Ferritin (17.9 - 464 ng/mL) 409.0 Hematology CBC w Diff NO MAN DIFF REQ WBC (4.8 - 10.8 /CUMM) 8.1 RBC (4.70 - 6.10 /CUMM) 2.93 L Hgb (14.0 - 18.0 G/DL) 9.1 L Hct (42 - 52 %) 27.6 L MCV (80.0 - 94.0 FL) 94.2 H MCH (27.0 - 31.0 PG) 30.9 MCHC (33.0 - 37.0 G/DL) 32.8 L RDW (11.5 - 14.5 %) 15.1 H Plt Count (130 - 400 /CUMM) 568 H MPV (7.4 - 10.4 FL) 7.4 Gran % (42.2 - 75.2 %) 69.5 Lymphocytes % (20.5 - 51.1 %) 17.3 L Monocytes % (1.7 - 9.3 %) 9.9 H Eosinophils % (0 - 5 %) 2.6 Basophils % (0.0 - 2.0 %) 0.7 Absolute Granulocytes (1.4 - 6.5 /CUMM) 5.6 Absolute Lymphocytes (1.2 - 3.4 /CUMM) 1.4 Absolute Monocytes (0.10 - 0.60 /CUMM) 0.8 H Absolute Eosinophils (0.0 - 0.7 /CUMM) 0.2 Absolute Basophils (0.0 - 0.2 /CUMM) 0.1 Last 24 Hours of Guilherme Results: Blood cultures 2 December 09 remain negative Right shoulder joint aspiration December 11 negative Left foot OR culture December 12 labeled bone positive for a scant growth of gram- negative rods and gram-positive cocci Assessment/Plan ID Impression: Continues to improve, with temperatures and white blood cell count both normal on Unasyn, status post further debridement of the left foot osteomyelitis, with closure of the wound, yesterday, now 6 days status post excision of the left fifth metatarsal, and 4 days status post arthroscopic irrigation and debridement , with limited synovectomy, of his left knee for a septic arthritis, most likely secondary to seeding from his bacteremia. The aspiration of his right shoulder only yielded 1 cc of fluid, with the culture remaining negative. He will require a prolonged course of IV antibiotics for residual left foot osteomyelitis and his left knee septic arthritis. Suggestion: 1. Would obtain a postop baseline ESR and x-ray of the left foot 2. Further evaluation and management of his right shoulder per Orthopedics 3. Continue Unasyn to plan on a 4 week course (until January 09) 4. Weekly ESR while on Unasyn
[2017-12-13] MEDS ORDERED: METFORMIN HCL500 M2 PO (13:05)
[2017-12-13] MEDS ORDERED: UNASYN 3 GM VIAL3 GM IV (13:07)
--- NOTE | 2017-12-13 13:09 | Patient Discharge Instructions ---
Discharge Instructions General Discharge Information You were seen/treated for: Left foot osteomyelitis, MSSA bacteremia, left knee septic arthritis Watch for these problems: Fever, chest pain, shortness of breath Special Instructions: Please take all medications as directed. Please obtain weekly ESR labwork. Please follow up with primary care and orthopedic surgery. Diet Continue normal diet: No Recommended Diet: Diabetic Activity Full Activity/No Limits: Yes Acute Coronary Syndrome Inclusion Criteria At DC or during hospital stay patient has or had the following: ACS DIAGNOSIS No Discharge Core Measures Meds if any: Prescribed or Continued at Discharge Meds if any: NOT Prescribed or Continued at Discharge Congestive Heart Failure Inclusion Criteria At DC or during hospital stay patient has or had the following: CHF DIAGNOSIS No Discharge Core Measures Meds if any: Prescribed or Continued at Discharge Meds if any: NOT Prescribed or Continued at Discharge Cerebrovascular accident Inclusion Criteria At DC or during hospital stay patient has or had the following: CVA/TIA Diagnosis No Discharge Core Measures Meds if any: Prescribed or Continued at Discharge Meds if any: NOT Prescribed or Continued at Discharge Venous thromboembolism Inclusion Criteria VTE Diagnosis No VTE Type NONE VTE Confirmed by (Test) NONE Discharge Core Measures - Per Current guidelines, there needs to be overlap - treatment for the first 5 days of Warfarin therapy. - If discharged on Warfarin prior to 5 days of - overlap therapy, the patient will need to be - assessed for post discharge needs including - *Post discharge parental anticoagulation - *Warfarin and/or parental anticoagulation education - *Follow up date to check INR post discharge At least 5 days overlap therapy as Inpatient No Meds if any: Prescribed or Continued at Discharge Note: Overlap Therapy is Warfarin and Anticoagulant Meds if any: NOT Prescribed or Continued at Discharge
[2017-12-13 13:44] VITALS: BP 112/70
[2017-12-13 14:21] VITALS: BP 162/90
--- NOTE | 2017-12-13 14:25 | Discharge Summary ---
See Addendum Visit Information Visit Dates Admission Date: 12/05/17 Discharge Date: 12/14/17 Hospital Course Course Attending Physician: Donaldo Plata MDesha Primary Care Physician: Alessandra GRAJEDA,[facility] Course: 52-year-old gentleman with history of hypertension, arthritis, left fifth toe polymicrobial osteomyelitis, status post arbitration and treatment with meropenem(3 years prior to admission), with recurrence of her left foot wound months prior to admission-status post debridement of necrotic bone and treatment with a 4 week course of cefazolin for osteo secondary to Proteus and MSSA, with nonhealing of the wound and intermittent drainage. Tae was admitted again on December 05 after he was sent to ED by his primary care physician because of a fever and elevated WBC. On admission, he was febrile to 101, blood pressure as low as 72/48. Labs. WBC 29,000, BUN/creatinine 37/1.3, lactic acid of 2.5, alkaline phosphatase 133, AST ALT elevated at 73 and 74. Chest x-ray was negative. Right upper quadrant ultrasound was obtained which remained negative as well. X-ray of the left foot revealed a focal area of bone destruction adjacent to the deep skin ulcer on the lateral aspect of the midfoot, thought to be diagnostic for osteomyelitis. Upon presentation, patient was also complaining of lower back pain . CT of the lumbar spine was obtained as well which showed degenerative spondylosis with no evidence of abscess or osteopenia. 1. Sepsis probably secondary to Left foot osteomyelitis. Patient was started on vancomycin and ceftazidime at admission. On the following morning, his blood cultures came back positive for GPC in clusters. Ceftazidime was discontinued on the second day. MRI of the foot confirmed the findings. Given patient's persistent staff for his bacteremia, left foot was thought to be the source. Until day 3 of admission, patient remained bacteremic. He was continued on vancomycin. Later Zosyn was added to his antibiotic regimen, given the Gram stain of the bone culture revealing few gram-negative rods. This was later discontinued following speciation. He was started on Unasyn 3 g IV every 6 hours and will be discharged on the same. Patient was also evaluated by podiatry who performed open excision and drainage at multiple sites of left foot, excision of fifth metatarsal left foot, excisional debridement on 12/07/2017. Patient was later taken to the OR again for delayed primary closure of open surgical wound on 12/12/2017. PICC line for extended antibiotic course placed on 12/13/2017. 2. Left knee swelling. Given persistent pain and swelling of the left knee, septic joint needed to be ruled out. A bedside and aspiration was performed and fluid sent for counts and cultures. The cultures came back positive for staph aureus. Patient had a left knee arthroscopic irrigation and debridement, in addition to limited synovectomy. A Hemovac drain was placed, which was removed on 12/12/2017. Patient will follow-up with orthopedic surgery as an outpatient. Patient will continue to be on Unasyn for a prolonged course. 3. Right shoulder pain. Given involvement of multiple joints, a septic shoulder joint was ruled out with ultrasound-guided aspiration. The fluid cultures remain negative, then likely patient's symptoms of limited range of motion and pain are secondary to adhesive capsulitis. Patient will benefit from an outpatient MRI and a follow-up with orthopedic as an outpatient. Patient will continue to be on 4 week course of Unasyn through PICC line until 01/09/2018. Weekly ESR while on Unasyn. 4. Prediabetes. Patient has been started on low-dose metformin and will follow -up with his outpatient for further dosing recommendations. 5. History of hypertension. Patient was continued on his home regimen of antihypertensives. 6. ADAM. Patient presented with acute kidney injury, likely secondary to sepsis and hypotension. His ADAM resolved during the course of his stay with fluid hydration. Patient's home regimen of antihypertensive to include losartan HCTZ has been restarted. Full code. Consistent carbohydrate 3 diet Enoxaparin for DVT prophylaxis. Allergies: Coded Allergies: No Known Allergies (09/15/17) Significant Procedures: Surgery Date: 12/07/17 Name of Procedure: 1 open incision and drainage deep to the deep fascia with exposure of the extensor and flexor tendon and tendon sheath multiple sites left foot 2 delayed primary closure of open surgical wound left foot 3 debridement of necrotic bone left foot 4 intraoperative administration of ankle block anesthesia 5 excisional debridement Surgery Date: 12/09/17 Name of Procedure: Left knee arthroscopic irrigation and debridement, limited synovectomy Disposition Summary Disposition Principal Diagnosis: Sepsis secondary to left knee osteomyelitis. Additional Diagnosis: Left septic knee. Discharge Disposition: SNF Discharge Instructions General Discharge Information Code Status: Full Code Patient's Diet: Diabetic diet. Patient's Activity: Weightbearing as tolerated. [facility]. Follow-Up Instructions/Appts: Follow-up with primary care physician as an outpatient. Follow-up with your orthopedic surgeon for shoulder pain as well as left knee pain as an outpatient. Continue Unasyn to January 09. Please get weekly ESR checked while on Unasyn. Postop left foot x-ray for follow-up and CC results with Dr. Morgan. Medications at Discharge Discharge Medications: Stop taking the following medications: Ciprofloxacin HCl (Ciprofloxacin HCl) 500 MG TABLET ORAL TWICE DAILY Qty = 14 Continue taking these medications: Losartan/Hydrochlorothiazide (Losartan-Hctz 50-12.5 MG Tab) 50 MG-12.5 MG TABLET 1 Tablet ORAL DAILY Qty = 90 Aspirin (Ecotrin*) 81 MG TABLET.DR 1 Tablet ORAL DAILY Comments: Last Taken: 12/14/17 Time: 8:00 am Meloxicam (Mobic) 15 MG TABLET 1 Tablet ORAL DAILY Tamsulosin HCl (Tamsulosin HCl) 0.4 MG CAP.ER.24H 1 Capsule ORAL DAILY Qty = 15 Comments: Last Taken: 12/14/17 Time: 8:00 am Tramadol HCl (Tramadol HCl) 50 MG TABLET 1 Tablet ORAL 2 x Daily as needed as needed for PAIN Qty = 14 Comments: Last Taken: 12/14/17 Time: Start taking the following new medications: Metformin HCl (Metformin HCl ER) 500 MG TAB.ER.24 1 Tablet ORAL DAILY Qty = 30 No Refills Comments: NOT TAKEN WHILE IN HOSPITAL Ampicillin Sodium/Sulbactam Na (Unasyn 3 Gm Vial) 3 GRAM VIAL 3 G INTRAVEN EVERY SIX HOURS Qty = 104 No Refills Instructions: PLEASE TAKE UNTIL JANUARY 09 Comments: Last Taken: 12/14/17 Time: Copies To: Allie Salas DPM, MD,Maria Antonia Morgan MD,Radhames Sheridan Attending MD Review Statement Documenting Attending: Boni GRAJEDA,Dolores
--- NOTE | 2017-12-13 16:32 | RADIOLOGY REPORT ---
EXAMINATION: XR FOOT, LEFT CLINICAL INFORMATION: Baseline evaluation status post resection of fifth digit due to osteomyelitis in the fifth metatarsal bone. COMPARISON: MRI scan of the left foot dated 12/06/2017. Left foot films dated 12/05/2017 and 04/27/2017. TECHNIQUE: AP, lateral, and oblique views of the left foot. FINDINGS: The patient is status post resection of the remaining fifth metatarsal bone. Associated soft tissue swelling and subcutaneous emphysema and cutaneous bruna are seen. There is diffuse mild cortical thickening and sclerotic density of the fourth metatarsal bone, unchanged from prior studies. There is significant degenerative change in the intertarsal joints with partial fusion, hypertrophic changes and cystic changes seen. There is flattening of the plantar arch. Prominent posterior and plantar calcaneal spur formation is seen. There is partial collapse of the talar dome with severe degenerative changes at the tibiotalar joint. Moderate degenerative changes are seen in the forefoot, involving the middle tarsophalangeal joints and the interphalangeal joints, unchanged. IMPRESSION: 1. Expected postoperative changes as seen in the lateral aspect of the left foot status post amputation of the fifth metatarsal bone. 2. Severe degenerative changes in the mid and hindfoot and ankle joint again noted, unchanged. 3. Moderate degenerative changes in the forefoot.
[2017-12-13 22:22] VITALS: BP 150/80
[2017-12-14 05:39] VITALS: BP 142/70
--- NOTE | 2017-12-14 07:54 | PN- Orthopedic ---
Surgical Brief Attending Note Brief Attending Note: Resting comfortably, some increased left knee stiffness AVSS LLE - mild effusion in the left knee, no warmth, no erythema, no drainage RUE - weak with shoulder flexion abduction, full passive range of motion A/P - s/p L knee I+D WBAT PT ABX per ID Needs PT for active rom/strengthening right shoulder follow up 2 weeks post op
--- NOTE | 2017-12-14 08:05 | PN- Housestaff ---
See Addendum Subjective Follow-up For: Osteomyelitis Subjective: No overnight events. Patient complains of some mild right shoulder pain but otherwise feels good this morning. No chest pain or shortness of breath. Review of Systems Constitutional: Reports: no symptoms. EENTM: Reports: no symptoms. Cardiovascular: Reports: no symptoms. Respiratory: Reports: no symptoms. Gastrointestinal: Reports: no symptoms. Genitourinary: Reports: no symptoms. Musculoskeletal: Reports: see HPI. Skin: Reports: no symptoms. Neurological/Psychological: Reports: no symptoms. Hematologic/Endocrine: Reports: no symptoms. Immunologic/Allergic: Reports: no symptoms. Objective Last 24 Hrs of Vital Signs/I&O Vital Signs Date Time Temp Pulse Resp B/P B/P Pulse O2 O2 Flow FiO2 Mean Ox Delivery Rate 12/14 0539 98.5 83 20 142/70 90 Room Air 12/14 0338 94 12/14 0014 82 93 12/14 0000 Room Air 12/13 2222 98.8 91 22 150/80 92 Room Air 12/13 1421 98.2 92 22 162/90 91 Room Air 12/13 1231 Room Air 2.0L 12/13 1212 Room Air 2.0L 12/13 1211 Room Air 2.0L 12/13 1205 Room Air 2.0L 12/13 0841 160/80 Intake & Output 12/14 1600 12/14 0800 12/14 0000 Intake Total 200 510 Output Total 500 850 Balance -300 -340 Intake, IV 200 150 Intake, Oral 360 Output, Urine 500 850 Physical Exam General Appearance: Alert, Oriented X3, Cooperative, No Acute Distress Cardiovascular: Regular Rate, Normal S1, Normal S2 Lungs: Clear to Auscultation Abdomen: Normal Bowel Sounds, Soft, No Tenderness Extremities: stable, wrapped Current Medications: Current Medications Sig/Shade Start time Last Medication Dose Route Stop Time Status Admin Acetaminophen 1,000 MG Q8P PRN 12/06 0700 AC 12/12 PO 2303 Ampicillin Sodium/ 3,000 MG Q6 12/11 1200 AC 12/14 Sulbactam Sodium IV 0624 Sodium Chloride 100 ML Aspirin Buffered 81 MG DAILY 12/06 0900 AC 12/13 PO 0753 Bisacodyl 5 MG DAILY PRN 12/11 1430 AC PO Docusate Sodium 100 MG DAILY NEEDED PRN 12/11 1430 AC 12/11 PO 1906 Enoxaparin Sodium 40 MG DAILY 12/11 0900 AC 12/13 SC 0753 Hydrochlorothiazide 12.5 MG DAILY 12/13 0900 AC 12/13 PO 0841 Losartan Potassium 50 MG DAILY 12/13 0900 AC 12/13 PO 0841 Patient Medication 1 ED ONE ONE 12/13 1215 DC 12/13 Teaching ED 12/13 1216 1242 Polyethylene Glycol 17 GM DAILY NEEDED PRN 12/10 0945 AC 12/10 PO 1105 Tamsulosin HCl 0.4 MG DAILY 12/06 0900 AC 12/13 PO 0754 Tramadol HCl 25 MG Q6P PRN 12/07 1300 AC 12/14 PO 0446 Last 24 Hrs of Lab/Guilherme Results Last 24 Hrs of Labs/Mics: Laboratory Tests 12/13/17 1252: ESR Westergren Cancelled Assessment/Plan Assessment: Mr. Trujillo is a 52-year-old male with PMH of HTN, osteomyelitis left foot, and chronic left foot ulcer who presented with fever. Problem List: 1. Left foot osteomyelitis 2. Septic shock with lactic acidosis and end organ damage 3. ADAM, resolved 4. Transaminitis, resolved 5. Septic arthritis, left knee 6. Right foot lesion 7. MSSA bacteremia 8. Right shoulder pain #Left foot osteomyelitis: Patient presented septic (tachycardia, fever, leukocytosis), hypotensive, with lactic acidosis. XRY revealed a focal area of bone destruction representing osteomyelitis adjacent to the deep skin ulcer, lateral midfoot. Other potential sources of infection were evaluated including urine, chest, biliary and lumbar spine and were negative. Lumbar spine CT showed no evidence of abscess but did show chronic inflammatory changes. Right upper quadrant ultrasound was negative though LFTs were mildly elevated. Lactic acidosis has trended down. Patient had previously grown MSSA and Pseudomonas resistant to ceftazidine as well as other gram-negative bacteria on bone cultures and so the patient was initially treated with piperacillin/tazobactam. Blood cultures are growing gram-positive cocci in clusters in 2/2 tubes, MSSA. Blood cultures were persistently positive but latest set on 12/09/17 are now negative. TTE revealed no evidence of vegetations but was a poor study. Infectious disease has been consulted. Patient went to the OR on 12/07/17 for debridement of right foot with 5th toe amputation. Culture from the biopsy is now growing Proteus sensitive to ampicillin/sulbactam. It is also growing gram- positive cocci, enterococcus sensitive to ampicillin. Patient went to the operating room on 12/12/17 for further debridement/closure of his left foot. He has remained afebrile with resolved leukocytosis. He received his PICC line yesterday and is stable for discharge now. He will likely need short-term rehab. -Appreciate podiatry recommendations -Appreciate ID recommendations -ampicillin/sulbactam, day 8 of antibiotics #Left knee septic arthritis: Patient additionally complained of left knee pain. XRY revealed mild degenerative changes with small joint effusion. Arthrocentesisrevealed grossly brown fluid with 30,000 WBCs, growing MSSA. Patient went to the OR for washout on 12/01/17. He now has a drain that is draining serosanguineous fluid. -Appreciate orthopedic surgery recommendations -Continue antibiotics as above -Appreciate ID recs #Right foot lesion: It was noted on admission that right 3rd toe has blackened tip with wet appearing wound. XRY revealed soft tissues are swollen at the tip of the second toe and there is bone loss of the tuft of the distal phalanx which could be secondary to ischemia or osteomyelitis. 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 Podiatry and ID are not concerned at this time, continuing to monitor. -Appreciate podiatry recs -Appreciate ID recs #Right shoulder pain: Patient has been complaining of right shoulder pain and on exam has severely limited range of motion. X-ray showed degenerative changes and possible osteopenia. Arthrocentesis on 12/11/17 revealed cloudy fluid that was sent for culture. However the culture did not grow. Talking to orthopedic surgery, seems like this is most likely capsulitis/tendinitis/rotator cuff in etiology. He will need to follow-up with orthopedic surgery as an outpatient. -F/u culture -Outpatient follow-up with orthopedic surgery -OT consult #ADAM: Most likely prerenal azotemia due to decreased oral intake/septic shock, also in the setting of recent NSAID use and ARB use. Creatinine now improved. -CTM #Chronic medical problems: -Continue other home medications -Resume antihypertensives DVT prophylaxis with enoxaparin Consistent carbohydrate two diet Full code Problem List: 1. Osteomyelitis Pain Ratin Pain Location: shoulder Pain Goal: Remain pain free Pain Plan: see a/p Tomorrow's Labs & Rationales: no
[2017-12-14 11:01] VITALS: BP 142/70
[2017-12-14 14:28] VITALS: BP 140/80
[2017-12-14 22:39] VITALS: BP 130/80
[2017-12-15 06:22] VITALS: BP 136/76
--- NOTE | 2017-12-15 07:27 | PN- Housestaff ---
See Addendum Subjective Follow-up For: Osteomyelitis Subjective: No overnight events. Patient could not go yesterday because of insurance issues that they did find a rehab bed for him. He is medically stable for discharge and has no complaints. Review of Systems Constitutional: Reports: no symptoms. EENTM: Reports: no symptoms. Cardiovascular: Reports: no symptoms. Respiratory: Reports: no symptoms. Gastrointestinal: Reports: no symptoms. Genitourinary: Reports: no symptoms. Musculoskeletal: Reports: no symptoms. Skin: Reports: no symptoms. Neurological/Psychological: Reports: no symptoms. Hematologic/Endocrine: Reports: no symptoms. Immunologic/Allergic: Reports: no symptoms. Objective Last 24 Hrs of Vital Signs/I&O Vital Signs Date Time Temp Pulse Resp B/P B/P Pulse O2 O2 Flow FiO2 Mean Ox Delivery Rate 12/15 06 98.6 87 20 136/76 92 Room Air 12/15 0000 CPAP 12/14 2239 98.4 92 18 130/80 92 12/14 1428 99.2 93 22 140/80 92 Room Air 12/14 1101 98.5 83 20 142/70 12/14 0817 142/70 12/14 0817 142/70 Intake & Output 12/15 0800 12/15 0000 03 1600 Intake Total 430 500 350 Output Total 169 657 9139 Balance 180 -300 -1050 Intake, IV 210 100 150 Intake, Oral 220 400 200 Output, Urine 202 446 2790 Physical Exam General Appearance: Alert, Oriented X3, Cooperative, No Acute Distress Cardiovascular: Regular Rate, Normal S1, Normal S2 Lungs: Clear to Auscultation Abdomen: Normal Bowel Sounds, Soft, No Tenderness Extremities: stbale Current Medications: Current Medications Sig/Shade Start time Last Medication Dose Route Stop Time Status Admin Acetaminophen 1,000 MG Q8P PRN 12/06 0700 AC 12/14 PO 2340 Ampicillin Sodium/ 3,000 MG Q6 12/11 1200 AC 12/15 Sulbactam Sodium IV 0541 Sodium Chloride 100 ML Aspirin Buffered 81 MG DAILY 12/06 0900 AC 12/14 PO 0817 Bisacodyl 5 MG DAILY PRN 12/11 1430 AC PO Docusate Sodium 100 MG DAILY NEEDED PRN 12/11 1430 AC 12/11 PO 1906 Enoxaparin Sodium 40 MG DAILY 12/11 0900 AC 12/14 SC 0817 Hydrochlorothiazide 12.5 MG DAILY 12/13 0900 AC 12/14 PO 0817 Losartan Potassium 50 MG DAILY 12/13 0900 AC 12/14 PO 0817 Patient Medication 1 ED ONE ONE 12/[address] 12/14 [facility] ED 12/14 1216 1353 Polyethylene Glycol 17 GM DAILY NEEDED PRN 12/10 0945 AC 12/10 PO 1105 Tamsulosin HCl 0.4 MG DAILY 12/06 0900 AC 12/14 PO 0817 Tramadol HCl 25 MG Q6P PRN 12/07 1300 DC 12/14 PO 1113 Assessment/Plan Assessment: Mr. Trujillo is a 52-year-old male with PMH of HTN, osteomyelitis left foot, and chronic left foot ulcer who presented with fever. Problem List: 1. Left foot osteomyelitis 2. Septic shock with lactic acidosis and end organ damage 3. ADAM, resolved 4. Transaminitis, resolved 5. Septic arthritis, left knee 6. Right foot lesion 7. MSSA bacteremia 8. Right shoulder pain #Left foot osteomyelitis: Patient presented septic (tachycardia, fever, leukocytosis), hypotensive, with lactic acidosis. XRY revealed a focal area of bone destruction representing osteomyelitis adjacent to the deep skin ulcer, lateral midfoot. Other potential sources of infection were evaluated including urine, chest, biliary and lumbar spine and were negative. Lumbar spine CT showed no evidence of abscess but did show chronic inflammatory changes. Right upper quadrant ultrasound was negative though LFTs were mildly elevated. Lactic acidosis has trended down. Patient had previously grown MSSA and Pseudomonas resistant to ceftazidine as well as other gram-negative bacteria on bone cultures and so the patient was initially treated with piperacillin/tazobactam. Blood cultures are growing gram-positive cocci in clusters in 2/2 tubes, MSSA. Blood cultures were persistently positive but latest set on 12/09/17 are now negative. TTE revealed no evidence of vegetations but was a poor study. Infectious disease has been consulted. Patient went to the OR on 12/07/17 for debridement of right foot with 5th toe amputation. Culture from the biopsy is now growing Proteus sensitive to ampicillin/sulbactam. It is also growing gram- positive cocci, enterococcus sensitive to ampicillin. Patient went to the operating room on 12/12/17 for further debridement/closure of his left foot. He has remained afebrile with resolved leukocytosis. He received his PICC line and is stable for discharge now. He will need short-term rehab. He now has a bed and and is awaiting for insurance approval. -Appreciate podiatry recommendations -Appreciate ID recommendations -ampicillin/sulbactam, day 9 of antibiotics, continue until January 09 #Left knee septic arthritis: Patient additionally complained of left knee pain. XRY revealed mild degenerative changes with small joint effusion. Arthrocentesisrevealed grossly brown fluid with 30,000 WBCs, growing MSSA. Patient went to the OR for washout on 12/01/17. -Appreciate orthopedic surgery recommendations -Continue antibiotics as above -Appreciate ID recs #Right foot lesion: It was noted on admission that right 3rd toe has blackened tip with wet appearing wound. XRY revealed soft tissues are swollen at the tip of the second toe and there is bone loss of the tuft of the distal phalanx which could be secondary to ischemia or osteomyelitis. 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 Podiatry and ID are not concerned at this time, continuing to monitor. -Appreciate podiatry recs -Appreciate ID recs #Right shoulder pain: Patient has been complaining of right shoulder pain and on exam has severely limited range of motion. X-ray showed degenerative changes and possible osteopenia. Arthrocentesis on 12/11/17 revealed cloudy fluid that was sent for culture. However the culture did not grow. Talking to orthopedic surgery, seems like this is most likely capsulitis/tendinitis/rotator cuff in etiology. He will need to follow-up with orthopedic surgery as an outpatient. -F/u culture -Outpatient follow-up with orthopedic surgery -OT consult #ADAM: Most likely prerenal azotemia due to decreased oral intake/septic shock, also in the setting of recent NSAID use and ARB use. Creatinine now improved. -CTM #Chronic medical problems: -Continue other home medications -Resume antihypertensives DVT prophylaxis with enoxaparin Consistent carbohydrate two diet Full code Problem List: 1. Shoulder pain 2. Osteomyelitis Pain Ratin Pain Location: no Pain Goal: Remain pain free Pain Plan: see a/p Tomorrow's Labs & Rationales: no
[2017-12-15 08:32] VITALS: BP 136/80
[2017-12-15] MEDS ORDERED: CIPROFLOXACIN500 M2 PO (09:32)
--- NOTE | 2017-12-15 12:15 | PN- Infect Dx ---
Subjective Subjective: Afebrile. He has mild discomfort in the left knee but has been ambulating. He has no pain in the left foot and his right shoulder pain has improved. Objective Last 24 Hrs of Vital Signs/I&O Vital Signs Date Time Temp Pulse Resp B/P B/P Pulse O2 O2 Flow FiO2 Mean Ox Delivery Rate 12/15 0832 136/80 / 0622 98.6 87 20 136/76 92 Room Air 12/15 0000 CPAP 12/14 2239 98.4 92 18 130/80 92 12/14 1428 99.2 93 22 140/80 92 Room Air Intake & Output 12/15 1600 12/15 0800 12/15 0000 Intake Total 430 500 Output Total 850 250 800 Balance -850 180 -300 Intake, IV 210 100 Intake, Oral 220 400 Output, Urine 850 250 800 Physical Exam Other Physical Findings: He appears comfortable in no acute distress Lungs are clear Heart regular rhythm with no murmur Extremities left knee dressing intact, with increased range of motion; left foot dressing intact; right shoulder with increased range of motion with no overlying inflammation; PICC in the left upper extremity with no inflammation at the site Results Last 24 Hours of Lab Results: Laboratory Tests 12/13 1252 Hematology ESR [place] Cancelled Last 24 Hours of [place] Results: OR culture December 12 labeled left foot bone positive for scant growth of Proteus sensitive to Unasyn, Staph aureus and possible coag negative Staph Right shoulder aspiration December 11 negative Recent Imaging Studies: X-ray of the left foot December 13 reveals expected postop changes in the lateral aspect of the left foot status post amputation of the fifth metatarsal bone Assessment/Plan ID Impression: Doing well overall, with temperatures and white blood cell count normal, on Unasyn for residual osteomyelitis of the left foot, status post further debridement of the left foot osteomyelitis, with closure of the wound, 3 days ago, now 8 days status post excision of the left fifth metatarsal, and 6 days status post arthroscopic irrigation and debridement, with limited synovectomy, of his left knee for a septic arthritis, most likely secondary to seeding from his bacteremia. The isolation of coag-negative isolated from his recent OR cultures is of unclear significance and likely represents skin contamination; therefore it should not require treatment. His right shoulder symptoms appear to be improving, with the recent aspiration of his right shoulder negative for evidence of infection. Suggestion: 1. Continue Unasyn to complete a 4 week course from his most recent debridement (until January 09) 2. Weekly ESR while on Unasyn
== END 2017-12-15 12:48 | DRG 854 ==
LOC: DELPENDDIS → ERH 12:30 → ERHI 17:13 → 2NA 17:13 → ENRESERV 18:20 → ENTRNSPT 20:41 → EDTRNSPT 20:53 → EDTRNSPTSTS 20:53 → EDTRNSPT 21:00 → 2NA 21:33 → CMPTRNSPT 21:44 → 2NA 12-06 08:24 → ENTRNSPT 12-07 17:23 → EDTRNSPTSTS 12-07 17:38 → EDTRNSPT 12-07 17:38 → CMPTRNSPT 12-07 17:48 → 2NA 12-08 16:14 → ENRESERV 12-09 18:01 → CRI 12-09 18:17 → DELTRNSPT 12-10 10:23 → ENTRNSPT 12-10 10:26 → EDTRNSPT 12-10 10:33 → EDTRNSPTSTS 12-10 10:33 → 2NA 12-10 10:53 → CMPTRNSPT 12-10 11:05 → ENTRNSPT 12-12 09:30 → EDTRNSPT 12-12 09:55 → EDTRNSPTSTS 12-12 09:55 → EDTRNSPT 12-12 09:59 → CMPTRNSPT 12-12 10:15 → ENPENDDIS 12-14 11:51 → 2NA 12-15 12:48
PROVIDERS: Emergency Medicine; Internal Medicine; Internal Medicine Hematology & Oncology; Student in an Organized Health Care Education/Training Program
PROC: 0QTP0ZZ Resection of Left Metatarsal, Open Approach (ICD-10-PCS; principal; 2017-12-07)
PROC: 0JBR0ZZ Excision of Left Foot Subcutaneous Tissue and Fascia, Open Approach (ICD-10-PCS; 2017-12-07)
PROC: 0SBD4ZZ Excision of Left Knee Joint, Percutaneous Endoscopic Approach (ICD-10-PCS; 2017-12-09)
PROC: 0R9J3ZX Drainage of Right Shoulder Joint, Percutaneous Approach, Diagnostic (ICD-10-PCS; 2017-12-11)
PROC: 0JXR0ZZ Transfer Left Foot Subcutaneous Tissue and Fascia, Open Approach (ICD-10-PCS; 2017-12-12)
PROC: 0JBR0ZZ Excision of Left Foot Subcutaneous Tissue and Fascia, Open Approach (ICD-10-PCS; 2017-12-12)
PROC: 02HV33Z Insertion of Infusion Device into Superior Vena Cava, Percutaneous Approach (ICD-10-PCS; 2017-12-13)
DX: A41.01 Sepsis due to Methicillin susceptible Staphylococcus aureus (principal); N17.9 Acute kidney failure, unspecified; E87.2 Acidosis; M00.9 Pyogenic arthritis, unspecified; I95.9 Hypotension, unspecified; D64.9 Anemia, unspecified; J95.89 Other postprocedural complications and disorders of respiratory system, not elsewhere classified; M86.672 Other chronic osteomyelitis, left ankle and foot; I10 Essential (primary) hypertension; Z98.1 Arthrodesis status; Z96.641 Presence of right artificial hip joint; Z79.82 Long term (current) use of aspirin; M06.9 Rheumatoid arthritis, unspecified; Z89.432 Acquired absence of left foot; G47.33 Obstructive sleep apnea (adult) (pediatric); R74.0 Nonspecific elevation of levels of transaminase and lactic acid dehydrogenase [LDH]; R09.02 Hypoxemia; Y83.9 Surgical procedure, unspecified as the cause of abnormal reaction of the patient, or of later complication, without mention of misadventure at the time of the procedure; M25.511 Pain in right shoulder; B95.2 Enterococcus as the cause of diseases classified elsewhere; B95.7 Other staphylococcus as the cause of diseases classified elsewhere; B96.4 Proteus (mirabilis) (morganii) as the cause of diseases classified elsewhere
CPT/HCPCS: 2NAP; 2NASP; 75657; 87070; 87075; 87184; CCU; 36592; 71045; 71046; 73030-RT; 73560-LT; 73630-LT; 73630-RT; 77002; 81001; 82436; 87040; 87071; 87086; 87147; 88304; 88305; 93306; 96374; 96375; 97110-GO; 97112-GO; 97116-GO; 97161-GP; 97166-GO; 97530-GO; 99291; C1769; J0131; J0713; J1644; J1650; J2001; J2543; J3370; J3490; J7040; J7042; J7120

== ENCOUNTER 2018-01-25 13:18 | Inpatient (IN) | payer OTHER ==
[~2018-01-25] VITALS: Ht 193 cm; Wt 133.5 kg
[~2018-01-25 13:18] MED LIST changes: +CIPROFLOXACIN500 M2 PO; +METFORMIN HCL500 M2 PO; +TAMSULOSIN HCL0.4 M1 PO; +TRAMADOL HCL50 M1 PO; +UNASYN 3 GM VIAL3 GM IV
--- NOTE | 2018-01-25 13:31 | ED NECK/BACK PAIN COMPLAINT ---
History of Present Illness General Chief Complaint: Low Back Pain/Injury Stated Complaint: BIBA 10/10 BACK PAIN Source: patient, old records, EMS Exam Limitations: no limitations Vital Signs & Intake/Output Vital Signs & Intake/Output Vital Signs Date Time Temp Pulse Resp B/P B/P Pulse O2 O2 Flow FiO2 Mean Ox Delivery Rate 01/25 1514 119 20 145/80 96 Nasal 2.0L Cannula 01/25 1419 116 18 136/90 96 Nasal 2.0L Cannula 01/25 1353 96 Nasal 2.0L Cannula 01/25 1324 98.9 124 18 140/74 88 Room Air Allergies Coded Allergies: No Known Allergies (09/15/17) Reconcile Medications Aspirin (Ecotrin*) 81 MG TABLET.DR 1 TAB PO DAILY HEART/BLOOD (Reported) Ibuprofen 800 MG TABLET 1 TAB PO TID PAIN (Reported) Losartan/Hydrochlorothiazide (Losartan-Hctz 50-12.5 MG Tab) 50 MG-12.5 MG TABLET 1 TAB PO DAILY BP (Reported) Meloxicam (Mobic) 15 MG TABLET 1 TAB PO DAILY PAIN (Reported) Metaxalone 800 MG TABLET 1 TAB PO Q8 PAIN (Reported) Metformin HCl (Metformin HCl ER) 500 MG TAB.ER.24 1 TAB PO DAILY Diabetes Triage Note: 52M WITH CHRONIC BACK PAIN REPORTS FALLING ONTO HIS KNEES MONDAY AND NOW HAS 10/10 BACK PAIN AND UNABLE TO STAND AND DIFFICULTY MOVING. PAIN WORSE TO RIGHT LOW BACK. DENIES PARASTHESIA, HAS LEG WEAKNESS. DENIES LOSS OF B/B. DENIES HEADSTRIKE OR LOC. HAS [facility] WHICH EVALUATED PT AND INITIATED EMS FOR TRANSFER FOR EVAL. UPON ARRIVAL PT NOTED TO BE TACHYCARDIC WITH VERY DRY MUCOUS MEMBRANES Triage Nurses Notes Reviewed? yes HPI: Patient presents with severe right lower back pain. Patient states the pain started on when he slipped getting out of the shower and fell onto his knees. Patient states that after that he had pain in his right and left lower back that increases with movement. Patient states the pain in his left has gone away however the pain in his right has worsened. The pain is aching and throbbing in nature. The pain is 10 out of 10 and increases with any movement. Patient denies any incontinence of bowel or bladder. There is no radiation of the pain. He denies any weakness or numbness. Patient states the pain has been so bad he has been unable to get out of bed to get to the kitchen or even to the bathroom. Past History Travel History Traveled to [place] past 21 day No Medical History Any Pertinent Medical History? see below for history Neurological: NONE EENT: NONE Cardiovascular: hypertension Respiratory: NONE Gastrointestinal: NONE Hepatic: NONE Renal: NONE Musculoskeletal: osteoarthritis Psychiatric: NONE Endocrine: NONE Blood Disorders: NONE Cancer(s): NONE History of MRSA: No History of VRE: No History of CDIFF: No Tetanus Vaccine: 02/24/14 Surgical History Surgical History: non-contributory Psychosocial History Who do you live with Patient/Self What is your primary language Wolof Tobacco Use: Never used ETOH Use: occasional use Illicit Drug Use: denies illicit drug use Family History Family History, If Any: Relation not specified for: No pertinent family history Hx Contributory? No Review of Systems Review of Systems Constitutional: Reports: no symptoms. Eyes: Reports: no symptoms. Ears, Nose, Throat, Mouth: Reports: no symptoms. Respiratory: Reports: no symptoms. Cardiovascular: Reports: no symptoms. Gastrointestinal/Abdominal: Reports: no symptoms. Musculoskeletal: Reports: see HPI, back pain. Skin: Reports: no symptoms. Neurological/Psychological: Reports: no symptoms. All Other Systems: Reviewed and Negative Physical Exam Physical Exam General Appearance: well developed/nourished, alert, awake, anxious, moderate distress Head: atraumatic Eyes: Bilateral: PERRL, EOMI. Ears, Nose, Throat, Mouth: hearing grossly normal, DRY MEMBRANES Neck: normal inspection, supple, full range of motion, no midline tenderness Respiratory: normal breath sounds, chest non-tender, no respiratory distress, lungs clear Cardiovascular: normal peripheral pulses, tachycardia Gastrointestinal: normal bowel sounds, soft, non-tender, no organomegaly Back: normal inspection, muscle spasm, no vertebral tenderness Extremities: normal range of motion Straight Leg Raising: Right: Negative. Left: Negative. Neurologic/Psych: awake, alert, oriented x 3, normal mood/affect Skin: intact, normal color, warm/dry Core Measures CVA/TIA Diagnosis: No Progress Differential Diagnosis: herniated disc, myofascial strain, pyelo/UTI, sciatica, ureterolithiasis Plan of Care: Orders Procedure Date/time Status PARTIAL THROMBOPLASTIN TIME 01/25 2100 Active US-EXT BILAT VENOUS DOPPLER 01/25 1612 Active TRC EVALUATION (GEN) 01/25 1544 Active OXYGEN SETUP (GEN) 01/25 1544 Active Pathway - chart 01/25 1544 Active House Staff 01/25 1544 Active Admit to inpatient 01/25 1536 Active Patient Data 01/25 1528 Active ECHOCARDIOGRAM 01/25 1508 Active Add-on Test (ER Only) 01/25 1442 Active Telemetry/Intake Clerk 01/25 1331 Active URINALYSIS 01/25 1331 Active TSH REFLEX 01/25 1331 Complete TROPONIN LEVEL 01/25 1331 Complete MAGNESIUM 01/25 1331 Complete D-DIMER 01/25 1331 Complete COMPREHENSIVE METABOLIC PANEL 01/25 1331 Complete CBC WITHOUT DIFFERENTIAL 01/25 1331 Complete EKG 01/25 1324 Active VTE Mechanical Prophylaxis 01/25 UNK Active Vital Signs 01/25 UNK Active Intake & Output 01/25 UNK Active FingerStick- Glucose 01/25 UNK Active Current Medications Sig/Shade Start time Last Medication Dose Stop Time Status Admin Sodium Chloride 1,000 ML Q8H 01/25 1615 AC (Normal Saline 0.9%) 01/26 0814 Heparin Sodium 25,000 UNIT Q24H 01/25 1445 AC 01/25 (Porcine) 1454 (Heparin) Sodium Chloride 500 ML Laboratory Tests 01/25/18 1335: Anion Gap 13, Estimated GFR > 60, BUN/Creatinine Ratio 30.0 H, Glucose 107 H, Calcium 8.9, Magnesium 2.0, Total Bilirubin 0.7, AST 36, ALT 30, Alkaline Phosphatase 167 H, Troponin I 0.27 *H, Total Protein 8.2, Albumin 3.0 L, Globulin 5.2 H, Albumin/Globulin Ratio 0.6 L, TSH &T3 &Free T4 Intrp 0.527, D- Dimer High Sensitivty 2193 H, CBC w Diff NO MAN DIFF REQ, RBC 4.32 L, MCV 89.8 , MCH 28.5, MCHC 31.8 L, RDW 16.4 H, MPV 7.6, Gran % 91.5 H, Lymphocytes % 4.1 L, Monocytes % 4.1, Eosinophils % 0.1, Basophils % 0.2, Absolute Granulocytes 14.2 H, Absolute Lymphocytes 0.6 L, Absolute Monocytes 0.6, Absolute Eosinophils 0, Absolute Basophils 0 Diagnostic Imaging: Viewed by Me: Radiology Read. Discussed w/RAD: Radiology Read. Initial ED EKG: S TACH WITH DIFFUSE ST DEPRESSION NEW FROM PRIOR Prior EKG: unchanged Rhythm Strip: sinus tachycardia Comments: Discussed with Dr. Lester, heparin started, aspirin given, he will see the patient in consultation. Departure Departure Disposition: STILL A PATIENT Condition: Critical Clinical Impression Primary Impression: Elevated troponin Secondary Impressions: Discitis, Hypoxia, Tachycardia Referrals: Alessandra GRAJEDA,Mariluz (PCP/Family) Departure Forms: Customer Survey General Discharge Information Admission Note Spoke With: Seymour Guzmán MD Documentation of Exam: Documentation of any treatments & extenuating circumstances including Concerns Regarding Discharge (functional status, medication knowledge or non-compliance, living conditions, etc.) that warrant an admission rather than observation: [ Patient to be admitted to the ICU,), IV heparin, follow-up echo, follow-up CAT scan, cardiology consultation] Critical Care Note Critical Care Note Critical Care Time: mins: (120 MIN) Critical Care Note Critical Care Note Critical Care Time: mins: (120 MIN)
[2018-01-25 13:52] LABS: ABSOLUTE BASOPHIL COUNT 0 /CUMM (0.0-0.2); ABSOLUTE EOSINOPHIL COUNT 0 /CUMM (0.0-0.7); ABSOLUTE GRANULOCYTE CT 14.2 /CUMM (1.4-6.5); ABSOLUTE LYMPH COUNT 0.6 /CUMM (1.2-3.4); ABSOLUTE MONOCYTE COUNT 0.6 /CUMM (0.10-0.60); BASOPHIL % 0.2 % (0.0-2.0); EOSINOPHIL % 0.1 % (0-5); HEMATOCRIT 38.8 % (42-52); MEAN CORPUSCULAR HGB 28.5 PG (27.0-31.0); MEAN CORPUSCULAR HGB CONC 31.8 G/DL (33.0-37.0); MEAN CORPUSCULAR VOLUME 89.8 FL (80.0-94.0); MEAN PLATELET VOLUME 7.6 FL (7.4-10.4); RBC DISTRIBUTION WIDTH 16.4 % (11.5-14.5); RED BLOOD CELL CT 4.32 /CUMM (4.70-6.10); WHITE BLOOD CELL COUNT 15.5 /CUMM (4.8-10.8)
[2018-01-25 14:09] LABS: GRANULOCYTE % 91.5 % (42.2-75.2)
[2018-01-25 14:10] LABS: PLATELET COUNT 581 /CUMM (130-400)
[2018-01-25] MEDS ORDERED: IBUPROFEN800 M1 PO (14:52)
[2018-01-25] MEDS ORDERED: METAXALONE800 M1 PO (14:53)
--- NOTE | 2018-01-25 15:05 | RADIOLOGY REPORT ---
EXAMINATION: XR CHEST CLINICAL INFORMATION: Hypoxia. Pneumonia evaluation. COMPARISON: 12/13/2017 TECHNIQUE: 2 views of the chest were obtained. FINDINGS: Lungs are well expanded and without acute abnormality. No pulmonary edema, consolidation or pleural effusion. Cardiac silhouette is normal in size. Stable prominence of the central pulmonary arteries. Old, healed fracture of left anterolateral fifth rib. There is flowing anterior ligament ossification of the thoracic spine. IMPRESSION: No acute cardiopulmonary findings compared to 12/13/2017. No evidence of pneumonia.
--- NOTE | 2018-01-25 15:33 | History & Physical ---
Adrienne GRAJEDA,Andrew 01/25/18 1532: General Information and HPI MD Statement: I have seen and personally examined JOSÉ MIGUEL MARTELL and documented this H&P. The patient is a 52 year old M who was refered by his orthopedic surgeon for weakness and back pain. Source of Information: patient Exam Limitations: no limitations History of Present Illness: 52 yo M with pmh of HTN, pre-DM, TEN on CPAP (follows Dr Guzmán), arthritis, Left fifth toe osteomyelitis s/p amputation, recurrence of Left foot wound s/p debridement of necrotic bone, recent admission in November ([place] in 12/14/[place]) for sepsis, 2/2 Left foot osteomyelitis s/p I&D and Left knee septic arthritis discharged to [facility] for IV antibiotics via PICC line until January 09, and PT/OT, and recently discharged home. He sustained a mechanical fall, landed in the knees and also had exacerbation of his chronic back pain. He was seen by the OT this morning who saw that he could not get out of bed due to back pain and called Dr Baires (Orthopedics) who suggested the patient to he sent to the ED. The patient denies any chest pain, chest pressure/tightness, shortness of breath , cough, fever, chills, abdominal pain, any sick contacts, leg swelling more than usual, but did mention that he was walking less than his usual self. Allergies/Medications Allergies: Coded Allergies: No Known Allergies (09/15/17) Home Med list Aspirin (Ecotrin*) 81 MG TABLET.DR 1 TAB PO DAILY HEART/BLOOD (Reported) Ibuprofen 800 MG TABLET 1 TAB PO TID PAIN (Reported) Losartan/Hydrochlorothiazide (Losartan-Hctz 50-12.5 MG Tab) 50 MG-12.5 MG TABLET 1 TAB PO DAILY BP (Reported) Meloxicam (Mobic) 15 MG TABLET 1 TAB PO DAILY PAIN (Reported) Metaxalone 800 MG TABLET 1 TAB PO Q8 PAIN (Reported) Metformin HCl (Metformin HCl ER) 500 MG TAB.ER.24 1 TAB PO DAILY Diabetes Compliance With Home Meds: GOOD Past History Travel History Traveled to [place] past 21 day No Medical History Neurological: NONE EENT: NONE Cardiovascular: hypertension Respiratory: NONE Gastrointestinal: NONE Hepatic: NONE Renal: NONE Musculoskeletal: osteoarthritis Psychiatric: NONE Endocrine: prediabetes Blood Disorders: NONE Cancer(s): NONE History of MRSA: No History of VRE: No History of CDIFF: No Tetanus Vaccine: 02/24/14 Surgical History Surgical History: Left foot debridement, I&D 2018, Left fifth toe amputation after osteomyelitis Past Family/Social History Family History Relations & Conditions if any Relation not specified for: No pertinent family history Psychosocial History Where do you live? Home Services at Home: Physical Therapy, OT Primary Language: Surinamese Smoking Status: Never Smoked ETOH Use: occasional use, quit 19 yrs ago Illicit Drug Use: denies illicit drug use Other Social History: Call his mother in case of emergency per patient. Functional Ability ADLs Independent: dressing, eating, toileting, bathing. Ambulation: independent IADLs Independent: shopping, housework, finances, food prep, telephone, transportation , medication admin. Review of Systems Review of Systems Constitutional: Reports: weakness (back pain). EENTM: Reports: no symptoms. Cardiovascular: Reports: no symptoms. Respiratory: Reports: no symptoms. GI: Reports: no symptoms. Genitourinary: Reports: no symptoms. Musculoskeletal: Reports: back pain (chronic). Skin: Reports: no symptoms. Neurological/Psychological: Reports: no symptoms. Hematologic/Endocrine: Reports: no symptoms. All Other Systems: Reviewed and Negative Exam & Diagnostic Data Last 24 Hrs of Vital Signs/I&O Vital Signs Date Time Temp Pulse Resp B/P B/P Pulse O2 O2 Flow FiO2 Mean Ox Delivery Rate 01/25 1514 119 20 145/80 96 Nasal 2.0L Cannula 01/25 1419 116 18 136/90 96 Nasal 2.0L Cannula 01/25 1353 96 Nasal 2.0L Cannula 01/25 1324 98.9 124 18 140/74 88 Room Air Intake & Output 01/25 1600 01/25 0800 01/25 0000 Intake Total 3240 Output Total 0 Balance 3240 Intake, IV 3000 Intake, Oral 240 Output, Urine 0 Patient 128.82 kg Weight Weight Reported by Patient Measurement Method Physical Exam General Appearance Alert, Oriented X3, Cooperative, No Acute Distress (after morphine), reported to be in severe pain before analgesics today, obese Skin No Rashes, tattoos+, Rt foot has healing wound Skin Temp/Moisture Exam: Warm/Dry Sepsis Skin Exam (color): Normal for Ethnicity HEENT Atraumatic, PERRLA, EOMI, very dry mucosa Neck Supple, No JVD Lymphatic Cervical nl Cardiovascular Regular Rate, Normal S1, Normal S2 Lungs Clear to Auscultation, Normal Air Movement, anteriorly only, pt could not roll over or lean forward due to pain Abdomen Normal Bowel Sounds, Soft, No Tenderness Neurological Normal Speech, Strength at 5/5 X4 Ext, Normal Tone, Sensation Intact, Cranial Nerves 3-12 NL, Reflexes 2+ Extremities No Clubbing, No Cyanosis, No Edema, pulses in dorsalis pedis weak b/ l, Rt foot feels cold to touch, Left foot warm to touch without any skin changes /redness, b/l toes PATIENT ADMITTING CLERK<2 sec Vascular Pulses Symmetrical, b/l weak pulse over feet, but PATIENT ADMITTING CLERK<2 sec Sepsis Peripheral Pulse Location: Radial Sepsis Peripheral Pulse Exam: Normal Sepsis Cap Refill Exam: <2 Sec Last 24 Hrs of Labs/Guilherme: Laboratory Tests 01/25/18 1335: Anion Gap 13, Estimated GFR > 60, BUN/Creatinine Ratio 30.0 H, Glucose 107 H, Calcium 8.9, Magnesium 2.0, Total Bilirubin 0.7, AST 36, ALT 30, Alkaline Phosphatase 167 H, Troponin I 0.27 *H, Total Protein 8.2, Albumin 3.0 L, Globulin 5.2 H, Albumin/Globulin Ratio 0.6 L, TSH &T3 &Free T4 Intrp 0.527, D- Dimer High Sensitivty 2193 H, CBC w Diff NO MAN DIFF REQ, RBC 4.32 L, MCV 89.8 , MCH 28.5, MCHC 31.8 L, RDW 16.4 H, MPV 7.6, Gran % 91.5 H, Lymphocytes % 4.1 L, Monocytes % 4.1, Eosinophils % 0.1, Basophils % 0.2, Absolute Granulocytes 14.2 H, Absolute Lymphocytes 0.6 L, Absolute Monocytes 0.6, Absolute Eosinophils 0, Absolute Basophils 0 Diagnostic Data EKG Results Normal sinus rhythm, ST depression seen in lead II, III, aVF as new finding and PVCs. CXR Results CXR clear/no PNA. CTA Chest shows b/l PE reported as follows: PULMONARY ARTERIES: The dilated pulmonary artery trunk measures 5.5 cm transverse diameter. There is heterogeneous attenuation within peripheral vessels rendering vessels somewhat difficult to evaluate for embolic defects. Nevertheless, there are findings consistent with an embolus involving the segmental branch of the right lung apex (images 20-23, series 4). Possible nonocclusive embolus within the branch to the posterior segment of the right lower lobe. There is a branching embolic filling defect of the left lower lobe pulmonary artery predominantly extending into the medial and lateral segmental arteries (images 33-36, series 4). Other Results CT abd/pelvis also shows findings highly suggestive of infectious spondylodiscitis/osteomyelitis at L1-L2 (new pathology compared to the lumbar spine CT exam of 12/05/2017) and Splenomegaly. Assessment/Plan Assessment: 52 yo M with pmh of HTN, pre-DM, TEN on CPAP (follows Dr Guzmán), arthritis, Left fifth toe osteomyelitis s/p amputation, recurrence of Left foot wound s/p debridement of necrotic bone, [facility], 2/2 Left foot osteomyelitis s/p I&D and Left knee septic arthritis discharged to [facility] for IV antibiotics via PICC line until January 09, and recently discharged home was referred to the emergency department for severe back pain in inability to rise up from the bed. In the ED, patient was found to be tachypneic, tachycardic, hypoxic to 88%, and was put on room air via nasal cannula, and also had severe back pain, preventing further examination/radiology. Is currently admitted in the ICU for management of following issues: RESPIRATORY # Bilateral large pulmonary embolism Patient had tachycardia, tachypnea with hypoxemia, and his initial blood tests reveals high d-dimer, with elevated troponin, which made pulmonary margins likely, and was started on IV heparin before CT angiogram scan was done. CAT scan later confirmed that the patient had bilateral pulmonary embolism and IV heparin was continued. #Obstructive sleep apnea, on CPAP at home Patient was hypoxic when he came in, but responded well to oxygen via nasal cannula initially, but during transfer to the ICU, he was hypoxic, diaphoretic, confused, and was put on BiPAP, which she responded well after about an hour We' ll continue nocturnal BiPAP for now. INFECTIOUS DISEASE #Discitis, to rule out osteomyelitis Patient probably has chronic discitis, but his pain seems to be worse, and he has leukocytosis, and with history of osteomyelitis with multiple bacterial yeni, would consider infectious disease consultation for pursuing infectious causes like osteoarthritis of the spine. He does not have any neurologic complications however. We will watch him off antibiotics currently. CARDIOLOGY #Elevated troponin, likely type II NM Patient's initial troponin was 0.27, and the second one is 0.28, and given his acute hypoxic respiratory failure, type II NM is a possibility, but he is already being given IV Heparin. He does not have any ischemic changes in his EKG and clearly denies any chest pain, chest pressure/discomfort at this point. We are getting an echocardiogram to look for any wall motion abnormalities or functional/structural abnormalities of the heart. Cardiology consultation has been placed, awaiting recommendations. HEMATOLOGY #Leukocytosis At this point, not sure whether this is only reactive or as mentioned above, due to osteomyelitis. There are no band cells, but the granulocyte % is 91.5, which makes only acute inflammation, also seen in PE likely explanation. #Hematuria Patient does not complain of any abd/flank pain or changes in urination habit or color. Not sure if this is significant, but will have to consider if he gets anemia. METABOLIC #Hypokalemia Being repleted ALIMENTARY No issues, but will keep the patient nothing by mouth, due to acute dyspnea/ tachypnea. NEPHROLOGY No issues. NEUROLOGY No issues, although he had a brief episode of confusion during the ICU transfer, which can be attributed to hypoxia, and improved quickly after BiPAP. MISC Diet: NPO for now due to tachypnea/dyspnea DVT ppx: IV Heparin running Code status: Full code As Ranked By This Provider Problem List: 1. Pulmonary embolism Core Measures/Misc (04/30) Acute Coronary Syndrome ACS Diagnosis: No Congestive Heart Failure Congestive Heart Failure Diagnosis No Cerebrovascular Accident CVA/TIA Diagnosis: No VTE (View Protocol) VTE Risk Factors Immobility No Mechanical VTE Prophylaxis d/t Other (pending Doppler result now) No VTE Pharm Prophylaxis d/t NA PharmProphylax ordered (IV Heparin) Sepsis (View protocol) Sepsis Present: Yes If YES complete Sepsis Event Note If YES complete Sepsis Event Note Seymour Guzmán MD 01/25/18 1804: Core Measures/Misc (04/30) Sepsis (View protocol) If YES complete Sepsis Event Note If YES complete Sepsis Event Note Attending MD Review Statement Attending Statement Attending MD Statement: examined this patient, discuss w/resident/PA/CAR FILLER, agreed w/resident/PA/CAR FILLER, discussed with family, reviewed EMR data (avail), discussed with nursing, discussed with case mgmt, reviewed images, amended to note Attending Assessment/Plan: ISeymour M.D. have examined this patient, reviewed available EMR data, personally reviewed images, discussed with resident/PA/CAR FILLER, discussed management plan with housestaff and nursing staff, discussed managment plan all of healthcare providers, discussed management plan with patient and/or family, agreed with resident/PA/CAR FILLER. The past history and parts of the chart have been autopopulated. Impression 52 year old man * Pulmonary emboli - right upper lobe and left lower lobe * discitis * TEN/OHS Plan -heparin gtt to goal PTT -venous dopplers do not reveal DVT -cardiology consultation -ECHO - ensure no heart strain, none seen on CTA -discussed with respiratory therapist to initiate nocturnal bipap -consult with ID for necessity of antibiotics, given recent antibiotic use and now discitis and findings concerning for infection -incentive spirometry TTS 50 min
--- NOTE | 2018-01-25 15:42 | RADIOLOGY REPORT ---
EXAMINATION: XR LUMBOSACRAL SPINE CLINICAL INFORMATION: Low back pain COMPARISON: CT 12/05/2017 TECHNIQUE: 4 views of the lumbosacral spine were obtained. FINDINGS: The superior endplate of the L2 vertebral body is indistinct, potentially representing endplate erosion related to discitis. This is not present on the CT dated 12/05/2017. There is mild to moderate multilevel degenerative disc disease and advanced facet arthropathy throughout the lumbar spine. IMPRESSION: Possible erosion/osteomyelitis/discitis involving the superior endplate of L2. Correlate with the CT abdomen/pelvis which the patient is currently undergoing.
--- NOTE | 2018-01-25 16:18 | Cons- Cardiology ---
General Information and HPI Consulting Request Date of Consult: 01/25/18 Requested By: Seymour Guzmán MD Reason for Consult: Back pain; tachycardia; ventricular ectopy; elevated troponin Source of Information: patient Exam Limitations: clinical condition History of Present Illness: the patient is a 52-year-old male. His regular physician is Dr. dobson. He has a history of hypertension, sleep apnea on CPAP, arthritis, recent osteomyelitis of the left fifth toe with amputation, etc. The patient had a mechanical fall landing on his knees with worsening back pain and was seen in the emergency room today for these symptoms. He was noted to be markedly tachycardic and hypotensive. He also appeared to be significantly dehydrated. His ECG is abnormal. He has been ventricular ectopy. He is also noted to be hypokalemic and have acute renal insufficiency. Workup is in progress. I was asked to see the patient for further evaluation of his cardiac status. Allergies/Medications Allergies: Coded Allergies: No Known Allergies (09/15/17) Home Med List: Aspirin (Ecotrin*) 81 MG TABLET.DR 1 TAB PO DAILY HEART/BLOOD (Reported) Ibuprofen 800 MG TABLET 1 TAB PO TID PAIN (Reported) Losartan/Hydrochlorothiazide (Losartan-Hctz 50-12.5 MG Tab) 50 MG-12.5 MG TABLET 1 TAB PO DAILY BP (Reported) Meloxicam (Mobic) 15 MG TABLET 1 TAB PO DAILY PAIN (Reported) Metaxalone 800 MG TABLET 1 TAB PO Q8 PAIN (Reported) Metformin HCl (Metformin HCl ER) 500 MG TAB.ER.24 1 TAB PO DAILY Diabetes Current Medications: Current Medications Sig/Shade Start time Last Medication Dose Route Stop Time Status Admin Aspirin 0 .STK-MED ONE 01/25 1457 DC PO Aspirin 325 MG ONCE ONE 01/25 1445 DC 01/25 PO 01/25 1446 1452 Cyclobenzaprine HCl 0 .STK-MED ONE 01/25 1357 DC PO Cyclobenzaprine HCl 10 MG ONCE ONE 01/25 1330 DC 01/25 PO 01/25 1331 1340 Heparin Sodium 0 .STK-MED ONE 01/25 1457 DC (Porcine) .ROUTE Heparin Sodium 4,000 UNIT ONCE ONE 01/25 1445 DC 01/25 (Porcine) IV 01/25 1446 1454 Heparin Sodium 25,000 UNIT Q24H 01/25 1445 AC 01/25 (Porcine) IV 1454 Sodium Chloride 500 ML Ketorolac 0 .STK-MED ONE 01/25 1357 DC Tromethamine .ROUTE Ketorolac 30 MG ONCE ONE 01/25 1330 DC 01/25 Tromethamine IV 01/25 1331 1340 Morphine Sulfate 0 .STK-MED ONE 01/25 1520 DC .ROUTE Morphine Sulfate 4 MG ONCE ONE 01/25 1515 DC / IV 01/25 1516 1514 Morphine Sulfate 4 MG ONCE ONE 01/25 1430 DC / IV 01/25 1431 1418 Morphine Sulfate 0 .STK-MED ONE 01/25 1425 DC .ROUTE Potassium Chloride 40 MEQ ONCE ONE 01/25 1430 DC / PO 01/25 1431 1418 Potassium Chloride 0 .STK-MED ONE 01/25 1425 DC PO Sodium Chloride 1,000 ML Q8H 01/25 1615 UNVr IV 01/26 0814 Sodium Chloride 1,000 ML BOLUS ONE 01/25 1515 DC IV 01/25 1614 Sodium Chloride 1,000 ML BOLUS ONE 01/25 1515 DC / IV 01/25 1614 1516 Sodium Chloride 1,000 ML BOLUS ONE 01/25 1330 DC / IV 01/25 1429 1454 Sodium Chloride 1,000 ML BOLUS ONE 01/25 1330 DC 01/25 IV 01/25 1429 1346 Past History Travel History Traveled to [place] past 21 day No Medical History Neurological: NONE EENT: NONE Cardiovascular: hypertension Respiratory: NONE Gastrointestinal: NONE Hepatic: NONE Renal: NONE Musculoskeletal: osteoarthritis Psychiatric: NONE Endocrine: prediabetes Blood Disorders: NONE Cancer(s): NONE Surgical History Surgical History: Left foot debridement, I&D 2018 Left fifth toe amputation after osteomyelitis Family History Relations & Conditions If Any: Relation not specified for: No pertinent family history Psychosocial History ETOH Use: occasional use Illicit Drug Use: denies illicit drug use Exam & Diagnostic Data Vital Signs and I&O Vital Signs Date Time Temp Pulse Resp B/P B/P Pulse O2 O2 Flow FiO2 Mean Ox Delivery Rate 01/25 1514 119 20 145/80 96 Nasal 2.0L Cannula 01/25 1419 116 18 136/90 96 Nasal 2.0L Cannula 01/25 1353 96 Nasal 2.0L Cannula 01/25 1324 98.9 124 18 140/74 88 Room Air Intake & Output 01/25 1600 01/25 0800 01/25 0000 01/24 1600 01/24 0800 01/24 0000 Intake Total 3240 Output Total 0 Balance 3240 Intake, IV 3000 Intake, Oral 240 Output, Urine 0 Patient 284 lb Weight Weight Reported by Patient Measurement Method Physical Exam: General Appearance Alert, Oriented X3, Cooperative, No Acute Distress (after morphine), reported to be in severe pain before analgesics today, obese, extremely dry mucous membranes Skin No Rashes, tattoos+, Rt foot has healing wound HEENT Atraumatic, PERRLA, EOMI, very dry mucosa Neck Supple, No JVD, carotids normal bilaterally with no audible bruits Lymphatic Cervical nl Cardiovascular Regular Rate, Normal S1, Normal S2, tachycardic, 1/6 systolic murmur left upper Lungs Clear to Auscultation and percussion bilaterally extremities:no Cyanosis, No Edema, pulses in dorsalis pedis weak b/l, Rt foot feels cold to touch, Left foot warm to touch without any skin changes/redness, b /l toes MUTUEL TELLER<2 sec Vascular Pulses Symmetrical, b/l weak pulse over feet, but MUTUEL TELLER<2 sec Labs/Guilherme Results: Laboratory Tests 01/25 1335 Chemistry Sodium (137 - 145 mmol/L) 144 Potassium (3.5 - 5.1 mmol/L) 2.8 *L Chloride (98 - 107 mmol/L) 92 L Carbon Dioxide (22 - 30 mmol/L) 39 H Anion Gap (5 - 16) 13 BUN (9 - 20 mg/dL) 18 Creatinine (0.7 - 1.2 mg/dL) 0.6 L Estimated GFR (>60 ml/min) > 60 BUN/Creatinine Ratio (7 - 25 %) 30.0 H Glucose (65 - 99 mg/dL) 107 H Calcium (8.4 - 10.2 mg/dL) 8.9 Magnesium (1.6 - 2.3 mg/dL) 2.0 Total Bilirubin (0.2 - 1.3 mg/dL) 0.7 AST (17 - 59 U/L) 36 ALT (21 - 72 U/L) 30 Alkaline Phosphatase (< 127 U/L) 167 H Troponin I (<0.11 ng/ml) 0.27 *H Total Protein (6.3 - 8.2 g/dL) 8.2 Albumin (3.5 - 5.0 g/dL) 3.0 L Globulin (1.9 - 4.2 gm/dL) 5.2 H Albumin/Globulin Ratio (1.1 - 2.2 %) 0.6 L TSH &T3 &Free T4 Intrp (0.27 - 4.20 uIU/mL) 0.527 Coagulation D-Dimer High Sensitivty (0 - 243 ng/ml) 2193 H Hematology CBC w Diff NO MAN DIFF REQ WBC (4.8 - 10.8 /CUMM) 15.5 H RBC (4.70 - 6.10 /CUMM) 4.32 L Hgb (14.0 - 18.0 G/DL) 12.3 L Hct (42 - 52 %) 38.8 L MCV (80.0 - 94.0 FL) 89.8 MCH (27.0 - 31.0 PG) 28.5 MCHC (33.0 - 37.0 G/DL) 31.8 L RDW (11.5 - 14.5 %) 16.4 H Plt Count (130 - 400 /CUMM) 581 H MPV (7.4 - 10.4 FL) 7.6 Gran % (42.2 - 75.2 %) 91.5 H Lymphocytes % (20.5 - 51.1 %) 4.1 L Monocytes % (1.7 - 9.3 %) 4.1 Eosinophils % (0 - 5 %) 0.1 Basophils % (0.0 - 2.0 %) 0.2 Absolute Granulocytes (1.4 - 6.5 /CUMM) 14.2 H Absolute Lymphocytes (1.2 - 3.4 /CUMM) 0.6 L Absolute Monocytes (0.10 - 0.60 /CUMM) 0.6 Absolute Eosinophils (0.0 - 0.7 /CUMM) 0 Absolute Basophils (0.0 - 0.2 /CUMM) 0 Diagnostic Data EKG Results Sinus tachycardia with diffuse STT changes and ventricualr ectopy CXR Results FINDINGS: Lungs are well expanded and without acute abnormality. No pulmonary edema, consolidation or pleural effusion. Cardiac silhouette is normal in size. Stable prominence of the central pulmonary arteries. Old, healed fracture of left anterolateral fifth rib. There is flowing anterior ligament ossification of the thoracic spine. IMPRESSION: No acute cardiopulmonary findings compared to 12/13/2017. No evidence of pneumonia. Assessment/Plan Assessment/Plan Assessment: 1. hypercapnic respiratory failure 2. Bilateral pulmonary emboli with tachypnea, tach cardia, hypoxia, 3. Mildly elevated troponin 4. Abnormal EKG with ventricular ectopy 5. Leukocytosis 6. discitis 7. Hypokalemia Recommendations: -Admit to ICU -Continue as per the ICU team -IV heparin instituted in the emergency room -Infectious disease consult pending -Continue antibiotics pending cultures -Trend troponin until decreasing -Echocardiogram to assess left ventricular function and right ventricular systolic pressure -Please check proBNP -Consider baseline lower extremity venous ultrasound bilaterally - Consult Acknowledgment - Thank you for your consult request.
--- NOTE | 2018-01-25 16:58 | CT SCAN REPORT ---
EXAMINATION: CT ANGIOGRAM OF THE CHEST WITH AND WITHOUT CONTRAST (CT PULMONARY ANGIOGRAM FOR PE) CT ABDOMEN AND PELVIS WITH IV CONTRAST CLINICAL INFORMATION: Tachycardia and hypoxia. Positive troponin level. Evaluate for pulmonary mass. Severe back pain. Evaluate for intra-abdominal pathology. COMPARISON: CT images of lumbar spine, 12/05/2017. TECHNIQUE FOR THE CHEST: Prior to contrast administration, noncontrast localization images were obtained. Subsequently, multidetector volumetric imaging was performed from the thoracic inlet to below the diaphragms following the administration of 95 mL Optiray 320 intravenous contrast. No contrast reaction reported. Sagittal, coronal, and MIP oblique sagittal reformatted images were obtained on the CT workstation, uploaded to PACS, and reviewed. Thereafter, postcontrast CT images of the abdomen and pelvis were acquired at 0.625 mm collimation. DLP: Total exam dose-length product 1778 mGy-cm FINDINGS: CHEST- QUALITY OF STUDY/CONTRAST BOLUS: Satisfactory. PULMONARY ARTERIES: The dilated pulmonary artery trunk measures 5.5 cm transverse diameter. There is heterogeneous attenuation within peripheral vessels rendering vessels somewhat difficult to evaluate for embolic defects. Nevertheless, there are findings consistent with an embolus involving the segmental branch of the right lung apex (images 20-23, series 4). Possible nonocclusive embolus within the branch to the posterior segment of the right lower lobe. There is a branching embolic filling defect of the left lower lobe pulmonary artery predominantly extending into the medial and lateral segmental arteries (images 33-36, series 4). THORACIC AORTA: No acute findings. Thoracic aorta is normal in caliber. No aneurysm or dissection. LUNGS AND PLEURA: Trachea and central airways are widely patent and normal in caliber. Lungs have slightly mosaic attenuation. No pulmonary edema, focal consolidation, pleural effusion or pneumothorax. CARDIOVASCULAR: The heart size is normal. There is mild atherosclerotic calcification of coronary arteries. No inward bowing of the interventricular septum. No pericardial effusion. MEDIASTINUM: The esophagus has normal wall thickness. The visualized portion of the thyroid gland is unremarkable. No mediastinal mass. LYMPHATICS: No pathologic sized axillary, hilar or mediastinal lymph nodes. UPPER ABDOMEN: No reflux of contrast into the IVC. OSSEOUS STRUCTURES: Diffuse idiopathic skeletal hyperostosis with extensive, bulky, flowing anterior ligament ossification of the thoracic spine. Multilevel degenerative arthropathy. Bone island of the T4 vertebral body. No suspicious osseous lesions. Old compression fracture of T11 vertebral body. IMPRESSION: 1. Large pulmonary arteries, as may be seen in chronic pulmonary arterial hypertension. However, dilatation of the pulmonary artery trunk may also occur in the setting of chronic pulmonary valve stenosis. 2. Pulmonary emboli are observed within the right upper lobe and left lower lobe. No evidence of heart strain. ABDOMEN AND PELVIS- LIVER, GALLBLADDER, AND BILIARY TREE: Liver has normal size and contour. Linear focus of calcification in the right hepatic lobe. No hepatic mass. Gallbladder is unremarkable. No intrahepatic or extra hepatic bile duct dilatation. PANCREAS: Unremarkable. SPLEEN: Prominent spleen measures up to 15.8 cm maximum dimension. No focal splenic lesion. ADRENAL GLANDS: Unremarkable. KIDNEYS AND URETERS: Kidneys are normal in size and enhance symmetrically. No renal mass, nephrolithiasis or hydronephrosis. The ureters are unremarkable. BLADDER: Unremarkable. GASTROINTESTINAL TRACT: Stomach is unremarkable. Within the mid and upper abdomen, the jejunum is mildly dilated up to 3.5 cm. There appears to be tapering from mildly dilated to nondilated bowel without a focal transition point or focal bowel wall thickening. The terminal ileum is normal. The appendix is normal. No focal colonic wall thickening or pericolonic fat stranding. No ascites or pneumoperitoneum. ABDOMINAL WALL: Unremarkable. LYMPH NODES: No pathologic sized lymph nodes in the abdomen or pelvis. No inguinal lymphadenopathy. VASCULAR: Mild atherosclerosis of abdominal aorta without aneurysm. Inferior vena cava is normal. The splenic, mesenteric and portal veins are patent. PELVIC: Prostate gland is grossly unremarkable. No pelvic free fluid. MUSCULOSKELETAL: The right femoral head prosthesis is well-positioned within the acetabular cup. Mild osteoarthrosis of the left hip. There is osteoarthritis of sacroiliac joints. Chronic multilevel severe facet osteoarthritis of the lumbar spine with chronic grade 1 anterolisthesis of L4 on L5. At L1-L2, the disc space is widened the vertebral endplate erosions at this level are new compared to 12/05/2017. Associated mild endplate sclerosis, minimal gas in the disc space and mild edema of adjacent paraspinal tissues. Small foci of gas project anterior to the deformed, eroded disc space, anterior to the left psoas muscle (image 38, series 5) and extending toward the aortocaval space of the retroperitoneum (image 44, series 5). No drainable fluid collection. Again noted is the multilevel chronic spinal canal stenosis. IMPRESSION: 1. Small bowel is mildly dilated in the upper mid abdomen; however, there is no focal transition point. There is no overt bowel obstruction. This might represent mild ileus. 2. Findings highly suggestive of infectious spondylodiscitis/osteomyelitis at L1-L2 (new pathology compared to the lumbar spine CT exam of 12/05/2017). 3. Splenomegaly. The critical test results (regarding pulmonary emboli and L1-L2 spondylosis discitis) were discussed with Xavi العلي of the Emergency Room at 4:50 PM on 01/25/2018 and it was ascertained that the content and the importance of the findings was understood at the time of the direct communication.
--- NOTE | 2018-01-25 17:34 | ULTRASOUND REPORT ---
EXAMINATION: US TRIPLEX OF LOWER EXTREMITIES, BILATERAL CLINICAL INFORMATION: Acute PE. COMPARISON: None TECHNIQUE: Color-flow triplex imaging with spectral analysis and compression Doppler were performed on the lower extremities. FINDINGS: There is normal compression and color flow seen in bilateral 4.8 x 2.4 x 3.1 cm left popliteal fossa. Common femoral, superficial femoral, greater saphenous, popliteal, posterior tibial peroneal and calf veins. No occlusive clot visualized. There is incidental finding of Rodriguez's cyst measuring There is no Rodriguez's cyst right leg. IMPRESSION: No evidence of DVT in either legs. Incidental finding of a Rodriguez's cyst left popliteal fossa.
--- NOTE | 2018-01-25 18:07 | Admission Certification ---
Admission Certification Certification Statement - As attending physician, I certify that at the time of - admission, based on clinical presentation, severity of - symptoms, need for further diagnostic testing and - therapeutic interventions, and risk of adverse outcomes - without in-hospital treatment, in my clinical assessment, - this patient requires an acute hospital stay for a minimum - of two nights or longer. I have also considered psychsocial - factors such as support system, advanced age, financial - issues, cognitive issues, and failed out-patient treatments, - past re-admission history, safety of patient, and lack of - compliance as applicable. Specific rationale supporting this admission is: tachycardia, elevated troponins, new PE, ICU admission
[2018-01-25 20:00] VITALS: BP 130/88
[2018-01-25 21:13] LABS: PTT 27 SEC (25-37)
[2018-01-25 23:51] LABS: ABSOLUTE BASOPHIL COUNT 0 /CUMM (0.0-0.2); ABSOLUTE EOSINOPHIL COUNT 0 /CUMM (0.0-0.7); ABSOLUTE GRANULOCYTE CT 18.7 /CUMM (1.4-6.5); ABSOLUTE LYMPH COUNT 0.6 /CUMM (1.2-3.4); ABSOLUTE MONOCYTE COUNT 0.7 /CUMM (0.10-0.60); BASOPHIL % 0 % (0.0-2.0); EOSINOPHIL % 0.1 % (0-5); GRANULOCYTE % 93.5 % (42.2-75.2); MEAN CORPUSCULAR HGB CONC 32.6 G/DL (33.0-37.0); MEAN CORPUSCULAR VOLUME 89.2 FL (80.0-94.0); PLATELET COUNT 453 /CUMM (130-400); RBC DISTRIBUTION WIDTH 16.3 % (11.5-14.5); RED BLOOD CELL CT 3.48 /CUMM (4.70-6.10)
[2018-01-26] VITALS: BP 108/78
[2018-01-26 04:06] LABS: PTT 33 SEC (25-37)
[2018-01-26 04:48] LABS: ABSOLUTE BASOPHIL COUNT 0 /CUMM (0.0-0.2); ABSOLUTE EOSINOPHIL COUNT 0 /CUMM (0.0-0.7); ABSOLUTE GRANULOCYTE CT 16.7 /CUMM (1.4-6.5); ABSOLUTE MONOCYTE COUNT 0.9 /CUMM (0.10-0.60); BASOPHIL % 0.1 % (0.0-2.0); EOSINOPHIL % 0 % (0-5); GRANULOCYTE % 89.7 % (42.2-75.2); HEMATOCRIT 30.7 % (42-52); MEAN CORPUSCULAR HGB 29.5 PG (27.0-31.0); MEAN CORPUSCULAR VOLUME 89.4 FL (80.0-94.0); MEAN PLATELET VOLUME 8.2 FL (7.4-10.4); PLATELET COUNT 435 /CUMM (130-400); RBC DISTRIBUTION WIDTH 16.8 % (11.5-14.5); RED BLOOD CELL CT 3.43 /CUMM (4.70-6.10); WHITE BLOOD CELL COUNT 18.7 /CUMM (4.8-10.8)
[2018-01-26 07:00] VITALS: BP 120/70
--- NOTE | 2018-01-26 07:35 | PN- Resident CRCU ---
Ede GRAJEDA,Daphne 01/26/18 0734: Subjective HPI/CRCU Issues: Patient is seen and examined at the bedside he has many questions regarding why he is having back pain. We discussed about the differentials of the back pain including discitis may be simple inflammation/ischemia/infection. I updated that we will consult ID/Neuro for further evaluation and management. Patient was having progressive weakness in the both lower legs, CT scan did show evidence of cervical discitis. Me and Dr. Morales did the neurological examination and the patient -sensations were intact in both lower limb including perianal area, the rectal tone was intact, there was no any motor movements, patient was complaining of back pain and was not able to move his legs, there was muscle fasciculation/fluttering present. Discussed with Dr. Morgan, advised to see if there is any spinal cord compression and talk to the radiology. We also left a voicemail for Dr. Cali for further recommendations. Dr. Guzmán is aware. 24 Hour Events: EKG showed normal sinus rhythm, sinus tachycardia, heart rate in the range of 105, QTc 455, Slurring of QRS and even mild widening of QRS complex Vital signs-temperature 98.7, pulse 126, sinus tachycardia, respiratory rate 20/ min, blood pressure 113/87, on nasal cannula saturating 96%, intake/output-3009/ 735 Blood workup- Leukocytosis -18,000 Anemia-10.1 Thrombocytosis 435, Objective Vital Signs & I&O Last 8 Hrs of Vitals and I&O: Intake & Output 01/26 1600 Intake Total 1383 Output Total 325 Balance 1058 Intake, IV 1143 Intake, Oral 240 Number 2 Bowel Movements Output, Urine 325 Patient 134.008 kg Weight Exam General Appearance: alert, awake, mild distress Respiratory: decreased breath sounds, accessory muscle use, wheezing Cardiovascular: regular rate/rhythm, tachycardia Gastrointestinal: soft, non-tender Extremities: normal capillary refill, no edema, bluish discoloration of skin of both legs, right leg is cold Impression/Plan Impression/Problem List Impression: Patient is a 52-year-old man with a past medical history of hypertension, osteoarthritis, history of right hip ankle surgery status post hardware, chronic left foot nonhealing ulcer, leading to MSSA bacteremia complicated by involvement of the joints including left knee and right shoulder. He needed treatment for 4 weeks of Unasyn and discharged to rehab. He was discharged to home 2 week before the admission and presented to [facility] ED for increased back pain and weakness related to fall around 3 days ago. After fall he was not able to get out of the bed. ED course - Vital signs at the time of admission -temperature 98.9, pulse 124, respiratory 18, blood pressure 140/72, SPO2 88% on room air and 96% on 2 L of nasal cannula. Blood workup showed-WBC 15.5, hemoglobin 12.3, hematocrit 38.8, platelet count 581, granulocyte 91.5, lymphocytes 4.1, band cells 0, serum sodium 145, potassium 2.8, chloride 104, carbon dioxide 31, anion gap 11, BUN 15, creatinine 0.7, glucose 107, calcium 8.9, total bilirubin 0.7, AST 36, ALT 30, alkaline phosphatase 167, troponin I 0.27, albumin 3.0, d-dimer 2193, UA showed -nitrite negative, esterase negative, RBC 50-75, hyaline casts rare, urine hemoglobin large. ABG showed -pH 7.33, PCO2 65, PO2 121, bicarbonate 33. Chest x-ray -No acute cardiopulmonary findings. X-ray lumbar spine-Possible erosion/osteomyelitis/discitis involving the superior endplate of L2. CT chest/abdomen/pelvis - 1. Large pulmonary arteries, ? chronic pulmonary arterial hypertension/chronic pulmonary valve stenosis. 2. Pulmonary emboli are observed within the right upper lobe and left lower lobe. No evidence of heart strain. 3.At L1-L2, the disc space is widened the vertebral endplate erosions.Associated mild endplate sclerosis, minimal gas in the disc space and mild edema of adjacent paraspinal tissues. Small foci of gas project anterior to the deformed, eroded disc space, anterior to the left psoas muscle. 4.Small bowel is mildly dilated in the upper mid abdomen; however, there is no focal transition point. There is no overt bowel obstruction. This might represent mild ileus. Bilateral venous Doppler of lower extremities -No evidence of DVT in either legs. Echocardiogram -Technically difficult and very limited. LVEF 60-65%. Assessment and plan - Bilateral right upper lobe/left lower lobe pulmonary emboli -mild to moderate; patient is hemodynamically stable - * We will continue patient on injection heparin drip * Watch for the bleeding * Will follow cardiology recommendation L1-L2 Lumbar discitis - * We will follow ID recommendation * According to ID, we will do CT/MRI of the lumbar spine, to rule out osteomyelitis/epidural abscess. * We will not be able to do biopsy as patient is on heparin drip and it is an acute PE. We will plan for biopsy if needed after the weekend probably Monday or Monday. * Patient was also having weakness in the both legs -we will follow neurology recommendation. Dr. Cali advised for CT scan of the thoracic spine/lumbar spine. Right lower cold extremity -Doppler positive * We will take vascular consult for further evaluation of peripheral vascular disease * Advised for Arterial doppler. Code status - FC Diet - Heart healthy diet. DVT prophylaxis - Heparin Problem List: 1. Pulmonary embolism 2. Discitis Pain Ratin Pain Location: lower back Tomorrow's Labs & Rationales: f/u cbc, icu bundle Seymour Guzmán MD 01/26/18 0941: Objective Current Medications: Current Medications Sig/Shade Start time Last Medication Dose Route Stop Time Status Admin Acetaminophen 650 MG Q6P PRN 01/25 1830 AC PO Acetaminophen 1,000 MG Q6P PRN 01/25 1830 AC IV Aspirin Buffered 81 MG DAILY 01/26 0900 AC 01/27 PO 0833 Heparin Sodium 4,000 UNIT ONE ONE 01/27 1000 DC (Porcine) IV 01/27 1001 Heparin Sodium 8,000 UNIT ONCE ONE 01/26 1300 DC 01/26 (Porcine) IV 01/26 1301 1442 Heparin Sodium 25,000 UNIT Q24H 01/25 1445 AC 01/27 (Porcine) IV 0859 Sodium Chloride 500 ML Hydromorphone HCl 0.4 MG Q4P PRN 01/25 1830 AC 01/27 IV 0831 Magnesium Oxide 400 MG ONE ONE 01/27 0715 DC 01/27 PO 01/27 0716 0759 Non-Formulary 0 SEE ADMIN CRITERIA 01/27 0845 CAN Medication ANY Oxacillin Sodium 2,000 MG Q4H 01/27 0845 AC Sodium Chloride 100 ML IV Oxacillin Sodium 2,000 MG Q4H 01/27 0400 DC 01/27 Dextrose/Water 100 ML IV 0759 Oxacillin Sodium 2,000 MG Q4H 01/26 2230 DC 01/27 Dextrose/Water 100 ML IV 0028 Potassium Chloride 60 MEQ ONCE ONE 01/27 0715 DC 01/27 PO 01/27 0716 0759 Sodium Chloride 1,000 ML Q8H 01/26 0500 AC 01/27 IV 1053 Impression/Plan Plan DVT/Prophylaxis: pharmacological Attending MD Review Statement Attending Sign Off Attending Cosign Statement: I have: examined this patient, reviewed avalbl EMR data, personally reviewd images, discussd w/resident/PA/MANUFACTURING INSPECTOR, discussed mgmt plan w/lazara, discussed mgmt plan w/CM, discussed mgmt plan w/pt, agreed w/resident/PA/MANUFACTURING INSPECTOR, amended to note. Other Findings: I, Seymour Guzmán M.D. have examined this patient, reviewed available EMR data, personally reviewed images, discussed with resident/PA/MANUFACTURING INSPECTOR, discussed management plan with housestaff and nursing staff, discussed managment plan all of healthcare providers, discussed management plan with patient and/or family, agreed with resident/PA/MANUFACTURING INSPECTOR. The past history and parts of the chart have been autopopulated. Impression 52 year old man * Pulmonary emboli - right upper lobe and left lower lobe * Submassive PE * discitis * difficulty moving extremities * TEN/OHS Plan -heparin gtt to goal PTT -venous dopplers do not reveal DVT -cardiology consultation -discussed with respiratory therapist to initiate nocturnal bipap -ID consultation appreciated, biopsy needs to be held due to heparinization being a priority -incentive spirometry -MRI today -neurology consultation -vascular surgery due to cool extremity on the right TTS 35 min
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
[2018-01-26 12:00] VITALS: BP 100/66
--- NOTE | 2018-01-26 12:23 | ECHOCARDIOGRAM REPORT ---
JOSÉ MIGUEL MARTELL Age: 52 : 1965 Gender: M Exam Date: 01/25/2018 17:27 Exam Location: ER Ht (in): 73 Wt (lb): 284 BSA: 2.62 BP: 136 / 90 Ordering Physician: Xavi العلي MD Referring Physician: Cyndi Lucas MD Technologist: Yanet Suggs NUBIA Room Number: [id number] Indications: ACUTE PULMONARY EMBOLISM Rhythm: Sinus Technical Quality: Poor, Very technically difficult study FINDINGS Left Ventricle Normal size left ventricle. No obvious regional wall motion abnormalities. Normal left ventricular ejection fraction estimated at 60-65%. Right Ventricle Right ventricle not well visualized. Right Atrium Right atrium not well visualized. Left Atrium Left atrium not well visualized, grossly normal. Mitral Valve Mitral valve not well visualized, grossly normal. Aortic Valve Trileaflet aortic valve. Focal thickening of the aortic valve cusps. No aortic stenosis. Tricuspid Valve Tricuspid valve not well visualized, grossly normal. Pulmonic Valve Pulmonic valve not well visualized. Pericardium No pericardial effusion. Great Vessels Aortic root and proximal ascending aorta not well visualized. CONCLUSIONS 1. This was a technically difficult and very limited examination due to the patient's body habitus and clinical status. 2. Aortic sclerosis is present with no significant valvular stenosis. There is marked thickening of the non coronary leaflet, which was not well visualized. The possibility of an associated vegetative lesion cannot be excluded by this examination. 3. The mitral valve appears grossly normal. 4. There is no obvious pericardial fluid present. 5. The left ventricular chamber size and systolic function appear normal. Accurate wall motion assessment was not possible. 6. Borderline LVH appears to be present. 7. The right heart structures were not optimally assessed. 8. Mild to moderate enlargement of the right heart chambers is present. The RV systolic pressure could not be accurately assessed. 9. The Doppler examination was technically suboptimal. 10. Additional images were obtained following the administration of IV contrast. Cyndi Lucas M.D. (Electronically Signed) Final Date: 26 January 2018 12:22 MEASUREMENTS (Male / Female) Normal Values 2D ECHO LV Diastolic Diameter PLAX 4.1 cm 4.2 - 5.9 / 3.9 - 5.3 cm LV Systolic Diameter PLAX 2.6 cm 2.1 - 4.0 cm LV Fractional Shortening PLAX 36.6 % 25 - 46 % LV Ejection Fraction 2D Teich 66.8 % IVS Diastolic Thickness 1.4 cm LVPW Diastolic Thickness 1.4 cm LV Relative Wall Thickness 0.7 RV Internal Dim ED PLAX 2.8 cm 1.9 - 3.8 cm LVOT Diameter 2.0 cm Aortic Root Diameter 3.7 cm LA Systolic Diameter LX 4.2 cm 3.0 - 4.0 / 2.7 - 3.8 cm DOPPLER AV Peak Velocity 190.0 cm/s AV Peak Gradient 14.4 mmHg AV Mean Velocity 133.0 cm/s AV Mean Gradient 8.0 mmHg AV Velocity Time Integral 29.7 cm LVOT Peak Velocity 105.0 cm/s LVOT Peak Gradient 4.4 mmHg LVOT Mean Velocity 73.7 cm/s LVOT Mean Gradient 3.0 mmHg LVOT Velocity Time Integral 15.8 cm LVOT Stroke Volume 49.6 cm AV Area Cont Eq vti 1.7 cm AV Area Cont Eq pk 1.7 cm MV Peak Velocity 87.3 cm/s MV Peak Gradient 3.0 mmHg MV Mean Velocity 43.6 cm/s MV Mean Gradient 1.0 mmHg Mitral E Point Velocity 53.8 cm/s Mitral A Point Velocity 63.7 cm/s Mitral E to A Ratio 0.8 MV PHT Velocity 54.3 cm/s MV Deceleration Pike 428.0 cm/s MV Pressure Half Time 38.1 ms MV Area PHT 5.8 cm MV Deceleration Time 151.0 ms PV Peak Velocity 134.0 cm/s PV Peak Gradient 7.2 mmHg PV Mean Velocity 92.9 cm/s PV Mean Gradient 4.0 mmHg PV Velocity Time Integral 20.2 cm LV E' Lateral Velocity 17.4 cm/s Mitral E to LV E' Lateral Ratio 3.1 LV E' Septal Velocity 13.9 cm/s Mitral E to LV E' Septal Ratio 3.9
--- NOTE | 2018-01-26 13:05 | PN- Cardiology ---
Subjective Subjective: No significant change from cardiac perspective. Remains tachycardic in sinus tachycardia. Occasional ventricular ectopy noted. Ventricular ectopy improved with correction of potassium. Objective Vital Signs and I&Os Vital Signs Date Time Temp Pulse Resp B/P B/P Pulse O2 O2 Flow FiO2 Mean Ox Delivery Rate 01/26 1154 87 95 01/26 0800 93 Nasal 3.0L Cannula 01/26 0700 98.1 101 26 120/70 95 Nasal 3.0L Cannula 01/26 0644 100 96 01/26 0542 96 98 01/26 0400 96 BIPAP 30% 01/26 0328 105 96 01/26 0246 105 93 01/26 0009 110 96 01/26 0000 97 BIPAP 30% 01/26 0000 98.5 108 24 108/78 96 BIPAP 30% 01/25 2242 111 96 01/25 2153 BIPAP 30% 01/25 2025 119 94 01/26 2000 96 Nasal 3.0L Cannula 01/26 2000 99.2 124 31 130/88 96 Nasal 3.0L Cannula 01/25 1925 97.8 126 28 129/59 95 Nasal 2.0L Cannula 01/25 1846 96 Nasal 3.0L Cannula 01/25 1828 98.4 128 30 140/77 98 Nasal 3.0L Cannula 01/25 1713 98.4 120 20 131/69 95 01/25 1514 119 20 145/80 96 Nasal 2.0L Cannula 01/25 1419 116 18 136/90 96 Nasal 2.0L Cannula 01/25 1353 96 Nasal 2.0L Cannula 01/25 1324 98.9 124 18 140/74 88 Room Air Intake & Output 01/26 1600 01/26 0800 01/26 0000 01/25 1600 01/25 0800 01/25 0000 Intake Total 2679.5 1330.4 3240 Output Total 300 535 0 Balance 2379.5 795.4 3240 Intake, IV 2059.5 1330.4 3000 Intake, Oral 620 0 240 Number 0 0 Bowel Movements Output, Urine 300 535 0 Patient 295 lb 273 lb 284 lb Weight Weight Bed scale Reported by Patient Measurement Method Physical Exam: General Appearance Alert, Oriented X3, Cooperative, No Acute Distress (after morphine), reported to be in severe pain before analgesics today, obese, extremely dry mucous membranes Skin No Rashes, tattoos+, Rt foot has healing wound HEENT Atraumatic, PERRLA, EOMI, very dry mucosa Neck Supple, No JVD, carotids normal bilaterally with no audible bruits Lymphatic Cervical nl Cardiovascular Regular Rate, Normal S1, Normal S2, tachycardic, 1/6 systolic murmur left upper Lungs Clear to Auscultation and percussion bilaterally extremities:no Cyanosis, No Edema, pulses in dorsalis pedis weak b/l, Rt foot feels cold to touch, Left foot warm to touch without any skin changes/redness, b /l toes [employer]OR<2 sec Vascular Pulses Symmetrical, b/l weak pulse over feet, but [employer] SU[employer]OR<2 sec Current Medications: Current Medications Sig/Shade Start time Last Medication Dose Route Stop Time Status Admin Acetaminophen 650 MG Q6P PRN 01/25 1830 AC PO Acetaminophen 1,000 MG Q6P PRN 01/25 1830 AC IV Aspirin 0 .STK-MED ONE 01/25 1457 DC PO Aspirin 325 MG ONCE ONE 01/25 1445 DC 01/25 PO 01/25 1446 1452 Aspirin Buffered 81 MG DAILY 01/26 0900 AC 01/26 PO 0819 Cyclobenzaprine HCl 0 .STK-MED ONE 01/25 1357 DC PO Cyclobenzaprine HCl 10 MG ONCE ONE 01/25 1330 DC 01/25 PO 01/25 1331 1340 Heparin Sodium 7,440 UNIT ONCE ONE 01/26 0411 DC 01/26 (Porcine) IV 01/26 0412 0430 Heparin Sodium 10,000 UNIT .STK-MED ONE 01/25 2145 DC (Porcine) IV 01/25 2146 Heparin Sodium 7,440 UNIT ONCE ONE 01/25 2130 DC 01/25 (Porcine) IV 01/25 2131 2147 Heparin Sodium 0 .STK-MED ONE 01/25 1457 DC (Porcine) .ROUTE Heparin Sodium 4,000 UNIT ONCE ONE 01/25 1445 DC 01/25 (Porcine) IV 01/25 1446 1454 Heparin Sodium 25,000 UNIT Q24H 01/25 1445 AC 01/26 (Porcine) IV 1138 Sodium Chloride 500 ML Hydromorphone HCl 0.4 MG Q4P PRN 01/25 1830 AC 01/26 IV 1100 Hydromorphone HCl 0 .STK-MED ONE 01/25 1826 DC .ROUTE Ketorolac 0 .STK-MED ONE 01/25 1357 DC Tromethamine .ROUTE Ketorolac 30 MG ONCE ONE 01/25 1330 DC 01/25 Tromethamine IV 01/25 1331 1340 Morphine Sulfate 0 .STK-MED ONE 01/25 1520 DC .ROUTE Morphine Sulfate 4 MG ONCE ONE 01/25 1515 DC / IV 01/25 1516 1514 Morphine Sulfate 4 MG ONCE ONE 01/25 1430 DC 01/25 IV 01/25 1431 1418 Morphine Sulfate 0 .STK-MED ONE 01/25 1425 DC .ROUTE Potassium Chloride 40 MEQ ONCE ONE 01/26 0500 DC 01/26 PO 01/26 0501 0528 Potassium Chloride 40 MEQ 200 MLS/HR 01/25 2230 CAN IV Potassium Chloride 10 MEQ Q1H 01/25 2230 DC 01/26 IV 01/26 0131 0214 Potassium Chloride 40 MEQ Q5H 01/25 2230 DC 01/26 Sodium Chloride 1,000 ML IV 0434 Potassium Chloride 10 MEQ Q1H 01/25 2230 CAN IV 01/25 2331 Potassium Chloride 40 MEQ ONCE ONE 01/25 1430 DC 06/ PO 01/25 1431 1418 Potassium Chloride 0 .STK-MED ONE 01/25 1425 DC PO Sodium Chloride 1,000 ML Q8H 01/26 0500 AC 01/26 IV 0448 Sodium Chloride 1,000 ML Q8H 01/25 1615 DC / IV 01/26 0814 2026 Sodium Chloride 1,000 ML BOLUS ONE 01/25 1515 DC 01/25 IV 01/25 1614 1620 Sodium Chloride 1,000 ML BOLUS ONE 01/25 1515 DC 01/25 IV 01/25 1614 1516 Sodium Chloride 1,000 ML BOLUS ONE 01/25 1330 DC / IV 01/25 1429 1454 Sodium Chloride 1,000 ML BOLUS ONE 01/25 1330 DC / IV 01/25 1429 1346 Results Last 48 Hrs of Labs/Mics: Laboratory Tests 01/26/18 0954: APTT Pending 01/26/18 0339: CBC w Diff MAN DIFF ORDERED, RBC 3.43 L, MCV 89.4, MCH 29.5, MCHC 33.0, RDW 16.8 H, MPV 8.2, Gran % 89.7 H, Lymphocytes % 5.6 L, Monocytes % 4.6, Eosinophils % 0, Basophils % 0.1, Absolute Granulocytes 16.7 H, Segmented Neutrophils 89 H, Band Neutrophils 3, Absolute Lymphocytes 1.0 L, Lymphocytes 4 L, Monocytes 4, Absolute Monocytes 0.9 H, Absolute Eosinophils 0, Absolute Basophils 0, Platelet Estimate INCREASED, Polychromasia 1+, Poikilocytosis 2+, Ovalocytes 1+, Stomatocytes 1+, Fld Total RBCs Counted 100 01/26/18 0320: Lactic Acid 0.9 01/26/18 0320: Anion Gap 11, Estimated GFR > 60, Glucose 93, Calcium 7.8 L, Phosphorus 3.8, Magnesium 1.9, Total Bilirubin 0.6, AST 35, ALT 33, Troponin I 0.25 *H, Albumin 2.5 L, APTT 33, ESR Westergren 100 H 01/25/18 2334: CBC w Diff MAN DIFF ORDERED, RBC 3.48 L, MCV 89.2, MCH 29.0, MCHC 32.6 L, RDW 16.3 H, MPV 8.0, Gran % 93.5 H, Lymphocytes % 3.0 L, Monocytes % 3.4, Eosinophils % 0.1, Basophils % 0, Absolute Granulocytes 18.7 H, Segmented Neutrophils 93 H, Band Neutrophils 1, Absolute Lymphocytes 0.6 L, Lymphocytes 4 L, Monocytes 2, Absolute Monocytes 0.7 H, Absolute Eosinophils 0, Absolute Basophils 0, Platelet Estimate INCREASED, Polychromasia 1+, Hypochromic- Microcytic 1+, Basophilic Stippling SLIGHT, Ovalocytes FEW, Stomatocytes FEW, Fld Total RBCs Counted 100 01/25/182232: Lactic Acid 1.0 01/25/182124: Anion Gap 11, Estimated GFR > 60, Glucose 89, Calcium 7.2 L, Phosphorus 3.7, Magnesium 1.7, Total Bilirubin 0.4, AST 29, ALT 27, Troponin I 0.28 *H, Albumin 2.2 L 01/25/182031: APTT 27 01/25/182004: pH 7.33 L, pCO2 65 *H, pO2 121 H, HCO3 33 H, ABG O2 Sat (Measured) 97.0, P-50 (Temp Corrected) N, Carboxyhemoglobin 0.8 L, O2 Concentration % 3L, Temperature 99.6, O2 Delivery Method NC, Phlebotomy Draw Site RIGHT BRACHIAL 01/25/18 1838: Urine Color YEL, Urine Clarity HAZY H, Urine pH 6.5, Ur Specific Childs 1.010, Urine Protein 100 H, Urine Ketones 15 H, Urine Nitrite NEG, Urine Bilirubin NEG@ICTO, Urine Urobilinogen 2.0 H, Ur Leukocyte Esterase NEG, Ur Microscopic SEDIMENT EXAMINED, Urine RBC 50-75 H, Urine WBC RARE, Ur Epithelial Cells RARE, Hyaline Casts RARE H, Urine Hemoglobin LARGE H, Urine Glucose NEG, Urine Comment N 01/25/18 1335: Anion Gap 13, Estimated GFR > 60, BUN/Creatinine Ratio 30.0 H, Glucose 107 H, Calcium 8.9, Magnesium 2.0, Total Bilirubin 0.7, AST 36, ALT 30, Alkaline Phosphatase 167 H, Troponin I 0.27 *H, Total Protein 8.2, Albumin 3.0 L, Globulin 5.2 H, Albumin/Globulin Ratio 0.6 L, TSH &T3 &Free T4 Intrp 0.527, D- Dimer High Sensitivty 2193 H, CBC w Diff NO MAN DIFF REQ, RBC 4.32 L, MCV 89.8 , MCH 28.5, MCHC 31.8 L, RDW 16.4 H, MPV 7.6, Gran % 91.5 H, Lymphocytes % 4.1 L, Monocytes % 4.1, Eosinophils % 0.1, Basophils % 0.2, Absolute Granulocytes 14.2 H, Absolute Lymphocytes 0.6 L, Absolute Monocytes 0.6, Absolute Eosinophils 0, Absolute Basophils 0 Assessment/Plan Assessment/Plan Assessment: 1. hypercapnic respiratory failure 2. Bilateral pulmonary emboli with tachypnea, tach cardia, hypoxia, 3. Mildly elevated troponin 4. Abnormal EKG with ventricular ectopy 5. Leukocytosis 6. discitis 7. Hypokalemia Recommendations: -Cardiac status appears stable at the present time. Echocardiogram reviewed. Left ventricular function normal. Right heart enlargement noted. Right ventricular systolic pressure could not be accurately assessed. Aortic valve appears to be trileaflet with marked thickening of the noncoronary leaflet but the valve was not well visualized. Overall, it was a technically suboptimal study. -Continue as per the infectious disease and critical care teams -Further imaging of possible discitis pending. -No plans for MARIAN at the present time. Final decision about MARIAN depending on ID. -Continue anticoagulation with IV heparin. -At the moment, I believe the aspirin can be safely discontinued. Continue telemetry? Yes
[2018-01-26 13:25] LABS: PTT 31 SEC (25-37)
--- NOTE | 2018-01-26 14:13 | Cons- Vascular Surgery ---
General Information and HPI Consulting Request Date of Consult: 01/26/18 Requested By: Seymour Guzmán MD Reason for Consult: cool right foot Source of Information: patient Exam Limitations: no limitations History of Present Illness: 52 y/o w/ hx of dm, prevoius right leg orif, previous left toe amp admitted to icu with tachycardia/back pain and segmental pe's discoverred on CTA. us duplex shows no dvt. pt is on therapeutic heparin gtt. vascular surgery was consulted as right foot "cooler" than left. Per pt right foot is always cool since he had right leg orif. He has chronic numbness in the foot as well since the operation 5 years ago. denies any pain in the foot. motor sensory intact. good cap refill. strong dopplerable signals. There is significant swelling in both legs. Allergies/Medications Allergies: Coded Allergies: No Known Allergies (09/15/17) Home Med List: Aspirin (Ecotrin*) 81 MG TABLET.DR 1 TAB PO DAILY HEART/BLOOD (Reported) Ibuprofen 800 MG TABLET 1 TAB PO TID PAIN (Reported) Losartan/Hydrochlorothiazide (Losartan-Hctz 50-12.5 MG Tab) 50 MG-12.5 MG TABLET 1 TAB PO DAILY BP (Reported) Meloxicam (Mobic) 15 MG TABLET 1 TAB PO DAILY PAIN (Reported) Metaxalone 800 MG TABLET 1 TAB PO Q8 PAIN (Reported) Metformin HCl (Metformin HCl ER) 500 MG TAB.ER.24 1 TAB PO DAILY Diabetes Past History Medical History Neurological: NONE EENT: NONE Cardiovascular: hypertension Respiratory: NONE Gastrointestinal: NONE Hepatic: NONE Renal: NONE Musculoskeletal: osteoarthritis Psychiatric: NONE Endocrine: prediabetes Blood Disorders: NONE Cancer(s): NONE Surgical History Pertinent Surgical History: Left foot debridement, I&D 2018 Left fifth toe 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 Home Services at Home: Occupational Therapy, Physical Therapy Primary Language: Egyptian Smoking Status: Never Smoked ETOH Use: occasional use, quit 19 yrs ago Illicit Drug Use: denies illicit drug use Other Social History: Call his mother in case of emergency per patient. Functional Ability ADLs Independent: dressing, eating, toileting, bathing. Ambulation: independent IADLs Independent: shopping, housework, finances, food prep, telephone, transportation , medication admin. Review of Systems Review of Systems: as above Exam & Diagnostic Data Vital Signs and I&O Vital Signs Date Time Temp Pulse Resp B/P B/P Pulse O2 O2 Flow FiO2 Mean Ox Delivery Rate 01/26 1318 94 01/26 1200 99 BIPAP 30% 01/26 1200 98.9 124 23 100/66 99 BIPAP 30% 01/26 1154 87 95 01/26 0800 93 Nasal 3.0L Cannula 01/26 0700 98.1 101 26 120/70 95 Nasal 3.0L Cannula 01/26 0644 100 96 01/26 0542 96 98 01/26 0400 96 BIPAP 30% 01/26 0328 105 96 01/26 0246 105 93 01/26 0009 110 96 01/26 0000 97 BIPAP 30% 01/26 0000 98.5 108 24 108/78 96 BIPAP 30% 01/25 2242 111 96 01/25 2153 BIPAP 30% 01/25 2025 119 94 01/26 2000 96 Nasal 3.0L Cannula 01/26 2000 99.2 124 31 130/88 96 Nasal 3.0L Cannula 01/25 192 97.8 126 28 129/59 95 Nasal 2.0L Cannula 01/25 1846 96 Nasal 3.0L Cannula 01/25 1828 98.4 128 30 140/77 98 Nasal 3.0L Cannula 01/25 1713 98.4 120 20 131/69 95 01/25 1514 119 20 145/80 96 Nasal 2.0L Cannula 01/25 1419 116 18 136/90 96 Nasal 2.0L Cannula Intake & Output 01/26 1600 01/26 0800 01/26 0000 01/25 1600 01/25 0800 01/25 0000 Intake Total 2679.5 1330.4 3240 Output Total 300 535 0 Balance 2379.5 795.4 3240 Intake, IV 2059.5 1330.4 3000 Intake, Oral 620 0 240 Number 0 0 Bowel Movements Output, Urine 300 535 0 Patient 295 lb 273 lb 284 lb Weight Weight Bed scale Reported by Patient Measurement Method as above Physical Exam: nad tachycardia soft,nt,nd right foot slightly cooler then left. good < 2sec cap refill. strong pt doppler signals bilaterally. Assessment/Plan Assessment/Plan 52 y/o m admitted with PE currently on ac. -no signs of acute limb ischemia. pt denies rest pain. has doppler signals. -please obtaing bilateral arterial duplex no indication for intervention at this time. -heparin gtt for pe. leg elevation/compression. Consult Acknowledgment - Thank you for your consult request.
[2018-01-26 16:00] VITALS: BP 100/70
--- NOTE | 2018-01-26 17:31 | CT SCAN REPORT ---
EXAMINATION: CT THORACIC SPINE WITH IV CONTRAST CT LUMBAR SPINE WITH IV CONTRAST CLINICAL INFORMATION: Severe pain. Evaluate for osteomyelitis, discitis and epidural abscess. COMPARISON: CT images of lumbar spine from 12/05/2017. CT images of chest, abdomen pelvis from 01/25/2018. TECHNIQUE: Multidetector CT imaging evaluation of the thoracic and lumbar spine was performed using 0.625 mm collimation. Axial images are presented at 0.625 mm, 1.25 mm and 2.5 mm slice thickness. Coronal and sagittal reformatted images were generated and reviewed. 95 mL of Optiray 320 nonionic intravenous contrast was administered. DLP was 2062 mGy-cm. FINDINGS: THORACIC SPINE: There is bulky flowing anterior ligament ossification of the thoracic spine consistent with diffuse idiopathic skeletal hyperostosis. There is osseous resorption of endplates of C7-T1 (predominantly affecting the T1 endplate) without evidence of a fluid collection in the disc space or surrounding paraspinal tissues at this level. The central spinal canal is widely patent at C7-T1. No epidural abscess. There is left-sided facet hypertrophy at C7-T1 producing mild foraminal stenosis at this level. There is a bone island of the T4 vertebral body. There is an old compression fracture of the T11 vertebral body with approximately 40% anterior height loss; the vertebra appear osteopenic at T10-T12. The anterior bridging osteophytes are intact at these levels. There is minimal retropulsion of the posterosuperior wall of the T11 vertebral body with central canal stenosis of 0.9 cm AP at this level. The T11 compression fracture can be seen on review of CT localizer images of 12/05/2017. LUMBAR SPINE: Multilevel facet osteoarthritis and disc degeneration of the lumbar spine. At L1-L2, there are erosions of the vertebral endplates with widening of the intervertebral disc space. These findings are new compared to 12/05/2017 but unchanged compared to 01/25/2018. Again noted are small foci of gas within the disc space and within anterior paraspinal tissues, unchanged compared to 01/25/2018. There is no rim-enhancing collection in the disc space or within the paraspinal tissue. There is soft tissue attenuation, likely phlegmon, bulging into the anterior epidural space at the L1-L2 level. This epidural tissue thickening, along with the severe facet hypertrophy, produce moderate to severe central canal stenosis at this level. Also, there is bilateral neural foraminal stenosis. At L2-L3 and L3-L4, there is severe facet hypertrophy and disc bulge producing chronic central canal and bilateral neural foraminal stenosis. At the right facet joint of L3-L4, there appears to be increased subarticular bone resorption compared to 12/05/2017. However, no significant joint effusion or periarticular fluid collection is identified in this region. At L4-L5, there is severe facet osteoarthritis and grade 1 anterolisthesis of L4 on L5, unchanged compared to 12/05/2017. At L5-S1, there is moderate to severe facet arthropathy. IMPRESSION: 1. Within the thoracic spine, there is endplate erosive change at C7-T1. This could represent infectious discitis. However, there is no rim-enhancing fluid collection in the disc space or in the paraspinal soft tissues. No epidural abscess at this level. 2. Old compression fracture of the T11 vertebral body. There is minimal retropulsion of the posterosuperior wall of the compressed T11 vertebral body producing central spinal canal stenosis. 3. At L1-L2, findings are consistent with infectious discitis. There are new endplate erosive changes at L1-L2 compared to 12/05/2017. Thickened soft tissue is seen in the anterior epidural space at this level, but there is no drainable fluid collection. No new findings at L1-L2 compared to 01/25/2018. 4. Severe multilevel facet osteoarthritis and multilevel canal stenosis of the lumbar spine. At the right L3-L4 facet joint, there appears to be interval worsening of subarticular bone resorption compared to 12/05/2017. This could be secondary to infection of the L3-L4 facet joint. However, no periarticular fluid collection at this level.
--- NOTE | 2018-01-26 19:31 | Event Note ---
Event Note Event Note: I was infomed about the ongoing concern about difficulty moving bilateral legs by my co-resident Dr Mera and we assessed the patient together. I had seen and examined the patient yesterday when he was admitted. He had moved his legs slightly, wiggled his toes then but flexing his knees bilaterally was very painful and thus was limited yesterday. Today, he has the exact same findings, with bilaterally intact sensations. I checked for calvarial anesthesia which was negative. His inher tone is intact as well, and he has well formed stool in his rectum, also indicating no incontinence. I spoke with Dr Simon Rangel (radiologist from [facility] at ) who had read his spine images earlier and requested a review with a focus to look for any spinal cord compression, cauda equina. He mentioned that the patient has multi-level disease which is chronic but no acute cord compression could be identified. ID called and spoke to Dr Morgan who suggested waiting for the cultures and watching off antibiotics for now. Neurology called and also answering service requested for to call back, awaiting. neurologist Dr Cali called back later and mentioned his concern and differentials including the weakness in legs/knees that the patient had on examination. We discussed about the CT findings as above and he suggested MRI if possible (which was apperantly not possible due to his body habitus earlier this morning) Microbiology informed me that the patient is now growing gram-positive cocci in blood, identification not done yet. This made the possibility of the previous osteomyelitis seeding as a source of infection likely, including spinal osteomyelitis with the leukocytosis, increased back pain, and suggestive imaging. I spoke with attending Dr Riddle as well as Dr Cali neurologist about it who suggested starting emperic treatment with IV antibiotics, the choice of which could be determined by ID service if can be reached else would start vancomycin empirically. Neurologist did not suggest giving steroids given the possibility that the inflammation could be all due to infection, and a course of antibiotic could make it better. He still suggested following neurochecks closely and coordinate with neurosurgery in case of any changes. I spoke with Radhames Morgan MD and updated him about the above findings/ discussions, and based on the patient's previous records, he suggested starting patient on IV oxacillin 2 g every 4 hours empirically, without repeating any blood cultures as the results are likely true and then just contamination. Also , to get samples from the bone with this medical condition, including IV heparin running, would be very risky. I ordered IV oxacillin as mentioned above, and change the neuro checks to every 2 hours. I updated patient's attending Seymour Guzmán MD, who agreed to the plan. I updated header setup operator Dr Riddle and the nursing staff.
--- NOTE | 2018-01-26 20:53 | Cons- Neurology ---
General Information and HPI Consulting Request Date of Consult: 01/26/18 Requested By: Seymour Guzmán MD Reason for Consult: "I cannot move my legs" Source of Information: patient, staff Exam Limitations: poor historian History of Present Illness: This is a 52 year old right handed man who cardiovascular risk factors, known for left foot osteomyelitis s/p I&D and left knee septic arthritis discharged to [place] for IV antibiotics via PICC line until January 09, and PT/OT, and recently discharged home. He now returned after sustaining a mechanical fall, landing on the knees at home while in the bath. He denies hitting his back but thereafter developed an exacerbation of his chronic back pain and developed leg weakness. He was brought to the ER and was admitted. He is currently being worked up and treated for a newly found PE. Today, he complained of worsening leg weakness. When I came to see him he noted he has a hard time moving his legs. Since he has a Wood inserted it is not clear if he has control over his bladder sphincters. He denies numbness in the legs. Allergies/Medications Allergies: Coded Allergies: No Known Allergies (09/15/17) Home Med List: Aspirin (Ecotrin*) 81 MG TABLET.DR 1 TAB PO DAILY HEART/BLOOD (Reported) Ibuprofen 800 MG TABLET 1 TAB PO TID PAIN (Reported) Losartan/Hydrochlorothiazide (Losartan-Hctz 50-12.5 MG Tab) 50 MG-12.5 MG TABLET 1 TAB PO DAILY BP (Reported) Meloxicam (Mobic) 15 MG TABLET 1 TAB PO DAILY PAIN (Reported) Metaxalone 800 MG TABLET 1 TAB PO Q8 PAIN (Reported) Metformin HCl (Metformin HCl ER) 500 MG TAB.ER.24 1 TAB PO DAILY Diabetes Current Medications: Current Medications Sig/Shade Start time Last Medication Dose Route Stop Time Status Admin Acetaminophen 650 MG Q6P PRN 01/25 1830 AC PO Acetaminophen 1,000 MG Q6P PRN 01/25 1830 AC IV Aspirin Buffered 81 MG DAILY 01/26 0900 AC 01/26 PO 0819 Heparin Sodium 8,000 UNIT ONCE ONE 01/26 1300 DC 01/26 (Porcine) IV 01/26 1301 1442 Heparin Sodium 7,440 UNIT ONCE ONE 01/26 0411 DC 01/26 (Porcine) IV 01/26 0412 0430 Heparin Sodium 10,000 UNIT .STK-MED ONE 01/25 2145 DC (Porcine) IV 01/25 2146 Heparin Sodium 7,440 UNIT ONCE ONE 01/25 2130 DC 01/25 (Porcine) IV 01/25 2131 2147 Heparin Sodium 25,000 UNIT Q24H 01/25 1445 AC 01/26 (Porcine) IV 1138 Sodium Chloride 500 ML Hydromorphone HCl 0.4 MG Q4P PRN 01/25 1830 AC 01/26 IV 1521 Potassium Chloride 40 MEQ ONCE ONE 01/26 0500 DC 01/26 PO 01/26 0501 0528 Potassium Chloride 40 MEQ 200 MLS/HR 01/25 2230 CAN IV Potassium Chloride 10 MEQ Q1H 01/25 2230 DC 01/26 IV 01/26 0131 0214 Potassium Chloride 40 MEQ Q5H 01/25 2230 DC 01/26 Sodium Chloride 1,000 ML IV 0434 Potassium Chloride 10 MEQ Q1H 01/25 2230 CAN IV 01/25 2331 Sodium Chloride 1,000 ML Q8H 01/26 0500 AC 01/26 IV 1441 Sodium Chloride 1,000 ML Q8H 01/25 1615 DC 01/25 IV 01/26 0814 2025 Past History Travel History Traveled to [place] past 21 day No Medical History Neurological: NONE EENT: NONE Cardiovascular: hypertension Respiratory: NONE Gastrointestinal: NONE Hepatic: NONE Renal: NONE Musculoskeletal: osteoarthritis, osteomyelitis of the left foot. 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 Home Services at Home: Occupational Therapy, Physical Therapy Primary Language: Irish Smoking Status: Never Smoked ETOH Use: occasional use, quit 19 yrs ago Illicit Drug Use: denies illicit drug use Other Social History: Call his mother in case of emergency per patient. Functional Ability ADLs Independent: dressing, eating, toileting, bathing. Ambulation: independent IADLs Independent: shopping, housework, finances, food prep, telephone, transportation , medication admin. Exam & Diagnostic Data Vital Signs and I&O Vital Signs Date Time Temp Pulse Resp B/P B/P Pulse O2 O2 Flow FiO2 Mean Ox Delivery Rate 01/26 1600 97.7 113 18 100/70 95 Nasal 3.0L Cannula 01/26 1318 94 01/26 1200 99 BIPAP 30% 01/26 1200 98.9 124 23 100/66 99 BIPAP 30% 01/26 1154 87 95 01/26 0800 93 Nasal 3.0L Cannula 01/26 0700 98.1 101 26 120/70 95 Nasal 3.0L Cannula 01/26 0644 100 96 01/26 0542 96 98 01/26 0400 96 BIPAP 30% 01/26 0328 105 96 01/26 0246 105 93 01/26 0009 110 96 01/26 0000 97 BIPAP 30% 01/26 0000 98.5 108 24 108/78 96 BIPAP 30% 01/25 2242 111 96 01/25 2153 BIPAP 30% Intake & Output 01/26 1600 01/26 0800 01/26 0000 Intake Total 1383 2679.5 1330.4 Output Total 325 300 535 Balance 1058 2379.5 795.4 Intake, IV 1143 2059.5 1330.4 Intake, Oral 240 620 0 Number 2 0 0 Bowel Movements Output, Urine 325 300 535 Patient 295 lb 273 lb Weight Weight Bed scale Measurement Method Physical Exam: He is alert and oriented x 3. Sweating porfusely. Sticking his tongue out involuntarily? every so often. EOMI, DOROTHEA, no nystagmus, face symmetric. Can lift both arms against gravity. Cannot move legs more than lightly from side to side 1/5. Severe leg weakness throughout most muscles. Reflexes hypoattenuated and toes are mute. Sensory intact to touch. Could not complete rest of exam due to patient's condition and need to go for urgent testing. Last 48 Hours of Lab Results: Laboratory Tests 01/26 0954 0339 0320 Chemistry Lactic Acid (0.7 - 2.1 mmol/L) 0.9 Coagulation APTT (25 - 37 SEC) Pending 31 Hematology CBC w Diff MAN DIFF ORDERED WBC (4.8 - 10.8 /CUMM) 18.7 H RBC (4.70 - 6.10 /CUMM) 3.43 L Hgb (14.0 - 18.0 G/DL) 10.1 L Hct (42 - 52 %) 30.7 L MCV (80.0 - 94.0 FL) 89.4 MCH (27.0 - 31.0 PG) 29.5 MCHC (33.0 - 37.0 G/DL) 33.0 RDW (11.5 - 14.5 %) 16.8 H Plt Count (130 - 400 /CUMM) 435 H MPV (7.4 - 10.4 FL) 8.2 Gran % (42.2 - 75.2 %) 89.7 H Lymphocytes % (20.5 - 51.1 %) 5.6 L Monocytes % (1.7 - 9.3 %) 4.6 Eosinophils % (0 - 5 %) 0 Basophils % (0.0 - 2.0 %) 0.1 Absolute Granulocytes (1.4 - 6.5 /CUMM) 16.7 H Segmented Neutrophils (42.2 - 75.2 %) 89 H Band Neutrophils (0.0 - 5.0 %) 3 Absolute Lymphocytes (1.2 - 3.4 /CUMM) 1.0 L Lymphocytes (20.5 - 51.1 %) 4 L Monocytes (1.7 - 9.3 %) 4 Absolute Monocytes (0.10 - 0.60 /CUMM) 0.9 H Absolute Eosinophils (0.0 - 0.7 /CUMM) 0 Absolute Basophils (0.0 - 0.2 /CUMM) 0 Platelet Estimate (ADEQUATE) INCREASED Polychromasia 1+ Poikilocytosis 2+ Ovalocytes 1+ Stomatocytes 1+ Other Body Source Fld Total RBCs Counted (%) 100 01/26 01/25 01/25 0320 8268 0446 Chemistry Sodium (137 - 145 mmol/L) 145 Potassium (3.5 - 5.1 mmol/L) 3.8 Chloride (98 - 107 mmol/L) 103 Carbon Dioxide (22 - 30 mmol/L) 31 H Anion Gap (5 - 16) 11 BUN (9 - 20 mg/dL) 18 Creatinine (0.7 - 1.2 mg/dL) 0.7 Estimated GFR (>60 ml/min) > 60 Glucose (65 - 99 mg/dL) 93 Lactic Acid (0.7 - 2.1 mmol/L) 1.0 Calcium (8.4 - 10.2 mg/dL) 7.8 L Phosphorus (2.5 - 4.5 mg/dL) 3.8 Magnesium (1.6 - 2.3 mg/dL) 1.9 Total Bilirubin (0.2 - 1.3 mg/dL) 0.6 AST (17 - 59 U/L) 35 ALT (21 - 72 U/L) 33 Troponin I (<0.11 ng/ml) 0.25 *H Albumin (3.5 - 5.0 g/dL) 2.5 L Coagulation APTT (25 - 37 SEC) 33 Hematology CBC w Diff MAN DIFF ORDERED WBC (4.8 - 10.8 /CUMM) 20.0 H RBC (4.70 - 6.10 /CUMM) 3.48 L Hgb (14.0 - 18.0 G/DL) 10.1 L Hct (42 - 52 %) 31.0 L MCV (80.0 - 94.0 FL) 89.2 MCH (27.0 - 31.0 PG) 29.0 MCHC (33.0 - 37.0 G/DL) 32.6 L RDW (11.5 - 14.5 %) 16.3 H Plt Count (130 - 400 /CUMM) 453 H MPV (7.4 - 10.4 FL) 8.0 Gran % (42.2 - 75.2 %) 93.5 H Lymphocytes % (20.5 - 51.1 %) 3.0 L Monocytes % (1.7 - 9.3 %) 3.4 Eosinophils % (0 - 5 %) 0.1 Basophils % (0.0 - 2.0 %) 0 Absolute Granulocytes (1.4 - 6.5 /CUMM) 18.7 H Segmented Neutrophils (42.2 - 75.2 %) 93 H Band Neutrophils (0.0 - 5.0 %) 1 Absolute Lymphocytes (1.2 - 3.4 /CUMM) 0.6 L Lymphocytes (20.5 - 51.1 %) 4 L Monocytes (1.7 - 9.3 %) 2 Absolute Monocytes (0.10 - 0.60 /CUMM) 0.7 H Absolute Eosinophils (0.0 - 0.7 /CUMM) 0 Absolute Basophils (0.0 - 0.2 /CUMM) 0 Platelet Estimate (ADEQUATE) INCREASED Polychromasia 1+ Hypochromic-Microcytic 1+ Basophilic Stippling SLIGHT Ovalocytes FEW Stomatocytes FEW ESR Westergren (0 - 10 MM) 100 H Other Body Source Fld Total RBCs Counted (%) 100 01/25 Blood Gas pH (7.35 - 7.45 PH) 7.33 L pCO2 (35 - 45 TORR) 65 *H pO2 (80 - 100 TORR) 121 H HCO3 (21 - 28 MEQ/L) 33 H ABG O2 Sat (Measured) (>96.0 %) 97.0 P-50 (Temp Corrected) N Carboxyhemoglobin (1.5 - 5.0 %) 0.8 L O2 Concentration % 3L Temperature (97.0 - 100.0 FARH) 99.6 O2 Delivery Method NC Chemistry Sodium (137 - 145 mmol/L) 145 Potassium (3.5 - 5.1 mmol/L) 2.8 *L Chloride (98 - 107 mmol/L) 104 Carbon Dioxide (22 - 30 mmol/L) 31 H Anion Gap (5 - 16) 11 BUN (9 - 20 mg/dL) 15 Creatinine (0.7 - 1.2 mg/dL) 0.7 Estimated GFR (>60 ml/min) > 60 Glucose (65 - 99 mg/dL) 89 Calcium (8.4 - 10.2 mg/dL) 7.2 L Phosphorus (2.5 - 4.5 mg/dL) 3.7 Magnesium (1.6 - 2.3 mg/dL) 1.7 Total Bilirubin (0.2 - 1.3 mg/dL) 0.4 AST (17 - 59 U/L) 29 ALT (21 - 72 U/L) 27 Troponin I (<0.11 ng/ml) 0.28 *H Albumin (3.5 - 5.0 g/dL) 2.2 L Coagulation APTT (25 - 37 SEC) 27 Miscellaneous Phlebotomy Draw Site RIGHT BRACHIAL 01/25 1838 Urines Urine Color (YEL,AMB,STR) YEL Urine Clarity (CLEAR) HAZY H Urine pH (5.0 - 8.0) 6.5 Ur Specific [place] (1.001 - 1.035) 1.010 Urine Protein (NEG,<30 MG/DL) 100 H Urine Ketones (NEG) 15 H Urine Nitrite (NEG) NEG Urine Bilirubin (NEG) NEG@ICTO Urine Urobilinogen (0.1 - 1.0 EU/dl) 2.0 H Ur Leukocyte Esterase (NEG) NEG Ur Microscopic SEDIMENT EXAMINED Urine RBC (0 - 5 /HPF) 50-75 H Urine WBC (0 - 2 /HPF) RARE Ur Epithelial Cells (NONE,FEW) RARE Hyaline Casts (0/LPF) RARE H Urine Hemoglobin (NEG) LARGE H Urine Glucose (N MG/DL) NEG Urine Comment N 01/25 1335 Chemistry Sodium (137 - 145 mmol/L) 144 Potassium (3.5 - 5.1 mmol/L) 2.8 *L Chloride (98 - 107 mmol/L) 92 L Carbon Dioxide (22 - 30 mmol/L) 39 H Anion Gap (5 - 16) 13 BUN (9 - 20 mg/dL) 18 Creatinine (0.7 - 1.2 mg/dL) 0.6 L Estimated GFR (>60 ml/min) > 60 BUN/Creatinine Ratio (7 - 25 %) 30.0 H Glucose (65 - 99 mg/dL) 107 H Calcium (8.4 - 10.2 mg/dL) 8.9 Magnesium (1.6 - 2.3 mg/dL) 2.0 Total Bilirubin (0.2 - 1.3 mg/dL) 0.7 AST (17 - 59 U/L) 36 ALT (21 - 72 U/L) 30 Alkaline Phosphatase (< 127 U/L) 167 H Troponin I (<0.11 ng/ml) 0.27 *H Total Protein (6.3 - 8.2 g/dL) 8.2 Albumin (3.5 - 5.0 g/dL) 3.0 L Globulin (1.9 - 4.2 gm/dL) 5.2 H Albumin/Globulin Ratio (1.1 - 2.2 %) 0.6 L TSH &T3 &Free T4 Intrp (0.27 - 4.20 uIU/mL) 0.527 Coagulation D-Dimer High Sensitivty (0 - 243 ng/ml) 2193 H Hematology CBC w Diff NO MAN DIFF REQ WBC (4.8 - 10.8 /CUMM) 15.5 H RBC (4.70 - 6.10 /CUMM) 4.32 L Hgb (14.0 - 18.0 G/DL) 12.3 L Hct (42 - 52 %) 38.8 L MCV (80.0 - 94.0 FL) 89.8 MCH (27.0 - 31.0 PG) 28.5 MCHC (33.0 - 37.0 G/DL) 31.8 L RDW (11.5 - 14.5 %) 16.4 H Plt Count (130 - 400 /CUMM) 581 H MPV (7.4 - 10.4 FL) 7.6 Gran % (42.2 - 75.2 %) 91.5 H Lymphocytes % (20.5 - 51.1 %) 4.1 L Monocytes % (1.7 - 9.3 %) 4.1 Eosinophils % (0 - 5 %) 0.1 Basophils % (0.0 - 2.0 %) 0.2 Absolute Granulocytes (1.4 - 6.5 /CUMM) 14.2 H Absolute Lymphocytes (1.2 - 3.4 /CUMM) 0.6 L Absolute Monocytes (0.10 - 0.60 /CUMM) 0.6 Absolute Eosinophils (0.0 - 0.7 /CUMM) 0 Absolute Basophils (0.0 - 0.2 /CUMM) 0 Imaging/Other Studies: Chest CTA: IMPRESSION: 1. Large pulmonary arteries, as may be seen in chronic pulmonary arterial hypertension. However, dilatation of the pulmonary artery trunk may also occur in the setting of chronic pulmonary valve stenosis. 2. Pulmonary emboli are observed within the right upper lobe and left lower lobe. No evidence of heart strain. CONCLUSIONS 1. This was a technically difficult and very limited examination due to the patient's body habitus and clinical status. 2. Aortic sclerosis is present with no significant valvular stenosis. There is marked thickening of the non coronary leaflet, which was not well visualized. The possibility of an associated vegetative lesion cannot be excluded by this examination. 3. The mitral valve appears grossly normal. 4. There is no obvious pericardial fluid present. 5. The left ventricular chamber size and systolic function appear normal. Accurate wall motion assessment was not possible. 6. Borderline LVH appears to be present. 7. The right heart structures were not optimally assessed. 8. Mild to moderate enlargement of the right heart chambers is present. The RV systolic pressure could not be accurately assessed. 9. The Doppler examination was technically suboptimal. 10. Additional images were obtained following the administration of IV contrast. Assessment/Plan Assessment: 52 year old with previously treated Osteomyelitis of the left foot, now returning with an unexplained strange fall. Found to have PE and started treatment. Currently cannot move both legs (Ie PARAPARESIS). Since his arm strength is intact, we need to focus on the thoracic spine as a lumbar spine lesion is unlikely to explain this situation with exception of a severe cauda equina syndrome. Other considerations are possible Gullian [place] syndrome, or Ischemic infarction of the spinal cord in the setting of parodoxical emboli. Recommendations: 1. Strongly recommend a STAT CT with contrast of the thoracic and lumbar spine. The patient claims he cannot fit into the MRI. 2. Recommend a MARIAN to exclude vegetations on valve and to perform an adequate bubble study. 3. If no findings are found on the thoracic spine MRI would then do a tap to assess for high protein. 4. MRI thoracic and lumbar spine would be more ideal. Consult Acknowledgment - Thank you for your consult request.
[2018-01-26 20:58] LABS: PTT 68 SEC (25-37)
[2018-01-27] VITALS: BP 98/64
[2018-01-27 06:12] LABS: ABSOLUTE BASOPHIL COUNT 0 /CUMM (0.0-0.2); ABSOLUTE EOSINOPHIL COUNT 0 /CUMM (0.0-0.7); ABSOLUTE GRANULOCYTE CT 12.9 /CUMM (1.4-6.5); ABSOLUTE LYMPH COUNT 0.9 /CUMM (1.2-3.4); ABSOLUTE MONOCYTE COUNT 0.9 /CUMM (0.10-0.60); BASOPHIL % 0.3 % (0.0-2.0); EOSINOPHIL % 0.3 % (0-5); GRANULOCYTE % 87.4 % (42.2-75.2); HEMATOCRIT 28.2 % (42-52); MEAN CORPUSCULAR HGB 28.9 PG (27.0-31.0); MEAN CORPUSCULAR HGB CONC 32.2 G/DL (33.0-37.0); MEAN CORPUSCULAR VOLUME 89.6 FL (80.0-94.0); MEAN PLATELET VOLUME 8.3 FL (7.4-10.4); PLATELET COUNT 341 /CUMM (130-400); RBC DISTRIBUTION WIDTH 17.1 % (11.5-14.5); RED BLOOD CELL CT 3.15 /CUMM (4.70-6.10)
[2018-01-27 06:20] LABS: PTT 53 SEC (25-37)
[2018-01-27 06:44] LABS: WHITE BLOOD CELL COUNT 14.8 /CUMM (4.8-10.8)
[2018-01-27 07:00] VITALS: BP 100/58
--- NOTE | 2018-01-27 08:15 | PN- Resident CRCU ---
Norma Marie [place] 01/27/18 0815: Subjective HPI/CRCU Issues: Patient was started on Oxacillin per culture results overnight. Stable afebrile. Objective Vital Signs & I&O Last 8 Hrs of Vitals and I&O: Intake & Output 01/27 1600 01/27 0800 01/27 0000 Intake Total 1747 1408 Output Total 491 535 Balance 1256 873 Intake, IV 1547 1188 Intake, Oral 200 220 Output, Stool 1 Output, Urine 490 535 Exam General Appearance: no apparent distress, alert, awake Head: atraumatic, normal appearance Respiratory: normal breath sounds, chest non-tender, no respiratory distress Cardiovascular: regular rate/rhythm Gastrointestinal: normal bowel sounds, soft, non-tender Extremities: normal inspection, could wiggle toes, sensations grossly intact, unable to lift BLE up Current Medications: Current Medications Sig/Shade Start time Last Medication Dose Route Stop Time Status Admin Acetaminophen 650 MG Q6P PRN 01/25 1830 AC PO Acetaminophen 1,000 MG Q6P PRN 01/25 1830 AC IV Aspirin Buffered 81 MG DAILY 01/26 0900 AC 01/27 PO 0833 Heparin Sodium 4,000 UNIT ONE ONE 01/27 1000 DC (Porcine) IV 01/27 1001 Heparin Sodium 8,000 UNIT ONCE ONE 01/26 1300 DC 01/26 (Porcine) IV 01/26 1301 1442 Heparin Sodium 25,000 UNIT Q24H 01/25 1445 AC 01/27 (Porcine) IV 0859 Sodium Chloride 500 ML Hydromorphone HCl 0.4 MG Q4P PRN 01/25 1830 AC 01/27 IV 0831 Magnesium Oxide 400 MG ONE ONE 01/27 0715 DC 01/27 PO 01/27 0716 0759 Non-Formulary 0 SEE ADMIN CRITERIA 01/27 0845 CAN Medication ANY Oxacillin Sodium 2,000 MG Q4H 01/27 0845 AC Sodium Chloride 100 ML IV Oxacillin Sodium 2,000 MG Q4H 01/27 0400 DC 01/27 Dextrose/Water 100 ML IV 0759 Oxacillin Sodium 2,000 MG Q4H 01/26 2230 DC 01/27 Dextrose/Water 100 ML IV 0028 Potassium Chloride 60 MEQ ONCE ONE 01/27 0715 DC 01/27 PO 01/27 0716 0759 Sodium Chloride 1,000 ML Q8H 01/26 0500 AC 01/27 IV 1053 Impression/Plan Impression/Problem List Impression: Patient is a 52-year-old man with a past medical history of hypertension, osteoarthritis, history of right hip ankle surgery status post hardware, chronic left foot nonhealing ulcer, leading to MSSA bacteremia complicated by involvement of the joints including left knee and right shoulder. He needed treatment for 4 weeks of Unasyn and discharged to rehab. He was discharged to home 2 week before the admission and presented to [facility] ED for increased back pain and weakness related to fall around 3 days ago. After fall he was not able to get out of the bed. ED course - Vital signs at the time of admission -temperature 98.9, pulse 124, respiratory 18, blood pressure 140/72, SPO2 88% on room air and 96% on 2 L of nasal cannula. Blood workup showed-WBC 15.5, hemoglobin 12.3, hematocrit 38.8, platelet count 581, granulocyte 91.5, lymphocytes 4.1, band cells 0, serum sodium 145, potassium 2.8, chloride 104, carbon dioxide 31, anion gap 11, BUN 15, creatinine 0.7, glucose 107, calcium 8.9, total bilirubin 0.7, AST 36, ALT 30, alkaline phosphatase 167, troponin I 0.27, albumin 3.0, d-dimer 2193, UA showed -nitrite negative, esterase negative, RBC 50-75, hyaline casts rare, urine hemoglobin large. ABG showed -pH 7.33, PCO2 65, PO2 121, bicarbonate 33. Chest x-ray -No acute cardiopulmonary findings. X-ray lumbar spine-Possible erosion/osteomyelitis/discitis involving the superior endplate of L2. CT chest/abdomen/pelvis - 1. Large pulmonary arteries, ? chronic pulmonary arterial hypertension/chronic pulmonary valve stenosis. 2. Pulmonary emboli are observed within the right upper lobe and left lower lobe. No evidence of heart strain. 3.At L1-L2, the disc space is widened the vertebral endplate erosions.Associated mild endplate sclerosis, minimal gas in the disc space and mild edema of adjacent paraspinal tissues. Small foci of gas project anterior to the deformed, eroded disc space, anterior to the left psoas muscle. 4.Small bowel is mildly dilated in the upper mid abdomen; however, there is no focal transition point. There is no overt bowel obstruction. This might represent mild ileus. Bilateral venous Doppler of lower extremities -No evidence of DVT in either legs. Echocardiogram -Technically difficult and very limited. LVEF 60-65%. Assessment and plan - Bilateral right upper lobe/left lower lobe pulmonary emboli -mild to moderate; patient is hemodynamically stable - * We will continue patient on injection heparin drip * Watch for the bleeding * Will follow cardiology recommendation L1-L2 Lumbar discitis - * Started IV Oxacillin 2g q4h empirically per ID after patient's culture grew GPC, pending final culture. * No apparent epidural abscess on CT, postivie with discitis. - Patient claimed that MRI was "too narrow for his shoulders?". * We will not be able to do biopsy as patient is on heparin drip and it is an acute PE. We will plan for biopsy if needed after the weekend probably Monday or Monday. * Patient was also having weakness in the both legs - we will follow neurology recommendation. * Pending Arterial Doppler BLE - CT Thoracic/Lumbar 01/26 1. Endplate erosive change at C7-T1 representing infectious discitis. However, there is no rim-enhancing fluid collection in the disc space or in the paraspinal soft tissues. No epidural abscess at this level. 2. Old compression fracture of the T11 vertebral body. There is minimal retropulsion of the posterosuperior wall of the compressed T11 vertebral body producing central spinal canal stenosis. 3. L1-L2 consistent with infectious discitis. New endplate erosive changes at L1 -L2 compared to 12/05/2017. Thickened soft tissue is seen in the anterior epidural space at this level, but there is no drainable fluid collection. No new findings at L1-L2 compared to 01/25/2018. 4. Severe multilevel facet osteoarthritis and multilevel canal stenosis of the lumbar spine. At the right L3-L4 facet joint, there appears to be interval worsening of subarticular bone resorption compared to 12/05/2017. This could be secondary to infection of the L3-L4 facet joint. However, no periarticular fluid collection at this level. Right lower cold extremity -Doppler positive * We will take vascular consult for further evaluation of peripheral vascular disease * Advised for Arterial doppler. Code status - FC Diet - Heart healthy diet. DVT prophylaxis - Heparin drip Problem List: 1. Discitis 2. Pulmonary embolism Pain Ratin Tomorrow's Labs & Rationales: ICU/CBC Ramirez MD,Seymour 01/27/18 0908: Impression/Plan Plan DVT/Prophylaxis: pharmacological Attending MD Review Statement Attending Sign Off Attending Cosign Statement: I have: examined this patient, reviewed avalbl EMR data, personally reviewd images, discussd w/resident/PA/BOTTOM HOOP DRIVER, discussed mgmt plan w/lazara, discussed mgmt plan w/CM, discussed mgmt plan w/pt, agreed w/resident/PA/BOTTOM HOOP DRIVER, amended to note. Other Findings: I, Seymour Guzmán M.D. have examined this patient, reviewed available EMR data, personally reviewed images, discussed with resident/PA/BOTTOM HOOP DRIVER, discussed management plan with housestaff and nursing staff, discussed managment plan all of healthcare providers, discussed management plan with patient and/or family, agreed with resident/PA/BOTTOM HOOP DRIVER. The past history and parts of the chart have been autopopulated. Impression 52 year old man * Pulmonary emboli - right upper lobe and left lower lobe * Submassive PE * discitis - GPCs in blood cultures * difficulty moving extremities * TEN/OHS Plan -heparin gtt to goal PTT -cardiology consultation appreciated -discussed with respiratory therapist to initiate nocturnal bipap -incentive spirometry -neurology consultation appreciated -vascular surgery appreciated, f/u imaging that are recommended -Oxacillin added due to GPCs - ID consultation is appreciated -no evidence of cord compression TTS 35 min
[2018-01-27 09:33] LABS: PTT 45 SEC (25-37)
--- NOTE | 2018-01-27 13:18 | ULTRASOUND REPORT ---
EXAMINATION: US-BILAT LOW EXTR ARTERIAL DOP CLINICAL INFORMATION: Rule out acute process from arterial site. Admitted for PE, bilateral worsening leg weakness. COMPARISON: None. TECHNIQUE: Real-time ultrasound and Doppler techniques (integrating B-mode 2-D vascular images, Doppler spectral analysis and color flow Doppler imaging) were utilized to interrogate the lower extremities. FINDINGS: Right lower extremity: Common femoral artery: 104 cm/sec; triphasic waveform Superficial femoral artery proximal: 62 cm/sec; triphasic waveform Superficial femoral artery mid portion: 65 cm/sec; triphasic waveform Superficial femoral artery distal: 73 cm/sec; triphasic waveform Profunda artery: 48 cm/sec; triphasic waveform Popliteal artery: 86 cm/sec; triphasic waveform Posterior tibial artery: 106 cm/sec; triphasic waveform Anterior tibial artery: 97 cm/sec; triphasic waveform Dorsalis pedis artery: 40 cm/sec; biphasic waveform Left lower extremity: Common femoral artery: 92 cm/sec; triphasic waveform Superficial femoral artery proximal: 104 cm/sec; triphasic waveform Superficial femoral artery mid portion: 71 cm/sec; triphasic waveform Superficial femoral artery distal: 73 cm/sec; triphasic waveform Profunda artery: 34 cm/sec; triphasic waveform Popliteal artery: 47 cm/sec; triphasic waveform Posterior tibial artery: 70 cm/sec; triphasic waveform Anterior tibial artery: 40 cm/sec; triphasic waveform Dorsalis pedis artery: 38 cm/sec; triphasic waveform ADDITIONAL FINDINGS: None. IMPRESSION: No evidence of a hemodynamically significant stenosis based on ultrasound criteria. Greater sensitivity and specificity can be obtained with pre-and post exercise PVRs with JESUS MANUEL calculations. Also consider dedicated CTA for further anatomical detail.
[2018-01-27 15:14] LABS: PTT 79 SEC (25-37)
[2018-01-27 16:00] VITALS: BP 118/76
--- NOTE | 2018-01-27 16:27 | PN- Neurology ---
Subjective Subjective: Found to have discitis and disc material/bone material extruding into thoracic canal at multiple points. Discussed that this is the likely cause of his pain and leg weakness. Further, culture grew Staph Aureus. He was therefore started on Oxacillin. Review of Systems: no change Objective Vital Signs and I&Os Vital Signs Date Time Temp Pulse Resp B/P B/P Pulse O2 O2 Flow FiO2 Mean Ox Delivery Rate 01/27 1200 98 Nasal 3.0L Cannula 01/27 0800 98 Nasal 3.0L Cannula 01/27 0700 97.6 96 22 100/58 98 Nasal 3.0L Cannula 01/27 0400 98 Nasal 3.0L Cannula 01/27 0316 91 98 01/27 0017 102 99 01/27 0000 97.1 102 20 98/64 96 BIPAP 30% 01/27 0000 96 BIPAP 30% 01/26 2219 100 98 01/27 2000 97 Nasal 3.0L Cannula Intake & Output 01/27 1600 01/27 0800 01/27 0000 01/26 1600 01/26 0800 01/26 0000 Intake Total 1997 1747 1408 1383 2679.5 1330.4 Output Total 825 491 535 325 300 535 Balance 1173 1678 171 1850 2379.5 795.4 Intake, IV 1278 1547 1188 1143 2059.5 1330.4 Intake, Oral 720 200 220 240 620 0 Number 3 2 0 0 Bowel Movements Output, Stool 1 Output, Urine 825 490 535 325 300 535 Patient 295 lb 296 lb 295 lb 273 lb Weight Weight Bed scale Measurement Method Physical Exam: Alert and orientedx3 Good strength in arms 1/5 in legs Current Medications: Current Medications Sig/Shade Start time Last Medication Dose Route Stop Time Status Admin Acetaminophen 650 MG Q6P PRN 01/25 1830 AC PO Acetaminophen 1,000 MG Q6P PRN 01/25 1830 AC IV Aspirin Buffered 81 MG DAILY 01/26 0900 AC 01/27 PO 0833 Heparin Sodium 4,000 UNIT ONE ONE 01/27 1000 DC 01/27 (Porcine) IV 01/27 1001 1148 Heparin Sodium 25,000 UNIT Q24H 01/25 1445 AC 01/27 (Porcine) IV 0859 Sodium Chloride 500 ML Hydromorphone HCl 0.4 MG Q4P PRN 01/25 1830 AC 06/16 IV 0831 Magnesium Oxide 400 MG ONE ONE 01/27 0715 DC 01/27 PO 01/27 0716 0759 Non-Formulary 0 SEE ADMIN CRITERIA 01/27 0845 CAN Medication ANY Oxacillin Sodium 2,000 MG Q4H 01/27 0845 AC 01/27 Sodium Chloride 100 ML IV 1605 Oxacillin Sodium 2,000 MG Q4H 01/27 0400 DC 01/27 Dextrose/Water 100 ML IV 0759 Oxacillin Sodium 2,000 MG Q4H 01/26 2230 DC 01/27 Dextrose/Water 100 ML IV 0028 Potassium Chloride 60 MEQ ONCE ONE 01/27 07 DC 01/27 PO 01/27 07 0759 Sodium Chloride 1,000 ML Q8H 01/26 0500 AC 01/27 IV 1053 Results Last 24 Hours of Lab Results: Laboratory Tests 01/27 01/27 01/27 01/26 1420 0854 0500 2000 Chemistry Sodium (137 - 145 mmol/L) 142 Potassium (3.5 - 5.1 mmol/L) 3.4 L Chloride (98 - 107 mmol/L) 102 Carbon Dioxide (22 - 30 mmol/L) 33 H Anion Gap (5 - 16) 7 BUN (9 - 20 mg/dL) 16 Creatinine (0.7 - 1.2 mg/dL) 0.7 Estimated GFR (>60 ml/min) > 60 Glucose (65 - 99 mg/dL) 100 H Calcium (8.4 - 10.2 mg/dL) 7.8 L Phosphorus (2.5 - 4.5 mg/dL) 3.2 Magnesium (1.6 - 2.3 mg/dL) 1.8 Total Bilirubin (0.2 - 1.3 mg/dL) 0.4 AST (17 - 59 U/L) 39 ALT (21 - 72 U/L) 29 Albumin (3.5 - 5.0 g/dL) 2.1 L Coagulation APTT (25 - 37 SEC) 79 H 45 H 53 H 68 H Hematology CBC w Diff NO MAN DIFF REQ WBC (4.8 - 10.8 /CUMM) 14.8 H RBC (4.70 - 6.10 /CUMM) 3.15 L Hgb (14.0 - 18.0 G/DL) 9.1 L Hct (42 - 52 %) 28.2 L MCV (80.0 - 94.0 FL) 89.6 MCH (27.0 - 31.0 PG) 28.9 MCHC (33.0 - 37.0 G/DL) 32.2 L RDW (11.5 - 14.5 %) 17.1 H Plt Count (130 - 400 /CUMM) 341 MPV (7.4 - 10.4 FL) 8.3 Gran % (42.2 - 75.2 %) 87.4 H Lymphocytes % (20.5 - 51.1 %) 6.2 L Monocytes % (1.7 - 9.3 %) 5.8 Eosinophils % (0 - 5 %) 0.3 Basophils % (0.0 - 2.0 %) 0.3 Absolute Granulocytes (1.4 - 6.5 /CUMM) 12.9 H Absolute Lymphocytes (1.2 - 3.4 /CUMM) 0.9 L Absolute Monocytes (0.10 - 0.60 /CUMM) 0.9 H Absolute Eosinophils (0.0 - 0.7 /CUMM) 0 Absolute Basophils (0.0 - 0.2 /CUMM) 0 Recent Imaging Studies: IMPRESSION: 1. Within the thoracic spine, there is endplate erosive change at C7-T1. This could represent infectious discitis. However, there is no rim-enhancing fluid collection in the disc space or in the paraspinal soft tissues. No epidural abscess at this level. 2. Old compression fracture of the T11 vertebral body. There is minimal retropulsion of the posterosuperior wall of the compressed T11 vertebral body producing central spinal canal stenosis. 3. At L1-L2, findings are consistent with infectious discitis. There are new endplate erosive changes at L1-L2 compared to 12/05/2017. Thickened soft tissue is seen in the anterior epidural space at this level, but there is no drainable fluid collection. No new findings at L1-L2 compared to 01/25/2018. 4. Severe multilevel facet osteoarthritis and multilevel canal stenosis of the lumbar spine. At the right L3-L4 facet joint, there appears to be interval worsening of subarticular bone resorption compared to 12/05/2017. This could be secondary to infection of the L3-L4 facet joint. However, no periarticular fluid collection at this level. Assessment/Plan Assessment: 52 year old with previous Staph Aureus Osteomyelitis that was treated, now with a new nidus in multiple discs. Likely cause of weakness is myelopathy or Myelitis of the thoracic cord. As he also is being treated for PE with anti- coagulation would strongly recommend screening brain for spetic emboli as these may bleed under anti-coagulation if exist. Plan: 1. NCHCT with contrast 2. MARIAN 3. Agree with Oxacillin 4. MRI thoracic spine and lumbar with contrast if possible. 5. Neurosurgical consult to assess if needs decompression. YC
--- NOTE | 2018-01-27 23:08 | CT SCAN REPORT ---
EXAMINATION: CT HEAD WITHOUT AND WITH CONTRAST CLINICAL INFORMATION: Sepsis, white count. COMPARISON: None TECHNIQUE: Contiguous axial imaging was performed from the skull base to vertex before and after the administration of 95 mL of Optiray 320 intravenous contrast. DLP: 1406 mGy-cm FINDINGS: There is no evidence of acute intracranial hemorrhage. There is asymmetric hypoattenuation within the left inferior cerebellar hemisphere without associated enhancement. No abnormal mass effect or midline shift is seen. No extra-axial fluid collections are identified. There is no abnormal enhancement. The ventricles are normal in size. The osseous structures and soft tissues are normal. The mastoid air cells and visualized portions of the paranasal sinuses are well aerated. IMPRESSION: Asymmetric hypoattenuation the left cerebellar hemisphere without associated enhancement. While this region is prominent infarct, this abnormality is present on both the pre and postcontrast images and is thus concerning concerning for age-indeterminate infarct. Clinical correlation is recommended. Consider MRI for further evaluation. This critical result was discussed with Dr. Cox at 11:05 PM on 01/27/2018 and it was ascertained that the content and urgency of the report was understood at the time of direct communication.
[2018-01-28] VITALS: BP 95/50
--- NOTE | 2018-01-28 01:17 | Event Note ---
Event Note Event Note: Situation : Ct head findings Background : We were signed out to follow CT head findings for concerns of possible septic emboli in the brain. Ct head findings were consistent with hypoattenuation of the left cerebellar hemisphere without associated enhancement representing age indeterminate cerebellar infarct, this abnormality is present on both the pre and postcontrast images and is thus concerning for age-indeterminate infarct. Assessment and Plan : -Nuerology Dr bonner contacted as there was concern of the above posterior circulation stroke being from emboli and possibilty of bleed while on heparin -Call back recieved -CT scan images discussed. -more likely an old infarct and septic emboli will show enhancement and will usually be more than one. -Okay to continue heparin gtt per segundo -Will see patient in am -Rotor Assembler Dr Fontana updated. -Dr Guzmán also informed.
[2018-01-28 03:42] LABS: ABSOLUTE BASOPHIL COUNT 0 /CUMM (0.0-0.2); ABSOLUTE EOSINOPHIL COUNT 0.1 /CUMM (0.0-0.7); ABSOLUTE GRANULOCYTE CT 8.2 /CUMM (1.4-6.5); ABSOLUTE LYMPH COUNT 1.4 /CUMM (1.2-3.4); ABSOLUTE MONOCYTE COUNT 1.1 /CUMM (0.10-0.60); BASOPHIL % 0.4 % (0.0-2.0); EOSINOPHIL % 1.4 % (0-5); GRANULOCYTE % 75.3 % (42.2-75.2); HEMATOCRIT 26.8 % (42-52); MEAN CORPUSCULAR HGB 28.9 PG (27.0-31.0); MEAN CORPUSCULAR HGB CONC 32.3 G/DL (33.0-37.0); MEAN CORPUSCULAR VOLUME 89.5 FL (80.0-94.0); MEAN PLATELET VOLUME 8.3 FL (7.4-10.4); PLATELET COUNT 294 /CUMM (130-400); RBC DISTRIBUTION WIDTH 16.4 % (11.5-14.5); RED BLOOD CELL CT 2.99 /CUMM (4.70-6.10); WHITE BLOOD CELL COUNT 10.9 /CUMM (4.8-10.8)
[2018-01-28 04:02] LABS: PTT 61 SEC (25-37)
[2018-01-28 07:00] VITALS: BP 129/75
--- NOTE | 2018-01-28 07:35 | PN- Infect Dx ---
Subjective Subjective: Afebrile. He still complains of back pain and leg weakness. He does not report any chest pain or shortness of breath Objective Last 24 Hrs of Vital Signs/I&O Vital Signs Date Time Temp Pulse Resp B/P B/P Pulse O2 O2 Flow FiO2 Mean Ox Delivery Rate 01/28 0400 98 BIPAP 30% 01/28 0309 77 98 01/28 0113 80 98 01/28 0000 97.1 72 23 95/50 98 BIPAP 30% 01/28 0000 98 BIPAP 30% 01/27 2232 80 98 01/27 2000 97 Nasal 2.0L Cannula 01/27 1600 98 Nasal 2.0L Cannula 01/27 1600 97.3 89 26 118/76 98 Nasal 2.0L Cannula 01/27 1200 98 Nasal 3.0L Cannula 01/27 0800 98 Nasal 3.0L Cannula Intake & Output 01/28 0800 01/28 0000 01/27 1600 Intake Total 1336 1680.9 1998 Output Total 350 600 825 Balance 986 1080.9 1173 Intake, IV 1096 1305.9 1278 Intake, Oral 240 375 720 Number 1 3 Bowel Movements Output, Urine 350 600 825 Patient 295 lb Weight Physical Exam Other Physical Findings: He is awake and alert, appearing in no acute distress Lungs are clear Heart regular rhythm with no murmur Extremities no cyanosis, clubbing or edema Neuro marked weakness of both lower extremities but exam is limited secondary to pain Wood catheter remains in place Results Last 24 Hours of Lab Results: Laboratory Tests 01/28 01/27 01/27 0300 1420 0854 Chemistry Sodium (137 - 145 mmol/L) 143 Potassium (3.5 - 5.1 mmol/L) 3.8 Chloride (98 - 107 mmol/L) 105 Carbon Dioxide (22 - 30 mmol/L) 32 H Anion Gap (5 - 16) 6 BUN (9 - 20 mg/dL) 12 Creatinine (0.7 - 1.2 mg/dL) 0.6 L Estimated GFR (>60 ml/min) > 60 Glucose (65 - 99 mg/dL) 104 H Calcium (8.4 - 10.2 mg/dL) 7.8 L Phosphorus (2.5 - 4.5 mg/dL) 3.4 Magnesium (1.6 - 2.3 mg/dL) 1.9 Total Bilirubin (0.2 - 1.3 mg/dL) 0.2 AST (17 - 59 U/L) 30 ALT (21 - 72 U/L) 28 Albumin (3.5 - 5.0 g/dL) 2.0 L Coagulation APTT (25 - 37 SEC) 61 H 79 H 45 H Hematology CBC w Diff NO MAN DIFF REQ WBC (4.8 - 10.8 /CUMM) 10.9 H RBC (4.70 - 6.10 /CUMM) 2.99 L Hgb (14.0 - 18.0 G/DL) 8.6 L Hct (42 - 52 %) 26.8 L MCV (80.0 - 94.0 FL) 89.5 MCH (27.0 - 31.0 PG) 28.9 MCHC (33.0 - 37.0 G/DL) 32.3 L RDW (11.5 - 14.5 %) 16.4 H Plt Count (130 - 400 /CUMM) 294 MPV (7.4 - 10.4 FL) 8.3 Gran % (42.2 - 75.2 %) 75.3 H Lymphocytes % (20.5 - 51.1 %) 13.2 L Monocytes % (1.7 - 9.3 %) 9.7 H Eosinophils % (0 - 5 %) 1.4 Basophils % (0.0 - 2.0 %) 0.4 Absolute Granulocytes (1.4 - 6.5 /CUMM) 8.2 H Absolute Lymphocytes (1.2 - 3.4 /CUMM) 1.4 Absolute Monocytes (0.10 - 0.60 /CUMM) 1.1 H Absolute Eosinophils (0.0 - 0.7 /CUMM) 0.1 Absolute Basophils (0.0 - 0.2 /CUMM) 0 Last 24 Hours of Guilherme Results: Blood cultures x 2 January 26 positive for Staph aureus sensitive to Oxacillin Recent Imaging Studies: CT of the thoracolumbar spine January 26 reveals endplate erosive changes at C7-T1, with no enhancing fluid collection in the disc space or paraspinal soft tissue and no epidural abscess at this level; old compression fracture of the T11 vertebral body; discitis at L1-L2, with new endplate erosive changes and with thickened soft tissue in the anterior epidural space, with no drainable fluid collection Bilateral arterial Dopplers January 27 no evidence of any hemodynamically significant stenosis CT of the head January 27 asymmetric hypoattenuation in the left cerebellar hemisphere without enhancement Assessment/Plan ID Impression: Recurrent Staph aureus bacteremia, presumably related to his previous bacteremia , with seeding of his lumbar spine, resulting in a discitis, with no evidence of any epidural abscess on the CT scan. His lower extremity weakness is felt by Neurology to be secondary to a myelopathy or myelitis, with neurosurgical evaluation recommended. His CT of the head findings are noted, raising concern for a possible infarct, and endocarditis remains a concern. Unfortunately he was not able to fit into the MRI; therefore it is unlikely that the spine or head can be further imaged with this modality. He remains on Heparin for bilateral pulmonary emboli. Suggestion: 1. Repeat blood cultures 2 2. Neurosurgical evaluation 3. Would pursue MARIAN 4. Continue Oxacillin
--- NOTE | 2018-01-28 08:25 | PN- Resident CRCU ---
Adrienne GRAJEDA,Andrew 01/28/18 0824: Subjective HPI/CRCU Issues: Bilateral pulmonary embolism; Staph aureus bacteremia; Possible osteomyelitis of spine 24 Hour Events: I followed up and examined the patient today. She is resting comfortably in bed , not in distress, and does not offer any complaints. He is receiving IV amoxicillin, and IV Heparin. VSS. He is moving his ankle but still not moving his knees freely. Maximum he did was slight movement of b/l knees, not sure if that was a hip bending that caused slight knee movement. Sensation is intact, no incontinence, no fever/chills. No numb area at the bottom. Objective Vital Signs & I&O Last 8 Hrs of Vitals and I&O: Vital Signs Date Time Temp Pulse Resp B/P B/P Pulse O2 O2 Flow FiO2 Mean Ox Delivery Rate 01/28 0400 98 BIPAP 30% 01/28 0309 77 98 01/28 0113 80 98 01/28 0000 97.1 72 23 95/50 98 BIPAP 30% 01/28 0000 98 BIPAP 30% 01/27 2232 80 98 01/27 2000 97 Nasal 2.0L Cannula 01/27 1600 98 Nasal 2.0L Cannula 01/27 1600 97.3 89 26 118/76 98 Nasal 2.0L Cannula 01/27 1200 98 Nasal 3.0L Cannula Intake & Output 01/28 1600 01/28 0800 01/28 0000 Intake Total 1336 1680.9 Output Total 350 600 Balance 986 1080.9 Intake, IV 1096 1305.9 Intake, Oral 240 375 Number 1 Bowel Movements Output, Urine 350 600 Exam General Appearance: well developed/nourished, no apparent distress, alert, awake , comfortable, obese Other Physical Findings: Skin No Rashes, tattoos+, Rt foot has healing wound Skin Temp/Moisture Exam: Warm/Dry HEENT Atraumatic, PERRLA, EOMI, very dry mucosa Neck Supple, No JVD Cardiovascular Regular Rate, Normal S1, Normal S2 Lungs Clear to Auscultation, Normal Air movement anteriorly Abdomen Normal Bowel Sounds, Soft, No Tenderness Neurological Normal Speech, Strength at 5/5 X4 Ext, Normal Tone, Sensation Intact, Cranial Nerves 3-12 NL, Reflexes 2+, moving his ankles and intact sensation b/l, but still knee exam is limited for motor activity Extremities No Clubbing, No Cyanosis, No Edema, pulses in dorsalis pedis weak b/ l, Rt foot cooler than Left, b/l toes SINGLE NEEDLE OPERATOR<2 sec Vascular Pulses Symmetrical, b/l weak pulse over feet, but SINGLE NEEDLE OPERATOR<2 sec IV Drips IV Drips: IV Heparin Current Medications: Current Medications Sig/Shade Start time Last Medication Dose Route Stop Time Status Admin Acetaminophen 650 MG Q6P PRN 01/25 1830 AC PO Acetaminophen 1,000 MG Q6P PRN 01/25 1830 AC IV Aspirin Buffered 81 MG DAILY 01/26 0900 AC 01/28 PO 0803 Atorvastatin Calcium 40 MG 1700 01/28 0315 AC 01/28 PO 0415 Heparin Sodium 4,000 UNIT ONE ONE 01/27 1000 DC 01/27 (Porcine) IV 01/27 1001 1148 Heparin Sodium 25,000 UNIT Q24H 01/25 1445 01/28 (Porcine) IV 0419 Sodium Chloride 500 ML Hydromorphone HCl 0.4 MG Q4P PRN 01/25 1830 01/28 IV 0615 Magnesium Oxide 400 MG ONE ONE 01/28 0800 TN 01/28 PO 01/28 0801 0803 Non-Formulary 0 SEE ADMIN CRITERIA 01/27 0845 CAN Medication ANY Oxacillin Sodium 2,000 MG Q4H 01/27 0845 01/28 Sodium Chloride 100 ML IV 0803 Oxacillin Sodium 2,000 MG Q4H 01/27 0400 TN 01/27 Dextrose/Water 100 ML IV 0759 Potassium Chloride 40 MEQ ONCE ONE 01/28 0800 DC 01/28 PO 01/28 0801 0803 Sodium Chloride 1,000 ML Q8H 01/26 0500 01/27 IV 2023 Antibiotics Antibiotic: Oxacillin IV/PO? IV Impression/Plan Impression/Problem List Impression: 52 yo M with pmh of HTN, pre-DM, TEN on CPAP (follows Dr Guzmán), arthritis, Left fifth toe osteomyelitis s/p amputation, recurrence of Left foot wound s/p debridement of necrotic bone, recent admission in November (TN'ed in 12/14/17) for sepsis, 2/2 Left foot osteomyelitis s/p I&D and Left knee septic arthritis discharged to [facility] for IV antibiotics via PICC line until January 09, and recently discharged home was referred to the emergency department for severe back pain in inability to rise up from the bed. In the ED, patient was found to be tachypneic, tachycardic, hypoxic to 88%, and was given O2 via nasal cannula, and also had severe back pain, preventing further examination/radiology. IV Heparin was started before the diagnosis of PE and IV antibiotics was later started when the first set of culture was positive for GPC. He is now in Oxacillin an seems to be doing slightly better if not the same, but he still has b/l knee weakness without any local swelling/redness/ fever or chills. Is currently managed in the ICU for management of following issues: RESPIRATORY # Bilateral large pulmonary embolism Patient has bilateral pulmonary embolism and IV heparin was continued. Will continue that. #Obstructive sleep apnea, on CPAP at home Patient was hypoxic when he came in, responded well to osygen and BiPAP at night. INFECTIOUS DISEASE #SA osteomyelitis Continuing IV Oxacillin, and also searching if he has a source of seeding like his previous left foot osteomyelitis site although he was treated with full course of IV antibiotics. Echo was sub-optimal given his body habitus, and he'll probably get a MARIAN to rule out vegetations in the heart/valves. As for the spine osteomyelitis, he does not have any abscess, this does not need to be drained. #Acute on chronic back pain, due to discitis/osteomyelitis Neurology recommendation appreciated regarding the patient possibly having myelitis more cord compression. His clinical examination remains unchanged without signs of I teri, even though he is not moving his bilateral knees as before his fall. Of note, he had a fall on his knees (b/l) on Monday and has been moving less since then. X-ray of the knees pending. CARDIOLOGY #Elevated troponin, likely type II NJ Given his acute hypoxic respiratory failure due to PE, he had a type II NJ and the troponin has already trended down. Cardiology recs appreciated. HEMATOLOGY #Leukocytosis Secondary to osteomyelitis, on IV abx. #Hematuria Patient does not complain of any abd/flank pain or changes in urination habit or color. Not sure if this is significant, but will have to consider if he gets severe anemia/bleeds. METABOLIC #Hypokalemia Being repleted as necessary. Today is 3.8 ALIMENTARY No issues, but will keep the patient nothing by mouth, tonight for possible transesophageal echocardiogram in the morning.. NEPHROLOGY No issues. NEUROLOGY #Spine osteomyelitis, see note above. #Bilateral leg weakness, see note above. Neurosurgery consultation requested today, see even note for details. Also, will try getting open MRI of the brain, and the spine tomorrow. MISC Diet: NPO from midnight for possible MARIAN tomorrow. DVT ppx: IV Heparin running Code status: Full code Problem List: 1. Pulmonary embolism 2. Osteomyelitis of spine Pain Ratin Pain Location: back Pain Goal: Pain 4 or less Pain Plan: prn Tomorrow's Labs & Rationales: CBC, ICU lab bundle, MRI brain and spine Plan DVT/Prophylaxis: pharmacological Seymour Guzmán MD 01/28/18 1142: Attending MD Review Statement Attending Sign Off Attending Cosign Statement: I have: examined this patient, reviewed avalbl EMR data, personally reviewd images, discussd w/resident/PA/SHOPPING CENTRE MANAGER, discussed mgmt plan w/lazara, discussed mgmt plan w/CM, discussed mgmt plan w/pt, agreed w/resident/PA/SHOPPING CENTRE MANAGER, amended to note. Other Findings: ISeymour M.D. have examined this patient, reviewed available EMR data, personally reviewed images, discussed with resident/PA/SHOPPING CENTRE MANAGER, discussed management plan with housestaff and nursing staff, discussed managment plan all of healthcare providers, discussed management plan with patient and/or family, agreed with resident/PA/SHOPPING CENTRE MANAGER. The past history and parts of the chart have been autopopulated. Impression 52 year old man * Pulmonary emboli - right upper lobe and left lower lobe * Submassive PE * discitis - GPCs in blood cultures * difficulty moving extremities * TEN/OHS Plan -heparin gtt to goal PTT -cardiology consultation appreciated -nocturnal bipap -incentive spirometry -neurology consultation appreciated -vascular surgery appreciated -Oxacillin added due to GPCs - ID consultation is appreciated -no evidence of cord compression -neurosurgical consultation -will attempt to obtain an open MRI if possible at [facility], if not feasible, can attempt to retry downstairs, given extensive MRI time open option would be most logical and safest TTS 35 min
--- NOTE | 2018-01-28 10:45 | PN- Neurology ---
Subjective Subjective: Stable. Still cannot move legs. 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 Patient denies ataxia, dysmetria or headaches. Review of Systems: no change Objective Vital Signs and I&Os Vital Signs Date Time Temp Pulse Resp B/P B/P Pulse O2 O2 Flow FiO2 Mean Ox Delivery Rate 01/28 0800 95 Nasal 2.0L Cannula 01/28 0700 96.8 81 24 129/75 95 Nasal 2.0L Cannula 01/28 0400 98 BIPAP 30% 01/28 0309 77 98 01/28 0113 80 98 01/28 0000 97.1 72 23 95/50 98 BIPAP 30% 01/28 0000 98 BIPAP 30% 01/27 2232 80 98 01/28 2000 97 Nasal 2.0L Cannula 01/27 1600 98 Nasal 2.0L Cannula 01/27 1600 97.3 89 26 118/76 98 Nasal 2.0L Cannula 01/27 1200 98 Nasal 3.0L Cannula Intake & Output 01/28 1600 01/28 0800 01/28 0000 01/27 1600 01/27 0800 01/27 0000 Intake Total 1336 1680.9 1998 1747 1408 Output Total 350 600 825 491 535 Balance 986 1080.9 1173 1256 873 Intake, IV 1096 1305.9 1278 1547 1188 Intake, Oral 240 375 720 200 220 Number 1 3 Bowel Movements Output, Stool 1 Output, Urine 350 600 825 490 535 Patient 294 lb 295 lb 296 lb Weight Physical Exam: Alert and oriented EOMI, DOROTHEA, face symmetric Legs 1/5 b/l Current Medications: Current Medications Sig/Shade Start time Last Medication Dose Route Stop Time Status Admin Acetaminophen 650 MG Q6P PRN 01/25 1830 AC PO Acetaminophen 1,000 MG Q6P PRN 01/25 1830 AC IV Aspirin Buffered 81 MG DAILY 01/26 0900 AC 01/28 PO 0803 Atorvastatin Calcium 40 MG 1700 01/28 0315 AC 01/28 PO 0415 Heparin Sodium 25,000 UNIT Q24H 01/25 1445 AC 01/28 (Porcine) IV 0419 Sodium Chloride 500 ML Hydromorphone HCl 0.4 MG Q4P PRN 01/25 1830 AC 01/28 IV 0615 Magnesium Oxide 400 MG ONE ONE 01/28 0800 DC 01/28 PO 01/28 0801 0803 Oxacillin Sodium 2,000 MG Q4H 01/27 0845 AC 01/28 Sodium Chloride 100 ML IV 0803 Potassium Chloride 40 MEQ ONCE ONE 01/28 0800 DC 01/28 PO 01/28 0801 0803 Sodium Chloride 1,000 ML Q8H 01/26 0500 AC 01/28 IV 1029 Results Last 24 Hours of Lab Results: Laboratory Tests 01/28 01/27 0300 1420 Chemistry Sodium (137 - 145 mmol/L) 143 Potassium (3.5 - 5.1 mmol/L) 3.8 Chloride (98 - 107 mmol/L) 105 Carbon Dioxide (22 - 30 mmol/L) 32 H Anion Gap (5 - 16) 6 BUN (9 - 20 mg/dL) 12 Creatinine (0.7 - 1.2 mg/dL) 0.6 L Estimated GFR (>60 ml/min) > 60 Glucose (65 - 99 mg/dL) 104 H Calcium (8.4 - 10.2 mg/dL) 7.8 L Phosphorus (2.5 - 4.5 mg/dL) 3.4 Magnesium (1.6 - 2.3 mg/dL) 1.9 Total Bilirubin (0.2 - 1.3 mg/dL) 0.2 AST (17 - 59 U/L) 30 ALT (21 - 72 U/L) 28 Albumin (3.5 - 5.0 g/dL) 2.0 L Coagulation APTT (25 - 37 SEC) 61 H 79 H Hematology CBC w Diff NO MAN DIFF REQ WBC (4.8 - 10.8 /CUMM) 10.9 H RBC (4.70 - 6.10 /CUMM) 2.99 L Hgb (14.0 - 18.0 G/DL) 8.6 L Hct (42 - 52 %) 26.8 L MCV (80.0 - 94.0 FL) 89.5 MCH (27.0 - 31.0 PG) 28.9 MCHC (33.0 - 37.0 G/DL) 32.3 L RDW (11.5 - 14.5 %) 16.4 H Plt Count (130 - 400 /CUMM) 294 MPV (7.4 - 10.4 FL) 8.3 Gran % (42.2 - 75.2 %) 75.3 H Lymphocytes % (20.5 - 51.1 %) 13.2 L Monocytes % (1.7 - 9.3 %) 9.7 H Eosinophils % (0 - 5 %) 1.4 Basophils % (0.0 - 2.0 %) 0.4 Absolute Granulocytes (1.4 - 6.5 /CUMM) 8.2 H Absolute Lymphocytes (1.2 - 3.4 /CUMM) 1.4 Absolute Monocytes (0.10 - 0.60 /CUMM) 1.1 H Absolute Eosinophils (0.0 - 0.7 /CUMM) 0.1 Absolute Basophils (0.0 - 0.2 /CUMM) 0 Recent Imaging Studies: IMPRESSION: Asymmetric hypoattenuation the left cerebellar hemisphere without associated enhancement. While this region is prominent infarct, this abnormality is present on both the pre and postcontrast images and is thus concerning concerning for age-indeterminate infarct. Clinical correlation is recommended. Consider MRI for further evaluation. This critical result was discussed with Dr. 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 Although head CT showed possible small cerebellar stroke there are no clear septic emboli. Plan: 1. C/w current regimen. 2. Recommend trying to obtain MRI and overcome restrictions in obtaining it. 3. C/w anti-coagulation and oxacillin. 4. Obtain MARIAN 5. Neurosurgery consult.
--- NOTE | 2018-01-28 10:47 | PN- Cardiology ---
Subjective Subjective: Patient is resting comfortably. Denies shortness of breath or palpitations. Still has back pain. Objective Vital Signs and I&Os Vital Signs Date Time Temp Pulse Resp B/P B/P Pulse O2 O2 Flow FiO2 Mean Ox Delivery Rate 01/28 0800 95 Nasal 2.0L Cannula 01/28 0700 96.8 81 24 129/75 95 Nasal 2.0L Cannula 01/28 0400 98 BIPAP 30% 01/28 0309 77 98 01/28 0113 80 98 01/28 0000 97.1 72 23 95/50 98 BIPAP 30% 01/28 0000 98 BIPAP 30% 01/27 2232 80 98 01/27 2000 97 Nasal 2.0L Cannula 01/27 1600 98 Nasal 2.0L Cannula 01/27 1600 97.3 89 26 118/76 98 Nasal 2.0L Cannula 01/27 1200 98 Nasal 3.0L Cannula Intake & Output 01/28 1600 01/28 0800 01/28 0000 01/27 1600 01/27 0800 01/27 0000 Intake Total 1336 1680.9 1998 1747 1408 Output Total 350 600 825 491 535 Balance 986 1080.9 1173 1256 873 Intake, IV 1096 1305.9 1278 1547 1188 Intake, Oral 240 375 720 200 220 Number 1 3 Bowel Movements Output, Stool 1 Output, Urine 350 600 825 490 535 Patient 294 lb 295 lb 296 lb Weight Physical Exam: General: no apparent distress. Alert. Eyes: No obvious scleral icterus. HEENT: No jugular venous distention or abnormal jugular venous pulsations. Cardiovascular: Normal intensity S1/S2. Regular Respiratory: No rales or rhonchi Abdomen: no guarding or rebound tenderness. Musculoskeletal: No clubbing or cyanosis noted; trace edema Skin: warm Neurologic: Alert Current Medications: Current Medications Sig/Shade Start time Last Medication Dose Route Stop Time Status Admin Acetaminophen 650 MG Q6P PRN 01/25 1830 AC PO Acetaminophen 1,000 MG Q6P PRN 01/25 1830 AC IV Aspirin Buffered 81 MG DAILY 01/26 0900 AC 01/28 PO 0803 Atorvastatin Calcium 40 MG 1700 01/28 0315 AC 01/28 PO 0415 Heparin Sodium 25,000 UNIT Q24H 01/25 1445 AC 01/28 (Porcine) IV 0419 Sodium Chloride 500 ML Hydromorphone HCl 0.4 MG Q4P PRN 01/25 1830 01/28 IV 0615 Magnesium Oxide 400 MG ONE ONE 01/28 0800 DC 01/28 PO 01/28 0801 0803 Oxacillin Sodium 2,000 MG Q4H 01/27 0845 01/28 Sodium Chloride 100 ML IV 0803 Potassium Chloride 40 MEQ ONCE ONE 01/28 0800 DC 01/28 PO 01/28 0801 0803 Sodium Chloride 1,000 ML Q8H 01/26 0500 01/28 IV 1029 Results Last 48 Hrs of Labs/Mics: Laboratory Tests 01/28/18 0300: Anion Gap 6, Estimated GFR > 60, Glucose 104 H, Calcium 7.8 L, Phosphorus 3.4, Magnesium 1.9, Total Bilirubin 0.2, AST 30, ALT 28, Albumin 2.0 L, APTT 61 H, CBC w Diff NO MAN DIFF REQ, RBC 2.99 L, MCV 89.5, MCH 28.9, MCHC 32.3 L, RDW 16.4 H, MPV 8.3, Gran % 75.3 H, Lymphocytes % 13.2 L, Monocytes % 9.7 H, Eosinophils % 1.4, Basophils % 0.4, Absolute Granulocytes 8.2 H, Absolute Lymphocytes 1.4, Absolute Monocytes 1.1 H, Absolute Eosinophils 0.1, Absolute Basophils 0 01/27/18 1420: APTT 79 H 01/27/18 0854: APTT 45 H 01/27/18 0500: Anion Gap 7, Estimated GFR > 60, Glucose 100 H, Calcium 7.8 L, Phosphorus 3.2, Magnesium 1.8, Total Bilirubin 0.4, AST 39, ALT 29, Albumin 2.1 L, APTT 53 H, CBC w Diff NO MAN DIFF REQ, RBC 3.15 L, MCV 89.6, MCH 28.9, MCHC 32.2 L, RDW 17.1 H, MPV 8.3, Gran % 87.4 H, Lymphocytes % 6.2 L, Monocytes % 5.8, Eosinophils % 0.3, Basophils % 0.3, Absolute Granulocytes 12.9 H, Absolute Lymphocytes 0.9 L, Absolute Monocytes 0.9 H, Absolute Eosinophils 0, Absolute Basophils 0 01/26/18 2000: APTT 68 H Recent Imaging Studies: Telemetry tracings were personally reviewed and currently shows sinus rhythm. He did have a self-limited episode of narrow complex tachycardia yesterday. Head CT: Asymmetric hypoattenuation the left cerebellar hemisphere without associated enhancement. While this region is prominent infarct, this abnormality is present on both the pre and postcontrast images and is thus concerning concerning for age-indeterminate infarct. Clinical correlation is recommended. Consider MRI for further evaluation. Assessment/Plan Assessment/Plan 1. hypercapnic respiratory failure 2. Bilateral pulmonary emboli with tachypnea, tach cardia, hypoxia, 3. Mildly elevated troponin 4. Abnormal EKG with ventricular ectopy 5. Leukocytosis 6. discitis 7. Hypokalemia 8. Self-limited episode of supraventricular tachycardia on telemetry Remains hemodynamically stable. Continue antibiotics and intravenous heparin. Maintain on telemetry to look for any evidence of arrhythmia recurrence; would not add beta-zahida at this time as he did have some mild hypotension. Recommend keeping him n.p.o. after midnight as he may require transesophageal echocardiogram. Continue to replete electrolytes. Deng Cary MD [facility] Continue telemetry? Yes
--- NOTE | 2018-01-28 12:28 | Event Note ---
Event Note Event Note: Spoke with Neurosurgeon: I spoke with Dr. Samanta Vann (neurosurgeon) over phone and updated the situation about the patient, including his history, the fall on his knees on Monday, his weakness, pulmonary embolism on IV heparin, possible osteomyelitis on IV antibiotics not biopsied/cultured, possible seeding due to previous/recent osteomyelitis of left foot, CT head finding, and the concern especially from neurology regarding his decreased leg/knee movement without any obvious external trauma (except h/o fall on his knees b/l on Monday) given his multi-level spinal disease process, despite a negative CT scan for cord compression and intact sensation, rectal tone and no saddle anaesthesia. Dr Vann discussed the case with me and mentioned that the patient is receiving IV Heparin, IV antibiotics with a negative CT scan and exam that does not point towards cord compression and acute intervention required. For b/l leg weakness, after the recent trauma, he could benefit from physical therapy and if there is any concerning neurological changes then would consider neurosurgical interventions. For now, given his condition and the life-saving IV Heparin running, neurosurgical intervention would be more detrimental than beneficial. MRI at this point can be helpful if can be obtained to rule out cord compression and if done can be done with AND without [place]. Attending Dr Guzmán notified accordingly. MRI of spine and also the brain (given the finding of hypo-attenuation area of left cerebellar hemisphere) with AND without [place] ordered and requested nursing and hospital for the arrangement accordingly as the patient could not get MRI done at [facility] earlier.
[2018-01-28 15:02] LABS: PTT 57 SEC (25-37)
[2018-01-28 16:00] VITALS: BP 116/74
--- NOTE | 2018-01-28 16:43 | Cons- Neurosurgical ---
Phillip Steinberg 01/28/18 1559: General Information and HPI Consulting Request Date of Consult: 01/28/18 Requested By: Seymour Guzmán MD Reason for Consult: Probable osteomyelitis spine Source of Information: patient, old records Exam Limitations: poor historian History of Present Illness: This is a 52-year-old man with a history of HTN, TEN on CPAP, pre-diabetes and a history of recurrent left foot osteomyelitis who presents with leg weakness and back pain status post mechanial fall this past Monday. He reports slipping in his bathroom while trying to put on his slippers and feel forward, landing on his knees. He had difficulty getting back up, but eventually after ten minutes made it back to his bed where he remained for two days straight until OT arrived for a therapy session. He continued to complain of leg weakness and back pain and was instructed to call his orthopedic surgeon, Dr. Baires who suggested he go to the emergency room for further evaluation. He was admitted to the ICU with bilateral pulmonary emboli of the right upper lobe and left lower lobe and started on IV heparin drip. An X-ray of the lumbosacral spine revealed possible erosion/osteomyelitis/discitis involving the superior endplate of L2. Further imaging revealed endplate erosive change at C7-T1 and L1-L2 concerning for infectious discitis on CT of the thoracic and lumbar spine and he was started on IV Oxicillin. Currently, he reports sharp lower back pain and intermittent muscle spasms which is improved with Dilaudid. He states he can move his ankles and feet. He denies any head trauma, headache, numbness, tingling, nausea, vomiting, dizziness, lightheadedness, vision or speech changes, bowel or urinary incontience prior to having a oro placed. Of note, patient was recently admitted this past November with MSSA bactremia, left foot osteomyelitis status post excision of the fifth metatarsal with Dr. Rock and left knee septic arthritis status post arthroscopic irrigation and debridement with limited synovectomy with Dr. Ojeda. He completed a 4 week course of IV Unasyn at [facility] [place]. Allergies/Medications Allergies: Coded Allergies: No Known Allergies (09/15/17) Home Med List: Aspirin (Ecotrin*) 81 MG TABLET.DR 1 TAB PO DAILY HEART/BLOOD (Reported) Ibuprofen 800 MG TABLET 1 TAB PO TID PAIN (Reported) Losartan/Hydrochlorothiazide (Losartan-Hctz 50-12.5 MG Tab) 50 MG-12.5 MG TABLET 1 TAB PO DAILY BP (Reported) Meloxicam (Mobic) 15 MG TABLET 1 TAB PO DAILY PAIN (Reported) Metaxalone 800 MG TABLET 1 TAB PO Q8 PAIN (Reported) Metformin HCl (Metformin HCl ER) 500 MG TAB.ER.24 1 TAB PO DAILY Diabetes Current Medications: Current Medications Sig/Shade Start time Last Medication Dose Route Stop Time Status Admin Acetaminophen 650 MG Q6P PRN 01/25 1830 AC PO Acetaminophen 1,000 MG Q6P PRN 01/25 1830 AC IV Aspirin Buffered 81 MG DAILY 01/26 0900 AC 01/28 PO 0803 Atorvastatin Calcium 40 MG 1700 01/28 0315 AC 01/28 PO 0415 Heparin Sodium 4,000 UNIT ONE ONE 01/28 1545 DC 01/28 (Porcine) IV 01/28 1546 1548 Heparin Sodium 25,000 UNIT Q10H 01/28 1445 01/28 (Porcine) IV 1504 Sodium Chloride 500 ML Heparin Sodium 25,000 UNIT Q24H 01/25 1445 DC 01/28 (Porcine) IV 0419 Sodium Chloride 500 ML Hydromorphone HCl 0.4 MG Q4P PRN 01/25 1830 AC 01/28 IV 1144 Magnesium Oxide 400 MG ONE ONE 01/28 0800 DC 01/28 PO 01/28 0801 0803 Oxacillin Sodium 2,000 MG Q4H 01/27 0845 01/28 Sodium Chloride 100 ML IV 1244 Potassium Chloride 40 MEQ ONCE ONE 01/28 0800 DC 01/28 PO 01/28 0801 0803 Sodium Chloride 1,000 ML Q8H 01/26 0500 01/28 IV 1029 Past History Medical History Neurological: NONE EENT: NONE Cardiovascular: hypertension Respiratory: NONE Gastrointestinal: NONE Hepatic: NONE Renal: NONE Musculoskeletal: osteoarthritis, osteomyelitis of the left foot. 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 Home Services at Home: Occupational Therapy, Physical Therapy Primary Language: Kiswahili Smoking Status: Never Smoked ETOH Use: occasional use, quit 19 yrs ago Illicit Drug Use: denies illicit drug use Other Social History: Call his mother in case of emergency per patient. Functional Ability ADLs Independent: dressing, eating, toileting, bathing. Ambulation: independent IADLs Independent: shopping, housework, finances, food prep, telephone, transportation , medication admin. Review of Systems Review of Systems: Refer to H&P Exam & Diagnostic Data Vital Signs and I&O Vital Signs Date Time Temp Pulse Resp B/P B/P Pulse O2 O2 Flow FiO2 Mean Ox Delivery Rate 01/28 1000 95 Nasal 2.0L Cannula 01/28 0800 95 Nasal 2.0L Cannula 01/28 0700 96.8 81 24 129/75 95 Nasal 2.0L Cannula 01/28 0400 98 BIPAP 30% 01/28 0309 77 98 01/28 0113 80 98 01/28 0000 97.1 72 23 95/50 98 BIPAP 30% 01/28 0000 98 BIPAP 30% 01/27 2232 80 98 01/28 2000 97 Nasal 2.0L Cannula Intake & Output 01/28 1600 01/28 0800 01/28 0000 01/27 1600 01/27 0800 01/27 0000 Intake Total 1993 1336 1680.9 1998 1747 1408 Output Total 550 350 600 825 491 535 Balance 3981 605 9171.9 1173 1256 873 Intake, IV 1514 1096 1305.9 1278 1547 1188 Intake, Oral 480 240 375 720 200 220 Number 1 3 Bowel Movements Output, Stool 1 Output, Urine 550 350 600 825 490 535 Patient 294 lb 295 lb 296 lb Weight Physical Exam: General: resting comfortably in ICU in no acute distress HEENT: NC/AT, moist mucus membranes Cardiac: S1S2 noted Lungs: CTAB Back: warm with blanching with mild paraspinal tender along the lumbar region Extremities: Alps in place, no significant edema or calf pain, right foot is cooler than left with scattered ecchymosis, doppler signals Neuro: A&O x3, CN 3-12 intact, motor examined consistent with B/L LE pareparesis with weak B/L hamstrings, toe wiggle, severe proximal weakness B/L, sensory intact to B/L light touch and pin, decreased propioception bilat and no discreet pin level in T/L dermatomes Last 24 Hours of Labs: Laboratory Tests 01/28 01/28 1430 0300 Chemistry Sodium (137 - 145 mmol/L) 143 Potassium (3.5 - 5.1 mmol/L) 3.8 Chloride (98 - 107 mmol/L) 105 Carbon Dioxide (22 - 30 mmol/L) 32 H Anion Gap (5 - 16) 6 BUN (9 - 20 mg/dL) 12 Creatinine (0.7 - 1.2 mg/dL) 0.6 L Estimated GFR (>60 ml/min) > 60 Glucose (65 - 99 mg/dL) 104 H Calcium (8.4 - 10.2 mg/dL) 7.8 L Phosphorus (2.5 - 4.5 mg/dL) 3.4 Magnesium (1.6 - 2.3 mg/dL) 1.9 Total Bilirubin (0.2 - 1.3 mg/dL) 0.2 AST (17 - 59 U/L) 30 ALT (21 - 72 U/L) 28 Albumin (3.5 - 5.0 g/dL) 2.0 L Coagulation APTT (25 - 37 SEC) 57 H 61 H Hematology CBC w Diff NO MAN DIFF REQ WBC (4.8 - 10.8 /CUMM) 10.9 H RBC (4.70 - 6.10 /CUMM) 2.99 L Hgb (14.0 - 18.0 G/DL) 8.6 L Hct (42 - 52 %) 26.8 L MCV (80.0 - 94.0 FL) 89.5 MCH (27.0 - 31.0 PG) 28.9 MCHC (33.0 - 37.0 G/DL) 32.3 L RDW (11.5 - 14.5 %) 16.4 H Plt Count (130 - 400 /CUMM) 294 MPV (7.4 - 10.4 FL) 8.3 Gran % (42.2 - 75.2 %) 75.3 H Lymphocytes % (20.5 - 51.1 %) 13.2 L Monocytes % (1.7 - 9.3 %) 9.7 H Eosinophils % (0 - 5 %) 1.4 Basophils % (0.0 - 2.0 %) 0.4 Absolute Granulocytes (1.4 - 6.5 /CUMM) 8.2 H Absolute Lymphocytes (1.2 - 3.4 /CUMM) 1.4 Absolute Monocytes (0.10 - 0.60 /CUMM) 1.1 H Absolute Eosinophils (0.0 - 0.7 /CUMM) 0.1 Absolute Basophils (0.0 - 0.2 /CUMM) 0 Imaging Results: SERVICE DATE: 01/25/18 EXAM TYPE: RAD - XRY-LUMBOSACRAL SPINE AP & LAT EXAMINATION: XR LUMBOSACRAL SPINE CLINICAL INFORMATION: Low back pain COMPARISON: CT 12/05/2017 TECHNIQUE: 4 views of the lumbosacral spine were obtained. FINDINGS: The superior endplate of the L2 vertebral body is indistinct, potentially representing endplate erosion related to discitis. This is not present on the CT dated 12/05/2017. There is mild to moderate multilevel degenerative disc disease and advanced facet arthropathy throughout the lumbar spine. IMPRESSION: Possible erosion/osteomyelitis/discitis involving the superior endplate of L2. Correlate with the CT abdomen/pelvis which the patient is currently undergoing. SERVICE DATE: 01/25/18 EXAM TYPE: CAT - CT ABD & PELVIS W IV CONTRAST; CTA CHEST-PULMONARY EMBOLISM EXAMINATION: CT ANGIOGRAM OF THE CHEST WITH AND WITHOUT CONTRAST (CT PULMONARY ANGIOGRAM FOR PE) CT ABDOMEN AND PELVIS WITH IV CONTRAST CLINICAL INFORMATION: Tachycardia and hypoxia. Positive troponin level. Evaluate for pulmonary mass. Severe back pain. Evaluate for intra-abdominal pathology. COMPARISON: CT images of lumbar spine, 12/05/2017. TECHNIQUE FOR THE CHEST: Prior to contrast administration, noncontrast localization images were obtained. Subsequently, multidetector volumetric imaging was performed from the thoracic inlet to below the diaphragms following the administration of 95 mL Optiray 320 intravenous contrast. No contrast reaction reported. Sagittal, coronal, and MIP oblique sagittal reformatted images were obtained on the CT workstation, uploaded to PACS, and reviewed. Thereafter, postcontrast CT images of the abdomen and pelvis were acquired at 0.625 mm collimation. DLP: Total exam dose-length product 1778 mGy-cm FINDINGS: CHEST- QUALITY OF STUDY/CONTRAST BOLUS: Satisfactory. PULMONARY ARTERIES: The dilated pulmonary artery trunk measures 5.5 cm transverse diameter. There is heterogeneous attenuation within peripheral vessels rendering vessels somewhat difficult to evaluate for embolic defects. Nevertheless, there are findings consistent with an embolus involving the segmental branch of the right lung apex (images 20-23, series 4). Possible nonocclusive embolus within the branch to the posterior segment of the right lower lobe. There is a branching embolic filling defect of the left lower lobe pulmonary artery predominantly extending into the medial and lateral segmental arteries (images 33-36, series 4). THORACIC AORTA: No acute findings. Thoracic aorta is normal in caliber. No aneurysm or dissection. LUNGS AND PLEURA: Trachea and central airways are widely patent and normal in caliber. Lungs have slightly mosaic attenuation. No pulmonary edema, focal consolidation, pleural effusion or pneumothorax. CARDIOVASCULAR: The heart size is normal. There is mild atherosclerotic calcification of coronary arteries. No inward bowing of the interventricular septum. No pericardial effusion. MEDIASTINUM: The esophagus has normal wall thickness. The visualized portion of the thyroid gland is unremarkable. No mediastinal mass. LYMPHATICS: No pathologic sized axillary, hilar or mediastinal lymph nodes. UPPER ABDOMEN: No reflux of contrast into the IVC. OSSEOUS STRUCTURES: Diffuse idiopathic skeletal hyperostosis with extensive, bulky, flowing anterior ligament ossification of the thoracic spine. Multilevel degenerative arthropathy. Bone island of the T4 vertebral body. No suspicious osseous lesions. Old compression fracture of T11 vertebral body. IMPRESSION: 1. Large pulmonary arteries, as may be seen in chronic pulmonary arterial hypertension. However, dilatation of the pulmonary artery trunk may also occur in the setting of chronic pulmonary valve stenosis. 2. Pulmonary emboli are observed within the right upper lobe and left lower lobe. No evidence of heart strain. ABDOMEN AND PELVIS- LIVER, GALLBLADDER, AND BILIARY TREE: Liver has normal size and contour. Linear focus of calcification in the right hepatic lobe. No hepatic mass. Gallbladder is unremarkable. No intrahepatic or extra hepatic bile duct dilatation. PANCREAS: Unremarkable. SPLEEN: Prominent spleen measures up to 15.8 cm maximum dimension. No focal splenic lesion. ADRENAL GLANDS: Unremarkable. KIDNEYS AND URETERS: Kidneys are normal in size and enhance symmetrically. No renal mass, nephrolithiasis or hydronephrosis. The ureters are unremarkable. BLADDER: Unremarkable. GASTROINTESTINAL TRACT: Stomach is unremarkable. Within the mid and upper abdomen, the jejunum is mildly dilated up to 3.5 cm. There appears to be tapering from mildly dilated to nondilated bowel without a focal transition point or focal bowel wall thickening. The terminal ileum is normal. The appendix is normal. No focal colonic wall thickening or pericolonic fat stranding. No ascites or pneumoperitoneum. ABDOMINAL WALL: Unremarkable. LYMPH NODES: No pathologic sized lymph nodes in the abdomen or pelvis. No inguinal lymphadenopathy. VASCULAR: Mild atherosclerosis of abdominal aorta without aneurysm. Inferior vena cava is normal. The splenic, mesenteric and portal veins are patent. PELVIC: Prostate gland is grossly unremarkable. No pelvic free fluid. MUSCULOSKELETAL: The right femoral head prosthesis is well-positioned within the acetabular cup. Mild osteoarthrosis of the left hip. There is osteoarthritis of sacroiliac joints. Chronic multilevel severe facet osteoarthritis of the lumbar spine with chronic grade 1 anterolisthesis of L4 on L5. At L1-L2, the disc space is widened the vertebral endplate erosions at this level are new compared to 12/05/2017. Associated mild endplate sclerosis, minimal gas in the disc space and mild edema of adjacent paraspinal tissues. Small foci of gas project anterior to the deformed, eroded disc space, anterior to the left psoas muscle (image 38, series 5) and extending toward the aortocaval space of the retroperitoneum (image 44, series 5). No drainable fluid collection. Again noted is the multilevel chronic spinal canal stenosis. IMPRESSION: 1. Small bowel is mildly dilated in the upper mid abdomen; however, there is no focal transition point. There is no overt bowel obstruction. This might represent mild ileus. 2. Findings highly suggestive of infectious spondylodiscitis/osteomyelitis at L1-L2 (new pathology compared to the lumbar spine CT exam of 12/05/2017). 3. Splenomegaly. The critical test results (regarding pulmonary emboli and L1-L2 spondylosis discitis) were discussed with Xavi العلي of the Emergency Room at 4:50 PM on 01/25/2018 and it was ascertained that the content and the importance of the findings was understood at the time of the direct communication. SERVICE DATE: 01/26/18- EXAM TYPE: CAT - CT LUMB SPINE W IV CONTRAST; CT THOR SPINE W IV CONTRAST EXAMINATION: CT THORACIC SPINE WITH IV CONTRAST CT LUMBAR SPINE WITH IV CONTRAST CLINICAL INFORMATION: Severe pain. Evaluate for osteomyelitis, discitis and epidural abscess. COMPARISON: CT images of lumbar spine from 12/05/2017. CT images of chest, abdomen pelvis from 01/25/2018. TECHNIQUE: Multidetector CT imaging evaluation of the thoracic and lumbar spine was performed using 0.625 mm collimation. Axial images are presented at 0.625 mm, 1.25 mm and 2.5 mm slice thickness. Coronal and sagittal reformatted images were generated and reviewed. 95 mL of Optiray 320 nonionic intravenous contrast was administered. DLP was 2062 mGy-cm. FINDINGS: THORACIC SPINE: There is bulky flowing anterior ligament ossification of the thoracic spine consistent with diffuse idiopathic skeletal hyperostosis. There is osseous resorption of endplates of C7-T1 (predominantly affecting the T1 endplate) without evidence of a fluid collection in the disc space or surrounding paraspinal tissues at this level. The central spinal canal is widely patent at C7-T1. No epidural abscess. There is left-sided facet hypertrophy at C7-T1 producing mild foraminal stenosis at this level. There is a bone island of the T4 vertebral body. There is an old compression fracture of the T11 vertebral body with approximately 40% anterior height loss; the vertebra appear osteopenic at T10-T12. The anterior bridging osteophytes are intact at these levels. There is minimal retropulsion of the posterosuperior wall of the T11 vertebral body with central canal stenosis of 0.9 cm AP at this level. The T11 compression fracture can be seen on review of CT localizer images of 12/05/2017. LUMBAR SPINE: Multilevel facet osteoarthritis and disc degeneration of the lumbar spine. At L1-L2, there are erosions of the vertebral endplates with widening of the intervertebral disc space. These findings are new compared to 12/05/2017 but unchanged compared to 01/25/2018. Again noted are small foci of gas within the disc space and within anterior paraspinal tissues, unchanged compared to 01/25/2018. There is no rim-enhancing collection in the disc space or within the paraspinal tissue. There is soft tissue attenuation, likely phlegmon, bulging into the anterior epidural space at the L1-L2 level. This epidural tissue thickening, along with the severe facet hypertrophy, produce moderate to severe central canal stenosis at this level. Also, there is bilateral neural foraminal stenosis. At L2-L3 and L3-L4, there is severe facet hypertrophy and disc bulge producing chronic central canal and bilateral neural foraminal stenosis. At the right facet joint of L3-L4, there appears to be increased subarticular bone resorption compared to 12/05/2017. However, no significant joint effusion or periarticular fluid collection is identified in this region. At L4-L5, there is severe facet osteoarthritis and grade 1 anterolisthesis of L4 on L5, unchanged compared to 12/05/2017. At L5-S1, there is moderate to severe facet arthropathy. IMPRESSION: 1. Within the thoracic spine, there is endplate erosive change at C7-T1. This could represent infectious discitis. However, there is no rim-enhancing fluid collection in the disc space or in the paraspinal soft tissues. No epidural abscess at this level. 2. Old compression fracture of the T11 vertebral body. There is minimal retropulsion of the posterosuperior wall of the compressed T11 vertebral body producing central spinal canal stenosis. 3. At L1-L2, findings are consistent with infectious discitis. There are new endplate erosive changes at L1-L2 compared to 12/05/2017. Thickened soft tissue is seen in the anterior epidural space at this level, but there is no drainable fluid collection. No new findings at L1-L2 compared to 01/25/2018. 4. Severe multilevel facet osteoarthritis and multilevel canal stenosis of the lumbar spine. At the right L3-L4 facet joint, there appears to be interval worsening of subarticular bone resorption compared to 12/05/2017. This could be secondary to infection of the L3-L4 facet joint. However, no periarticular fluid collection at this level. SERVICE DATE: 01/27/18 EXAM TYPE: CAT - CT HEAD W&WO IV CONTRAST EXAMINATION: CT HEAD WITHOUT AND WITH CONTRAST CLINICAL INFORMATION: Sepsis, white count. COMPARISON: None TECHNIQUE: Contiguous axial imaging was performed from the skull base to vertex before and after the administration of 95 mL of Optiray 320 intravenous contrast. DLP: 1406 mGy-cm FINDINGS: There is no evidence of acute intracranial hemorrhage. There is asymmetric hypoattenuation within the left inferior cerebellar hemisphere without associated enhancement. No abnormal mass effect or midline shift is seen. No extra-axial fluid collections are identified. There is no abnormal enhancement. The ventricles are normal in size. The osseous structures and soft tissues are normal. The mastoid air cells and visualized portions of the paranasal sinuses are well aerated. IMPRESSION: Asymmetric hypoattenuation the left cerebellar hemisphere without associated enhancement. While this region is prominent infarct, this abnormality is present on both the pre and postcontrast images and is thus concerning concerning for age-indeterminate infarct. Clinical correlation is recommended. Consider MRI for further evaluation. This critical result was discussed with Dr. Cox at 11:05 PM on 01/27/2018 and it was ascertained that the content and urgency of the report was understood at the time of direct communication. Assessment/Plan Assessment/Plan This is a 52 year-old male with a history of osteomyelitis of the left foot who presented with back pain and lower extremity weakness status post fall with immobility. He was found on imaging to have bilateral pulmonary emboli and concerns for multi-level spinal osteomyelitis with no clear evidence of epidural abscess on CT and staph aureus bacteremia. He is extremely high risk for neurosurgery due to acute pulmonary emboli requring anticoagulation treatment with IV heparin drip. Continue medical management for suspected mulitfocal osteomyelitis. Recommend MRI of total spine with an without contrast Continue antibotics, IV oxicillin per ID. Plan of care discussed with Dr. Vann who is in agreement. Consult Acknowledgment - Thank you for your consult request. [facility] [place] [facility]: Assessment/Plan Consult Acknowledgment - Thank you for your consult request. Attending MD Review Statement Attending Statement Attending Assessment/Plan: Patient was seen and examined. History was reviewed. Imaging studies have been reviewed. Clinical exam consistent with bilateral paraparesis of the lower extremities of proximally one-week duration in the setting of osteomyelitis. Scan this admission earning for progressive involvement of thoracolumbar spine. -Agree with MRI total spine with and without gadolinium -Patient will be extremely high risk for any neurosurgical intervention given totality of medical issues and especially secondary to recent bilateral pulmonary emboli needs to be off anticoagulation for any spine related procedure
[2018-01-28 22:16] LABS: PTT 67 SEC (25-37)
--- NOTE | 2018-01-28 23:20 | RADIOLOGY REPORT ---
EXAMINATIONS: BILATERAL KNEES 3 VIEWS CLINICAL INFORMATION: Knee pain after fall. COMPARISON: December 06, 2017. TECHNIQUE: AP, lateral, oblique views of each knee were obtained. FINDINGS: There is a moderate to large left knee joint effusion with mild overlying soft tissue swelling. Along the inferior aspect of the articular surface of the patella on the left, there is cortical irregularity with suggestion of a small bone fragment. This is new from prior exam. Secondary to poor positioning, evaluation of the right knee is limited. I do not identify a knee joint effusion, though one is difficult to exclude due to the limited positioning. There is overlying soft tissue swelling to the distal thigh. No right-sided acute fracture is identified. IMPRESSION: Moderate to large left knee joint effusion with cortical irregularity and possible small fracture fragment to the inferior articular surface to the patella. Limited evaluation to the right knee due to poor positioning.
[2018-01-29] VITALS: BP 120/80
[2018-01-29 05:04] LABS: ABSOLUTE BASOPHIL COUNT 0 /CUMM (0.0-0.2); ABSOLUTE EOSINOPHIL COUNT 0.2 /CUMM (0.0-0.7); ABSOLUTE GRANULOCYTE CT 6.7 /CUMM (1.4-6.5); ABSOLUTE LYMPH COUNT 1.5 /CUMM (1.2-3.4); ABSOLUTE MONOCYTE COUNT 0.6 /CUMM (0.10-0.60); BASOPHIL % 0.4 % (0.0-2.0); EOSINOPHIL % 1.9 % (0-5); GRANULOCYTE % 74.4 % (42.2-75.2); HEMATOCRIT 26.9 % (42-52); MEAN CORPUSCULAR HGB 28.8 PG (27.0-31.0); MEAN CORPUSCULAR HGB CONC 32.3 G/DL (33.0-37.0); MEAN PLATELET VOLUME 8.5 FL (7.4-10.4); PLATELET COUNT 282 /CUMM (130-400); RBC DISTRIBUTION WIDTH 16.8 % (11.5-14.5); RED BLOOD CELL CT 3.02 /CUMM (4.70-6.10)
[2018-01-29 07:00] VITALS: BP 128/80
--- NOTE | 2018-01-29 07:25 | PN- Resident CRCU ---
Norma Marie Adam Guerraie 01/29/18 0724: Subjective HPI/CRCU Issues: Bilateral pulmonary embolism on heparin drip Staph aureus bacteremia ; Possible osteomyelitis of spine No overnight event. Patient was seen and examined at bedside, resting comfortably without any specific complaints besides his bilateral lower extremity weakness, felt not much improvement compared to previous days, sensations intact, denied incontinence/fever/chills. Objective Vital Signs & I&O Last 8 Hrs of Vitals and I&O: Intake & Output 01/29 1600 01/29 0800 01/29 0000 Intake Total 1488 1559 Output Total 600 550 Balance 888 1009 Intake, IV 1488 1319 Intake, Oral 0 240 Number 0 0 Bowel Movements Output, Urine 600 550 Exam General Appearance: alert, awake, comfortable Head: atraumatic, normal appearance Respiratory: normal breath sounds, chest non-tender, no respiratory distress Cardiovascular: regular rate/rhythm Gastrointestinal: soft, non-tender, decreased BS Extremities: normal inspection, sensasion intact, no incontinence, can wiggle toes, cannot lift BLEs Current Medications: Current Medications Sig/Shade Start time Last Medication Dose Route Stop Time Status Admin Acetaminophen 650 MG Q6P PRN 01/25 1830 AC PO Acetaminophen 1,000 MG Q6P PRN 01/25 1830 AC IV Aspirin Buffered 81 MG DAILY 01/26 0900 AC 01/28 PO 0803 Atorvastatin Calcium 40 MG 1700 01/28 0315 AC 01/28 PO 1652 Heparin Sodium 4,000 UNIT ONE ONE 01/28 1545 DC 01/28 (Porcine) IV 01/28 1546 1548 Heparin Sodium 25,000 UNIT Q10H 01/28 1445 AC 01/29 (Porcine) IV 0727 Sodium Chloride 500 ML Heparin Sodium 25,000 UNIT Q24H 01/25 1445 DC 01/28 (Porcine) IV 0419 Sodium Chloride 500 ML Hydromorphone HCl 0.4 MG Q4P PRN 01/25 1830 AC 01/29 IV 0356 Oxacillin Sodium 2,000 MG Q4H 01/27 0845 AC 01/29 Sodium Chloride 100 ML IV 0356 Sodium Chloride 1,000 ML Q8H 01/26 0500 AC 01/29 IV 0728 Impression/Plan Impression/Problem List Impression: Patient is a 52-year-old man with a past medical history of hypertension, osteoarthritis, history of right hip ankle surgery status post hardware, chronic left foot nonhealing ulcer, leading to MSSA bacteremia complicated by involvement of the joints including left knee and right shoulder. He needed treatment for 4 weeks of Unasyn and discharged to rehab. He was discharged to home 2 week before the admission and presented to [facility] ED for increased back pain and weakness related to fall around 3 days ago. After fall he was not able to get out of the bed. ED course - Vital signs at the time of admission -temperature 98.9, pulse 124, respiratory 18, blood pressure 140/72, SPO2 88% on room air and 96% on 2 L of nasal cannula. Blood workup showed-WBC 15.5, hemoglobin 12.3, hematocrit 38.8, platelet count 581, granulocyte 91.5, lymphocytes 4.1, band cells 0, serum sodium 145, potassium 2.8, chloride 104, carbon dioxide 31, anion gap 11, BUN 15, creatinine 0.7, glucose 107, calcium 8.9, total bilirubin 0.7, AST 36, ALT 30, alkaline phosphatase 167, troponin I 0.27, albumin 3.0, d-dimer 2193, UA showed -nitrite negative, esterase negative, RBC 50-75, hyaline casts rare, urine hemoglobin large. ABG showed -pH 7.33, PCO2 65, PO2 121, bicarbonate 33. Chest x-ray -No acute cardiopulmonary findings. X-ray lumbar spine-Possible erosion/osteomyelitis/discitis involving the superior endplate of L2. CT chest/abdomen/pelvis - 1. Large pulmonary arteries, ? chronic pulmonary arterial hypertension/chronic pulmonary valve stenosis. 2. Pulmonary emboli are observed within the right upper lobe and left lower lobe. No evidence of heart strain. 3.At L1-L2, the disc space is widened the vertebral endplate erosions.Associated mild endplate sclerosis, minimal gas in the disc space and mild edema of adjacent paraspinal tissues. Small foci of gas project anterior to the deformed, eroded disc space, anterior to the left psoas muscle. 4.Small bowel is mildly dilated in the upper mid abdomen; however, there is no focal transition point. There is no overt bowel obstruction. This might represent mild ileus. Bilateral venous Doppler of lower extremities -No evidence of DVT in either legs. Echocardiogram -Technically difficult and very limited. LVEF 60-65%. Assessment and plan - RESPIRATORY # Bilateral large pulmonary embolism - Continue IV heparin. #Obstructive sleep apnea, on CPAP at home - continue oxygen and BiPAP at night. INFECTIOUS DISEASE #SA osteomyelitis - Continuing IV Oxacillin per ID - Echo was sub-optimal given his body habitus, pending MARIAN tomorrow by cardio to rule out vegetations in the heart/valves. - As for the spine osteomyelitis, he does not have any abscess, this does not need to be drained. #Acute on chronic back pain, due to discitis/osteomyelitis - Neurology recommendation appreciated regarding the patient possibly having myelitis w/? cord compression. - Patient's physical exam remained unchanged without signs of compresison. - Of note, he had a fall on his knees (b/l) on 01/22 and has been moving less since then. X-ray of the knees pending. #Questionable knee infections? - stable afebrile for now, without leukocytosis - Knee tap during heparin off time, likely after return from MRI by Surgical PA CARDIOLOGY #Elevated troponin, likely type II CO - Trended down on 0.25, Cardiology recs appreciated. HEMATOLOGY #Leukocytosis 2/2 Osteomyelitis - Continue ABx as above. #Hematuria Patient does not complain of any abd/flank pain or changes in urination habit or color. Not sure if this is significant, but will have to consider if he gets severe anemia/bleeds. - cont monitor METABOLIC #Hypokalemia, resolved - Repleted to 4.0, cont montor ALIMENTARY - NPO overnight pending possible transesophageal echocardiogram in the morning.. NEPHROLOGY No issues. NEUROLOGY #Spine osteomyelitis, see note above. #Bilateral leg weakness, see note above. - Neurosurgery consultation requested 01/28, see event note for details. Also, will try getting open MRI of the brain, and the spine tomorrow. - MRI w/ wo [place] will be planned for tomorrow at [facility] around 1230. - Contact [facility] Dr. Laguna @ [phone] EXT [phone]. [facility] Diet: Regular Diet, NPO starting midnight for next AM MARIAN DVT ppx: IV Heparin running Code status: Full code Problem List: 1. Osteomyelitis of spine 2. Pulmonary embolism Pain Ratin Tomorrow's Labs & Rationales: ICU/CBC Plan DVT/Prophylaxis: pharmacological Seymour Guzmán MD 01/29/18 1042: Attending MD Review Statement Attending Sign Off Attending Cosign Statement: I have: examined this patient, reviewed avalbl EMR data, personally reviewd images, discussd w/resident/PA/TUBE BENDER, discussed mgmt plan w/lazara, discussed mgmt plan w/CM, discussed mgmt plan w/pt, agreed w/resident/PA/TUBE BENDER, amended to note. Other Findings: I, Seymour Guzmán M.D. have examined this patient, reviewed available EMR data, personally reviewed images, discussed with resident/PA/TUBE BENDER, discussed management plan with housestaff and nursing staff, discussed managment plan all of healthcare providers, discussed management plan with patient and/or family, agreed with resident/PA/TUBE BENDER. The past history and parts of the chart have been autopopulated. Impression 52 year old man * Pulmonary emboli - right upper lobe and left lower lobe * Submassive PE * discitis - GPCs in blood cultures * difficulty moving extremities * TEN/OHS Plan -plan for [facility] open MRI in am -MARIAN prior to that -would be acceptable to hold heparin gtt for duration of MRI, since this would occur and if pt is agreeable a biopsy can be obtained as well for a brief hold of the heparin. -heparin gtt to goal PTT -cardiology consultation appreciated -nocturnal bipap -incentive spirometry -neurology consultation appreciated -vascular surgery appreciated -Abx per ID - ID consultation is appreciated -no evidence of cord compression -neurosurgical consultation TTS 35 min
--- NOTE | 2018-01-29 08:17 | PN- Neurosurgical ---
Subjective Subjective: No worsening of symptoms overnight. Has sensation to bilateral lower extremities and is able to move toes, feet, and ankles bilaterally. Unable to lift legs or bend at the knee bilaterally. No worsening chest discomfort. No reported respiratory distress. Objective Vital Signs and I&Os Vital Signs Date Time Temp Pulse Resp B/P B/P Pulse O2 O2 Flow FiO2 Mean Ox Delivery Rate 01/29 0400 98 Nasal 2.0L Cannula 01/29 0258 77 96 01/29 0055 87 96 01/29 0000 96.8 86 24 120/80 98 BIPAP 30% 01/29 0000 98 BIPAP 30% 01/28 2142 87 96 01/28 2000 95 Nasal 2.0L Cannula 01/28 1600 98 Nasal 2.0L Cannula 01/28 1600 97.4 86 24 116/74 98 Nasal 2.0L Cannula 01/28 1000 95 Nasal 2.0L Cannula Intake & Output 01/29 1600 01/29 0800 01/29 0000 01/28 1600 01/28 0800 01/28 0000 Intake Total 1488 1559 1994 1336 1680.9 Output Total 600 550 550 350 600 Balance 888 1009 8085 537 7522.9 Intake, IV 1488 1319 1514 1096 1305.9 Intake, Oral 0 240 480 240 375 Number 0 0 1 Bowel Movements Output, Urine 600 550 550 350 600 Patient 294 lb Weight Physical Exam: General: Alert and oriented x3, no distress, affect flat, trying to process the events of the past week Cardiac: RRR, s1s2 Pulm: Non-labored respiratory effort. Nasal cannula in place. No clubbing, no cyanosis Abd: Obese, non-tender Extremities: Distal sensation grossly intact. Motor intact to bilateral ankles , feet, and toes. No motor proximal to ankles. Left knee effusion noted, no redness or warmth associate. Bilateral calves soft and non-tender. Assessment/Plan Assessment/Plan This is a 52 year old male with a prolonged medical history including osteomyletis for which he has undergone hospitalization in the past. He presented on this admission with bilateral lower extremity paraparesis, radiographic evidence of spinal osteomyleitis. Hospital course and treatment modailities complicated by the presence of bilateral PE requiring life saving anticoagulation. Neurosurgery has been consulted, however, at the present time any surgical intervention relating to spine is contraindicated due to anticoagulation. Recommendations have been made for further imaging of spine with MRI with and without joss. Arrangements are in the process of being made in order to obtain imaginging, Open MRI required due to size. -Continue oxacillin for osteomyelitis, discitis -Continue heparin gtt for tx of petros. PE -Anticipate MARIAN later today -Anticipate MRI later today Will discuss plan of care with Dr Vann.
[2018-01-29 09:30] LABS: PTT 61 SEC (25-37)
--- NOTE | 2018-01-29 11:04 | PN- Cardiology ---
Subjective Subjective: No current shortness of breath. No chest pain. No palpitations. No diaphoresis. No lightheadedness or dizziness. No nausea or vomiting. Objective Vital Signs and I&Os Vital Signs Date Time Temp Pulse Resp B/P B/P Pulse O2 O2 Flow FiO2 Mean Ox Delivery Rate 01/29 0800 98 Nasal 2.0L Cannula 01/29 0700 97.8 88 22 128/80 97 Nasal 2.0L Cannula 01/29 0400 98 Nasal 2.0L Cannula 01/29 0258 77 96 01/29 0055 87 96 01/29 0000 96.8 86 24 120/80 98 BIPAP 30% 01/29 0000 98 BIPAP 30% 01/28 2142 87 96 01/28 2000 95 Nasal 2.0L Cannula 01/28 1600 98 Nasal 2.0L Cannula 01/28 1600 97.4 86 24 116/74 98 Nasal 2.0L Cannula Intake & Output 01/29 1600 01/29 0800 01/29 0000 01/28 1600 01/28 0800 01/28 0000 Intake Total 1488 1559 1994 1336 1680.9 Output Total 600 550 550 350 600 Balance 888 1009 2989 718 1847.9 Intake, IV 1488 1319 1514 1096 1305.9 Intake, Oral 0 240 480 240 375 Number 0 0 1 Bowel Movements Output, Urine 600 550 550 350 600 Patient 294 lb 294 lb Weight Weight Bed scale Measurement Method Physical Exam: Gen: NAD HEENT: normal Lungs: clear to auscultation, normal resp. effort Heart: RRR, S1, S2, no murmurs Abdomen: Soft, nontender, no masses Extremities: No clubbing, cyanosis, or edema. Neuro: Alert and oriented x 3, cranial nerves intact Current Medications: Current Medications Sig/Shade Start time Last Medication Dose Route Stop Time Status Admin Acetaminophen 650 MG Q6P PRN 01/25 1830 AC PO Acetaminophen 1,000 MG Q6P PRN 01/25 1830 AC IV Aspirin Buffered 81 MG DAILY 01/26 0900 AC 01/29 PO 0805 Atorvastatin Calcium 40 MG 1700 01/28 0315 AC 01/28 PO 1652 Heparin Sodium 4,000 UNIT ONE ONE 01/28 1545 DC 01/28 (Porcine) IV 01/28 1546 1548 Heparin Sodium 25,000 UNIT Q10H 01/28 1445 AC 01/29 (Porcine) IV 0727 Sodium Chloride 500 ML Heparin Sodium 25,000 UNIT Q24H 01/25 1445 DC 01/28 (Porcine) IV 0419 Sodium Chloride 500 ML Hydromorphone HCl 0.4 MG Q4P PRN 01/25 1830 AC 01/29 IV 1001 Oxacillin Sodium 2,000 MG Q4H 01/27 0845 AC 01/29 Sodium Chloride 100 ML IV 0806 Sodium Chloride 1,000 ML Q8H 01/26 0500 AC 01/29 IV 0728 Results Last 48 Hrs of Labs/Mics: Laboratory Tests 01/29/18 0816: APTT 61 H 01/29/18 0350: Anion Gap 5, Estimated GFR > 60, Glucose 99, Calcium 8.2 L, Phosphorus 3.4, Magnesium 1.8, Total Bilirubin 0.1 L, AST 20, ALT 19 L, Albumin 2.0 L, CBC w Diff NO MAN DIFF REQ, RBC 3.02 L, MCV 89.0, MCH 28.8, MCHC 32.3 L, RDW 16.8 H , MPV 8.5, Gran % 74.4, Lymphocytes % 16.6 L, Monocytes % 6.7, Eosinophils % 1.9, Basophils % 0.4, Absolute Granulocytes 6.7 H, Absolute Lymphocytes 1.5, Absolute Monocytes 0.6, Absolute Eosinophils 0.2, Absolute Basophils 0 01/28/18 2045: APTT 67 H 01/28/18 1430: APTT 57 H 01/28/18 0300: Anion Gap 6, Estimated GFR > 60, Glucose 104 H, Calcium 7.8 L, Phosphorus 3.4, Magnesium 1.9, Total Bilirubin 0.2, AST 30, ALT 28, Albumin 2.0 L, APTT 61 H, CBC w Diff NO MAN DIFF REQ, RBC 2.99 L, MCV 89.5, MCH 28.9, MCHC 32.3 L, RDW 16.4 H, MPV 8.3, Gran % 75.3 H, Lymphocytes % 13.2 L, Monocytes % 9.7 H, Eosinophils % 1.4, Basophils % 0.4, Absolute Granulocytes 8.2 H, Absolute Lymphocytes 1.4, Absolute Monocytes 1.1 H, Absolute Eosinophils 0.1, Absolute Basophils 0 01/27/18 1420: APTT 79 H Recent Imaging Studies: Echocardiogram 01/25/18: 1. This was a technically difficult and very limited examination due to the patient's body habitus and clinical status. 2. Aortic sclerosis is present with no significant valvular stenosis. There is marked thickening of the non coronary leaflet, which was not well visualized. The possibility of an associated vegetative lesion cannot be excluded by this examination. 3. The mitral valve appears grossly normal. 4. There is no obvious pericardial fluid present. 5. The left ventricular chamber size and systolic function appear normal. Accurate wall motion assessment was not possible. 6. Borderline LVH appears to be present. 7. The right heart structures were not optimally assessed. 8. Mild to moderate enlargement of the right heart chambers is present. The RV systolic pressure could not be accurately assessed. 9. The Doppler examination was technically suboptimal. 10. Additional images were obtained following the administration of IV contrast. Assessment/Plan Assessment/Plan 1. hypercapnic respiratory failure 2. Bilateral pulmonary emboli with tachypnea, tach cardia, hypoxia, 3. Mildly elevated troponin 4. Abnormal EKG with ventricular ectopy 5. Leukocytosis 6. discitis 7. Hypokalemia 8. Self-limited episode of supraventricular tachycardia on telemetry Plan: * Continue IV antibiotic therapy * Continue IV heparin * MARIAN planned for tomorrow * N.p.o. after midnight Continue telemetry? Yes
--- NOTE | 2018-01-29 11:07 | PN- Infect Dx ---
Subjective Subjective: Afebrile. He continues to report back pain and lower extremity weakness. He does not report any chest pain or shortness of breath. He does not report any pain in his knees. Objective Last 24 Hrs of Vital Signs/I&O Vital Signs Date Time Temp Pulse Resp B/P B/P Pulse O2 O2 Flow FiO2 Mean Ox Delivery Rate 01/29 0800 98 Nasal 2.0L Cannula 01/29 0700 97.8 88 22 128/80 97 Nasal 2.0L Cannula 01/29 0400 98 Nasal 2.0L Cannula 01/29 0258 77 96 01/29 0055 87 96 01/29 0000 96.8 86 24 120/80 98 BIPAP 30% 01/29 0000 98 BIPAP 30% 01/28 2142 87 96 01/28 2000 95 Nasal 2.0L Cannula 01/28 1600 98 Nasal 2.0L Cannula 01/28 1600 97.4 86 24 116/74 98 Nasal 2.0L Cannula Intake & Output 01/29 1600 01/29 0800 01/29 0000 Intake Total 1488 1559 Output Total 600 550 Balance 888 1009 Intake, IV 1488 1319 Intake, Oral 0 240 Number 0 0 Bowel Movements Output, Urine 600 550 Patient 294 lb Weight Weight Bed scale Measurement Method Physical Exam Other Physical Findings: He appears comfortable in no acute distress Lungs are clear Heart regular rhythm with no murmur Abdomen is obese, soft, nontender with positive bowel sounds Extremities left knee swelling, with no erythema; limitation to range of motion Neuro bilateral paraparesis Wood catheter remains in place Results Last 24 Hours of Lab Results: Laboratory Tests 01/29 01/29 01/28 01/28 0816 0350 2045 1430 Chemistry Sodium (137 - 145 mmol/L) 144 Potassium (3.5 - 5.1 mmol/L) 4.0 Chloride (98 - 107 mmol/L) 105 Carbon Dioxide (22 - 30 mmol/L) 33 H Anion Gap (5 - 16) 5 BUN (9 - 20 mg/dL) 11 Creatinine (0.7 - 1.2 mg/dL) 0.6 L Estimated GFR (>60 ml/min) > 60 Glucose (65 - 99 mg/dL) 99 Calcium (8.4 - 10.2 mg/dL) 8.2 L Phosphorus (2.5 - 4.5 mg/dL) 3.4 Magnesium (1.6 - 2.3 mg/dL) 1.8 Total Bilirubin (0.2 - 1.3 mg/dL) 0.1 L AST (17 - 59 U/L) 20 ALT (21 - 72 U/L) 19 L Albumin (3.5 - 5.0 g/dL) 2.0 L Coagulation APTT (25 - 37 SEC) 61 H 67 H 57 H Hematology CBC w Diff NO MAN DIFF REQ WBC (4.8 - 10.8 /CUMM) 9.0 RBC (4.70 - 6.10 /CUMM) 3.02 L Hgb (14.0 - 18.0 G/DL) 8.7 L Hct (42 - 52 %) 26.9 L MCV (80.0 - 94.0 FL) 89.0 MCH (27.0 - 31.0 PG) 28.8 MCHC (33.0 - 37.0 G/DL) 32.3 L RDW (11.5 - 14.5 %) 16.8 H Plt Count (130 - 400 /CUMM) 282 MPV (7.4 - 10.4 FL) 8.5 Gran % (42.2 - 75.2 %) 74.4 Lymphocytes % (20.5 - 51.1 %) 16.6 L Monocytes % (1.7 - 9.3 %) 6.7 Eosinophils % (0 - 5 %) 1.9 Basophils % (0.0 - 2.0 %) 0.4 Absolute Granulocytes (1.4 - 6.5 /CUMM) 6.7 H Absolute Lymphocytes (1.2 - 3.4 /CUMM) 1.5 Absolute Monocytes (0.10 - 0.60 /CUMM) 0.6 Absolute Eosinophils (0.0 - 0.7 /CUMM) 0.2 Absolute Basophils (0.0 - 0.2 /CUMM) 0 Last 24 Hours of Guilherme Results: Blood cultures x2 January 28 positive for gram-positive cocci in clusters Recent Imaging Studies: X-ray of the left knee reveals a moderate to large joint effusion with cortical irregularity and a possible small fracture fragment to the inferior articular surface to the patella X-ray of the right knee is limited secondary to poor positioning but no joint effusion is appreciated Assessment/Plan ID Impression: Recurrent Staph aureus bacteremia, presumably related to his previous bacteremia , with seeding of his lumbar spine resulting in a discitis, with no evidence of any epidural abscess on the CT scan, and with the MRI unable to be done secondary to his size. His lower extremity weakness is felt by Neurology to be secondary to a myelopathy or myelitis, with neurosurgical evaluation noted and appreciated. He is tentatively scheduled for an open MRI at [facility] tomorrow, though this may require temporary discontinuation of his anticoagulation and, if this is not feasible, then alternatives, such as transfer to [place], will need to be considered. His left knee x-ray reveals a moderate to large effusion, raising concern for a persistent or new infection in his knee, status post arthroscopic debridement on his last hospitalization for a septic arthritis, though it could also represent a hematoma, given his recent trauma and evidence of a fracture on x-ray. His CT of the head findings are noted, raising concern for a possible infarct, and, if he goes for an open MRI, his head can be imaged at the same time. His repeat blood cultures are positive and endocarditis remains a concern; therefore a MARIAN will need to be done at some point. He remains on Heparin for bilateral pulmonary emboli. Suggestion: 1. Repeat blood cultures 2 2. Await possible open MRI of the lumbar spine and head versus transfer to [place] 3. Would pursue a left knee arthrocentesis when feasible (this will require temporary discontinuation of his anticoagulation) 4. Would pursue MARIAN 5. Continue Oxacillin
[2018-01-29 16:00] VITALS: BP 122/72
[2018-01-29 20:52] LABS: PTT 58 SEC (25-37)
[2018-01-29 23:48] VITALS: BP 118/78
[2018-01-30 03:48] LABS: ABSOLUTE BASOPHIL COUNT 0.1 /CUMM (0.0-0.2); ABSOLUTE EOSINOPHIL COUNT 0.2 /CUMM (0.0-0.7); ABSOLUTE GRANULOCYTE CT 6.5 /CUMM (1.4-6.5); ABSOLUTE LYMPH COUNT 1.4 /CUMM (1.2-3.4); ABSOLUTE MONOCYTE COUNT 0.7 /CUMM (0.10-0.60); GRANULOCYTE % 73.4 % (42.2-75.2); HEMATOCRIT 25.4 % (42-52); MEAN CORPUSCULAR HGB 28.3 PG (27.0-31.0); MEAN CORPUSCULAR HGB CONC 31.6 G/DL (33.0-37.0); MEAN CORPUSCULAR VOLUME 89.6 FL (80.0-94.0); MEAN PLATELET VOLUME 8.3 FL (7.4-10.4); PLATELET COUNT 303 /CUMM (130-400); RBC DISTRIBUTION WIDTH 16.7 % (11.5-14.5); RED BLOOD CELL CT 2.84 /CUMM (4.70-6.10); WHITE BLOOD CELL COUNT 8.8 /CUMM (4.8-10.8)
[2018-01-30 03:57] LABS: PTT 88 SEC (25-37)
--- NOTE | 2018-01-30 07:38 | PN- Resident CRCU ---
FrankNorma [place] 01/30/18 0729: Subjective HPI/CRCU Issues: No overnight event. Patient was seen and examined at bedside, resting comfortably on nocturnal BiPAP, kept NPO overnight, without any specific complaints besides his bilateral lower extremity weakness, else BLEs sensations intact, denied incontinence/fever/chills. Pending MARIAN in the AM followed by MRI Objective Vital Signs & I&O Last 8 Hrs of Vitals and I&O: Intake & Output 01/30 0800 Intake Total 1529 Output Total 450 Balance 1079 Intake, IV 1529 Intake, Oral 0 Number 0 Bowel Movements Output, Urine 450 Exam General Appearance: no apparent distress, alert, awake, comfortable Head: atraumatic Respiratory: chest non-tender, no respiratory distress, on BiPAP Cardiovascular: regular rate/rhythm Gastrointestinal: normal bowel sounds, soft, non-tender Extremities: normal inspection, no edema, BLEs weakness similar to previous days. Sensations intact, no incontinence. Current Medications: Current Medications Sig/Shade Start time Last Medication Dose Route Stop Time Status Admin Acetaminophen 650 MG Q6P PRN 01/25 1830 AC PO Acetaminophen 1,000 MG Q6P PRN 01/25 1830 AC IV Aspirin Buffered 81 MG DAILY 01/26 0900 AC 01/29 PO 0805 Atorvastatin Calcium 40 MG 1700 01/28 0315 AC 01/29 PO 1724 Heparin Sodium 4,000 UNIT ONCE ONE 01/29 2130 DC 01/29 (Porcine) IV 01/29 2139 Heparin Sodium 5,000 UNIT .STK-MED ONE 01/297 DC (Porcine) IV 01/29 2128 Heparin Sodium 25,000 UNIT Q10H 01/28 1445 01/30 (Porcine) IV 0038 Sodium Chloride 500 ML Hydromorphone HCl 0.4 MG Q4P PRN 01/25 1830 AC 01/30 IV 0459 Magnesium Sulfate 1 GM Q2H 01/30 0630 AC Dextrose/Water 100 ML IV 01/30 1029 Oxacillin Sodium 2,000 MG Q4H 01/27 0845 AC 01/30 Sodium Chloride 100 ML IV 0426 Potassium Chloride 10 MEQ Q1H 01/30 0630 DC 01/30 IV 01/30 0731 0630 Sodium Chloride 1,000 ML Q8H 01/26 0500 AC 01/30 IV 0404 Impression/Plan Impression/Problem List Impression: Patient is a 52-year-old man with a past medical history of hypertension, osteoarthritis, history of right hip ankle surgery status post hardware, chronic left foot nonhealing ulcer, leading to MSSA bacteremia complicated by involvement of the joints including left knee and right shoulder. He needed treatment for 4 weeks of Unasyn and discharged to rehab. He was discharged to home 2 week before the admission and presented to [facility] ED for increased back pain and weakness related to fall around 3 days ago. After fall he was not able to get out of the bed. ED course - Vital signs at the time of admission -temperature 98.9, pulse 124, respiratory 18, blood pressure 140/72, SPO2 88% on room air and 96% on 2 L of nasal cannula. Blood workup showed-WBC 15.5, hemoglobin 12.3, hematocrit 38.8, platelet count 581, granulocyte 91.5, lymphocytes 4.1, band cells 0, serum sodium 145, potassium 2.8, chloride 104, carbon dioxide 31, anion gap 11, BUN 15, creatinine 0.7, glucose 107, calcium 8.9, total bilirubin 0.7, AST 36, ALT 30, alkaline phosphatase 167, troponin I 0.27, albumin 3.0, d-dimer 2193, UA showed -nitrite negative, esterase negative, RBC 50-75, hyaline casts rare, urine hemoglobin large. ABG showed -pH 7.33, PCO2 65, PO2 121, bicarbonate 33. Chest x-ray -No acute cardiopulmonary findings. X-ray lumbar spine-Possible erosion/osteomyelitis/discitis involving the superior endplate of L2. CT chest/abdomen/pelvis - 1. Large pulmonary arteries, ? chronic pulmonary arterial hypertension/chronic pulmonary valve stenosis. 2. Pulmonary emboli are observed within the right upper lobe and left lower lobe. No evidence of heart strain. 3.At L1-L2, the disc space is widened the vertebral endplate erosions.Associated mild endplate sclerosis, minimal gas in the disc space and mild edema of adjacent paraspinal tissues. Small foci of gas project anterior to the deformed, eroded disc space, anterior to the left psoas muscle. 4.Small bowel is mildly dilated in the upper mid abdomen; however, there is no focal transition point. There is no overt bowel obstruction. This might represent mild ileus. Bilateral venous Doppler of lower extremities -No evidence of DVT in either legs. Echocardiogram -Technically difficult and very limited. LVEF 60-65%. Assessment and plan - RESPIRATORY # Bilateral large pulmonary embolism - Continue IV heparin. will stop while MRI, and possible knee tap today. May bridge to Oral after today. #Obstructive sleep apnea, on CPAP at home - continue oxygen and BiPAP at night. INFECTIOUS DISEASE #SA osteomyelitis - Continuing IV Oxacillin per ID - Echo was sub-optimal given his body habitus, pending MARIAN today at 830 by cardio to rule out vegetations in the heart/valves. - As for the spine osteomyelitis, he does not have any abscess, this does not need to be drained. #Acute on chronic back pain, due to discitis/osteomyelitis - Neurology recommendation appreciated regarding the patient possibly having myelitis w/? cord compression. - Patient's physical exam remained unchanged without signs of compresison. - Of note, he had a fall on his knees (b/l) on 01/22 and has been moving less since then. X-ray of the knees showed Moderate to large left knee joint effusion with cortical irregularity and possible small fracture fragment to the inferior articular surface to the patella. #Questionable knee infections? - stable afebrile for now, without leukocytosis - Knee tap during heparin off time, likely after return from MRI by Surgical PA CARDIOLOGY #Elevated troponin, likely type II HI - Trended down on 0.25, Cardiology recs appreciated. HEMATOLOGY #Leukocytosis 2/2 Osteomyelitis, resolved now - Continue ABx as above. #Hematuria Patient does not complain of any abd/flank pain or changes in urination habit or color. Not sure if this is significant, but will have to consider if he gets severe anemia/bleeds. - cont monitor, no recent hematuria - Hgb trended down to 8.0 on latest lab. Will keep >7, cont monitor. METABOLIC #Hypokalemia, resolved - Repleted to 3.8 on latest lab, cont montor ALIMENTARY - NPO overnight pending possible transesophageal echocardiogram in the morning. NEPHROLOGY No issues. NEUROLOGY #Spine osteomyelitis, see note above. #Bilateral leg weakness, see note above. - Neurosurgery consultation requested 01/28, see event note for details. Also, will try getting open MRI of the brain, and the spine tomorrow. - Open MRI w/ wo [place] will be planned for today at [facility] around 1230. - Contacted [facility] Dr. Laguna @ [phone] EXT [phone]. MISC Diet: NPO pending MARIAN DVT ppx: IV Heparin running Code status: Full code Problem List: 1. Osteomyelitis of spine 2. Pulmonary embolism 3. Discitis Pain Ratin Tomorrow's Labs & Rationales: ICU/CBC Plan DVT/Prophylaxis: pharmacological Seymour Guzmán MD 01/30/18 1022: Attending MD Review Statement Attending Sign Off Attending Cosign Statement: I have: examined this patient, reviewed avalbl EMR data, personally reviewd images, discussd w/resident/PA/SENIOR WEB DEVELOPER, discussed mgmt plan w/lazara, discussed mgmt plan w/CM, discussed mgmt plan w/pt, agreed w/resident/PA/SENIOR WEB DEVELOPER, amended to note. Other Findings: ISeymour M.D. have examined this patient, reviewed available EMR data, personally reviewed images, discussed with resident/PA/SENIOR WEB DEVELOPER, discussed management plan with housestaff and nursing staff, discussed managment plan all of healthcare providers, discussed management plan with patient and/or family, agreed with resident/PA/SENIOR WEB DEVELOPER. The past history and parts of the chart have been autopopulated. Impression 52 year old man * Pulmonary emboli - right upper lobe and left lower lobe * Submassive PE * discitis - GPCs in blood cultures * difficulty moving extremities * TEN/OHS * knee effusion s/p arthrocentesis Plan -plan for [facility] open MRI today -s/p MARIAN -acceptable to hold heparin gtt for duration of MRI, since this would occur and if pt is agreeable a biopsy can be obtained as well for a brief hold of the heparin. Patient is agreeble and knows risks/benefits -NPO for possible arhtroscopy -heparin gtt to goal PTT for now -cardiology consultation appreciated -nocturnal bipap -incentive spirometry -neurology consultation appreciated -vascular surgery appreciated -Abx per ID - ID consultation is appreciated -no evidence of cord compression -neurosurgical consultation apprecited TTS 35 min
[2018-01-30 08:00] VITALS: BP 120/70
--- NOTE | 2018-01-30 09:21 | Cons- Orthopedic ---
General Information and HPI Consulting Request Date of Consult: 01/30/18 Requested By: Seymour Guzmán MD Reason for Consult: Possible septic knee, left side Source of Information: patient, old records Exam Limitations: no limitations History of Present Illness: 52-year-old male who was admitted for sepsis, positive staph aureus bacteremia, currently in the ICU, has ? lumbar spine discitis. Patient has a history of left septic knee, torres martinez knee in November of this year treated by Dr. Ojeda with I&D and multiple weeks of IV antibiotics. He was readmitted and it was noted that he had another left knee effusion, he states he had a remote history of trauma where he fell on his knee and had some mild anterior pain, he noticed more pain and swelling yesterday and surgery was reconsulted for evaluation of his left knee effusion and pain. Allergies/Medications Allergies: Coded Allergies: No Known Allergies (09/15/17) Home Med List: Aspirin (Ecotrin*) 81 MG TABLET.DR 1 TAB PO DAILY HEART/BLOOD (Reported) Ibuprofen 800 MG TABLET 1 TAB PO TID PAIN (Reported) Losartan/Hydrochlorothiazide (Losartan-Hctz 50-12.5 MG Tab) 50 MG-12.5 MG TABLET 1 TAB PO DAILY BP (Reported) Meloxicam (Mobic) 15 MG TABLET 1 TAB PO DAILY PAIN (Reported) Metaxalone 800 MG TABLET 1 TAB PO Q8 PAIN (Reported) Metformin HCl (Metformin HCl ER) 500 MG TAB.ER.24 1 TAB PO DAILY Diabetes Past History Medical History Neurological: NONE EENT: NONE Cardiovascular: hypertension Respiratory: NONE Gastrointestinal: NONE Hepatic: NONE Renal: NONE Musculoskeletal: osteoarthritis, osteomyelitis of the left foot. 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 Home Services at Home: Occupational Therapy, Physical Therapy Primary Language: Swedish Smoking Status: Never Smoked ETOH Use: occasional use, quit 19 yrs ago Illicit Drug Use: denies illicit drug use Other Social History: Call his mother in case of emergency per patient. Functional Ability ADLs Independent: dressing, eating, toileting, bathing. Ambulation: independent IADLs Independent: shopping, housework, finances, food prep, telephone, transportation , medication admin. Review of Systems Review of Systems: Review of systems: See HPI, all other systems negative. Constitutional: See HPI HEENT: No visual changes no sore throat no congestion Cardiovascular: No chest pain ,palpitation , orthopnea or ankle swelling Skin: No jaundice no rashes Respiratory: No dyspnea cough sputum or hemoptysis GI: No nausea no vomiting : No dysuria no hematuria Musclulo skeletal: See HPI Neurologic: No numbness no confusion Psych: No stress anxiety or depression,. Heme/endocrine: No bruising no bleeding no polyuria or polydipsia Immunology: No splenectomy or history of AIDS Exam & Diagnostic Data Vital Signs and I&O Vital Signs Date Time Temp Pulse Resp B/P B/P Pulse O2 O2 Flow FiO2 Mean Ox Delivery Rate 01/30 0842 75 98 01/30 0550 71 97 01/30 0400 96 BIPAP 30% 01/30 0315 78 95 01/30 0016 88 96 01/30 0000 95 BIPAP 30% 01/29 2348 97.3 90 24 118/78 95 BIPAP 30% 01/29 2216 76 96 01/29 2000 97 Nasal 2.0L Cannula 01/29 1600 97.7 88 22 122/72 98 Nasal 2.0L Cannula 01/29 1600 98 Nasal 2.0L Cannula 01/29 1200 97 Nasal 2.0L Cannula Intake & Output 01/30 1600 01/30 0800 01/30 0000 01/29 1600 01/29 0800 01/29 0000 Intake Total 1529 1800 1780 1488 1559 Output Total 450 700 375 600 550 Balance 1079 1100 4114 249 2562 Intake, IV 1529 1440 1300 1488 1319 Intake, Oral 0 360 480 0 240 Number 0 0 1 0 0 Bowel Movements Output, Urine 450 700 375 600 550 Patient 294 lb Weight Weight Bed scale Measurement Method Physical Exam: Well-developed well-nourished no apparent distress. HEENT: Atraumatic, extraocular motion intact Neck: Supple, no lymphadenopathy Respiratory: No respiratory distress Extremities: Bilateral extremity edema +1 Left knee, mild warmth, moderate effusion, increased pain with range of motion, near full motion noted. No erythema. There is mild global tenderness, no point tenderness. No ecchymosis. Neuro: Alert and oriented x3 Psych: Mood affect normal, normal memory normal judgment. Skin: Warm and dry, no rash on exposed skin Last 24 Hours of Labs: Laboratory Tests 01/30 Chemistry Sodium (137 - 145 mmol/L) 143 Potassium (3.5 - 5.1 mmol/L) 3.8 Chloride (98 - 107 mmol/L) 104 Carbon Dioxide (22 - 30 mmol/L) 35 H Anion Gap (5 - 16) 4 L BUN (9 - 20 mg/dL) 9 Creatinine (0.7 - 1.2 mg/dL) 0.6 L Estimated GFR (>60 ml/min) > 60 Glucose (65 - 99 mg/dL) 99 Calcium (8.4 - 10.2 mg/dL) 8.0 L Phosphorus (2.5 - 4.5 mg/dL) 4.0 Magnesium (1.6 - 2.3 mg/dL) 1.7 Total Bilirubin (0.2 - 1.3 mg/dL) 0.2 AST (17 - 59 U/L) 17 ALT (21 - 72 U/L) 26 Albumin (3.5 - 5.0 g/dL) 1.9 L Coagulation APTT (25 - 37 SEC) 88 H 58 H Hematology CBC w Diff NO MAN DIFF REQ WBC (4.8 - 10.8 /CUMM) 8.8 RBC (4.70 - 6.10 /CUMM) 2.84 L Hgb (14.0 - 18.0 G/DL) 8.0 L Hct (42 - 52 %) 25.4 L MCV (80.0 - 94.0 FL) 89.6 MCH (27.0 - 31.0 PG) 28.3 MCHC (33.0 - 37.0 G/DL) 31.6 L RDW (11.5 - 14.5 %) 16.7 H Plt Count (130 - 400 /CUMM) 303 MPV (7.4 - 10.4 FL) 8.3 Gran % (42.2 - 75.2 %) 73.4 Lymphocytes % (20.5 - 51.1 %) 15.5 L Monocytes % (1.7 - 9.3 %) 8.1 Eosinophils % (0 - 5 %) 2.0 Basophils % (0.0 - 2.0 %) 1.0 Absolute Granulocytes (1.4 - 6.5 /CUMM) 6.5 Absolute Lymphocytes (1.2 - 3.4 /CUMM) 1.4 Absolute Monocytes (0.10 - 0.60 /CUMM) 0.7 H Absolute Eosinophils (0.0 - 0.7 /CUMM) 0.2 Absolute Basophils (0.0 - 0.2 /CUMM) 0.1 Patient : JOSÉ MIGUEL MARTELL Acct: [id number] DR: Seymour Guzmán MD Birthdate: [birth year] Age/Sex: 52/M Unit: [id number] Loc: [facility] Status : ADM IN SPEC #: [id number] TERRANCE: 01/28/18 STATUS: RES RECD: 01/28/[address] [facility] [address]: Andrew Deleon MD SOURCE: BLOOD ENTR: 01/28/[address]: Alessandra GRAJEDA,[facility] SPDESC: 1ST/VENOUS Seymour Guzmán MD ORDERED: BLOOD CULTURE Procedure Result > BLOOD CULTURE REPORT Preliminary 01/30/18 GRAM STAIN SUGGESTIVE OF: GRAM POSITIVE COCCI IN CLUSTERS Called to/Readback by SARI by LAB.CY 01/29/18 0930 and at 0935 CULTURE: STAPH AUREUS ISOLATED NOTE THIS IS A PRELIMINARY REPORT: IF: patient has had significant exposure to a healthcare setting in the past three (3) months, THEN: suspect Methicillin Resistant Staph aureus and place patient on Contact precautions PENDING susceptibility results TO FOLLOW Imaging Results: PATIENT: JOSÉ MIGUEL MARTELL PRESENT AGE: 52 PATIENT ACCOUNT NO: [id number] : [birth year] LOCATION: [facility] ORDERING PHYSICIAN: Andrew Deleon MD SERVICE DATE: 01/28/18- EXAM TYPE: RAD - XRY-KNEE COMPLETE LEFT; XRY-KNEE COMPLETE RIGHT EXAMINATIONS: BILATERAL KNEES 3 VIEWS CLINICAL INFORMATION: Knee pain after fall. COMPARISON: December 06, 2017. TECHNIQUE: AP, lateral, oblique views of each knee were obtained. FINDINGS: There is a moderate to large left knee joint effusion with mild overlying soft tissue swelling. Along the inferior aspect of the articular surface of the patella on the left, there is cortical irregularity with suggestion of a small bone fragment. This is new from prior exam. Secondary to poor positioning, evaluation of the right knee is limited. I do not identify a knee joint effusion, though one is difficult to exclude due to the limited positioning. There is overlying soft tissue swelling to the distal thigh. No right-sided acute fracture is identified. IMPRESSION: Moderate to large left knee joint effusion with cortical irregularity and possible small fracture fragment to the inferior articular surface to the patella. Limited evaluation to the right knee due to poor positioning. DICTATED BY: Jorge Luis Gonzalez MD DATE/TIME DICTATED:01/28/182314 SENIOR NATIONAL ACCOUNT MANAGER:TOM DATE/TIME TRANSCRIBED:01/28/182314 CONFIDENTIAL, DO NOT COPY WITHOUT APPROPRIATE AUTHORIZATION. <Electronically signed in Other Vendor System> SIGNED BY: Jorge Luis Gonzalez MD 01/28/18 2333 Assessment/Plan Assessment/Plan 52-year-old male, presents with staph aureus bacteremia with a left knee effusion, concern for recurrent left septic arthritis. X-ray is concerning, radiologist called a possible fracture of the inferior portion patella, there is also an irregularity at the anterior tibial joint surface, noted on the lateral. Both of these areas have concern for osteomyelitis. Dw ID as well. Likely would not change treatment if pt has septic arthritis. After verbal consent was obtained, the left knee was prepped in a sterile fashion with chlorhexidine, 18-gauge needle was inserted into the left knee suprapatellar pouch and approximately 30 cc of cloudy bloody fluid was aspirated and was sent for cultures, cell count and crystals. Patient tolerated procedure well without complications, dressing applied, no active bleeding. The procedure was done piggybacking the MARIAN as patient was awakened from anesthesia. If the knee aspirate is positive for infection, he will require an irrigation debridement, possibly later this afternoon. Keep n.p.o. until results of the aspirate. Discussed with Dr. Ojeda Will follow. Consult Acknowledgment - Thank you for your consult request.
--- NOTE | 2018-01-30 11:26 | PN- Infect Dx ---
Subjective Subjective: Afebrile without any new complaints Objective Last 24 Hrs of Vital Signs/I&O Vital Signs Date Time Temp Pulse Resp B/P B/P Pulse O2 O2 Flow FiO2 Mean Ox Delivery Rate 01/30 0842 75 98 01/30 0800 Nasal 2.0L Cannula 01/30 0800 97.8 71 21 120/70 98 Nasal 2.0L Cannula 01/30 0550 71 97 01/30 0400 96 BIPAP 30% 01/30 0315 78 95 01/30 0016 88 96 01/30 0000 95 BIPAP 30% 01/29 2348 97.3 90 24 118/78 95 BIPAP 30% 01/29 2216 76 96 01/29 2000 97 Nasal 2.0L Cannula 01/29 1600 97.7 88 22 122/72 98 Nasal 2.0L Cannula 01/29 1600 98 Nasal 2.0L Cannula 01/29 1200 97 Nasal 2.0L Cannula Intake & Output 01/30 1600 01/30 0800 01/30 0000 Intake Total 1529 1800 Output Total 450 700 Balance 1079 1100 Intake, IV 1529 1440 Intake, Oral 0 360 Number 0 0 Bowel Movements Output, Urine 450 700 Physical Exam Other Physical Findings: He is sedated but responsive, status post recent MARIAN Lungs are clear Heart regular rhythm with no murmur Abdomen is obese, soft, nontender with positive bowel sounds Extremities left knee swelling, with no erythema; pain with flexion Neuro bilateral paraparesis unchanged Wood catheter remains in place Results Last 24 Hours of Lab Results: Laboratory Tests 01/30 Chemistry Sodium (137 - 145 mmol/L) 143 Potassium (3.5 - 5.1 mmol/L) 3.8 Chloride (98 - 107 mmol/L) 104 Carbon Dioxide (22 - 30 mmol/L) 35 H Anion Gap (5 - 16) 4 L BUN (9 - 20 mg/dL) 9 Creatinine (0.7 - 1.2 mg/dL) 0.6 L Estimated GFR (>60 ml/min) > 60 Glucose (65 - 99 mg/dL) 99 Calcium (8.4 - 10.2 mg/dL) 8.0 L Phosphorus (2.5 - 4.5 mg/dL) 4.0 Magnesium (1.6 - 2.3 mg/dL) 1.7 Total Bilirubin (0.2 - 1.3 mg/dL) 0.2 AST (17 - 59 U/L) 17 ALT (21 - 72 U/L) 26 Albumin (3.5 - 5.0 g/dL) 1.9 L Coagulation APTT (25 - 37 SEC) 88 H 58 H Hematology CBC w Diff NO MAN DIFF REQ WBC (4.8 - 10.8 /CUMM) 8.8 RBC (4.70 - 6.10 /CUMM) 2.84 L Hgb (14.0 - 18.0 G/DL) 8.0 L Hct (42 - 52 %) 25.4 L MCV (80.0 - 94.0 FL) 89.6 MCH (27.0 - 31.0 PG) 28.3 MCHC (33.0 - 37.0 G/DL) 31.6 L RDW (11.5 - 14.5 %) 16.7 H Plt Count (130 - 400 /CUMM) 303 MPV (7.4 - 10.4 FL) 8.3 Gran % (42.2 - 75.2 %) 73.4 Lymphocytes % (20.5 - 51.1 %) 15.5 L Monocytes % (1.7 - 9.3 %) 8.1 Eosinophils % (0 - 5 %) 2.0 Basophils % (0.0 - 2.0 %) 1.0 Absolute Granulocytes (1.4 - 6.5 /CUMM) 6.5 Absolute Lymphocytes (1.2 - 3.4 /CUMM) 1.4 Absolute Monocytes (0.10 - 0.60 /CUMM) 0.7 H Absolute Eosinophils (0.0 - 0.7 /CUMM) 0.2 Absolute Basophils (0.0 - 0.2 /CUMM) 0.1 Last 24 Hours of Guilherme Results: Blood cultures January 29 negative Assessment/Plan ID Impression: Stable, with temperatures and white blood cell count normal, on Oxacillin Day 4 of treatment for recurrent Staph aureus bacteremia, presumably related to his previous bacteremia, with seeding of his lumbar spine resulting in a discitis/ osteomyelitis, with concern for an epidural abscess given his bilateral lower extremity weakness. The CT scan did not reveal evidence for this and the MRI was unable to be done secondary to his size; therefore he is scheduled for an open MRI at [facility] later today. His left knee x-ray revealed a moderate to large effusion, and he has just undergone a left knee arthrocentesis, which yielded seropurulent fluid, raising concern for a persistent or new infection in his knee, status post arthroscopic debridement on his last hospitalization for a septic arthritis. This could also represent a hematoma, given his recent trauma and evidence of a fracture on x-ray, though, per Orthopedics, the cortical irregularity might suggest osteomyelitis. His CT of the head findings are noted , raising concern for a possible infarct, and an MRI of the head is also scheduled for today. Endocarditis remains a concern, with his recent MARIAN results pending. He remains on Heparin for bilateral pulmonary emboli. Suggestion: 1. Follow-up results of MARIAN 2. Follow-up results of the left knee arthrocentesis 3. Await MRI of the lumbar spine and head 4. Continue Oxacillin
--- NOTE | 2018-01-30 15:24 | MRI REPORT ---
EXAMINATION: MR BRAIN WITHOUT CONTRAST CLINICAL INFORMATION: Abnormal head CT. COMPARISON: Head CT 01/27/2018. TECHNIQUE: Multiplanar, multisequence imaging of the brain was performed without intravenous contrast. An axial T2 weighted image was not acquired. Many of the sequences are degraded by motion artifact. \H\ \N\FINDINGS: There is a small acute infarct in the left inferior cerebellum and additional punctate of elevated diffusion signal adjacent to the atrium of the right lateral ventricle compatible with an acute infarct (series 8 image 12). There is a nonspecific focus of elevated diffusion signal without ADC signal deficit in the right occipitotemporal lobe which may reflect a subacute infarct (series 10 image 9). A nonspecific focus of T2 prolongation is seen in the right occipital lobe which could reflect the sequela of prior infarct (series 10 image 12). The ventricles are normal in size and configuration without evidence of hydrocephalus. There is no mass effect or midline shift. The extracranial structures are grossly within normal limits. IMPRESSION: - Somewhat limited study due to motion artifact with limited sequences obtained. 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 - Additional probable acute punctate infarct adjacent to the atrium of the right lateral ventricle. A focus of ventriculitis is a consideration but thought to be less likely. - Probable subacute infarct in the right occipitotemporal lobe. Note that this signal abnormality has a mildly rounded configuration and in the setting of sepsis a focus of infection remains in the differential diagnosis and CT follow-up is suggested to evaluate for evolution. - No mass effect, midline shift, or evidence of hydrocephalus.
--- NOTE | 2018-01-30 15:25 | MRI REPORT ---
EXAMINATION: MRI of the cervical spine CLINICAL INDICATION: Rule out myelitis and cord compression. FINDINGS AND IMPRESSION: The examination was attempted but no diagnostic images could be obtained.
--- NOTE | 2018-01-30 15:26 | PN- Cardiology ---
Subjective Subjective: The patient continues to complain of lower extremity weakness. No chest pain. No palpitations. No diaphoresis. No nausea or vomiting. Objective Vital Signs and I&Os Vital Signs Date Time Temp Pulse Resp B/P B/P Pulse O2 O2 Flow FiO2 Mean Ox Delivery Rate 01/30 2000 97 Nasal 2.0L Cannula 01/30 1600 97.6 86 18 146/84 99 Nasal 2.0L Cannula 01/30 1600 99 Nasal 2.0L Cannula 01/30 1200 Nasal 2.0L Cannula 01/30 0842 75 98 01/30 0800 Nasal 2.0L Cannula 01/30 0800 97.8 71 21 120/70 98 Nasal 2.0L Cannula 01/30 0550 71 97 01/30 0400 96 BIPAP 30% 01/30 0315 78 95 01/30 0016 88 96 01/30 0000 95 BIPAP 30% 01/29 2348 97.3 90 24 118/78 95 BIPAP 30% 01/29 2216 76 96 Intake & Output 01/30 1600 01/30 0800 01/30 0000 01/29 1600 01/29 0800 01/29 0000 Intake Total 1634 1529 1800 1780 1488 1559 Output Total 450 450 700 375 600 550 Balance 1184 1079 1100 2928 861 8554 Intake, IV 1634 1529 1440 1300 1488 1319 Intake, Oral 0 360 480 0 240 Number 0 0 1 0 0 Bowel Movements Output, Urine 450 450 700 375 600 550 Patient 294 lb Weight Weight Bed scale Measurement Method Physical Exam: Gen: NAD HEENT: normal Lungs: clear to auscultation, normal resp. effort Heart: RRR, S1, S2, no murmurs Abdomen: Soft, nontender, no masses Extremities: No clubbing, cyanosis, or edema. Neuro: Alert and oriented x 3, cranial nerves intact Current Medications: Current Medications Sig/Shade Start time Last Medication Dose Route Stop Time Status Admin Acetaminophen 650 MG Q6P PRN 01/25 1830 AC PO Acetaminophen 1,000 MG Q6P PRN 01/25 1830 AC IV Aspirin Buffered 81 MG DAILY 01/26 09 AC 01/30 PO 1037 Atorvastatin Calcium 40 MG 1700 01/28 0315 AC 01/30 PO 1654 Heparin Sodium 4,000 UNIT ONCE ONE 01/29 2130 DC 01/29 (Porcine) IV 01/29 Heparin Sodium 5,000 UNIT .STK-MED ONE 01/29 2127 DC (Porcine) IV 01/29 212 Heparin Sodium 25,000 UNIT Q10H 01/28 1445 AC 01/30 (Porcine) IV 0855 Sodium Chloride 500 ML Hydromorphone HCl 0.4 MG Q4P PRN 01/25 1830 AC 01/30 IV 1654 Lidocaine 5 SANGEETA .STK-MED ONE 01/30 0844 DC TOP 01/30 0845 Magnesium Sulfate 1 GM Q2H 01/30 0630 DC 01/30 Dextrose/Water 100 ML IV 01/30 1029 1006 Oxacillin Sodium 2,000 MG Q4H 01/27 0845 AC 01/30 Sodium Chloride 100 ML IV 2003 Potassium Chloride 10 MEQ .STK-MED ONE 01/30 1745 DC IV 01/30 1746 Potassium Chloride 10 MEQ Q1H 01/30 0630 DC 01/30 IV 01/30 0731 0735 Sodium Chloride 1,000 ML Q8H 01/26 0500 AC 01/30 IV 1832 Results Last 48 Hrs of Labs/Mics: Laboratory Tests 01/30/18 2010: APTT 82 H 01/30/18 1600: APTT 60 H 01/30/18 1010: Fluid WBC 99525 H, Fld Total RBCs Counted 343923 H 01/30/18 1010: Lymphocytes 4, % Normal PMNs 92, Misc Hematology Test , Fluid Total Protein 3.2 01/30/18 0320: Anion Gap 4 L, Estimated GFR > 60, Glucose 99, Calcium 8.0 L, Phosphorus 4.0, Magnesium 1.7, Total Bilirubin 0.2, AST 17, ALT 26, Albumin 1.9 L, APTT 88 H, CBC w Diff NO MAN DIFF REQ, RBC 2.84 L, MCV 89.6, MCH 28.3, MCHC 31.6 L, RDW 16.7 H, MPV 8.3, Gran % 73.4, Lymphocytes % 15.5 L, Monocytes % 8.1, Eosinophils % 2.0, Basophils % 1.0, Absolute Granulocytes 6.5, Absolute Lymphocytes 1.4, Absolute Monocytes 0.7 H, Absolute Eosinophils 0.2, Absolute Basophils 0.1 01/29/18 2015: APTT 58 H 01/29/18 0816: APTT 61 H 01/29/18 0350: Anion Gap 5, Estimated GFR > 60, Glucose 99, Calcium 8.2 L, Phosphorus 3.4, Magnesium 1.8, Total Bilirubin 0.1 L, AST 20, ALT 19 L, Albumin 2.0 L, CBC w Diff NO MAN DIFF REQ, RBC 3.02 L, MCV 89.0, MCH 28.8, MCHC 32.3 L, RDW 16.8 H , MPV 8.5, Gran % 74.4, Lymphocytes % 16.6 L, Monocytes % 6.7, Eosinophils % 1.9, Basophils % 0.4, Absolute Granulocytes 6.7 H, Absolute Lymphocytes 1.5, Absolute Monocytes 0.6, Absolute Eosinophils 0.2, Absolute Basophils 0 Recent Imaging Studies: MRI of the head: - Somewhat limited study due to motion artifact with limited sequences obtained. 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 - Additional probable acute punctate infarct adjacent to the atrium of the right lateral ventricle. A focus of ventriculitis is a consideration but thought to be less likely. - Probable subacute infarct in the right occipitotemporal lobe. Note that this signal abnormality has a mildly rounded configuration and in the setting of sepsis a focus of infection remains in the differential diagnosis and CT follow-up is suggested to evaluate for evolution. - No mass effect, midline shift, or evidence of hydrocephalus. MARIAN 01/30/18: Normal left ventricular ejection fraction estimated at >60% 0.5 x 0.4 cm vegetation is seen on the anterior mitral leaflet. Mild mitral regurgitation. There is severe thickening of the noncoronary cusp of the aortic valve. Mild aortic regurgitation. No abscesses are seen. Assessment/Plan Assessment/Plan 1. hypercapnic respiratory failure 2. Bilateral pulmonary emboli with tachypnea, tach cardia, hypoxia, 3. Mildly elevated troponin 4. Abnormal EKG with ventricular ectopy 5. Leukocytosis 6. discitis 7. Hypokalemia 8. Self-limited episode of supraventricular tachycardia on telemetry 9. 0.5 0.4 cm vegetation noted on mitral valve on MARIAN, consistent with endocarditis Plan: * Antibiotic therapy for endocarditis as per ID * Continue IV heparin Continue telemetry? Yes
[2018-01-30 16:00] VITALS: BP 146/84
[2018-01-30 16:51] LABS: PTT 60 SEC (25-37)
--- NOTE | 2018-01-30 18:00 | PN- Orthopedic ---
Subjective Subjective: mild l knee pain Objective Vital Signs and I&Os Vital Signs Date Time Temp Pulse Resp B/P B/P Pulse O2 O2 Flow FiO2 Mean Ox Delivery Rate 01/30 1600 97.6 86 18 146/84 99 Nasal 2.0L Cannula 01/30 1600 99 Nasal 2.0L Cannula 01/30 1200 Nasal 2.0L Cannula 01/30 0842 75 98 01/30 0800 Nasal 2.0L Cannula 01/30 0800 97.8 71 21 120/70 98 Nasal 2.0L Cannula 01/30 0550 71 97 01/30 0400 96 BIPAP 30% 01/30 0315 78 95 01/30 0016 88 96 01/30 0000 95 BIPAP 30% 01/29 2348 97.3 90 24 118/78 95 BIPAP 30% 01/29 2216 76 96 01/29 2000 97 Nasal 2.0L Cannula Intake & Output 01/30 1600 01/30 0800 01/30 0000 01/29 1600 01/29 0800 01/29 0000 Intake Total 1634 1529 1800 1780 1488 1559 Output Total 450 450 700 375 600 550 Balance 1184 1079 1100 1092 563 7605 Intake, IV 1634 1529 1440 1300 1488 1319 Intake, Oral 0 360 480 0 240 Number 0 0 1 0 0 Bowel Movements Output, Urine 450 450 700 375 600 550 Patient 294 lb Weight Weight Bed scale Measurement Method Results Last 48 Hours of Labs: Laboratory Tests 01/30 01/30 01/30 1600 1010 1010 Coagulation APTT (25 - 37 SEC) 60 H Hematology Lymphocytes (%) 4 % Normal PMNs (%) 92 Misc Hematology Test (%) Other Body Source Fluid WBC (0 - 5 /CUMM) 91930 H Fld Total RBCs Counted (0 /CUMM) 839346 H Fluid Total Protein (g/dL) 3.2 01/3016 Chemistry Sodium (137 - 145 mmol/L) 143 Potassium (3.5 - 5.1 mmol/L) 3.8 Chloride (98 - 107 mmol/L) 104 Carbon Dioxide (22 - 30 mmol/L) 35 H Anion Gap (5 - 16) 4 L BUN (9 - 20 mg/dL) 9 Creatinine (0.7 - 1.2 mg/dL) 0.6 L Estimated GFR (>60 ml/min) > 60 Glucose (65 - 99 mg/dL) 99 Calcium (8.4 - 10.2 mg/dL) 8.0 L Phosphorus (2.5 - 4.5 mg/dL) 4.0 Magnesium (1.6 - 2.3 mg/dL) 1.7 Total Bilirubin (0.2 - 1.3 mg/dL) 0.2 AST (17 - 59 U/L) 17 ALT (21 - 72 U/L) 26 Albumin (3.5 - 5.0 g/dL) 1.9 L Coagulation APTT (25 - 37 SEC) 88 H 58 H 61 H Hematology CBC w Diff NO MAN DIFF REQ WBC (4.8 - 10.8 /CUMM) 8.8 RBC (4.70 - 6.10 /CUMM) 2.84 L Hgb (14.0 - 18.0 G/DL) 8.0 L Hct (42 - 52 %) 25.4 L MCV (80.0 - 94.0 FL) 89.6 MCH (27.0 - 31.0 PG) 28.3 MCHC (33.0 - 37.0 G/DL) 31.6 L RDW (11.5 - 14.5 %) 16.7 H Plt Count (130 - 400 /CUMM) 303 MPV (7.4 - 10.4 FL) 8.3 Gran % (42.2 - 75.2 %) 73.4 Lymphocytes % (20.5 - 51.1 %) 15.5 L Monocytes % (1.7 - 9.3 %) 8.1 Eosinophils % (0 - 5 %) 2.0 Basophils % (0.0 - 2.0 %) 1.0 Absolute Granulocytes (1.4 - 6.5 /CUMM) 6.5 Absolute Lymphocytes (1.2 - 3.4 /CUMM) 1.4 Absolute Monocytes (0.10 - 0.60 /CUMM) 0.7 H Absolute Eosinophils (0.0 - 0.7 /CUMM) 0.2 Absolute Basophils (0.0 - 0.2 /CUMM) 0.1 01/29 01/28 0350 2045 Chemistry Sodium (137 - 145 mmol/L) 144 Potassium (3.5 - 5.1 mmol/L) 4.0 Chloride (98 - 107 mmol/L) 105 Carbon Dioxide (22 - 30 mmol/L) 33 H Anion Gap (5 - 16) 5 BUN (9 - 20 mg/dL) 11 Creatinine (0.7 - 1.2 mg/dL) 0.6 L Estimated GFR (>60 ml/min) > 60 Glucose (65 - 99 mg/dL) 99 Calcium (8.4 - 10.2 mg/dL) 8.2 L Phosphorus (2.5 - 4.5 mg/dL) 3.4 Magnesium (1.6 - 2.3 mg/dL) 1.8 Total Bilirubin (0.2 - 1.3 mg/dL) 0.1 L AST (17 - 59 U/L) 20 ALT (21 - 72 U/L) 19 L Albumin (3.5 - 5.0 g/dL) 2.0 L Coagulation APTT (25 - 37 SEC) 67 H Hematology CBC w Diff NO MAN DIFF REQ WBC (4.8 - 10.8 /CUMM) 9.0 RBC (4.70 - 6.10 /CUMM) 3.02 L Hgb (14.0 - 18.0 G/DL) 8.7 L Hct (42 - 52 %) 26.9 L MCV (80.0 - 94.0 FL) 89.0 MCH (27.0 - 31.0 PG) 28.8 MCHC (33.0 - 37.0 G/DL) 32.3 L RDW (11.5 - 14.5 %) 16.8 H Plt Count (130 - 400 /CUMM) 282 MPV (7.4 - 10.4 FL) 8.5 Gran % (42.2 - 75.2 %) 74.4 Lymphocytes % (20.5 - 51.1 %) 16.6 L Monocytes % (1.7 - 9.3 %) 6.7 Eosinophils % (0 - 5 %) 1.9 Basophils % (0.0 - 2.0 %) 0.4 Absolute Granulocytes (1.4 - 6.5 /CUMM) 6.7 H Absolute Lymphocytes (1.2 - 3.4 /CUMM) 1.5 Absolute Monocytes (0.10 - 0.60 /CUMM) 0.6 Absolute Eosinophils (0.0 - 0.7 /CUMM) 0.2 Absolute Basophils (0.0 - 0.2 /CUMM) 0 Assessment/Plan Assessment/Plan Patient reevaluated after he returned from MRI. The knee aspirate cell count 11 ,000. We will hold off on any surgical intervention at this time and wait for the cultures. This was discussed with patient and the house staff. We will follow along with you. Continue antibiotics per ID Discussed with Dr. Ojeda
[2018-01-30 20:57] LABS: PTT 82 SEC (25-37)
--- NOTE | 2018-01-30 21:02 | ECHOCARDIOGRAM REPORT ---
JOSÉ MIGUEL MARTELL Age: 52 : Gender: M Exam Date: 01/30/2018 08:39 Exam Location: [facility] Ht (in): 76 Wt (lb): 294 BSA: 2.72 BP: 120 / 80 Ordering Physician: Norma Marie MD Referring Physician: Norma Marie MD Technologist: Demetrius Peralta NUBIA Room Number: 105 Indications: INFECTIVE ENDOCARDITIS Rhythm: Sinus Technical Quality: Good Medications propofol Ease of Transducer Insertion Difficult Complications None. Technical Difficulty minor FINDINGS Left Ventricle Normal size left ventricle. No obvious regional wall motion abnormalities. Normal left ventricular ejection fraction estimated at >60% Right Ventricle Normal right ventricular size and function. Right Atrium Normal right atrial size. Left Atrium Normal left atrial size. LA Appendage IA Septum Normal interatrial septum. Mitral Valve 0.5 x 0.4 cm vegetation is seen on the anterior mitral leaflet. Mild mitral regurgitation. Aortic Valve There is severe thickening of the noncoronary cusp. No aortic stenosis. Mild aortic regurgitation. No oaortic valve vegetations. Tricuspid Valve Structurally normal tricuspid valve. Pulmonic Valve Pulmonic valve not well visualized, grossly normal. Pericardium No pericardial effusion. Great Vessels Normal size aortic root. Mild atherosclerosis of the thoracic aorta. CONCLUSIONS Normal left ventricular ejection fraction estimated at >60% 0.5 x 0.4 cm vegetation is seen on the anterior mitral leaflet. Mild mitral regurgitation. There is severe thickening of the noncoronary cusp of the aortic valve. Mild aortic regurgitation. No abscesses are seen. Todd Lester M.D. (Electronically Signed) Final Date: 30 January 2018 21:01 MEASUREMENTS (Male / Female) Normal Values
[2018-01-30 23:00] VITALS: BP 118/70
[2018-01-31 05:14] LABS: ABSOLUTE BASOPHIL COUNT 0 /CUMM (0.0-0.2); ABSOLUTE EOSINOPHIL COUNT 0.2 /CUMM (0.0-0.7); ABSOLUTE GRANULOCYTE CT 6.3 /CUMM (1.4-6.5); ABSOLUTE LYMPH COUNT 1.3 /CUMM (1.2-3.4); ABSOLUTE MONOCYTE COUNT 0.8 /CUMM (0.10-0.60); BASOPHIL % 0.6 % (0.0-2.0); EOSINOPHIL % 2.3 % (0-5); GRANULOCYTE % 73.1 % (42.2-75.2); HEMATOCRIT 24.6 % (42-52); MEAN CORPUSCULAR HGB 28.7 PG (27.0-31.0); MEAN CORPUSCULAR HGB CONC 32.2 G/DL (33.0-37.0); MEAN CORPUSCULAR VOLUME 89.1 FL (80.0-94.0); MEAN PLATELET VOLUME 8.1 FL (7.4-10.4); PLATELET COUNT 335 /CUMM (130-400); RBC DISTRIBUTION WIDTH 16.5 % (11.5-14.5); RED BLOOD CELL CT 2.77 /CUMM (4.70-6.10); WHITE BLOOD CELL COUNT 8.6 /CUMM (4.8-10.8)
--- NOTE | 2018-01-31 07:41 | PN- Resident CRCU ---
Norma Marie Adam Xavier 01/31/18 0725: Subjective HPI/CRCU Issues: No overnight event. Patient was seen and examined at bedside, resting comfortably on nocturnal BiPAP, had no complication post MARIAN/MRI/Knee Tap from yesteryday, without any specific complaints besides his bilateral lower extremity weakness, else BLEs sensations intact, denied incontinence/fever/ chills. Objective Vital Signs & I&O Last 8 Hrs of Vitals and I&O: Intake & Output 01/31 0800 Intake Total 1775 Output Total 400 Balance 1375 Intake, IV 1775 Number 0 Bowel Movements Output, Urine 400 Exam General Appearance: no apparent distress, comfortable Head: atraumatic Respiratory: chest non-tender, no respiratory distress, decreased breath sounds Cardiovascular: regular rate/rhythm Gastrointestinal: normal bowel sounds, soft, non-tender Extremities: no edema, sensation intact BLEs, no incontinence Current Medications: Current Medications Sig/Shade Start time Last Medication Dose Route Stop Time Status Admin Acetaminophen 650 MG Q6P PRN 01/25 1830 AC PO Acetaminophen 1,000 MG Q6P PRN 01/25 1830 AC IV Aspirin Buffered 81 MG DAILY 01/26 0900 AC 01/30 PO 1037 Atorvastatin Calcium 40 MG 1700 01/28 0315 AC 01/30 PO 1654 Heparin Sodium 25,000 UNIT Q10H 01/28 1445 AC 01/31 (Porcine) IV 0232 Sodium Chloride 500 ML Hydromorphone HCl 0.4 MG Q4P PRN 01/25 1830 AC 01/31 IV 0624 Lidocaine 5 SANGEETA .STK-MED ONE 01/30 0844 DC TOP 01/30 0845 Magnesium Sulfate 1 GM Q2H 01/30 0630 MN 01/30 Dextrose/Water 100 ML IV 01/30 1029 1006 Oxacillin Sodium 2,000 MG Q4H 01/27 0845 AC 01/31 Sodium Chloride 100 ML IV 0415 Potassium Chloride 10 MEQ .STK-MED ONE 01/30 1745 DC IV 01/30 1746 Potassium Chloride 10 MEQ Q1H 01/30 0630 DC 01/30 IV 01/30 0731 0735 Sodium Chloride 1,000 ML Q8H 01/26 0500 AC 01/31 IV 0416 Impression/Plan Impression/Problem List Impression: Patient is a 52-year-old man with a past medical history of hypertension, osteoarthritis, history of right hip ankle surgery status post hardware, chronic left foot nonhealing ulcer, leading to MSSA bacteremia complicated by involvement of the joints including left knee and right shoulder. He needed treatment for 4 weeks of Unasyn and discharged to rehab. He was discharged to home 2 week before the admission and presented to [facility] ED for increased back pain and weakness related to fall around 3 days ago. After fall he was not able to get out of the bed. ED course - Vital signs at the time of admission -temperature 98.9, pulse 124, respiratory 18, blood pressure 140/72, SPO2 88% on room air and 96% on 2 L of nasal cannula. Blood workup showed-WBC 15.5, hemoglobin 12.3, hematocrit 38.8, platelet count 581, granulocyte 91.5, lymphocytes 4.1, band cells 0, serum sodium 145, potassium 2.8, chloride 104, carbon dioxide 31, anion gap 11, BUN 15, creatinine 0.7, glucose 107, calcium 8.9, total bilirubin 0.7, AST 36, ALT 30, alkaline phosphatase 167, troponin I 0.27, albumin 3.0, d-dimer 2193, UA showed -nitrite negative, esterase negative, RBC 50-75, hyaline casts rare, urine hemoglobin large. ABG showed -pH 7.33, PCO2 65, PO2 121, bicarbonate 33. Chest x-ray -No acute cardiopulmonary findings. X-ray lumbar spine-Possible erosion/osteomyelitis/discitis involving the superior endplate of L2. CT chest/abdomen/pelvis - 1. Large pulmonary arteries, ? chronic pulmonary arterial hypertension/chronic pulmonary valve stenosis. 2. Pulmonary emboli are observed within the right upper lobe and left lower lobe. No evidence of heart strain. 3.At L1-L2, the disc space is widened the vertebral endplate erosions.Associated mild endplate sclerosis, minimal gas in the disc space and mild edema of adjacent paraspinal tissues. Small foci of gas project anterior to the deformed, eroded disc space, anterior to the left psoas muscle. 4.Small bowel is mildly dilated in the upper mid abdomen; however, there is no focal transition point. There is no overt bowel obstruction. This might represent mild ileus. Bilateral venous Doppler of lower extremities -No evidence of DVT in either legs. Echocardiogram -Technically difficult and very limited. LVEF 60-65%. Assessment and plan - RESPIRATORY # Bilateral large pulmonary embolism - Continued IV heparin. #Obstructive sleep apnea, on CPAP at home - continue oxygen and BiPAP at night. INFECTIOUS DISEASE #SA osteomyelitis - Continuing IV Oxacillin per ID - MARIAN 01/30 showed 0.5 x 0.4 cm vegetation is seen on the anterior mitral leaflet , Mild mitral regurgitation, severe thickening of the noncoronary cusp of the aortic valve, however no abscess was seen. - As for the spine osteomyelitis, he does not have any abscess, this does not need to be drained. #Acute on chronic back pain, due to discitis/osteomyelitis - Neurology recommendation appreciated regarding the patient possibly having myelitis w/? cord compression. - Patient's physical exam remained unchanged without signs of compresison. - Of note, he had a fall on his knees (b/l) on 01/22 and has been moving less since then. X-ray of the knees showed Moderate to large left knee joint effusion with cortical irregularity and possible small fracture fragment to the inferior articular surface to the patella. #Questionable knee infections? - stable afebrile for now, without leukocytosis - Knee tap x 2 (first tube clotted) by Surg showed mostly sanguous fluid with 813123 RBCs/89854 WBCs, no crystals was seen. Remained stable afebrile without leukocytosis, questionable knee infection, could also be traumatic. Will cont monitor CARDIOLOGY #Endocarditis w/ mitral valve vegetation - MARIAN 01/30 showed 0.5 x 0.4 cm vegetation is seen on the anterior mitral leaflet , Mild mitral regurgitation, severe thickening of the noncoronary cusp of the aortic valve, however no abscess was seen. - Currently on Abx per ID. pending further input regarding ABx choice/duration. NGTD on latest blood culture x 2 #Elevated troponin, likely type II PR - Trended down on 0.25, Cardiology recs appreciated. HEMATOLOGY #Leukocytosis 2/2 Osteomyelitis, resolved now - Continue ABx as above. #Hematuria Patient does not complain of any abd/flank pain or changes in urination habit or color. Not sure if this is significant, but will have to consider if he gets severe anemia/bleeds. - cont monitor, no recent hematuria, no active bleeding source identified. - Hgb trended down to 7.9 on latest lab. Will keep >7, cont monitor. METABOLIC #Hypokalemia, resolved - 4.2 on latest lab, cont montor ALIMENTARY - Resumed on regular diet after MRI/MARIAN without specific complaint. NEPHROLOGY No issues. NEUROLOGY #Spine osteomyelitis, see note above. #Bilateral leg weakness, see note above. - Neurosurgery consultation requested 01/28, see event note for details. - Patient was arranged and orders put in for Open MRI w/ & w/o LONDON for Head/ Cervical/Thoracic/Lumbar spine planned for 01/30 at [facility] around 1230, Contacted [facility] Dr. Laguna @ [phone] EXT [phone]. - On 01/30, patient was sent for MRI after MARIAN performed by Dr. Lester in the AM. Patient underwent MRI head & cervical spine w/o LONDON first, and a harness could not be fitted for the subsequent MRI thoracic/lumbar spine. MRI crew tried scanning without harness. Radiologist on site checked the previous head/cervical spine imaging and found the MRI cervical was not of diagnostic value, and decided that the rest of MRI could not be proceed further as no diagnostic images would be obtained, and the patient was sent back to [facility]. - MRI Head 01/30 - Somewhat limited study due to motion artifact with limited sequences obtained. 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 - Additional probable acute punctate infarct adjacent to the atrium of the right lateral ventricle. A focus of ventriculitis is a consideration but thought to be less likely. - Probable subacute infarct in the right occipitotemporal lobe. Note that this signal abnormality has a mildly rounded configuration and in the setting of sepsis a focus of infection remains in the differential diagnosis and CT follow- up is suggested to evaluate for evolution. - No mass effect, midline shift, or evidence of hydrocephalus. MISC Diet: regular diet DVT ppx: IV Heparin running Code status: Full code Mother's Cellphone: [phone] Problem List: 1. Discitis 2. Pulmonary embolism 3. Endocarditis Pain Ratin Tomorrow's Labs & Rationales: ICU/CBC Plan DVT/Prophylaxis: pharmacological Seymour Guzmán MD 01/31/18 1130: Attending MD Review Statement Attending Sign Off Attending Cosign Statement: I have: examined this patient, reviewed aval EMR data, personally reviewd images, discussd w/resident/PA/CONTINUOUS DRYOUT OPERATOR, discussed mgmt plan w/lazara, discussed mgmt plan w/CM, discussed mgmt plan w/pt, agreed w/resident/PA/CONTINUOUS DRYOUT OPERATOR, amended to note. Other Findings: Seymour Caldwell M.D. have examined this patient, reviewed available EMR data, personally reviewed images, discussed with resident/PA/CONTINUOUS DRYOUT OPERATOR, discussed management plan with housestaff and nursing staff, discussed managment plan all of healthcare providers, discussed management plan with patient and/or family, agreed with resident/PA/CONTINUOUS DRYOUT OPERATOR. The past history and parts of the chart have been autopopulated. Impression 52 year old man * Submassive now stabilized - Pulmonary emboli - right upper lobe and left lower lobe * staph aureus bacteremia - discitis/osteomyelitis, possible epidural abscess * mitral valve vegetation suggested on MARIAN and MRI revealing areas of infarcts possibly embolic in nature * difficulty moving extremities * TEN/OHS * knee effusion s/p arthrocentesis - not consistent with septic arthritis Plan -MRI was limited and incomplete due to AP body habitus of patient -plan for CT of spine with contrast -f/u knee cultures -PICC line -continue Oxacillin -f/u national sales consultant recomendations * cardiology, ID, neurology, neurosurgery, orthopedics -heparin gtt to goal PTT for now -nocturnal bipap -incentive spirometry TTS 35 min
[2018-01-31 08:00] VITALS: BP 144/70
[2018-01-31 09:26] LABS: PTT 98 SEC (25-37)
--- NOTE | 2018-01-31 11:05 | PN- Cardiology ---
Subjective Subjective: The patient appears to be doing a bit better today. Continues to have back issues. MARIAN reportedly shows a small mitral valve vegetation. Objective Vital Signs and I&Os Vital Signs Date Time Temp Pulse Resp B/P B/P Pulse O2 O2 Flow FiO2 Mean Ox Delivery Rate 01/31 0536 73 97 01/31 0400 100 BIPAP 30% 01/31 0310 66 95 01/31 0009 68 98 01/31 0000 99 BIPAP 30% 01/30 2300 97.8 82 28 118/70 95 BIPAP 30% 01/30 2204 77 97 01/30 2000 97 Nasal 2.0L Cannula 01/30 1600 97.6 86 18 146/84 99 Nasal 2.0L Cannula 01/30 1600 99 Nasal 2.0L Cannula 01/30 1200 Nasal 2.0L Cannula Intake & Output 01/31 1600 01/31 0800 01/31 0000 01/30 1600 01/30 0800 01/30 0000 Intake Total 1775 2207 1634 1529 1800 Output Total 400 900 450 450 700 Balance 1375 1307 1184 1079 1100 Intake, IV 1775 1247 1634 1529 1440 Intake, Oral 960 0 360 Number 0 0 0 0 Bowel Movements Output, Urine 400 900 450 450 700 Physical Exam: General Appearance Alert, Oriented X3, Cooperative, No Acute Distress Skin No Rashes, tattoos+, Rt foot has healing wound HEENT Atraumatic, PERRLA, EOMI, very dry mucosa Neck Supple, No JVD, carotids normal bilaterally with no audible bruits Cardiovascular Regular Rate, Normal S1, Normal S2, tachycardic, 1/6 systolic murmur left upper Lungs Clear to Auscultation and percussion bilaterally extremities:no Cyanosis, No Edema, pulses in dorsalis pedis weak b/l, Rt foot feels cold to touch, Left foot warm to touch without any skin changes/redness, 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 Vascular Pulses Symmetrical, b/l weak pulse over feet, but CONCR[employer]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 Current Medications: Current Medications Sig/Shade Start time Last Medication Dose Route Stop Time Status Admin Acetaminophen 650 MG Q6P PRN 01/25 183 AC PO Acetaminophen 1,000 MG Q6P PRN 01/25 1830 AC IV Aspirin Buffered 81 MG DAILY 01/26 09 AC 01/30 PO 1037 Atorvastatin Calcium 40 MG 1700 01/28 0315 01/30 PO 1654 Heparin Sodium 25,000 UNIT Q10H 01/28 1445 01/31 (Porcine) IV 0232 Sodium Chloride 500 ML Hydromorphone HCl 0.4 MG Q4P PRN 01/25 1830 01/31 IV 0624 Oxacillin Sodium 2,000 MG Q4H 01/27 0845 01/31 Sodium Chloride 100 ML IV 0415 Potassium Chloride 10 MEQ .STK-MED ONE 01/30 1745 DC IV 01/30 1746 Sodium Chloride 1,000 ML Q8H 01/26 0500 01/31 IV 0416 Results Last 48 Hrs of Labs/Mics: Laboratory Tests 01/31/18 0850: APTT 98 H 01/31/18 0422: Anion Gap 4 L, Estimated GFR > 60, Glucose 91, Calcium 7.8 L, Phosphorus 4.5, Magnesium 1.9, Total Bilirubin 0.3, AST 26, ALT 22, Albumin 1.9 L, CBC w Diff NO MAN DIFF REQ, RBC 2.77 L, MCV 89.1, MCH 28.7, MCHC 32.2 L, RDW 16.5 H, MPV 8.1, Gran % 73.1, Lymphocytes % 15.2 L, Monocytes % 8.8, Eosinophils % 2.3, Basophils % 0.6, Absolute Granulocytes 6.3, Absolute Lymphocytes 1.3, Absolute Monocytes 0.8 H, Absolute Eosinophils 0.2, Absolute Basophils 0 01/30/18 2010: APTT 82 H 01/30/18 1600: APTT 60 H 01/30/18 1010: Fluid WBC 02993 H, Fld Total RBCs Counted 632024 H 01/30/18 1010: Lymphocytes 4, % Normal PMNs 92, Misc Hematology Test , Fluid Total Protein 3.2 01/30/18 0320: Anion Gap 4 L, Estimated GFR > 60, Glucose 99, Calcium 8.0 L, Phosphorus 4.0, Magnesium 1.7, Total Bilirubin 0.2, AST 17, ALT 26, Albumin 1.9 L, APTT 88 H, CBC w Diff NO MAN DIFF REQ, RBC 2.84 L, MCV 89.6, MCH 28.3, MCHC 31.6 L, RDW 16.7 H, MPV 8.3, Gran % 73.4, Lymphocytes % 15.5 L, Monocytes % 8.1, Eosinophils % 2.0, Basophils % 1.0, Absolute Granulocytes 6.5, Absolute Lymphocytes 1.4, Absolute Monocytes 0.7 H, Absolute Eosinophils 0.2, Absolute Basophils 0.1 01/29/182014: APTT 58 H Assessment/Plan Assessment/Plan Assessment 1. hypercapnic respiratory failure 2. Bilateral pulmonary emboli with tachypnea, tach cardia, hypoxia, 3. Mildly elevated troponin 4. Abnormal EKG with ventricular ectopy 5. Leukocytosis 6. discitis 7. Hypokalemia 8. Self-limited episode of supraventricular tachycardia on telemetry 9. 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 Small bilateral CVAs ? embolic ( small left cerebellar; punctate right lateral ventricle; subacute right occipitotemporal) Plan: -I reviewed th MARIAN images from yesterday. I agree that there is a vegetation on the left atrial aspect of the AML. I also believe that there is involvement of the non coronary leaflet of the aortic valve with partial prolapse of the leaflet and mild eccentric AI. - Discussed with Dr Morgan - Continue close monitoring of rhythm. ECG qAM for next few days. - In view of multiple bilateral , possibly embolic strokes, consider baseline input from CT surgery. Continue telemetry? Yes
--- NOTE | 2018-01-31 11:28 | PN- Infect Dx ---
Subjective Subjective: Afebrile without complaints Objective Last 24 Hrs of Vital Signs/I&O Vital Signs Date Time Temp Pulse Resp B/P B/P Pulse O2 O2 Flow FiO2 Mean Ox Delivery Rate 01/31 0536 73 97 01/31 0400 100 BIPAP 30% 01/31 0310 66 95 01/31 0009 68 98 01/31 0000 99 BIPAP 30% 01/30 2300 97.8 82 28 118/70 95 BIPAP 30% 01/30 2204 77 97 01/30 2000 97 Nasal 2.0L Cannula 01/30 1600 97.6 86 18 146/84 99 Nasal 2.0L Cannula 01/30 1600 99 Nasal 2.0L Cannula 01/30 1200 Nasal 2.0L Cannula Intake & Output 01/31 1600 01/31 0800 01/31 0000 Intake Total 1775 2207 Output Total 400 900 Balance 1375 1307 Intake, IV 1775 1247 Intake, Oral 960 Number 0 0 Bowel Movements Output, Urine 400 900 Physical Exam Other Physical Findings: He is awake and alert in no acute distress Lungs are clear Heart regular rhythm with no murmur Extremities left knee swelling, with good range of motion Neuro bilateral paraparesis unchanged Wood catheter remains in place Results Last 24 Hours of Lab Results: Laboratory Tests 01/31 01/31 01/30 01/30 0850 0422 2009 1599 Chemistry Sodium (137 - 145 mmol/L) 141 Potassium (3.5 - 5.1 mmol/L) 4.2 Chloride (98 - 107 mmol/L) 104 Carbon Dioxide (22 - 30 mmol/L) 33 H Anion Gap (5 - 16) 4 L BUN (9 - 20 mg/dL) 7 L Creatinine (0.7 - 1.2 mg/dL) 0.6 L Estimated GFR (>60 ml/min) > 60 Glucose (65 - 99 mg/dL) 91 Calcium (8.4 - 10.2 mg/dL) 7.8 L Phosphorus (2.5 - 4.5 mg/dL) 4.5 Magnesium (1.6 - 2.3 mg/dL) 1.9 Total Bilirubin (0.2 - 1.3 mg/dL) 0.3 AST (17 - 59 U/L) 26 ALT (21 - 72 U/L) 22 Albumin (3.5 - 5.0 g/dL) 1.9 L Coagulation APTT (25 - 37 SEC) 98 H 82 H 60 H Hematology CBC w Diff NO MAN DIFF REQ WBC (4.8 - 10.8 /CUMM) 8.6 RBC (4.70 - 6.10 /CUMM) 2.77 L Hgb (14.0 - 18.0 G/DL) 7.9 L Hct (42 - 52 %) 24.6 L MCV (80.0 - 94.0 FL) 89.1 MCH (27.0 - 31.0 PG) 28.7 MCHC (33.0 - 37.0 G/DL) 32.2 L RDW (11.5 - 14.5 %) 16.5 H Plt Count (130 - 400 /CUMM) 335 MPV (7.4 - 10.4 FL) 8.1 Gran % (42.2 - 75.2 %) 73.1 Lymphocytes % (20.5 - 51.1 %) 15.2 L Monocytes % (1.7 - 9.3 %) 8.8 Eosinophils % (0 - 5 %) 2.3 Basophils % (0.0 - 2.0 %) 0.6 Absolute Granulocytes (1.4 - 6.5 /CUMM) 6.3 Absolute Lymphocytes (1.2 - 3.4 /CUMM) 1.3 Absolute Monocytes (0.10 - 0.60 /CUMM) 0.8 H Absolute Eosinophils (0.0 - 0.7 /CUMM) 0.2 Absolute Basophils (0.0 - 0.2 /CUMM) 0 Last 24 Hours of Guilherme Results: Blood cultures 2 January 29 negative Left knee synovial fluid culture January 30 negative Recent Imaging Studies: MRI of the spine January 30 unable to be done MRI of the head January 30 revealed a small acute infarct in the left inferior cerebellum and a probable subacute infarct in the right occipital temporal lobe MARIAN January 30 revealed a 0.5 x 0.4 cm vegetation on the anterior mitral leaflet with mild mitral regurgitation Assessment/Plan ID Impression: Stable, with temperatures and white blood cell count remaining normal, on Oxacillin Day 5 of treatment for recurrent Staph aureus bacteremia, with presumed seeding of his lumbar spine resulting in a discitis/osteomyelitis and possible epidural abscess given his bilateral lower extremity weakness, though the CT scan did not reveal evidence for this and the MRI was unable to be done. He underwent aspiration of his left knee joint yesterday, with removal of seropurulent fluid, but with the cell count not suggestive of a septic arthritis and with the culture (on antibiotics) so far negative. The MRI of the head does reveal several infarcts, possibly representing emboli from the heart, with the MARIAN suggesting a vegetation on the mitral valve. He remains on Heparin for bilateral pulmonary emboli. Suggestion: 1. Repeat CT of the thoracolumbar spine with IV contrast 2. Follow-up left knee synovial fluid culture 3. Would pursue placement of a PICC 4. Remove Wood catheter 5. Continue Oxacillin
--- NOTE | 2018-01-31 15:12 | Event Note ---
Event Note Event Note: Discussed with Dr. ayers on 01/30/2018; regarding multiple infarct in the MRI of the brain. According to him since 01/27/2018 to 10 now there is no any hemorrhagic transformation of the infarct so we can continue heparin drip. We need to repeat the CT and there is any new neurological deterioration in the patient's symptoms. He thinks that these all may be due to infective endocarditis leading to multiple infarcts in the brain and the spine. 01/30/2018 - We changed the heparin protocol - continue heparin drip without giving the bolus.
[2018-01-31 16:00] VITALS: BP 146/80
[2018-01-31 16:43] LABS: PTT 71 SEC (25-37)
[2018-01-31 23:00] VITALS: BP 151/80
[2018-02-01 03:31] LABS: ABSOLUTE BASOPHIL COUNT 0 /CUMM (0.0-0.2); ABSOLUTE EOSINOPHIL COUNT 0.2 /CUMM (0.0-0.7); ABSOLUTE GRANULOCYTE CT 6.7 /CUMM (1.4-6.5); ABSOLUTE LYMPH COUNT 1.4 /CUMM (1.2-3.4); ABSOLUTE MONOCYTE COUNT 0.8 /CUMM (0.10-0.60); BASOPHIL % 0.4 % (0.0-2.0); EOSINOPHIL % 2.1 % (0-5); GRANULOCYTE % 73.5 % (42.2-75.2); HEMATOCRIT 24.7 % (42-52); MEAN CORPUSCULAR HGB 28.5 PG (27.0-31.0); MEAN CORPUSCULAR HGB CONC 32.2 G/DL (33.0-37.0); MEAN CORPUSCULAR VOLUME 88.6 FL (80.0-94.0); PLATELET COUNT 351 /CUMM (130-400); RBC DISTRIBUTION WIDTH 16.1 % (11.5-14.5); RED BLOOD CELL CT 2.79 /CUMM (4.70-6.10); WHITE BLOOD CELL COUNT 9.1 /CUMM (4.8-10.8)
[2018-02-01 03:39] LABS: PTT 85 SEC (25-37)
--- NOTE | 2018-02-01 07:28 | PN- Resident CRCU ---
FrankNorma 02/01/18 0727: Subjective HPI/CRCU Issues: No overnight event. Patient was seen and examined at bedside, resting comfortably without any specific complaints besides his bilateral lower extremity weakness, else BLEs sensations intact, denied incontinence/fever/ chills. Patient was concerend regarding his further treatment plan, and currently he was unsure what the directions would be, and also concerned regarding whether he could get an MRI done. I discussed with him regarding current plan and possible MRI in another facility before weekend, and also ABx plan regarding his endocarditis. Per nursing staff/patient, he was experiencing "spasms down his spine" from time to time, without particular trigger, and usually lasted only a few seconds and self-resolving for the past days stay in ICU. Objective Vital Signs & I&O Last 8 Hrs of Vitals and I&O: Intake & Output 02/01 0800 Intake Total 1665 Output Total 800 Balance 865 Intake, IV 1545 Intake, Oral 120 Number 0 Bowel Movements Output, Urine 800 Exam General Appearance: no apparent distress, alert, awake Head: atraumatic Respiratory: normal breath sounds, chest non-tender, no respiratory distress, lungs clear Cardiovascular: regular rate/rhythm Gastrointestinal: normal bowel sounds, soft, non-tender Extremities: Sensations grossly intact. No incontinence. Current Medications: Current Medications Sig/Shade Start time Last Medication Dose Route Stop Time Status Admin Acetaminophen 650 MG Q6P PRN 01/25 1830 AC PO Acetaminophen 1,000 MG Q6P PRN 01/25 1830 AC IV Aspirin Buffered 81 MG DAILY 01/26 0900 AC 01/31 PO 0900 Atorvastatin Calcium 40 MG 1700 01/28 0315 AC 01/31 PO 1702 Heparin Sodium 25,000 UNIT Q10H 01/28 1445 AC 02/01 (Porcine) IV 0403 Sodium Chloride 500 ML Hydromorphone HCl 0.4 MG Q4P PRN 01/25 1830 AC 02/01 IV 0403 Magnesium Oxide 400 MG ONE ONE 02/01 0445 DC 02/01 PO 02/01 0446 0442 Oxacillin Sodium 2,000 MG Q4H 01/27 0845 AC 02/01 Sodium Chloride 100 ML IV 0403 Potassium Chloride 40 MEQ ONCE ONE 02/01 0445 DC 02/01 PO 02/01 0446 0442 Sodium Chloride 1,000 ML Q8H 01/26 0500 AC 02/01 IV 0404 Impression/Plan Impression/Problem List Impression: Patient is a 52-year-old man with a past medical history of hypertension, osteoarthritis, history of right hip ankle surgery status post hardware, chronic left foot nonhealing ulcer, leading to MSSA bacteremia complicated by involvement of the joints including left knee and right shoulder. He needed treatment for 4 weeks of Unasyn and discharged to rehab. He was discharged to home 2 week before the admission and presented to [facility] ED for increased back pain and weakness related to fall around 3 days ago. After fall he was not able to get out of the bed. ED course - Vital signs at the time of admission -temperature 98.9, pulse 124, respiratory 18, blood pressure 140/72, SPO2 88% on room air and 96% on 2 L of nasal cannula. Blood workup showed-WBC 15.5, hemoglobin 12.3, hematocrit 38.8, platelet count 581, granulocyte 91.5, lymphocytes 4.1, band cells 0, serum sodium 145, potassium 2.8, chloride 104, carbon dioxide 31, anion gap 11, BUN 15, creatinine 0.7, glucose 107, calcium 8.9, total bilirubin 0.7, AST 36, ALT 30, alkaline phosphatase 167, troponin I 0.27, albumin 3.0, d-dimer 2193, UA showed -nitrite negative, esterase negative, RBC 50-75, hyaline casts rare, urine hemoglobin large. ABG showed -pH 7.33, PCO2 65, PO2 121, bicarbonate 33. Chest x-ray -No acute cardiopulmonary findings. X-ray lumbar spine-Possible erosion/osteomyelitis/discitis involving the superior endplate of L2. CT chest/abdomen/pelvis - 1. Large pulmonary arteries, ? chronic pulmonary arterial hypertension/chronic pulmonary valve stenosis. 2. Pulmonary emboli are observed within the right upper lobe and left lower lobe. No evidence of heart strain. 3.At L1-L2, the disc space is widened the vertebral endplate erosions.Associated mild endplate sclerosis, minimal gas in the disc space and mild edema of adjacent paraspinal tissues. Small foci of gas project anterior to the deformed, eroded disc space, anterior to the left psoas muscle. 4.Small bowel is mildly dilated in the upper mid abdomen; however, there is no focal transition point. There is no overt bowel obstruction. This might represent mild ileus. Bilateral venous Doppler of lower extremities -No evidence of DVT in either legs. Echocardiogram -Technically difficult and very limited. LVEF 60-65%. Assessment and plan - RESPIRATORY # Bilateral large pulmonary embolism - Continued IV heparin, without bolus - Housestaff discussed w/ Dr. Trevino 01/30 that regarding multiple infarct in the MRI of the brain, as there is no any hemorrhagic transformation of the infarct, heparin drip could be continued, and repeat CT head if there is any new neurological deterioration. Neuro suggested that the infarct could be 2/2 infective endocarditis. #Obstructive sleep apnea, on CPAP at home - continue oxygen and BiPAP at night. INFECTIOUS DISEASE #SA osteomyelitis - Continuing IV Oxacillin per ID - MARIAN 01/30 showed 0.5 x 0.4 cm vegetation is seen on the anterior mitral leaflet , Mild mitral regurgitation, severe thickening of the noncoronary cusp of the aortic valve, however no abscess was seen. - As for the spine osteomyelitis, he does not have any abscess, this does not need to be drained. #Acute on chronic back pain, due to discitis/osteomyelitis - Neurology recommendation appreciated regarding the patient possibly having myelitis w/? cord compression. - Patient's physical exam remained unchanged without signs of compresison. - Of note, he had a fall on his knees (b/l) on 01/22 and has been moving less since then. X-ray of the knees showed Moderate to large left knee joint effusion with cortical irregularity and possible small fracture fragment to the inferior articular surface to the patella. - Baclofen PRN for spasm? #Questionable knee infections? - stable afebrile for now, without leukocytosis - Knee tap x 2 (first tube clotted) by Surg showed mostly sanguous fluid with 834002 RBCs/48532 WBCs, no crystals was seen. Remained stable afebrile without leukocytosis, questionable knee infection, could also be traumatic. Will cont monitor. CARDIOLOGY #Endocarditis w/ mitral valve vegetation - MARIAN 01/30 showed 0.5 x 0.4 cm vegetation is seen on the anterior mitral leaflet , Mild mitral regurgitation, severe thickening of the noncoronary cusp of the aortic valve, however no abscess was seen. - Currently on Abx per ID. NGTD on latest blood culture x 2 01/31 - Will obtain PICC line today for a total of 6 weeks of ABx since first clear blood culture. #Elevated troponin, likely type II VA - Trended down on 0.25, Cardiology recs appreciated. HEMATOLOGY #Leukocytosis 2/2 Osteomyelitis, resolved now - Continue ABx as above. #Hematuria Patient does not complain of any abd/flank pain or changes in urination habit or color. Not sure if this is significant, but will have to consider if he gets severe anemia/bleeds. - cont monitor, no recent hematuria, no active bleeding source identified. - Hgb trended down to 7.9 on latest lab. Will keep >7, cont monitor. METABOLIC #Hypokalemia, resolved - 3.6 on latest lab, cont montor ALIMENTARY - Resumed on regular diet after MRI/MARIAN without specific complaint. NEPHROLOGY No issues. NEUROLOGY #Spine osteomyelitis, see note above. #Bilateral leg weakness, see note above. - Neurosurgery consultation requested 01/28, see event note for details. - Patient was arranged and orders put in for Open MRI w/ & w/o LONDON for Head/ Cervical/Thoracic/Lumbar spine planned for 01/30 at [facility] around 1230, Contacted [facility] Dr. Laguna @ [phone] EXT [phone]. - Patient may be potentially sent to [facility] in outpatient on 02/02 for repeated MRI on cervical/thoracic/lumbar spine w/ and w/o LONDON. - On 01/30, patient was sent for MRI after MARIAN performed by Dr. Lester in the AM. Patient underwent MRI head & cervical spine w/o LONDON first, and a harness could not be fitted for the subsequent MRI thoracic/lumbar spine. MRI crew tried scanning without harness. Radiologist on site checked the previous head/cervical spine imaging and found the MRI cervical was not of diagnostic value, and decided that the rest of MRI could not be proceed further as no diagnostic images would be obtained, and the patient was sent back to [facility]. - MRI Head 01/30 - Somewhat limited study due to motion artifact with limited sequences obtained. 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 - Additional probable acute punctate infarct adjacent to the atrium of the right lateral ventricle. A focus of ventriculitis is a consideration but thought to be less likely. - Probable subacute infarct in the right occipitotemporal lobe. Note that this signal abnormality has a mildly rounded configuration and in the setting of sepsis a focus of infection remains in the differential diagnosis and CT follow- up is suggested to evaluate for evolution. - No mass effect, midline shift, or evidence of hydrocephalus. Diet: regular diet DVT ppx: IV Heparin running IV Access: Peripheral Code status: Full code Mother's Cellphone: [phone] Problem List: 1. Endocarditis 2. Osteomyelitis of spine 3. Pulmonary embolism 4. Discitis Pain Ratin Pain Location: Back pain see AP Tomorrow's Labs & Rationales: ICU/CBC Plan DVT/Prophylaxis: pharmacological Seymour Guzmán MD 02/01/18 0939: Attending MD Review Statement Attending Sign Off Attending Cosign Statement: I have: examined this patient, reviewed avalbl EMR data, personally reviewd images, discussd w/resident/PA/IMPLEMENTATION PROJECT COORDINATOR, discussed mgmt plan w/lazara, discussed mgmt plan w/CM, discussed mgmt plan w/pt, agreed w/resident/PA/IMPLEMENTATION PROJECT COORDINATOR, amended to note. Other Findings: ISeymour M.D. have examined this patient, reviewed available EMR data, personally reviewed images, discussed with resident/PA/IMPLEMENTATION PROJECT COORDINATOR, discussed management plan with housestaff and nursing staff, discussed managment plan all of healthcare providers, discussed management plan with patient and/or family, agreed with resident/PA/IMPLEMENTATION PROJECT COORDINATOR. The past history and parts of the chart have been autopopulated. Impression 52 year old man * Submassive now stabilized - Pulmonary emboli - right upper lobe and left lower lobe * staph aureus bacteremia - discitis/osteomyelitis, possible epidural abscess * mitral valve vegetation suggested on MARIAN and MRI revealing areas of infarcts possibly embolic in nature * difficulty moving extremities * TEN/OHS * knee effusion s/p arthrocentesis - not consistent with septic arthritis Plan -MRI was limited and incomplete due to AP body habitus of patient -trying to arrange MRI at [facility] -plan for CT of spine with contrast -f/u knee cultures -plan for PICC line -continue Oxacillin -f/u new home sales consultant recomendations * cardiology, ID, neurology, neurosurgery, orthopedics -heparin gtt to goal PTT for now -nocturnal bipap -incentive spirometry TTS 35 min
[2018-02-01 08:00] VITALS: BP 150/82
--- NOTE | 2018-02-01 08:32 | PN- Cardiology ---
Subjective Subjective: No chest pain. No shortness of breath. No palpitations. No diaphoresis Objective Vital Signs and I&Os Vital Signs Date Time Temp Pulse Resp B/P B/P Pulse O2 O2 Flow FiO2 Mean Ox Delivery Rate 02/01 0400 93 Nasal 2.0L Cannula 02/01 0323 85 99 02/01 0009 76 95 02/01 0000 95 BIPAP 30% 01/31 2300 97.2 78 21 151/80 95 BIPAP 30% 01/31 2131 80 95 01/31 2000 96 Nasal 2.0L Cannula 01/31 1600 99.2 88 20 146/80 95 Nasal 2.0L Cannula 01/31 1200 97 Nasal 2.0L Cannula Intake & Output 02/01 1600 02/01 0800 02/01 0000 01/31 1600 01/31 0800 01/31 0000 Intake Total 1665 1978 2283 1775 2207 Output Total 800 800 700 400 900 Balance 865 1178 1583 1375 1307 Intake, IV 1545 1478 1483 1775 1247 Intake, Oral 120 500 800 960 Number 0 0 1 0 0 Bowel Movements Output, Urine 800 800 700 400 900 Physical Exam: Gen: NAD HEENT: normal Lungs: clear to auscultation, normal resp. effort Heart: RRR, S1, S2, 1/6 systolic murmur Abdomen: Soft, nontender, no masses Extremities: No clubbing, cyanosis, or edema. Neuro: Alert and oriented x 3, cranial nerves intact Current Medications: Current Medications Sig/Shade Start time Last Medication Dose Route Stop Time Status Admin Acetaminophen 650 MG Q6P PRN 01/25 183 AC PO Acetaminophen 1,000 MG Q6P PRN 01/25 183 AC IV Aspirin Buffered 81 MG DAILY 01/26 0900 AC 01/31 PO 0900 Atorvastatin Calcium 40 MG 1700 01/28 0315 AC 01/31 PO 1702 Heparin Sodium 25,000 UNIT Q10H 01/28 1445 AC 02/01 (Porcine) IV 0403 Sodium Chloride 500 ML Hydromorphone HCl 0.4 MG Q4P PRN 01/25 1830 AC 02/01 IV 0403 Magnesium Oxide 400 MG ONE ONE 02/01 0445 DC 02/01 PO 02/01 0446 0442 Oxacillin Sodium 2,000 MG Q4H 01/27 0845 AC 02/01 Sodium Chloride 100 ML IV 0403 Potassium Chloride 40 MEQ ONCE ONE 02/01 0445 DC 02/01 PO 02/01 0446 0442 Sodium Chloride 1,000 ML Q8H 01/26 0500 AC 02/01 IV 0404 Results Last 48 Hrs of Labs/Mics: Laboratory Tests 02/01/18 0310: Anion Gap 6, Estimated GFR > 60, Glucose 95, Calcium 7.9 L, Phosphorus 4.1, Magnesium 1.8, Total Bilirubin 0.1 L, AST 17, ALT 25, Albumin 2.0 L, APTT 85 H, CBC w Diff NO MAN DIFF REQ, RBC 2.79 L, MCV 88.6, MCH 28.5, MCHC 32.2 L, RDW 16.1 H, MPV 8.0, Gran % 73.5, Lymphocytes % 15.0 L, Monocytes % 9.0, Eosinophils % 2.1, Basophils % 0.4, Absolute Granulocytes 6.7 H, Absolute Lymphocytes 1.4, Absolute Monocytes 0.8 H, Absolute Eosinophils 0.2, Absolute Basophils 0 01/31/18 1518: APTT 71 H 01/31/18 0850: APTT 98 H 01/31/18 0422: Anion Gap 4 L, Estimated GFR > 60, Glucose 91, Calcium 7.8 L, Phosphorus 4.5, Magnesium 1.9, Total Bilirubin 0.3, AST 26, ALT 22, Albumin 1.9 L, CBC w Diff NO MAN DIFF REQ, RBC 2.77 L, MCV 89.1, MCH 28.7, MCHC 32.2 L, RDW 16.5 H, MPV 8.1, Gran % 73.1, Lymphocytes % 15.2 L, Monocytes % 8.8, Eosinophils % 2.3, Basophils % 0.6, Absolute Granulocytes 6.3, Absolute Lymphocytes 1.3, Absolute Monocytes 0.8 H, Absolute Eosinophils 0.2, Absolute Basophils 0 01/30/182009: APTT 82 H 01/30/18 1600: APTT 60 H 01/30/18 1010: Fluid WBC 12517 H, Fld Total RBCs Counted 079296 H 01/30/18 1010: Lymphocytes 4, % Normal PMNs 92, Misc Hematology Test , Fluid Total Protein 3.2 Assessment/Plan Assessment/Plan Assessment 1. Hypercapnic respiratory failure 2. Bilateral pulmonary emboli with tachypnea, tach cardia, hypoxia, 3. Mildly elevated troponin 4. Abnormal EKG with ventricular ectopy 5. Leukocytosis 6. discitis 7. Hypokalemia 8. Self-limited episode of supraventricular tachycardia on telemetry 9. 0.5 0.4 cm vegetation noted on mitral valve on MARIAN, consistent with endocarditis, with likely involvement of known coronary cusp of aortic valve as well. 10. 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
--- NOTE | 2018-02-01 10:16 | PN- Orthopedic ---
Surgical Brief Attending Note Brief Attending Note: Resting comfortably in bed LLE - no effusion/no warmth mild pain with range of motion A/P - s/p L knee I+D recent tap negative care per primary can advance activity as tolerated on left knee
--- NOTE | 2018-02-01 11:19 | PN- Infect Dx ---
Subjective Subjective: Afebrile. He offers no new complaints but continues to complain of back pain. Objective Last 24 Hrs of Vital Signs/I&O Vital Signs Date Time Temp Pulse Resp B/P B/P Pulse O2 O2 Flow FiO2 Mean Ox Delivery Rate 02/01 0800 95 Nasal 2.0L Cannula 02/01 0800 98.8 78 22 150/82 95 Nasal 2.0L Cannula 02/01 0400 93 Nasal 2.0L Cannula 02/01 0323 85 99 02/01 0009 76 95 02/01 0000 95 BIPAP 30% 01/31 2300 97.2 78 21 151/80 95 BIPAP 30% 01/31 2131 80 95 01/31 2000 96 Nasal 2.0L Cannula 01/31 1600 99.2 88 20 146/80 95 Nasal 2.0L Cannula 01/31 1200 97 Nasal 2.0L Cannula Intake & Output 02/01 1600 02/01 0800 02/01 0000 Intake Total 1665 1978 Output Total 800 800 Balance 865 1178 Intake, IV 1545 1478 Intake, Oral 120 500 Number 0 0 Bowel Movements Output, Urine 800 800 Physical Exam Other Physical Findings: He is awake and alert in no acute distress Lungs are clear Heart regular rhythm without murmur Extremities left knee mild swelling, with good range of motion Neuro bilateral lower extremity weakness unchanged Wood catheter remains in place Results Last 24 Hours of Lab Results: Laboratory Tests 02/01 01/31 0310 1518 Chemistry Sodium (137 - 145 mmol/L) 144 Potassium (3.5 - 5.1 mmol/L) 3.6 Chloride (98 - 107 mmol/L) 104 Carbon Dioxide (22 - 30 mmol/L) 34 H Anion Gap (5 - 16) 6 BUN (9 - 20 mg/dL) 6 L Creatinine (0.7 - 1.2 mg/dL) 0.6 L Estimated GFR (>60 ml/min) > 60 Glucose (65 - 99 mg/dL) 95 Calcium (8.4 - 10.2 mg/dL) 7.9 L Phosphorus (2.5 - 4.5 mg/dL) 4.1 Magnesium (1.6 - 2.3 mg/dL) 1.8 Total Bilirubin (0.2 - 1.3 mg/dL) 0.1 L AST (17 - 59 U/L) 17 ALT (21 - 72 U/L) 25 Albumin (3.5 - 5.0 g/dL) 2.0 L Coagulation APTT (25 - 37 SEC) 85 H 71 H Hematology CBC w Diff NO MAN DIFF REQ WBC (4.8 - 10.8 /CUMM) 9.1 RBC (4.70 - 6.10 /CUMM) 2.79 L Hgb (14.0 - 18.0 G/DL) 7.9 L Hct (42 - 52 %) 24.7 L MCV (80.0 - 94.0 FL) 88.6 MCH (27.0 - 31.0 PG) 28.5 MCHC (33.0 - 37.0 G/DL) 32.2 L RDW (11.5 - 14.5 %) 16.1 H Plt Count (130 - 400 /CUMM) 351 MPV (7.4 - 10.4 FL) 8.0 Gran % (42.2 - 75.2 %) 73.5 Lymphocytes % (20.5 - 51.1 %) 15.0 L Monocytes % (1.7 - 9.3 %) 9.0 Eosinophils % (0 - 5 %) 2.1 Basophils % (0.0 - 2.0 %) 0.4 Absolute Granulocytes (1.4 - 6.5 /CUMM) 6.7 H Absolute Lymphocytes (1.2 - 3.4 /CUMM) 1.4 Absolute Monocytes (0.10 - 0.60 /CUMM) 0.8 H Absolute Eosinophils (0.0 - 0.7 /CUMM) 0.2 Absolute Basophils (0.0 - 0.2 /CUMM) 0 Last 24 Hours of Guilherme Results: Blood cultures 2 January 29 negative Left knee synovial fluid culture January 30 negative Recent Imaging Studies: MARIAN reinterpreted with evidence of a vegetation on the aortic valve as well as the mitral valve Assessment/Plan ID Impression: Stable, with temperatures and white blood cell count remaining normal, on Oxacillin Day 6 of treatment for recurrent Staph aureus bacteremia, with discitis/osteomyelitis and possible epidural abscess, given his bilateral lower extremity weakness, which remains unchanged, though the CT scan did not reveal evidence for this. The MRI was unable to be done, but he is now scheduled for an MRI at [place] in the a.m. His left knee synovial fluid culture remains negative and, with the relatively low cell count, a septic arthritis is unlikely. The MRI of the head did reveal several infarcts, possibly representing emboli from the heart, with the MARIAN revealing vegetations on both the mitral and aortic valves, though he has no valvular insufficiency. As per Cardiology, he may eventually require evaluation for valve replacement, particularly in view of the possible septic emboli to the brain. He remains on Heparin for bilateral pulmonary emboli. Suggestion: 1. Await MRI of the lumbosacral spine at [facility] in the a.m. 2. Would remove Wood catheter 3. Would pursue placement of a PICC 4. Follow-up final left knee synovial fluid culture 5. Recheck ESR in the a.m. 6. Continue Oxacillin
--- NOTE | 2018-02-01 15:20 | PN- Neurology ---
Subjective Subjective: F/U leg weakness. Spinal MRI's attempted but limited due to body habitus. On oxacillin for staph endocarditis and heparin for PE. Also with recent knee injury and likely history of peripheral neuropathy. Review of Systems: limited shoulder movemen on right, knee pain, leg weakness, back pain Objective Vital Signs and I&Os Vital Signs Date Time Temp Pulse Resp B/P B/P Pulse O2 O2 Flow FiO2 Mean Ox Delivery Rate 02/01 0800 95 Nasal 2.0L Cannula 02/01 0800 98.8 78 22 150/82 95 Nasal 2.0L Cannula 02/01 0400 93 Nasal 2.0L Cannula 02/01 0323 85 99 02/01 0009 76 95 02/01 0000 95 BIPAP 30% 01/31 2300 97.2 78 21 151/80 95 BIPAP 30% 01/31 2131 80 95 01/31 2000 96 Nasal 2.0L Cannula 01/31 1600 99.2 88 20 146/80 95 Nasal 2.0L Cannula Intake & Output 02/01 1600 02/01 0800 02/01 0000 01/31 1600 01/31 0800 01/31 0000 Intake Total 1665 1978 2283 1775 2207 Output Total 800 800 700 400 900 Balance 865 1178 1583 1375 1307 Intake, IV 1545 1478 1483 1775 1247 Intake, Oral 120 500 800 960 Number 0 0 1 0 0 Bowel Movements Output, Urine 800 800 700 400 900 Morbidly obese male in no acute distress. He was awake, alert and cooperative. Speech was fluent. Face was symmetric. There was decreased range of motion in the proximal right upper extremity. Handgrip was normal bilaterally. There was minimal, 0-1 over 5 movement in lower extremities bilaterally apart from some toe wiggling. He could not dorsiflex at the ankle, adduct the knees or lift the heels from the bed in the supine position. Deep tendon reflexes were diffusely hypoactive. Plantar responses were neutral. Distal vibratory sensation was impaired in the feet. no clear sensory level. Current Medications: Current Medications Sig/Shade Start time Last Medication Dose Route Stop Time Status Admin Acetaminophen 650 MG Q6P PRN 01/25 183 AC PO Acetaminophen 1,000 MG Q6P PRN 01/25 183 AC IV Alprazolam 0.25 MG ONCE ONE 02/01 2100 AC PO 06/21 2101 Aspirin Buffered 81 MG DAILY 01/26 0900 AC 02/01 PO 0858 Atorvastatin Calcium 40 MG 1700 01/28 0315 AC 01/31 PO 1702 Cyclobenzaprine HCl 5 MG ONCE ONE 02/01 2100 AC PO 02/01 2101 Heparin Sodium 0 .STK-MED ONE 02/01 1331 DC (Porcine) IV Heparin Sodium 25,000 UNIT Q10H 01/28 1445 AC 02/01 (Porcine) IV 0403 Sodium Chloride 500 ML Hydromorphone HCl 0.4 MG Q4P PRN 01/25 1830 AC 02/01 IV 1456 Lidocaine 0 .STK-MED ONE 02/01 1331 DC .ROUTE Magnesium Oxide 400 MG ONE ONE 02/01 0445 DC 02/01 PO 02/01 0446 0442 Oxacillin Sodium 2,000 MG Q4H 01/27 0845 AC 02/01 Sodium Chloride 100 ML IV 1245 Potassium Chloride 40 MEQ ONCE ONE 02/01 0445 DC 02/01 PO 02/01 0446 0442 Sodium Chloride 1,000 ML Q8H 01/26 0500 DC 02/01 IV 0404 Assessment/Plan Assessment: #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 It is unclear as to whether this represents myelopathy versus limitation of movement due to pain, deconditioning, neuropathy and morbid obesity. #3 pulmonary emboli on heparin Plan: The patient is slated to go to [facility] for spinal MRI. Their MRI units can accommodate corpulent patient's. He will continue on his current antibiotic and anticoagulant therapy. Bedside physical therapy efforts should be in place. Dr. Lyle will follow as of 02/02
[2018-02-01 15:38] LABS: PTT 81 SEC (25-37)
[2018-02-01 16:00] VITALS: BP 160/80
--- NOTE | 2018-02-01 17:04 | INTERVENTIONAL RADIOLOGY RPT ---
CLINICAL HISTORY: This patient is a 52 year old male with a history of endocarditis, who presents to Interventional Radiology for placement of a double lumen PICC for central venous access. PROCEDURES: 1. Real-time ultrasound-guided access into the right basilic vein after documentation of selected vessel patency, and permanent imaging storing in the patient records. 2. Placement of a PICC. PHYSICIANS: Dr. Mike Dixon (attending). MEDICATIONS: Lidocaine 1%, 3 mL SQ. CONTRAST: None FLUOROSCOPY TIME: 0.7 minutes DAP: 490 uGym2 COMPLICATIONS: None ESTIMATED BLOOD LOSS: Scant SPECIMENS: None IMPLANT: 5 Fr Power PICC SITE MARKING: As part of the preprocedure verification policy, a site marking procedure was initiated. Due to the nature the procedure, the insertion site could not be predetermined thus invoking the policy of exemption to site laterality and marking. Insertion site marking was performed in the procedure room in conjunction with imaging confirmation. PROCEDURE NOTE: Informed consent was obtained from the patient prior to the procedure. During this process, the procedure and potential alternatives were explained along with the intended outcome and benefits. The risks of the procedure, including the possibility of an unsuccessful procedure, as well as the risk of not doing the procedure, were discussed. The patient was given the opportunity to ask questions regarding the procedure and appeared competent to make decisions. A signed consent form documenting this discussion was placed in the medical record. A time-out procedure was performed. The patient was placed supine on the fluoroscopy table. Prior to prepping the patient, a limited sonogram of the right arm was performed to choose appropriate access, and this arm was prepped and draped in the usual sterile fashion. All elements of maximal sterile barrier technique followed including use of cap, mask, sterile gown, sterile gloves, a sterile full body drape and hand hygiene. Also followed skin preparation with 2% chlorhexidine for cutaneous antisepsis, and sterile ultrasound preparation with sterile gel and probe cover when applicable. Venous access was achieved into the right basilic vein using ultrasound and fluoroscopic guidance. The 0.018 measuring wire from the PICC was advanced into the cavoatrial junction. The needle was removed and replaced with the peel away sheath. The intravascular length was measured and the catheter was trimmed to the correct length. The inner dilator was removed and the PICC was advanced over the wire into the cavoatrial junction. The peel away sheath and wire were removed. The catheter was tested successfully and secured to the skin with its tip in the cavoatrial junction. A spot image was taken. The patient tolerated the procedure well. FINDINGS: 1. Patent right basilic vein. 2. Successful placement of a 5-Fr double lumen PICC that measures 52 cm in length. IMPRESSION: Successful placement of a PICC. PLAN: 1. The patient was stable after the procedure and was transferred to the interventional recovery area. The patient will be transferred back to his medical room. 2. The catheter may be used immediately.
[2018-02-01 23:00] VITALS: BP 138/60
[2018-02-02 03:32] LABS: ABSOLUTE BASOPHIL COUNT 0.1 /CUMM (0.0-0.2); ABSOLUTE EOSINOPHIL COUNT 0.2 /CUMM (0.0-0.7); ABSOLUTE GRANULOCYTE CT 6.2 /CUMM (1.4-6.5); ABSOLUTE LYMPH COUNT 1.4 /CUMM (1.2-3.4); ABSOLUTE MONOCYTE COUNT 0.9 /CUMM (0.10-0.60); EOSINOPHIL % 2.1 % (0-5); MEAN CORPUSCULAR HGB 28.2 PG (27.0-31.0); MEAN CORPUSCULAR HGB CONC 31.9 G/DL (33.0-37.0); MEAN CORPUSCULAR VOLUME 88.6 FL (80.0-94.0); MEAN PLATELET VOLUME 7.9 FL (7.4-10.4); PLATELET COUNT 404 /CUMM (130-400); RBC DISTRIBUTION WIDTH 16.6 % (11.5-14.5); RED BLOOD CELL CT 2.94 /CUMM (4.70-6.10); WHITE BLOOD CELL COUNT 8.8 /CUMM (4.8-10.8)
[2018-02-02 03:38] LABS: PTT 92 SEC (25-37)
--- NOTE | 2018-02-02 07:14 | PN- Resident CRCU ---
FrankNorma 02/02/18 0713: Subjective HPI/CRCU Issues: No overnight event. Patient was seen and examined at bedside, resting comfortably without any specific complaints besides his bilateral lower extremity weakness, else BLEs sensations intact, denied incontinence/fever/ chills. He felt better slept after xanax/flexeril last night for his spasm. Pending transport for [facility] for MRI today. Objective Vital Signs & I&O Last 8 Hrs of Vitals and I&O: Intake & Output 02/02 0800 Intake Total 688 Output Total 600 Balance 88 Intake, IV 688 Intake, Oral 0 Number 0 Bowel Movements Output, Urine 600 Exam General Appearance: no apparent distress, alert, awake Head: atraumatic, normal appearance Respiratory: normal breath sounds, chest non-tender, no respiratory distress Cardiovascular: regular rate/rhythm Gastrointestinal: normal bowel sounds, soft, non-tender Extremities: no edema, sensation intact, ROM limited as before due to BLE weakness no incontinence. Current Medications: Current Medications Sig/Shade Start time Last Medication Dose Route Stop Time Status Admin Acetaminophen 650 MG Q6P PRN 01/25 1830 AC PO Acetaminophen 1,000 MG Q6P PRN 01/25 1830 AC IV Alprazolam 0.25 MG ONCE ONE 02/01 2100 DC 02/01 PO 02/01 Aspirin Buffered 81 MG DAILY 01/26 0900 AC 02/01 PO 0858 Atorvastatin Calcium 40 MG 1700 01/28 0315 AC 02/01 PO 1704 Cyclobenzaprine HCl 5 MG ONCE ONE 02/01 2100 DC 02/01 PO 02/01 2101 203 Heparin Sodium 0 .STK-MED ONE 02/01 1331 DC (Porcine) IV Heparin Sodium 25,000 UNIT Q10H 01/28 1445 AC 02/01 (Porcine) IV 2316 Sodium Chloride 500 ML Hydromorphone HCl 0.4 MG Q4P PRN 01/25 1830 AC 02/02 IV 0317 Lidocaine 0 .STK-MED ONE 02/01 1331 DC .ROUTE Nystatin 1 SANGEETA TID PRN 02/01 1815 AC TOP Oxacillin Sodium 2,000 MG Q4H 01/27 0845 AC 02/02 Sodium Chloride 100 ML IV 0502 Sodium Chloride 1,000 ML Q8H 01/26 0500 DC 02/01 IV 0404 Impression/Plan Impression/Problem List Impression: Patient is a 52-year-old man with a past medical history of hypertension, osteoarthritis, history of right hip ankle surgery status post hardware, chronic left foot nonhealing ulcer, leading to MSSA bacteremia complicated by involvement of the joints including left knee and right shoulder. He needed treatment for 4 weeks of Unasyn and discharged to rehab. He was discharged to home 2 week before the admission and presented to [facility] ED for increased back pain and weakness related to fall around 3 days ago. After fall he was not able to get out of the bed. ED course - Vital signs at the time of admission -temperature 98.9, pulse 124, respiratory 18, blood pressure 140/72, SPO2 88% on room air and 96% on 2 L of nasal cannula. Blood workup showed-WBC 15.5, hemoglobin 12.3, hematocrit 38.8, platelet count 581, granulocyte 91.5, lymphocytes 4.1, band cells 0, serum sodium 145, potassium 2.8, chloride 104, carbon dioxide 31, anion gap 11, BUN 15, creatinine 0.7, glucose 107, calcium 8.9, total bilirubin 0.7, AST 36, ALT 30, alkaline phosphatase 167, troponin I 0.27, albumin 3.0, d-dimer 2193, UA showed -nitrite negative, esterase negative, RBC 50-75, hyaline casts rare, urine hemoglobin large. ABG showed -pH 7.33, PCO2 65, PO2 121, bicarbonate 33. Chest x-ray -No acute cardiopulmonary findings. X-ray lumbar spine-Possible erosion/osteomyelitis/discitis involving the superior endplate of L2. CT chest/abdomen/pelvis - 1. Large pulmonary arteries, ? chronic pulmonary arterial hypertension/chronic pulmonary valve stenosis. 2. Pulmonary emboli are observed within the right upper lobe and left lower lobe. No evidence of heart strain. 3.At L1-L2, the disc space is widened the vertebral endplate erosions.Associated mild endplate sclerosis, minimal gas in the disc space and mild edema of adjacent paraspinal tissues. Small foci of gas project anterior to the deformed, eroded disc space, anterior to the left psoas muscle. 4.Small bowel is mildly dilated in the upper mid abdomen; however, there is no focal transition point. There is no overt bowel obstruction. This might represent mild ileus. Bilateral venous Doppler of lower extremities -No evidence of DVT in either legs. Echocardiogram -Technically difficult and very limited. LVEF 60-65%. Assessment and plan - RESPIRATORY # Bilateral large pulmonary embolism - Continued IV heparin, without bolus - Housestaff discussed w/ Dr. Trevino 01/30 that regarding multiple infarct in the MRI of the brain, as there is no any hemorrhagic transformation of the infarct, heparin drip could be continued, and repeat CT head if there is any new neurological deterioration. Neuro suggested that the infarct could be 2/2 infective endocarditis. Reflected in Neurology progress note 02/01. #Obstructive sleep apnea, on CPAP at home - continue oxygen and BiPAP at night. INFECTIOUS DISEASE #SA osteomyelitis - Continuing IV Oxacillin per ID - MARIAN 01/30 showed 0.5 x 0.4 cm vegetation is seen on the anterior mitral leaflet , Mild mitral regurgitation, severe thickening of the noncoronary cusp of the aortic valve with associated vegetation., however no abscess was seen. - As for the spine osteomyelitis, he does not have any abscess, this does not need to be drained. #Acute on chronic back pain, due to discitis/osteomyelitis - Neurology recommendation appreciated regarding the patient possibly having myelitis w/? cord compression. - Patient's physical exam remained unchanged without signs of compresison. - Of note, he had a fall on his knees (b/l) on 01/22 and has been moving less since then. X-ray of the knees showed Moderate to large left knee joint effusion with cortical irregularity and possible small fracture fragment to the inferior articular surface to the patella. - Flexerial/Xanax at bedtime to reduce anxiety/spasm. #Questionable knee infections? - stable afebrile for now, without leukocytosis - Knee tap x 2 (first tube clotted) by Surg showed mostly sanguous fluid with 319412 RBCs/82999 WBCs, no crystals was seen. Remained stable afebrile without leukocytosis, questionable knee infection, could also be traumatic. Will cont monitor. CARDIOLOGY #Endocarditis w/ mitral valve vegetation - MARIAN 01/30 as above - Currently on Abx per ID. NGTD on latest blood culture x 2 01/31 - s/p double lumen PICC for a total of 6 weeks of ABx since first clear blood culture. #Elevated troponin, likely type II GA - Trended down on 0.25, Cardiology recs appreciated. HEMATOLOGY #Leukocytosis 2/2 Osteomyelitis, resolved now - Continue ABx as above. #Hematuria Patient does not complain of any abd/flank pain or changes in urination habit or color. Not sure if this is significant, but will have to consider if he gets severe anemia/bleeds. - cont monitor, no recent hematuria, no active bleeding source identified. - Hgb7.9 -> 8.3 on latest lab. Will keep >7, cont monitor. METABOLIC #Hypokalemia, resolved - 3.7 on latest lab, cont montor ALIMENTARY - Resumed on regular diet after MRI/MARIAN without specific complaint. - Will give Xanax/Flexeril at night 2200 before BiPAP to help sleep/alleviate anxiety & muscle spasm NEPHROLOGY No issues. NEUROLOGY #Spine osteomyelitis, see note above. #Bilateral leg weakness, see note above. - Neurosurgery consultation requested 01/28, see event note for details. - Patient is now arranged for [facility] in outpatient for repeated MRI on cervical/thoracic/lumbar spine w/ and w/o LONDON. / , [facility]. - Patient was arranged and orders put in for Open MRI w/ & w/o LONDON for Head/ Cervical/Thoracic/Lumbar spine planned for 01/30 at [facility] around 1230, Contacted [facility] Dr. Laguna @ [phone] EXT [phone]. However unsuccessful for all scans due to MRI incompatibility. - On 01/30, patient was sent for MRI after MARIAN performed by Dr. Lester in the AM. Patient underwent MRI head & cervical spine w/o LONDON first, and a harness could not be fitted for the subsequent MRI thoracic/lumbar spine. MRI crew tried scanning without harness. Radiologist on site checked the previous head/cervical spine imaging and found the MRI cervical was not of diagnostic value, and decided that the rest of MRI could not be proceed further as no diagnostic images would be obtained, and the patient was sent back to [place] ICU. - MRI Head 01/30 - Somewhat limited study due to motion artifact with limited sequences obtained. 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 - Additional probable acute punctate infarct adjacent to the atrium of the right lateral ventricle. A focus of ventriculitis is a consideration but thought to be less likely. - Probable subacute infarct in the right occipitotemporal lobe. Note that this signal abnormality has a mildly rounded configuration and in the setting of sepsis a focus of infection remains in the differential diagnosis and CT follow- up is suggested to evaluate for evolution. - No mass effect, midline shift, or evidence of hydrocephalus. Diet: regular diet DVT ppx: IV Heparin running IV Access: Peripheral Code status: Full code Mother's Cellphone: [phone] Problem List: 1. Endocarditis 2. Pulmonary embolism 3. Discitis 4. Osteomyelitis of spine Pain Ratin Tomorrow's Labs & Rationales: ICU/CBC Plan DVT/Prophylaxis: pharmacological Seymour Gumzán MD 02/02/18 0858: Attending MD Review Statement Attending Sign Off Attending Cosign Statement: I have: examined this patient, reviewed avalbl EMR data, personally reviewd images, discussd w/resident/PA/ORGANIZATIONAL EFFECTIVENESS DIRECTOR, discussed mgmt plan w/lazara, discussed mgmt plan w/CM, discussed mgmt plan w/pt, agreed w/resident/PA/ORGANIZATIONAL EFFECTIVENESS DIRECTOR, amended to note. Other Findings: ISeymour M.D. have examined this patient, reviewed available EMR data, personally reviewed images, discussed with resident/PA/ORGANIZATIONAL EFFECTIVENESS DIRECTOR, discussed management plan with housestaff and nursing staff, discussed managment plan all of healthcare providers, discussed management plan with patient and/or family, agreed with resident/PA/ORGANIZATIONAL EFFECTIVENESS DIRECTOR. The past history and parts of the chart have been autopopulated. Impression 52 year old man * Submassive now stabilized - Pulmonary emboli - right upper lobe and left lower lobe * staph aureus bacteremia - discitis/osteomyelitis, possible epidural abscess * mitral valve vegetation suggested on MARIAN and MRI revealing areas of infarcts possibly embolic in nature * difficulty moving extremities * TEN/OHS * knee effusion s/p arthrocentesis - not consistent with septic arthritis Plan -MRI today at [facility] -s/p PICC line 02/01 -continue Oxacillin -f/u distributor sales consultant recomendations * cardiology, ID, neurology, neurosurgery, orthopedics -heparin gtt to goal PTT for now -nocturnal bipap -incentive spirometry TTS 35 min TTS 35 min
[2018-02-02 08:00] VITALS: BP 142/84
--- NOTE | 2018-02-02 11:13 | PN- Cardiology ---
Subjective Subjective: No significant change in cardiac status. ECG pending. Awaiting MRI at [place] later today. Hemodynamically stable. Objective Vital Signs and I&Os Vital Signs Date Time Temp Pulse Resp B/P B/P Pulse O2 O2 Flow FiO2 Mean Ox Delivery Rate 02/02 0918 91 97 02/02 0800 98.7 90 26 142/84 98 Nasal 2.0L Cannula 02/02 0800 98 Nasal 2.0L Cannula 02/02 0534 68 98 02/02 0400 97 BIPAP 30% 02/02 0326 69 98 02/02 0024 67 97 02/02 0000 97 BIPAP 30% 02/01 2300 97.8 70 23 138/60 99 BIPAP 30% 02/01 2204 77 96 02/01 2000 96 Nasal 2.0L Cannula 02/01 1600 97 Nasal 2.0L Cannula 02/01 1600 98.4 97 24 160/80 94 Nasal 2.0L Cannula 02/01 1200 96 Nasal 2.0L Cannula Intake & Output 02/02 1600 02/02 0800 02/02 0000 02/01 1600 02/01 0800 02/01 0000 Intake Total 606 530 8599 1665 1978 Output Total 600 1400 1100 800 800 Balance 88 -462 557 255 7894 Intake, IV 816 631 2077 1545 1478 Intake, Oral 0 460 640 120 500 Number 0 0 0 0 Bowel Movements Output, Urine 600 1400 1100 800 800 Physical Exam: General Appearance Alert, Oriented X3, Cooperative, No Acute Distress Skin No Rashes, tattoos+, Rt foot has healing wound HEENT Atraumatic, PERRLA, EOMI, very dry mucosa Neck Supple, No JVD, carotids normal bilaterally with no audible bruits Cardiovascular Regular Rate, Normal S1, Normal S2, tachycardic, 1/6 systolic murmur left upper Lungs Clear to Auscultation and percussion bilaterally extremities:no Cyanosis, No Edema, pulses in dorsalis pedis weak b/l, Rt foot feels cold to touch, Left foot warm to touch without any skin changes/redness, b /l toes PLUSH WEAVER<2 sec Vascular Pulses Symmetrical, b/l weak pulse over feet, but PLUSH WEAVER<2 sec Current Medications: Current Medications Sig/Shade Start time Last Medication Dose Route Stop Time Status Admin Acetaminophen 650 MG Q6P PRN 01/25 1830 AC PO Acetaminophen 1,000 MG Q6P PRN 01/25 1830 AC IV Alprazolam 0.25 MG 02/02 AC PO 02/09 2159 Alprazolam 0.5 MG ONCE ONE 02/02 0915 DC 02/02 PO 02/02 0916 0921 Alprazolam 0.25 MG ONCE ONE 02/01 2100 DC 02/01 PO 02/01 Aspirin Buffered 81 MG DAILY 01/26 09 AC 02/02 PO 0819 Atorvastatin Calcium 40 MG 17001/28 0315 AC 02/01 PO 1704 Cyclobenzaprine HCl 5 MG 02/02 AC PO Cyclobenzaprine HCl 5 MG ONCE ONE 02/02 0845 DC 02/02 PO 02/02 0846 0921 Cyclobenzaprine HCl 5 MG ONCE ONE 02/01 2100 DC 02/01 PO 02/01 Heparin Sodium 0 .STK-MED ONE 02/01 1331 DC (Porcine) IV Heparin Sodium 25,000 UNIT Q10H 01/28 1445 AC 02/01 (Porcine) IV 2316 Sodium Chloride 500 ML Hydromorphone HCl 0.4 MG Q4P PRN 01/25 1830 AC 02/02 IV 0819 Lidocaine 0 .STK-MED ONE 02/01 1331 DC .ROUTE Nystatin 1 SANGEETA TID PRN 02/01 181 AC TOP Oxacillin Sodium 2,000 MG Q4H 01/27 0845 AC 02/02 Sodium Chloride 100 ML IV 0819 Results Last 48 Hrs of Labs/Mics: Laboratory Tests 02/02/18 0920: APTT Pending 02/02/18 0307: Anion Gap 4 L, Estimated GFR > 60, Glucose 93, Calcium 8.1 L, Phosphorus 4.2, Magnesium 1.9, Total Bilirubin 0.2, AST 17, ALT 25, Albumin 2.0 L, APTT 92 H, CBC w Diff NO MAN DIFF REQ, RBC 2.94 L, MCV 88.6, MCH 28.2, MCHC 31.9 L, RDW 16.6 H, MPV 7.9, Gran % 71.0, Lymphocytes % 15.9 L, Monocytes % 10.0 H, Eosinophils % 2.1, Basophils % 1.0, Absolute Granulocytes 6.2, Absolute Lymphocytes 1.4, Absolute Monocytes 0.9 H, Absolute Eosinophils 0.2, Absolute Basophils 0.1, ESR Westergren 105 H 02/01/18 1515: APTT 81 H 02/01/18 0310: Anion Gap 6, Estimated GFR > 60, Glucose 95, Calcium 7.9 L, Phosphorus 4.1, Magnesium 1.8, Total Bilirubin 0.1 L, AST 17, ALT 25, Albumin 2.0 L, APTT 85 H, CBC w Diff NO MAN DIFF REQ, RBC 2.79 L, MCV 88.6, MCH 28.5, MCHC 32.2 L, RDW 16.1 H, MPV 8.0, Gran % 73.5, Lymphocytes % 15.0 L, Monocytes % 9.0, Eosinophils % 2.1, Basophils % 0.4, Absolute Granulocytes 6.7 H, Absolute Lymphocytes 1.4, Absolute Monocytes 0.8 H, Absolute Eosinophils 0.2, Absolute Basophils 0 01/31/18 1518: APTT 71 H Assessment/Plan Assessment/Plan Assessment 1. hypercapnic respiratory failure 2. Bilateral pulmonary emboli with tachypnea, tach cardia, hypoxia, 3. Mildly elevated troponin 4. Abnormal EKG with ventricular ectopy 5. Leukocytosis 6. discitis 7. Hypokalemia 8. Self-limited episode of supraventricular tachycardia on telemetry 9. 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 Small bilateral CVAs ? embolic ( small left cerebellar; punctate right lateral ventricle; subacute right occipitotemporal) Plan: -I reviewed th MARIAN images from yesterday. I agree that there is a vegetation on the left atrial aspect of the AML. I also believe that there is involvement of the non coronary leaflet of the aortic valve with partial prolapse of the leaflet and mild eccentric AI. - Discussed with Dr Morgan - Continue close monitoring of rhythm. ECG qAM for next few days. - In view of multiple bilateral , possibly embolic strokes, consider baseline input from CT surgery. -Discussed with Dr. Guzmán and house staff as well. In view of evidence of aortic valve vegetation with noncoronary leaflet degeneration and partial prolapse with mild to moderate markedly eccentric mitral insufficiency and evidence for embolic strokes, consider early transfer to tertiary care facility such as [place] for closer monitoring and availability of early surgical intervention if necessary. Continue telemetry? Yes Continue telemetry? Yes
[2018-02-02 11:52] LABS: PTT 62 SEC (25-37)
[2018-02-02 16:00] VITALS: BP 162/86
--- NOTE | 2018-02-02 16:09 | PN- Infect Dx ---
Subjective Subjective: Afebrile. He complains of severe low back pain. He has just returned from [place] where he was unable to undergo the MRI secondary to motion artifact. Objective Last 24 Hrs of Vital Signs/I&O Vital Signs Date Time Temp Pulse Resp B/P B/P Pulse O2 O2 Flow FiO2 Mean Ox Delivery Rate 02/02 0918 91 97 02/02 0800 98.7 90 26 142/84 98 Nasal 2.0L Cannula 02/02 0800 98 Nasal 2.0L Cannula 02/02 0534 68 98 02/02 0400 97 BIPAP 30% 02/02 0326 69 98 02/02 0024 67 97 02/02 0000 97 BIPAP 30% 02/01 2300 97.8 70 23 138/60 99 BIPAP 30% 02/01 2204 77 96 02/01 2000 96 Nasal 2.0L Cannula 02/01 1600 97 Nasal 2.0L Cannula 02/01 1600 98.4 97 24 160/80 94 Nasal 2.0L Cannula Intake & Output 02/02 1600 02/02 0800 02/02 0000 Intake Total 300 688 938 Output Total 600 1400 Balance 300 88 -462 Intake, IV 688 478 Intake, Oral 300 0 460 Number 0 Bowel Movements Output, Urine 600 1400 Physical Exam Other Physical Findings: He is awake and alert in no acute distress Lungs are clear Heart regular rhythm with no murmur Abdomen is obese, soft, nontender with positive bowel sounds Extremities PICC in the right upper extremity with no inflammation at the site; left knee with decreased swelling and with good range of motion Neuro 0-1/5 strength both lower extremities Wood catheter remains in place Results Last 24 Hours of Lab Results: Laboratory Tests 02/02 02/02 0920 0307 Chemistry Sodium (137 - 145 mmol/L) 143 Potassium (3.5 - 5.1 mmol/L) 3.7 Chloride (98 - 107 mmol/L) 103 Carbon Dioxide (22 - 30 mmol/L) 37 H Anion Gap (5 - 16) 4 L BUN (9 - 20 mg/dL) 5 L Creatinine (0.7 - 1.2 mg/dL) 0.6 L Estimated GFR (>60 ml/min) > 60 Glucose (65 - 99 mg/dL) 93 Calcium (8.4 - 10.2 mg/dL) 8.1 L Phosphorus (2.5 - 4.5 mg/dL) 4.2 Magnesium (1.6 - 2.3 mg/dL) 1.9 Total Bilirubin (0.2 - 1.3 mg/dL) 0.2 AST (17 - 59 U/L) 17 ALT (21 - 72 U/L) 25 Albumin (3.5 - 5.0 g/dL) 2.0 L Coagulation APTT (25 - 37 SEC) 62 H 92 H Hematology CBC w Diff NO MAN DIFF REQ WBC (4.8 - 10.8 /CUMM) 8.8 RBC (4.70 - 6.10 /CUMM) 2.94 L Hgb (14.0 - 18.0 G/DL) 8.3 L Hct (42 - 52 %) 26.0 L MCV (80.0 - 94.0 FL) 88.6 MCH (27.0 - 31.0 PG) 28.2 MCHC (33.0 - 37.0 G/DL) 31.9 L RDW (11.5 - 14.5 %) 16.6 H Plt Count (130 - 400 /CUMM) 404 H MPV (7.4 - 10.4 FL) 7.9 Gran % (42.2 - 75.2 %) 71.0 Lymphocytes % (20.5 - 51.1 %) 15.9 L Monocytes % (1.7 - 9.3 %) 10.0 H Eosinophils % (0 - 5 %) 2.1 Basophils % (0.0 - 2.0 %) 1.0 Absolute Granulocytes (1.4 - 6.5 /CUMM) 6.2 Absolute Lymphocytes (1.2 - 3.4 /CUMM) 1.4 Absolute Monocytes (0.10 - 0.60 /CUMM) 0.9 H Absolute Eosinophils (0.0 - 0.7 /CUMM) 0.2 Absolute Basophils (0.0 - 0.2 /CUMM) 0.1 ESR Westergren (0 - 10 MM) 105 H Last 24 Hours of Guilherme Results: Blood cultures 2 January 29 remain negative Left knee synovial fluid culture January 30 negative Assessment/Plan ID Impression: Stable, with temperatures and white blood cell count remaining normal and with his repeat blood cultures remaining negative, on Oxacillin, Day 7 of treatment for recurrent Staph aureus bacteremia/aortic and mitral valve endocarditis, with evidence of emboli to the COMPENSATION AND HRIS ANALYST/discitis/osteomyelitis and possible epidural abscess, given his bilateral lower extremity weakness, which remains unchanged. Unfortunately the MRI at [place] was unable to be done secondary to motion artifact and, if it is to be reattempted, he will need to be sedated, which will require admission to [place]. Cardiology comments noted, with early transfer to [place] recommended in case of the need for early surgical intervention. He remains on Heparin for bilateral pulmonary emboli. Suggestion: 1. Await decision regarding transfer to [place] 2. Remove Wood catheter 3. Follow-up final left knee synovial fluid culture 4. Continue Oxacillin
--- NOTE | 2018-02-02 17:12 | PN- Neurosurgical ---
Surgical Brief Attending Note Brief Attending Note: Alyson total spine done earlier today extremely limited by motion artifact. I have personally reviewed the study. While very limited, particularly on the axial sections, there is high T2 and flair signal at L1/2 c/w discitis and surrounding osteomyelitis though I am unable to appreciate any epidural component or canal compromise. Also rather high signal in L5/S1 disc space without signal change in the adjacent bone and no epidual collection. He has chronic changes at T10/11 with possible autofusion and kyphosis with mild stenosis but unable to appreciate cord compression. There is no definite cord compression in the cervical spine or remainder of the visualized thoracic spine on the limited images available.
[2018-02-02 18:53] LABS: PTT 53 SEC (25-37)
[2018-02-03] VITALS: BP 140/70
[2018-02-03 01:30] LABS: PTT 81 SEC (25-37)
[2018-02-03 04:50] LABS: ABSOLUTE BASOPHIL COUNT 0.1 /CUMM (0.0-0.2); ABSOLUTE EOSINOPHIL COUNT 0.1 /CUMM (0.0-0.7); ABSOLUTE GRANULOCYTE CT 5.9 /CUMM (1.4-6.5); ABSOLUTE LYMPH COUNT 1.3 /CUMM (1.2-3.4); ABSOLUTE MONOCYTE COUNT 0.9 /CUMM (0.10-0.60); BASOPHIL % 0.8 % (0.0-2.0); EOSINOPHIL % 1.7 % (0-5); GRANULOCYTE % 71.5 % (42.2-75.2); HEMATOCRIT 25.2 % (42-52); MEAN CORPUSCULAR HGB 28.5 PG (27.0-31.0); MEAN CORPUSCULAR HGB CONC 32.3 G/DL (33.0-37.0); MEAN CORPUSCULAR VOLUME 88.2 FL (80.0-94.0); MEAN PLATELET VOLUME 8.3 FL (7.4-10.4); PLATELET COUNT 379 /CUMM (130-400); RBC DISTRIBUTION WIDTH 17.2 % (11.5-14.5); RED BLOOD CELL CT 2.85 /CUMM (4.70-6.10); WHITE BLOOD CELL COUNT 8.3 /CUMM (4.8-10.8)
[2018-02-03 08:00] VITALS: BP 160/80
--- NOTE | 2018-02-03 08:12 | PN- Resident CRCU ---
Norma Marie [place] 02/03/18 0812: Subjective HPI/CRCU Issues: No overnight event. Patient was seen and examined at bedside, resting comfortably without any specific complaints besides his bilateral lower extremity weakness, else BLEs sensations intact, denied incontinence/fever/ chills. He appeared frustrated regarding not being able to get satifsfying results from MRI. Slept overnight on BiPAP w/ Xanax/Flexreil without complaint. Objective Vital Signs & I&O Last 8 Hrs of Vitals and I&O: Intake & Output 02/03 1600 02/03 0800 02/03 0000 Intake Total 600 1486 Output Total 800 2600 Balance -200 -1114 Intake, IV 600 1066 Intake, Oral 420 Number 0 Bowel Movements Output, Urine 800 2600 Exam General Appearance: no apparent distress, alert, awake Head: atraumatic, normal appearance Respiratory: normal breath sounds, chest non-tender, no respiratory distress Cardiovascular: regular rate/rhythm Gastrointestinal: normal bowel sounds, soft, non-tender Extremities: BLEs weakness without sensation deficit, similar to previous days. could wiggle toes, range of motion limited Current Medications: Current Medications Sig/Shade Start time Last Medication Dose Route Stop Time Status Admin Acetaminophen 650 MG Q6P PRN 01/25 1830 AC PO Acetaminophen 1,000 MG Q6P PRN 01/25 1830 AC IV Alprazolam 0.25 MG 02/02 AC 02/02 PO 02/09 2159 2155 Alprazolam 0.5 MG ONCE ONE 02/02 0915 DC 02/02 PO 02/02 0916 0921 Aspirin Buffered 81 MG DAILY 01/26 09 AC 02/02 PO 0819 Atorvastatin Calcium 40 MG 1700 01/28 0315 AC 02/02 PO 1752 Cyclobenzaprine HCl 5 MG 02/02 220 AC 02/02 PO 2155 Cyclobenzaprine HCl 5 MG ONCE ONE 02/02 0845 DC 02/02 PO 02/02 0846 0921 Heparin Sodium 25,000 UNIT Q10H 01/28 1445 AC 02/03 (Porcine) IV 0054 Sodium Chloride 500 ML Hydromorphone HCl 0.4 MG Q4P PRN 01/25 1830 AC 02/03 IV 0534 Lorazepam 2 MG .STK-MED ONE 02/02 09 DC IM 02/02 0921 Nystatin 1 SANGEETA TID PRN 02/01 1815 TOP Oxacillin Sodium 2,000 MG Q4H 01/27 0845 AC 02/03 Sodium Chloride 100 ML IV 0350 Potassium Chloride 40 MEQ ONCE ONE 02/02 1415 DC 02/02 PO 02/02 1416 1753 Impression/Plan Impression/Problem List Impression: Patient is a 52-year-old man with a past medical history of hypertension, osteoarthritis, history of right hip ankle surgery status post hardware, chronic left foot nonhealing ulcer, leading to MSSA bacteremia complicated by involvement of the joints including left knee and right shoulder. He needed treatment for 4 weeks of Unasyn and discharged to rehab. He was discharged to home 2 week before the admission and presented to [facility] ED for increased back pain and weakness related to fall around 3 days ago. After fall he was not able to get out of the bed. ED course - Vital signs at the time of admission -temperature 98.9, pulse 124, respiratory 18, blood pressure 140/72, SPO2 88% on room air and 96% on 2 L of nasal cannula. Blood workup showed-WBC 15.5, hemoglobin 12.3, hematocrit 38.8, platelet count 581, granulocyte 91.5, lymphocytes 4.1, band cells 0, serum sodium 145, potassium 2.8, chloride 104, carbon dioxide 31, anion gap 11, BUN 15, creatinine 0.7, glucose 107, calcium 8.9, total bilirubin 0.7, AST 36, ALT 30, alkaline phosphatase 167, troponin I 0.27, albumin 3.0, d-dimer 2193, UA showed -nitrite negative, esterase negative, RBC 50-75, hyaline casts rare, urine hemoglobin large. ABG showed -pH 7.33, PCO2 65, PO2 121, bicarbonate 33. Chest x-ray -No acute cardiopulmonary findings. X-ray lumbar spine-Possible erosion/osteomyelitis/discitis involving the superior endplate of L2. CT chest/abdomen/pelvis - 1. Large pulmonary arteries, ? chronic pulmonary arterial hypertension/chronic pulmonary valve stenosis. 2. Pulmonary emboli are observed within the right upper lobe and left lower lobe. No evidence of heart strain. 3.At L1-L2, the disc space is widened the vertebral endplate erosions.Associated mild endplate sclerosis, minimal gas in the disc space and mild edema of adjacent paraspinal tissues. Small foci of gas project anterior to the deformed, eroded disc space, anterior to the left psoas muscle. 4.Small bowel is mildly dilated in the upper mid abdomen; however, there is no focal transition point. There is no overt bowel obstruction. This might represent mild ileus. Bilateral venous Doppler of lower extremities -No evidence of DVT in either legs. Echocardiogram -Technically difficult and very limited. LVEF 60-65%. Assessment and plan - RESPIRATORY # Bilateral large pulmonary embolism - Continued IV heparin, without bolus - Housestaff discussed w/ Dr. Trevino 01/30 that regarding multiple infarct in the MRI of the brain, as there is no any hemorrhagic transformation of the infarct, heparin drip could be continued, and repeat CT head if there is any new neurological deterioration. Neuro suggested that the infarct could be 2/2 infective endocarditis. Reflected in Neurology progress note 02/01. #Obstructive sleep apnea, on CPAP at home - continue oxygen and BiPAP at night. INFECTIOUS DISEASE #SA osteomyelitis - Continuing IV Oxacillin per ID, currently day 8 - MARIAN 01/30 showed 0.5 x 0.4 cm vegetation is seen on the anterior mitral leaflet , Mild mitral regurgitation, severe thickening of the noncoronary cusp of the aortic valve with associated vegetation., however no abscess was seen. - As for the spine osteomyelitis, he does not have any abscess, this does not need to be drained. #Acute on chronic back pain, due to discitis/osteomyelitis - Neurology recommendation appreciated regarding the patient possibly having myelitis w/? cord compression. - Patient's physical exam remained unchanged without signs of compresison. - Of note, he had a fall on his knees (b/l) on 01/22 and has been moving less since then. X-ray of the knees showed Moderate to large left knee joint effusion with cortical irregularity and possible small fracture fragment to the inferior articular surface to the patella. - Flexerial/Xanax at bedtime to reduce anxiety/spasm. #Right Knee Effusion - stable afebrile for now, without leukocytosis - Knee tap x 2 (first tube clotted) by Surg showed mostly sanguous fluid with 019987 RBCs/78389 WBCs, no crystals was seen. Remained stable afebrile without leukocytosis, questionable knee infection, could also be traumatic. Will cont monitor. CARDIOLOGY #Endocarditis w/ mitral valve vegetation - MARIAN 01/30 as above - Currently on Abx per ID. NGTD on latest blood culture x 2 01/31 - s/p double lumen PICC 02/01 for a total of 6 weeks of ABx since first clear blood culture. - Patient would need to be transferred to [place] for anticipated cardiac surgery for his valve vegetation, however not urgently at this point, likely occur in coming weekday. - daily EKG #Elevated troponin, likely type II GA - Trended down on 0.25, Cardiology recs appreciated. HEMATOLOGY #Leukocytosis 2/2 Osteomyelitis, resolved now - Continue ABx as above. #Hematuria Patient does not complain of any abd/flank pain or changes in urination habit or color. Not sure if this is significant, but will have to consider if he gets severe anemia/bleeds. - cont monitor, no recent hematuria, no active bleeding source identified. - Hgb 7.9 -> 8.3 -> 8.1 on latest lab. Will keep >7, cont monitor. METABOLIC #Hypokalemia, resolved - 3.8 on latest lab, cont montor. Will keep above 4 ALIMENTARY - Resumed on regular diet after MRI/MARIAN without specific complaint. - Will give Xanax/Flexeril at night 2200 before BiPAP to help sleep/alleviate anxiety & muscle spasm NEPHROLOGY No issues. NEUROLOGY #Spine osteomyelitis, see note above. #Bilateral leg weakness, see note above. - Neurosurgery consultation appreciated, limited MRI study at this point. - Patient could not tolerated MRI at [facility] [place] radiology in outpatient for repeated MRI on cervical/thoracic/lumbar spine w/ and w/o LONDON. /Fax , [facility]. - Patient was previously arranged and orders put in for Open MRI w/ & w/o LONDON for Head/Cervical/Thoracic/Lumbar spine planned for 01/30 at [facility] around 1230, Contacted [facility] Dr. Laguna @ [phone] EXT [phone]. However unsuccessful for all scans due to MRI incompatibility. - On 01/30, patient was sent for MRI after MARIAN performed by Dr. Lester in the AM. Patient underwent MRI head & cervical spine w/o LONDNO first, and a harness could not be fitted for the subsequent MRI thoracic/lumbar spine. MRI crew tried scanning without harness. Radiologist on site checked the previous head/cervical spine imaging and found the MRI cervical was not of diagnostic value, and decided that the rest of MRI could not be proceed further as no diagnostic images would be obtained, and the patient was sent back to [facility]. - MRI Head 01/30 - Somewhat limited study due to motion artifact with limited sequences obtained. 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 - Additional probable acute punctate infarct adjacent to the atrium of the right lateral ventricle. A focus of ventriculitis is a consideration but thought to be less likely. - Probable subacute infarct in the right occipitotemporal lobe. Note that this signal abnormality has a mildly rounded configuration and in the setting of sepsis a focus of infection remains in the differential diagnosis and CT follow- up is suggested to evaluate for evolution. - No mass effect, midline shift, or evidence of hydrocephalus. Diet: regular diet DVT ppx: IV Heparin running IV Access: Peripheral + PICC Code status: Full code Next of Kin: Mother's Cellphone: [phone] Person to notify (Aunt-in-law MOSHE [place] in [place]): cellphone [phone] Please keep both family members up-to-date on plan of care when needed. Problem List: 1. Endocarditis 2. Osteomyelitis of spine 3. Discitis 4. Pulmonary embolism Pain Ratin Tomorrow's Labs & Rationales: ICU/CBC/EKG Plan DVT/Prophylaxis: pharmacological Seymour Guzmán MD 02/03/18 0845: Attending MD Review Statement Attending Sign Off Attending Cosign Statement: I have: examined this patient, reviewed aval EMR data, personally reviewd images, discussd w/resident/PA/[employer], discussed mgmt plan w/lazara, discussed mgmt plan w/CM, discussed mgmt plan w/pt, agreed w/resident/PA/[employer], amended to note. Other Findings: ISeymour M.D. have examined this patient, reviewed available EMR data, personally reviewed images, discussed with resident/PA/[employer], discussed management plan with housestaff and nursing staff, discussed managment plan all of healthcare providers, discussed management plan with patient and/or family, agreed with resident/PA/[employer]. The past history and parts of the chart have been autopopulated. Impression 52 year old man * Submassive now stabilized - Pulmonary emboli - right upper lobe and left lower lobe * staph aureus bacteremia - discitis/osteomyelitis, possible epidural abscess * mitral valve vegetation suggested on MARIAN and MRI revealing areas of infarcts possibly embolic in nature * difficulty moving extremities * TEN/OHS * knee effusion s/p arthrocentesis - not consistent with septic arthritis Plan -MRI at [facility] was very limited -at this juncture we will continue to have ongoing discussions regarding transfer to [facility] for further care including potential for future cardiac surgery -will ask cardiology if stable for telemetry from the cardiac perspective -s/p PICC line 02/01 -continue Oxacillin -f/u apprenticeship consultant recomendations * cardiology, ID, neurology, neurosurgery, orthopedics -heparin gtt to goal PTT for now -nocturnal bipap -incentive spirometry TTS 35 min
--- NOTE | 2018-02-03 10:29 | Discharge Summary ---
Visit Information Visit Dates Admission Date: 01/25/18 Discharge Date: 02/03/18 Hospital Course Course Attending Physician: Ramirez GRAJEDA,[facility] Primary Care Physician: Alessandra GRAJEDA,[facility] Hospital Course: Mr. Trujillo is a 52 yo M with pmh of HTN, pre-DM, TEN on CPAP (followed outpt w/ Dr. Seymour Guzmán), arthritis, Left fifth toe osteomyelitis s/p amputation, recurrence of Left foot wound s/p debridement of necrotic bone, recent admission in November (TX'ed in 12/14/17) for sepsis, 2/2 Left foot osteomyelitis s/p I&D and Left knee septic arthritis discharged to [place] for IV antibiotics via PICC line until 01/09/2018, and PT/OT, and recently discharged home. He sustained a mechanical fall, landed in the knees and also had exacerbation of his chronic back pain prior to this admission. He was seen by the OT the morning of admission, whom found that patient could not get out of bed due to back pain and called Dr Baires (Orthopedics) who suggested the patient to he sent to the ED. On admission, the patient denied any chest pain, chest pressure/tightness, shortness of breath, cough, fever, chills, abdominal pain, any sick contacts, leg swelling more than usual, but did mention that he was walking less than his usual self after being discharged from the rehab facility and especially after he fell down on his knees at home. ED course - Vital signs at the time of admission -temperature 98.9, pulse 124, respiratory 18, blood pressure 140/72, SPO2 88% on room air and 96% on 2 L of nasal cannula. Lab: WBC 15.5 Leukocytosis, H/H 12.3 38.8, PLT 581, granulocyte 91.5%, lymphocytes 4.1, band cells 0, Na 145, K 2.8, Cl 104, CO2 31, anion gap 11, BUN 15, Cr 0.7, glucose 107, Ca 8.9 , total bilirubin 0.7, AST 36, ALT 30, alkaline phosphatase 167, troponin I 0.27 , albumin 3.0, d-dimer 2193, UA: nitrite negative, esterase negative, RBC 50-75, hyaline casts rare, urine hemoglobin large. ABG: pH 7.33, PCO2 65, PO2 121, bicarbonate 33. Chest x-ray -No acute cardiopulmonary findings. X-ray lumbar spine -Possible erosion/osteomyelitis/discitis involving the superior endplate of L2. CT chest/abdomen/pelvis 1. Large pulmonary arteries, ? chronic pulmonary arterial hypertension/chronic pulmonary valve stenosis. 2. Pulmonary emboli are observed within the right upper lobe and left lower lobe. No evidence of heart strain. 3.At L1-L2, the disc space is widened the vertebral endplate erosions.Associated mild endplate sclerosis, minimal gas in the disc space and mild edema of adjacent paraspinal tissues. Small foci of gas project anterior to the deformed, eroded disc space, anterior to the left psoas muscle. 4.Small bowel is mildly dilated in the upper mid abdomen; however, there is no focal transition point. There is no overt bowel obstruction. This might represent mild ileus. Bilateral venous Doppler of lower extremities -No evidence of DVT in either legs. TT Echocardiogram -Technically difficult and very limited. LVEF 60-65%. TE Echocardiogram: LVEF>60%, mild mitral regurgitation with 0.5x0.4cm vegetation on the left atrial aspect of the anterior mitral leaflet; ? Involvement of the noncoronary leaflet of the aortic valve with partial prolapse of the leaflet and mild eccentric AI. No abscess was noted. MRI head: Limited by motion artifact, small acute infarct in the left inferior cerebellum, a distal probable acute punctate infarct adjacent to the atrium of the right lateral ventricle, probable subacute infarct in the right occipitotemporal lobe. Patient was then admitted to ICU for the following managements Hospital Course: RESPIRATORY # Bilateral large pulmonary embolism [PESI- 102 points, Class III, intermediate risk] Patient was started on IV heparin for pulmonary embolism immediately with the suspicion and later confirmed by CTA chest in the ED. He was on O2, monitored for bleeding, and consulted cardiology, trended Tropnin/EKG down to 0.25. Echo did NOT show right heart strain pattern. Doppler scan of lower extremities ruled out DVT. MRI brain done later with concerns of his legs weakness showed multiple infarcts in the brain (see below), however, as there was no hemorrhagic transformation, heparin drip was continued, and repeat CT head was recommended by neurology if there is any new neurological deterioration. Neurology suggested that the infarct could also be due to infective endocarditis embolic phenomenon. His respiratory status remains stable on O2 via nasal canula. #Obstructive sleep apnea, on CPAP at home Patient was continued on supplemental oxygen and BiPAP at night. INFECTIOUS #Spinal osteomyelitis/discitis w/ Acute on chronic back pain On admission, patient had reported that he was not able to get up from his bed relating to his weakness. X-ray of the lumbosacral spine revealed possible erosion/osteomyelitis/discitis involving the superior endplate of L2. CT of the abdomen and pelvis revealed findings highly suggestive of infectious spondylodiscitis/osteomyelitis at L1-L2 and splenomegaly. His blood culture was positive for Staph aureus sensitive to Oxacillin which he was kept on. TTE and MARIAN were done as noted below for suspicion of vegetation that might have seeded infection since his last osteomyelitis of his left foot. Brain images were also suspicious for possible embolic phenomenon given that they were multiple with no other explaination. His osteomyelitis likely have resulted from seeding from Staph aureus bacteremia. No epidural abscess could be identified. Patient would then need a total of 6 weeks of Oxacillin counting from the day of negative blood cultures (01/29). A PICC double-lumen line was placed by IR on 02/01/2018 for antibiotics administration without complication. #Low back pain Patient was noted to have back pain and inability to raise his legs while still moving his toes. His sensation down the lower limb INCLUDING SADDLE AREA was intact. He did NOT have any any incontinence and his rectal tone was intact, indicating no cord compression but still a concern for spinal process. Patient's leukocytosis had resolved with antibiotics, however due to his incompatibility to MRI (due to body habitus), cord compression could not be entirely ruled out radiologically. MRI done at [place] on 02/02/18 shows no cord compression though. #Septic arthritis with effusion, growing GPC so far (02/03/18), identification and senstivity pending, s/p Left knee arthrocentesis Patient's X-ray of the knees showed moderate to large left knee joint effusion with cortical irregularity and possible small fracture fragment to the inferior articular surface to the patella. He underwent Knee tap x 2 (first tube clotted) by orthopedics that showed mostly sanguous fluid with 133534 RBCs/51620 WBCs, no crystals was seen. It is growing GPC so far. #B/l leg/knee weakness His b/l leg weakness was worked up by x-ray, CT scan, and when found to have effusion, an arthrocentesis was done. Later with suspicion of cord compression, MRI was done which ruled ou cord compression. However, his weakness persists, and it is still unclear if this is only local traum after the fall or a neurological process, as he has multi-level spinal disease. Patient had undergone two additional attempts for MRI in outpatient settings however remained unsuccessful. Neurosurgery viewed the limited imagines from MRI, suggesting that no definite cord compression in the cervical spine or remainder of the visualized thoracic spine based on the limited images available. For a definite diagnosis, patient may require sedation/anesthesia for MRI at [facility] (see details below). At this point, patient is on Oxacillin with no acute signs of infection, and unchanged neuro exam from admission. #Right septic arthritis w/ Staph Aureus As above, patient's right knee effusion study and culture showed copious amount of WBC and positive cultures of Staph aureus. However, during ICU course, patient was kept on Oxacillin, resolved on leukocytosis (mostly 2/2 osteomyelitis/discitis), and remained afebrile. Patient should be continuously monitored while being treated with Oxacillin. CARDIOLOGY #Endocarditis w/ mitral valve vegetation Due to patient's Staph Aureus Bacteremia, MARIAN was carried out on 01/30/2018 demonstrated: - Normal left ventricular ejection fraction estimated at >60% - 0.5 x 0.4 cm vegetation is seen on the anterior mitral leaflet. - Mild mitral regurgitation. - There is severe thickening of the noncoronary cusp of the aortic valve with associated vegetation. - Mild aortic regurgitation. - No abscesses are seen. Discussion with cardiology recommended that in view of this possible aortic valve vegetation w/ noncoronary leaflet degeneration, partial prolapse w/ mild- to-moderate markedly eccentric mitral valve insufficiency, and evidence of embolic strokes, patient may need additional care at a tertiary care facility such as [facility], for closer monitoring, and availability of early cardiac surgical intervention if necessary. During the ICU course, patient was closely monitored on telemetry monitoring, and the EKG was carried out which showed no acute change at this point. #Elevated troponin, likely type II AL, resolved On admission, patient's troponin was 0.27 -> 0.28 -> 0.25, without any apparent acute ischemic change on EKG is obtained during the whole hospital course. Patient also denies any chest pain during hospital course. Appreciate cardiology recommendation, that this elevated troponin might due to type II AL/ demand. HEMATOLOGY #Leukocytosis 2/2 Osteomyelitis, resolved As above. Recommend continue to monitor. #Hematuria Patient's UA had large amount of Hgb on admission, however he did not complain of any abd/flank pain or changes in urination habit or color. His Hgb trended down gradually during ICU course, however without signs of active bleeding, and stablized above 8. Patient will need to be monitored on daily CBC in further care. METABOLIC #Hypokalemia, resolved Patient's K was repleted on admission with IV + PO and had beend given PRN PO K supplements to keep K above 4. ALIMENTARY Patient had been tolerating regular diet well, with intermittent NPO during ICU courses for MARIAN/MRI, etc. Patient had no complaints on oral intakes. NEPHROLOGY No issues. NEUROLOGY #Spinal osteomyelitis/discitis w/ Bilateral lower extremity weakness As mentioned above, patient was being actively treated for osteomyelitis/ discitis w/ staph aureus bacteremia, and mitral/aortic valve vegetation by Oxacilin through PICC line for a possible duration of 6 weeks or longer per clinical course. Patient would not fit into MRI at [facility]. At this point, patient had underwent open MRI at [facility] on 01/30, however unsuccessful due to his girth would not fit into the harness of the open MRI, and subsequently transported to [facility] on 02/02 for closed MRI that he could not stay still enough to yield clear imagines for his cervical/ thoracic/lumbar spine w/ and w/o LONDON, despite given Ativan/flexeril. Patient may need further MRI study under anesthesia. All imaging results, despite being limited, were incorporated with the transfer paperworks for reference. At this point, patient's bilateral lower extremities weakness remained unchanged on symptoms from admission, that he could not lift or freely move both of his legs, however, could wiggle toes/ankles voluntarily, with no loss control of bowel movements, no complaint of urinary incontinence (however being kept in [place] for possible procedures/difficulty using urinal due to back pain), and grossly intact sensation. Patient did complaint of occassional "coldness shooting down the spine", and attributed to pain induced muscle spasm, without particular triggers. Patient was given Xanax/Flexeril at night before nocturnal BiPAP to help on muscle relaxation and sleep. His pain is currently being adequately controlled mainly be Dilaudid 0.4mg q4 PRN. Diet: regular diet DVT ppx: IV Heparin running IV Access: Peripheral IV + PICC Code status: Full code Next of Kin: Mother's Cellphone: [phone] Person to notify (Aunt-in-law MOSHE [place] in [place]): cellphone [phone] Allergies: Coded Allergies: No Known Allergies (09/15/17) Significant Procedures: SERVICE DATE: 02/01/18- EXAM TYPE: IR - FLUORO GUID VENOUS ACCESS; INTERVENTIONAL SETUP; US-GUIDANCE VASCULAR ACCESS IMPRESSION: Successful placement of a PICC. PLAN: 1. The patient was stable after the procedure and was transferred to the interventional recovery area. The patient will be transferred back to his medical room. 2. The catheter may be used immediately. Pertinent Lab Results: SERVICE DATE: 01/25/18 EXAM TYPE: RAD - XRY-CHEST XRAY, TWO VIEWS IMPRESSION: No acute cardiopulmonary findings compared to 12/13/2017. No evidence of pneumonia. SERVICE DATE: 01/25/18 EXAM TYPE: RAD - XRY-LUMBOSACRAL SPINE AP & LAT IMPRESSION: Possible erosion/osteomyelitis/discitis involving the superior endplate of L2. Correlate with the CT abdomen/pelvis which the patient is currently undergoing. SERVICE DATE: 01/25/18 EXAM TYPE: CAT - CT ABD & PELVIS W IV CONTRAST; CTA CHEST-PULMONARY EMBOLISM IMPRESSION: 1. Small bowel is mildly dilated in the upper mid abdomen; however, there is no focal transition point. There is no overt bowel obstruction. This might represent mild ileus. 2. Findings highly suggestive of infectious spondylodiscitis/osteomyelitis at L1-L2 (new pathology compared to the lumbar spine CT exam of 12/05/2017). 3. Splenomegaly. SERVICE DATE: 01/25/18 EXAM TYPE: CARD - ECHOCARDIOGRAM CONCLUSIONS 1. This was a technically difficult and very limited examination due to the patient's body habitus and clinical status. 2. Aortic sclerosis is present with no significant valvular stenosis. There is marked thickening of the non coronary leaflet, which was not well visualized. The possibility of an associated vegetative lesion cannot be excluded by this examination. 3. The mitral valve appears grossly normal. 4. There is no obvious pericardial fluid present. 5. The left ventricular chamber size and systolic function appear normal. Accurate wall motion assessment was not possible. 6. Borderline LVH appears to be present. 7. The right heart structures were not optimally assessed. 8. Mild to moderate enlargement of the right heart chambers is present. The RV systolic pressure could not be accurately assessed. 9. The Doppler examination was technically suboptimal. 10. Additional images were obtained following the administration of IV contrast. Cyndi Lucas M.D. SERVICE DATE: 01/25/18 EXAM TYPE: US - US-EXT BILAT VENOUS DOPPLER IMPRESSION: No evidence of DVT in either legs. Incidental finding of a Rodriguez's cyst left popliteal fossa. SERVICE DATE: 01/26/18- EXAM TYPE: CAT - CT LUMB SPINE W IV CONTRAST; CT THOR SPINE W IV CONTRAST IMPRESSION: 1. Within the thoracic spine, there is endplate erosive change at C7-T1. This could represent infectious discitis. However, there is no rim-enhancing fluid collection in the disc space or in the paraspinal soft tissues. No epidural abscess at this level. 2. Old compression fracture of the T11 vertebral body. There is minimal retropulsion of the posterosuperior wall of the compressed T11 vertebral body producing central spinal canal stenosis. 3. At L1-L2, findings are consistent with infectious discitis. There are new endplate erosive changes at L1-L2 compared to 12/05/2017. Thickened soft tissue is seen in the anterior epidural space at this level, but there is no drainable fluid collection. No new findings at L1-L2 compared to 01/25/2018. 4. Severe multilevel facet osteoarthritis and multilevel canal stenosis of the lumbar spine. At the right L3-L4 facet joint, there appears to be interval worsening of subarticular bone resorption compared to 12/05/2017. This could be secondary to infection of the L3-L4 facet joint. However, no periarticular fluid collection at this level. SERVICE DATE: 01/27/18- EXAM TYPE: US - US-BILAT LOW EXTR ARTERIAL DOP No evidence of a hemodynamically significant stenosis based on ultrasound criteria. Greater sensitivity and specificity can be obtained with pre-and post exercise PVRs with JESUS MANUEL calculations. Also consider dedicated CTA for further anatomical detail. SERVICE DATE: 01/27/18 EXAM TYPE: CAT - CT HEAD W&WO IV CONTRAST IMPRESSION: Asymmetric hypoattenuation the left cerebellar hemisphere without associated enhancement. While this region is prominent infarct, this abnormality is present on both the pre and postcontrast images and is thus concerning concerning for age-indeterminate infarct. Clinical correlation is recommended. Consider MRI for further evaluation. SERVICE DATE: 01/28/18- EXAM TYPE: RAD - XRY-KNEE COMPLETE LEFT; XRY-KNEE COMPLETE RIGHT IMPRESSION: Moderate to large left knee joint effusion with cortical irregularity and possible small fracture fragment to the inferior articular surface to the patella. Limited evaluation to the right knee due to poor positioning. SERVICE DATE: 01/29/18- EXAM TYPE: CARD - TRANSESOPHAGEAL ECHO CONCLUSIONS Normal left ventricular ejection fraction estimated at >60% 0.5 x 0.4 cm vegetation is seen on the anterior mitral leaflet. Mild mitral regurgitation. There is severe thickening of the noncoronary cusp of the aortic valve with associated vegetation. Mild aortic regurgitation. No abscesses are seen. Todd Lester M.D. (Electronically Signed) Final Date: 30 January 2018 21:01 Amended: 01 February 2018 08:01 SERVICE DATE: 01/30/18-1300 EXAM TYPE: MRI - MRI-HEAD W/O LONDON IMPRESSION: - Somewhat limited study due to motion artifact with limited sequences obtained. 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 - Additional probable acute punctate infarct adjacent to the atrium of the right lateral ventricle. A focus of ventriculitis is a consideration but thought to be less likely. - Probable subacute infarct in the right occipitotemporal lobe. Note that this signal abnormality has a mildly rounded configuration and in the setting of sepsis a focus of infection remains in the differential diagnosis and CT follow-up is suggested to evaluate for evolution. - No mass effect, midline shift, or evidence of hydrocephalus. Disposition Summary Disposition Principal Diagnosis: B/l PE, Spine osteomyelitis, left knee spetic arthritis, multiple possible embolic infracts in brain; leg weakness Additional Diagnosis: HTN, pre-DM, TEN on CPAP (followed outpt w/ Dr. Seymour Guzmán), arthritis, Left fifth toe osteomyelitis s/p amputation, recurrence of Left foot wound s/p debridement of necrotic bone, recent admission in November (TX'ed in 12/14/17) for sepsis, 2/2 Left foot osteomyelitis s/p I&D and Left knee septic arthritis Discharge Disposition: other general hospital Discharge Instructions General Discharge Information Code Status: Full Code Patient's Diet: Regular Diet Patient's Activity: As tolerated Follow-Up Instructions/Appts: - Please continue your care at [facility]. Medications at Discharge Discharge Medications: Stop taking the following medications: Losartan/Hydrochlorothiazide (Losartan-Hctz 50-12.5 MG Tab) 50 MG-12.5 MG TABLET ORAL DAILY Qty = 90 Metformin HCl (Metformin HCl ER) 500 MG TAB.ER.24 ORAL DAILY Qty = 30 Metaxalone (Metaxalone) 800 MG TABLET ORAL EVERY 8 HOURS Qty = 30 Continue taking these medications: Aspirin (Ecotrin*) 81 MG TABLET.DR 1 Tablet ORAL DAILY Comments: Last Taken: 02/03/18 Time: 0900 Meloxicam (Mobic) 15 MG TABLET 1 Tablet ORAL DAILY Comments: NOT TAKEN WHILE IN HOSPITAL Ibuprofen (Ibuprofen) 800 MG TABLET 1 Tablet ORAL THREE TIMES DAILY Qty = 90 Start taking the following new medications: Cyclobenzaprine HCl (Cyclobenzaprine HCl) 5 MG TABLET 5 Milligram ORAL 2200 Qty = 30 No Refills Atorvastatin Calcium (Atorvastatin Calcium) 40 MG TABLET 40 Milligram ORAL 5 PM Qty = 30 No Refills Hydromorphone (Hydromorphone HCl 2 MG/Ml Amp) 2 MG/ML AMPUL 1 Milligram INTRAVEN EVERY 4 HOURS NEEDED as needed for PAIN SCALE 7-10 ( SEVERE) Qty = 1 No Refills Nystatin (Nystatin) 100,000 UNIT/GRAM CREAM..G. 1 Application On the skin THREE TIMES DAILY as needed for fungal infection Qty = 1 No Refills Oxacillin Sodium (Oxacillin Sodium) 2 GRAM VIAL 2 Gram INTRAVEN Q24H Qty = 1 No Refills Heparin Sod,Porcine/0.9 % NaCl (Heparin-Ns 25,000 Units/250 Ml) 25,000 UNIT/250 ML (100 UNIT/ML) IV.SOLN 25,000 Units INTRAVEN EVERY 10 HOURS Qty = 1 No Refills Copies To: Alessandra GRAJEDA,Mariluz Aparicio MD,Mariluz
[2018-02-03] MEDS ORDERED: CYCLOBENZAPRINE5 M2 PO (10:30)
--- NOTE | 2018-02-03 10:31 | Patient Discharge Instructions ---
Discharge Instructions General Discharge Information Special Instructions: - Please continue your care at [facility] Diet Continue normal diet: Yes Activity Full Activity/No Limits: No Activity Self Limited: Yes Acute Coronary Syndrome Inclusion Criteria At DC or during hospital stay patient has or had the following: ACS DIAGNOSIS No Discharge Core Measures Meds if any: Prescribed or Continued at Discharge Meds if any: NOT Prescribed or Continued at Discharge Congestive Heart Failure Inclusion Criteria At DC or during hospital stay patient has or had the following: CHF DIAGNOSIS No Discharge Core Measures Meds if any: Prescribed or Continued at Discharge Meds if any: NOT Prescribed or Continued at Discharge Cerebrovascular accident Inclusion Criteria At DC or during hospital stay patient has or had the following: CVA/TIA Diagnosis No Discharge Core Measures Meds if any: Prescribed or Continued at Discharge Meds if any: NOT Prescribed or Continued at Discharge Venous thromboembolism Inclusion Criteria VTE Diagnosis Yes VTE Type Pulmonary Embolism VTE Confirmed by (Test) CT CHEST ANGIOGRAM Discharge Core Measures - Per Current guidelines, there needs to be overlap - treatment for the first 5 days of Warfarin therapy. - If discharged on Warfarin prior to 5 days of - overlap therapy, the patient will need to be - assessed for post discharge needs including - *Post discharge parental anticoagulation - *Warfarin and/or parental anticoagulation education - *Follow up date to check INR post discharge At least 5 days overlap therapy as Inpatient No Meds if any: Prescribed or Continued at Discharge Warfarin No Overlap Therapy No Note: Overlap Therapy is Warfarin and Anticoagulant Meds if any: NOT Prescribed or Continued at Discharge No Warfarin d/t Medical Contraindication No Overlap Therapy d/t Medical Contraindication
[2018-02-03 12:47] VITALS: BP 160/80
[2018-02-03 14:11] LABS: PTT 84 SEC (25-37)
--- NOTE | 2018-02-03 14:58 | PN- Cardiology ---
Subjective Subjective: The patient is comfortable. No chest pain. No palpitations. No shortness of breath. No diaphoresis. He is planned for transfer to [facility]. Objective Vital Signs and I&Os Vital Signs Date Time Temp Pulse Resp B/P B/P Pulse O2 O2 Flow FiO2 Mean Ox Delivery Rate 02/03 1247 98.6 84 22 160/80 02/03 1200 97 Nasal 2.0L Cannula 02/03 0800 97 Nasal 2.0L Cannula 02/03 0800 98.6 84 22 160/80 97 Nasal 2.0L Cannula 02/03 0400 95 BIPAP 30% 02/03 0223 72 97 02/03 0013 68 98 02/03 0000 96 BIPAP 30% 02/03 0000 96.8 72 16 140/70 96 BIPAP 30% 02/02 2216 88 94 02/02 2000 97 Nasal 2.0L Cannula 02/02 1600 97.8 99 33 162/86 96 Nasal 2.0L Cannula 02/02 1600 96 Nasal 2.0L Cannula Intake & Output 02/03 1600 02/03 0800 02/03 0000 02/02 1600 02/02 0800 02/02 0000 Intake Total 600 1486 300 688 938 Output Total 800 2600 600 1400 Balance -200 -1114 300 88 -462 Intake, IV 600 1066 688 478 Intake, Oral 420 300 0 460 Number 0 0 Bowel Movements Output, Urine 800 2600 600 1400 Physical Exam: Gen: NAD HEENT: normal Lungs: clear to auscultation, normal resp. effort Heart: RRR, S1, S2, 1/6 systolic murmur Abdomen: Soft, nontender, no masses Extremities: No clubbing, cyanosis, or edema. Neuro: Alert and oriented x 3, cranial nerves intact Current Medications: Current Medications Sig/Shade Start time Last Medication Dose Route Stop Time Status Admin Acetaminophen 650 MG Q6P PRN 01/25 1830 AC PO Acetaminophen 1,000 MG Q6P PRN 01/25 183 AC IV Alprazolam 0.25 MG 02/02 AC 02/02 PO 02/09 2159 2155 Aspirin Buffered 81 MG DAILY 01/26 09 AC 02/03 PO 0844 Atorvastatin Calcium 40 MG 01/28 0315 AC 02/02 PO 1752 Cyclobenzaprine HCl 5 MG 02/02 AC 02/02 PO 2155 Heparin Sodium 25,000 UNIT Q10H 01/28 1445 AC 02/03 (Porcine) IV 0054 Sodium Chloride 500 ML Hydromorphone HCl 1 MG Q4P PRN 02/03 1300 AC IV Hydromorphone HCl 1 MG ONCE ONE 02/03 0945 DC 02/03 IV 02/03 0946 1026 Hydromorphone HCl 0.4 MG Q4P PRN 01/25 1830 DC 02/03 IV 0534 Magnesium Oxide 400 MG ONE ONE 02/03 1100 DC 02/03 PO 02/03 1101 1100 Nystatin 1 SANGEETA TID PRN 02/01 1815 AC TOP Oxacillin Sodium 2,000 MG Q4H 01/27 0845 AC 02/03 Sodium Chloride 100 ML IV 1230 Potassium Chloride 40 MEQ ONCE ONE 02/03 0830 DC 02/03 PO 02/03 0831 0846 Results Last 48 Hrs of Labs/Mics: Laboratory Tests 02/03/18 1242: APTT 84 H 02/03/18 0400: Anion Gap 5, Estimated GFR > 60, Glucose 91, Calcium 8.3 L, Phosphorus 4.7 H, Magnesium 1.9, Total Bilirubin 0.2, AST 15 L, ALT 19 L, Albumin 2.1 L, CBC w Diff NO MAN DIFF REQ, RBC 2.85 L, MCV 88.2, MCH 28.5, MCHC 32.3 L, RDW 17.2 H , MPV 8.3, Gran % 71.5, Lymphocytes % 15.7 L, Monocytes % 10.3 H, Eosinophils % 1.7, Basophils % 0.8, Absolute Granulocytes 5.9, Absolute Lymphocytes 1.3, Absolute Monocytes 0.9 H, Absolute Eosinophils 0.1, Absolute Basophils 0.1 02/03/18 0100: APTT 81 H 02/02/18 1810: APTT 53 H 02/02/18 0920: APTT 62 H 02/02/18 0307: Anion Gap 4 L, Estimated GFR > 60, Glucose 93, Calcium 8.1 L, Phosphorus 4.2, Magnesium 1.9, Total Bilirubin 0.2, AST 17, ALT 25, Albumin 2.0 L, APTT 92 H, CBC w Diff NO MAN DIFF REQ, RBC 2.94 L, MCV 88.6, MCH 28.2, MCHC 31.9 L, RDW 16.6 H, MPV 7.9, Gran % 71.0, Lymphocytes % 15.9 L, Monocytes % 10.0 H, Eosinophils % 2.1, Basophils % 1.0, Absolute Granulocytes 6.2, Absolute Lymphocytes 1.4, Absolute Monocytes 0.9 H, Absolute Eosinophils 0.2, Absolute Basophils 0.1, ESR [facility] 105 H 02/01/18 1515: APTT 81 H Assessment/Plan Assessment/Plan Assessment 1. hypercapnic respiratory failure 2. Bilateral pulmonary emboli with tachypnea, tach cardia, hypoxia, 3. Mildly elevated troponin 4. Abnormal EKG with ventricular ectopy 5. Leukocytosis 6. discitis 7. Hypokalemia 8. Self-limited episode of supraventricular tachycardia on telemetry 9. 0.5 0.4 cm vegetation noted on mitral valve on MARIAN. 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 Yes
[2018-02-03] MEDS ORDERED: OXACILLIN SODIUM2 G1 IV (15:51)
[2018-02-03] MEDS ORDERED: NYSTATIN15 G1 TOP (15:53)
[2018-02-03] MEDS ORDERED: HYDROMORPHO2 MG/1 M3 IV (15:53)
[2018-02-03] MEDS ORDERED: ATORVASTATIN CA40 M1 PO (15:53)
[2018-02-03] MEDS ORDERED: HEPARIN-NS25000 UNIT IV (15:53)
== END 2018-02-03 16:29 | disposition short-term general hospital (02) | DRG 175 ==
LOC: ERH 13:18 → CRI 15:36 → ERHI 15:36 → ENRESERV 16:11 → CANRESERV 16:11 → ENRESERV 17:52 → CRI 20:05
PROVIDERS: Emergency Medicine; Hospitalist; Internal Medicine; Internal Medicine Adolescent Medicine; Internal Medicine Critical Care Medicine; Internal Medicine Interventional Cardiology; Radiology Vascular & Interventional Radiology; Student in an Organized Health Care Education/Training Program
PROC: 5A09457 Assistance with Respiratory Ventilation, 24-96 Consecutive Hours, Continuous Positive Airway Pressure (ICD-10-PCS; 2018-01-25)
PROC: B24BZZ4 Ultrasonography of Heart with Aorta, Transesophageal (ICD-10-PCS; principal; 2018-01-30)
PROC: B5181ZA Fluoroscopy of Superior Vena Cava using Low Osmolar Contrast, Guidance (ICD-10-PCS; 2018-01-30)
PROC: 02HV33Z Insertion of Infusion Device into Superior Vena Cava, Percutaneous Approach (ICD-10-PCS; 2018-02-01)
DX: I26.99 Other pulmonary embolism without acute cor pulmonale (principal); I21.A1 Myocardial infarction type 2; I33.0 Acute and subacute infective endocarditis; I63.9 Cerebral infarction, unspecified; M46.26 Osteomyelitis of vertebra, lumbar region; J96.12 Chronic respiratory failure with hypercapnia; I47.1 Supraventricular tachycardia; M00.062 Staphylococcal arthritis, left knee; M46.46 Discitis, unspecified, lumbar region; I10 Essential (primary) hypertension; R73.03 Prediabetes; G47.33 Obstructive sleep apnea (adult) (pediatric); Z89.422 Acquired absence of other left toe(s); W18.30XA Fall on same level, unspecified, initial encounter; Y92.099 Unspecified place in other non-institutional residence as the place of occurrence of the external cause; Z79.84 Long term (current) use of oral hypoglycemic drugs; Z79.82 Long term (current) use of aspirin; E86.0 Dehydration; E87.6 Hypokalemia; R94.31 Abnormal electrocardiogram [ECG] [EKG]; I49.3 Ventricular premature depolarization; R31.9 Hematuria, unspecified; E66.9 Obesity, unspecified; Z68.35 Body mass index [BMI] 35.0-35.9, adult; M25.462 Effusion, left knee; B95.61 Methicillin susceptible Staphylococcus aureus infection as the cause of diseases classified elsewhere
CPT/HCPCS: 70551; 72141; 87075; CCU; 36415; 36592; 71046; 72100; 73562-LT; 73562-RT; 74177; 77001; 81001; 82436; 87040; 87147; 93005; 93010; 93306; 93325; 93925; 93970; 96360; 96361; 96374; 96375; 96376; 99291; C1769; J1642; J1644; J1885; J2001; Q9957